=== PATIENT | female | born 1965 | race Caucasian/White ===

== ENCOUNTER → 2018-10-11 | Outpatient (CLI) | payer BC ==
[2018-10-11 15:03] VITALS: BP 159/99; PULSE 53; RESP 16; TEMP 97.9; BMI 30.8
--- NOTE | 2018-10-11 16:43 | P.HPBAR ---
Bariatric H&P - History & Physicial H&P Date: 10/11/18 History & Physicial: Visit/CC: band again or revision Patient initial contact: Initial weight: 97.522 kg Initial weight in pounds: 215.00 Height: 5 ft 10 in Initial BMI: 30.8 Last weight: Current weight: 97.522 kg Current weight in pounds: 215.00 Current BMI: 30.8 [place] body weight (based on NIH guidelines): 68.039 kg Excess body weight loss: 0.0% The patient is a 53 year-old F who presents for Bariatric Assessment. Patient presents today for LAP-BAND consultation. She had her LAP-BAND removed approximately 5 years ago. She had a gastric polyps at that time. For unclear reasons patient not did not have her band replaced at the time of her LAP-BAND removal surgery. The patient states that she has had weight gain. Past Medical History Additional Past Medical History / Comment(s): migraines History of Any Multi-Drug Resistant Organisms: None Reported Past Surgical History: Bariatric Surgery, Cholecystectomy, Hysterectomy, Tonsillectomy Additional Past Surgical History / Comment(s): lap band surgery 2007 lap band removal 2008 due to prolapse Past Anesthesia/Blood Transfusion Reactions: Postoperative Nausea & Vomiting ( PONV) Smoking Status: Never smoker Surgical - Exam Vital Signs Temp Pulse Resp BP 97.9 F 53 L 16 159/99 10/11/18 14:51 10/11/18 14:51 10/11/18 14:51 10/11/18 14:51 - General well developed, no distress - Eyes PERRL - ENT normal pinna - Neck no masses - Respiratory normal expansion - Cardiovascular Rhythm: regular - Abdomen Abdomen: soft, non tender Bariatric Assessment & Plan Plan: Obesity with BMI 31. Patient will attempt to obtain insurance authorization for LAP-BAND surgery. Bariatric Checklist Checklist: Plan: Checklist: EGD: 1. Hiatal hernia: 2. H. Pylori: HgbA1c: Vitamin D: Smoking: Never smoker Primary care physician referral: Psychiatry clearance: Cardiology clearance: Sleep study: Diet journal: VTE risk score: VTE risk level: Rehab needs at discharge:
== END | disposition home or self-care (01) ==
LOC: BARWHC3 13:17
PROVIDERS: ATTEND Surgery
DX: E66.9 Obesity, unspecified (principal); Z98.84 Bariatric surgery status; Z90.49 Acquired absence of other specified parts of digestive tract; Z90.710 Acquired absence of both cervix and uterus; Z90.89 Acquired absence of other organs; Z68.31 Body mass index [BMI] 31.0-31.9, adult
CPT/HCPCS: 99211

== ENCOUNTER → 2018-12-06 | Outpatient (CLI) | payer BC ==
[2018-12-06 12:41] LABS: Basophils % (A) 1 %; Eosinophils # (A) 0.1 k/uL (0-0.7); Eosinophils % (A) 2 %; HCT 43.1 % (34.0-46.0); HGB 14.4 gm/dL (11.4-16.0); Lymphocytes # (A) 1.9 k/uL (1.0-4.8); Lymphocytes % (A) 31 %; MCH 31.4 pg (25.0-35.0); MCHC 33.5 g/dL (31.0-37.0); MCV 93.9 fL (80.0-100.0); Mean Platelet Volume 7.8; Monocytes # (A) 0.3 k/uL (0-1.0); Monocytes % (A) 4 %; Neutrophils # (A) 3.7 k/uL (1.3-7.7); Neutrophils % (A) 60 %; Platelet Count 222 k/uL (150-450); RBC 4.59 m/uL (3.80-5.40); RDW 11.9 % (11.5-15.5); WBC 6.1 k/uL (3.8-10.6)
[2018-12-06 13:05] LABS: ALT 27 U/L (9-52); AST 21 U/L (14-36); Albumin 4.7 g/dL (3.5-5.0); Alkaline Phosphatase 63 U/L (38-126); Anion Gap 7 mmol/L; Blood Urea Nitrogen 20 mg/dL (7-17); Calcium 9.6 mg/dL (8.4-10.2); Carbon Dioxide 28 mmol/L (22-30); Chloride 105 mmol/L (98-107); Glucose 91 mg/dL (74-99); Potassium 4.6 mmol/L (3.5-5.1); Sodium 140 mmol/L (137-145); Total Bilirubin 0.5 mg/dL (0.2-1.3); Total Protein 7.9 g/dL (6.3-8.2)
== END | disposition home or self-care (01) ==
LOC: LABPAT 11:38
PROVIDERS: ATTEND Surgery
DX: Z01.812 Encounter for preprocedural laboratory examination (principal)
CPT/HCPCS: 36415; 80053; 85025

== ENCOUNTER → 2018-12-06 | Outpatient (CLI) | payer BC ==
[2018-12-06 09:47] VITALS: BMI 31.4
[2018-12-06 13:58] VITALS: BP 136/74; PULSE 75; TEMP 98.3
--- NOTE | 2018-12-06 16:07 | P.HPBAR ---
Bariatric H&P - History & Physicial H&P Date: 12/06/18 History & Physicial: Visit/CC: review/sign consent (sleeve) scheduled for 12/24/18, obtain PAT lab order Patient initial contact: Initial weight: 97.522 kg Initial weight in pounds: 215.00 Height: 5 ft 10 in Initial BMI: 30.8 Last weight: Current weight: 99.337 kg Current weight in pounds: 219.00 Current BMI: 31.4 [place] body weight (based on NIH guidelines): 68.039 kg Excess body weight loss: The patient is a 53 year-old F who presents for Bariatric Assessment. The patient presents today for presurgical gastric sleeve consultation. She is currently scheduled for sleeve gastrectomy at the end of the month. Patient a previous history of LAP-BAND surgery. Her band was removed due to reflux and dysphagia. Patient has extremely good understanding of the sleeve gastrectomy. Went over the risks and benefits of procedure again. I discussed the possibility of conversion to open procedure and injury to the stomach liver spleen. I discussed with possibility of gastric staple line disruption. Patient's had some mild GERD. Past Medical History Additional Past Medical History / Comment(s): migraines History of Any Multi-Drug Resistant Organisms: None Reported Past Surgical History: Bariatric Surgery, Cholecystectomy, Hysterectomy, Tonsillectomy Additional Past Surgical History / Comment(s): lap band surgery 2007 lap band removal 2008 due to prolapse Past Anesthesia/Blood Transfusion Reactions: Postoperative Nausea & Vomiting ( PONV) Past Psychological History: No Psychological Hx Reported Smoking Status: Never smoker Past Alcohol Use History: Occasional Past Drug Use History: None Reported Surgical - Exam Vital Signs Temp Pulse BP 98.3 F 75 136/74 12/06/18 09:23 12/06/18 09:23 12/06/18 09:23 - General well developed, no distress - Eyes PERRL - ENT normal pinna - Neck no masses - Respiratory normal expansion - Cardiovascular Rhythm: regular - Abdomen Abdomen: soft, non tender Bariatric Assessment & Plan Plan: Patient will be scheduled for sleeve gastrectomy in several weeks. Her GERD is minimal be observed. Bariatric Checklist Checklist: Plan: Checklist: EGD: 1. Hiatal hernia: 2. H. Pylori: HgbA1c: Vitamin D: Smoking: Never smoker Primary care physician referral: Tim Lernero) Psychiatry clearance: Cardiology clearance: Sleep study: Diet journal: VTE risk score: VTE risk level: Rehab needs at discharge:
== END | disposition home or self-care (01) ==
LOC: BARWHC3 08:25
PROVIDERS: ATTEND Surgery
DX: E66.01 Morbid (severe) obesity due to excess calories (principal); Z68.31 Body mass index [BMI] 31.0-31.9, adult
CPT/HCPCS: 97804; 99211

== ENCOUNTER 2018-12-24 07:39 | Inpatient (IN) | payer BC ==
[~2018-12-24 07:39] MED LIST: DEXAMETHASONE SOD PHOSPHATE 10 MG/ML 1 ML VIAL IV ONE; HYDROmorphone 0.5 MG/0.5 ML SYRINGE IVP PRN; MIDAZOLAM 2 MG/2 ML VIAL IV PRN; ONDANSETRON 4 MG/2 ML VIAL IVP ONE; SCOPOLAMINE 1.5MG/72HR PATCH TRANSDERM ONE; ceFAZolin IN SWFI 2 GM/20 ML SYRINGE IVP ONE
[2018-12-24] MEDS: LACTATED RINGERS 1,000 ML IV SCH (08:48)
[2018-12-24] MEDS ORDERED: LIDOCAINE 1% 20 ML VIAL (10MG/ML) FOR IV START SQ ONE (08:48)
--- NOTE | 2018-12-24 10:36 | P.GSHP ---
History of Present Illness H&P Date: 12/24/18 Chief Complaint: Morbid obesity, history of dysphagia and GERD This is a 53-year-old female with previous history of LAP-BAND surgery. The patient had her LAP-BAND removed secondary to GERD and dysphagia. Patient presents today for conversion to sleeve gastrectomy. Past Medical History Additional Past Medical History / Comment(s): migraines, varicose veins, hx kidney stones History of Any Multi-Drug Resistant Organisms: None Reported Past Surgical History: Bariatric Surgery, Cholecystectomy, Hysterectomy, Tonsillectomy Additional Past Surgical History / Comment(s): lap band surgery 2007 lap band removal 2008 due to prolapse, I&D of cyst on genital area(not sure what type of infection), picc line/later removed Past Anesthesia/Blood Transfusion Reactions: Family History of Problems w/ Anesthesia, Motion Sickness, Postoperative Nausea & Vomiting (PONV) Additional Past Anesthesia/Blood Transfusion Reaction / Comment(s): mother-" hard time waking up" Smoking Status: Never smoker - Past Family History Mother Family Medical History: Cancer, Deep Vein Thrombosis (DVT) Medications and Allergies Home Medications Medication Instructions Recorded Confirmed Type Butalb/Asprin/Caff 50-325-40Mg 1 cap PO DIRECTED PRN 10/11/18 12/24/18 History [Fiorinal 50-325-40 MG] Estrogens, Conjugated [Premarin] 0.625 mg PO DAILY 12/21/18 12/24/18 History Allergies Allergy/AdvReac Type Severity Reaction Status Date / Time ciprofloxacin [From Cipro] Allergy Rash/Hives Verified 12/21/18 10:39 Penicillins Allergy Unknown Verified 12/21/18 10:39 Childhood Sulfa (Sulfonamide Allergy Rash/Hives Verified 12/21/18 10:39 Antibiotics) Surgical - Exam Vital Signs Temp Pulse Resp BP Pulse Ox 98.3 F 89 16 133/76 98 12/24/18 08:32 12/24/18 08:32 12/24/18 08:32 12/24/18 08:32 12/24/18 08:32 - General well developed, no distress - Eyes PERRL - ENT normal pinna - Neck no masses - Respiratory normal expansion - Cardiovascular Rhythm: regular - Abdomen Abdomen: soft, non tender Assessment and Plan Assessment: History of morbid obesity, GERD and,. Dysphagia. We'll perform a sleeve gastrectomy. Patient aware the risks are including gastric staple line disruption, bleeding and scarring.
[2018-12-24] MEDS ORDERED: HYDROmorphone (PF) 1 MG/ML ONE (11:05)
[2018-12-24] MEDS ORDERED: PROPOFOL 10 MG/ML 20 ML VIAL IV ONE (11:05)
[2018-12-24] MEDS ORDERED: KETAMINE 10 MG/ML 20 ML VIAL ONE (11:05)
[2018-12-24] MEDS ORDERED: LIDOCAINE 1% INJ 10MG/ML (20 ML MDV) ONE (11:05)
[2018-12-24] MEDS ORDERED: fentaNYL (PF) 50 MCG/ML 2 ML AMP ONE (11:05)
[2018-12-24] MEDS ORDERED: NEOSTIGMINE 1 MG/ML 10 ML VIAL ONE (11:05)
[2018-12-24] MEDS ORDERED: MIDAZOLAM 2 MG/2 ML VIAL ONE (11:05)
[2018-12-24] MEDS ORDERED: KETOROLAC 30 MG/ML 1 ML VIAL ONE (11:05)
[2018-12-24] MEDS ORDERED: GLYCOPYRROLATE 0.2 MG/ML 2 ML VIAL ONE (11:05)
[2018-12-24] MEDS ORDERED: ROCURONIUM BROMIDE 10 MG/ML 10 ML VIAL IV ONE (11:05)
[2018-12-24] MEDS ORDERED: SUCCINYLCHOLINE CHLORIDE 100 MG/5 ML SYR IV ONE (11:05)
[2018-12-24] MEDS ORDERED: BUPIVACAIN-EPI 0.25%-1:200,000 30 ML VIAL SQ ONE (11:29)
[2018-12-24] MEDS ORDERED: ONDANSETRON 4 MG/2 ML VIAL IVP PRN (12:34)
[2018-12-24] MEDS ORDERED: NALOXONE 0.4 MG/ML 1 ML VIAL IV PRN (12:34)
--- NOTE | 2018-12-24 12:34 | P.OP ---
Date of Procedure: 12/24/18 Preoperative Diagnosis: History of morbid obesity GERD Dysphagia Postoperative Diagnosis: Morbid obesity GERD dysphagia Procedure(s) Performed: Laparoscopic sleeve gastrectomy Anesthesia: MARIA T Surgeon: Colby Moore Estimated Blood Loss (ml): 10 Pathology: other (Stomach) Condition: stable Disposition: PACU Description of Procedure: The patient was placed on the operating room table in the supine position. She received general anesthesia and then was placed in dorsal lithotomy position. Her abdomen was prepped and draped in sterile fashion. The skin incision sites were anesthetized 1% local Xylocaine. And then the skin was incised with an 11 blade in the left lateral position. Using a blade less trocar under direct visualization the peritoneal cavity was entered. The abdomen was insufflated and then a 5 mm laparoscope was placed into the peritoneal cavity. A 5 mm trocar was placed in the right epigastric, and right lateral position. A 15 mm trocar was placed in the supra-umbilical position and another 5 mm trocar was placed in the left lateral position. The left lateral lobe of the liver was retracted. The stomach was visualized. The patient a previous LAP-BAND. This had been previously removed. The anterior gastric wall plication was taken down with sharp dissection. The adhesions to the stomach and liver were taken and sharp dissection. The graft The greater curvature of the stomach was then dissected using the Harmonic scissors. The dissection occurred approximately 5 cm from the pylorus to the level of the left kaylene. There was no hiatal hernia seen. At this point a 40-Japanese bougie dilator was placed the oropharynx and passed into the esophagus and into the stomach by the DATA ENTRY ASSISTANT. The sleeve gastrectomy was performed by using the powered echelon stapler with a seam guard buttress material. Sequential firings of the stapler were performed. The gastric remnant was then brought out through the 15 mm trocar site. The dilator was withdrawn. And a orogastric tube was replaced into the stomach. The stomach was insufflated with 200 mL of methylene blue normal saline. There was no evidence of extravasation. The abdomen was irrigated there is no bleeding seen. The Usman-Elfego device was used to close the 15 mm trocar with 0 Vicryl. Skin was closed with interrupted 3-0 Monocryl sutures once the trochars withdrawn. Dermabond dressing was applied. Patient was sent to recovery in stable condition.
[2018-12-24] MEDS ORDERED: ONDANSETRON 4 MG/2 ML VIAL IVP ONE (13:04)
[2018-12-24] MEDS ORDERED: diphenhydrAMINE 50 MG/ML 1 ML VIAL IVP ONE (13:30)
[2018-12-24] MEDS ORDERED: LACTATED RINGERS 1,000 ML IV ONE ×2 (13:35)
[2018-12-24] MEDS ORDERED: PROMETHAZINE INJ 25 MG/ML 1 ML VIAL IVPB ONE (13:44)
[2018-12-24] MEDS ORDERED: TRIMETHOBENZAMIDE 100 MG/ML 2 ML VIAL IM STA (14:50)
--- NOTE | 2018-12-24 15:03 | P.CONS ---
History of Present Illness - Reason for Consult Consult date: 12/24/18 arthritis Requesting physician: Colby Moore - Chief Complaint weight gain - History of Present Illness Patient is a 53yo CF with a hx of arthritis, severe GERD, migraine KELLEY, and obesity here for elective sleeve gastrectomy. She tolerated the procedure well but has been having significant post-op nausea and vomiting. Patient seen and examined at bedside. She was just admitted to her room after sleep gastrectomy. She complains of persistent nausea and vomiting despite administration of Zofran, Benadryl, and scopolamine. She also complains of 10 out of 10 esophageal pain and states it feels like it is twisting. She denies any abdominal pain, cramping, or bloating. She denies any chest pain or shortness of breath. Prior to surgery she was in her normal state of health. She has not had any recent cough, cold, fever, flu, nausea, vomiting, diarrhea, or dysuria. She follows with Dr. Hardwick out of [facility]. She denies any recent changes in medications. She had a lap band procedure approximately 10 years ago and had to have reversal secondary to severe GERD and difficulty swallowing. She works for [employer]. Review of Systems Pertinent positives and negatives as discussed in HPI, a complete review of systems was performed and all other systems are negative. Past Medical History Additional Past Medical History / Comment(s): migraines, varicose veins, hx kidney stones, history of difficulty with postoperative nausea and vomiting History of Any Multi-Drug Resistant Organisms: None Reported Past Surgical History: Bariatric Surgery, Cholecystectomy, Hysterectomy, Tonsillectomy Additional Past Surgical History / Comment(s): lap band surgery 2007 lap band removal 2008 due to prolapse, I&D of cyst on genital area(not sure what type of infection), picc line/later removed Past Anesthesia/Blood Transfusion Reactions: Family History of Problems w/ Anesthesia, Motion Sickness, Postoperative Nausea & Vomiting (PONV) Additional Past Anesthesia/Blood Transfusion Reaction / Comm: mother-"hard time waking up" Smoking Status: Never smoker Past Alcohol Use History: Occasional Past Drug Use History: None Reported Additional History: Works for [employer]. Lives with her spouse. No assistive devices. - Past Family History Mother Family Medical History: Cancer, Deep Vein Thrombosis (DVT) Medications and Allergies Home Medications Medication Instructions Recorded Confirmed Type Butalb/Asprin/Caff 50-325-40Mg 1 cap PO DIRECTED PRN 10/11/18 12/24/18 History [Fiorinal 50-325-40 MG] Estrogens, Conjugated [Premarin] 0.625 mg PO DAILY 12/21/18 12/24/18 History Allergies Allergy/AdvReac Type Severity Reaction Status Date / Time ciprofloxacin [From Cipro] Allergy Rash/Hives Verified 12/24/18 13:34 Penicillins Allergy Unknown Verified 12/24/18 13:34 Childhood Sulfa (Sulfonamide Allergy Rash/Hives Verified 12/24/18 13:34 Antibiotics) Physical Exam Osteopathic Statement: *. No significant issues noted on an osteopathic structural exam other than those noted in the History and Physical/Consult. Vitals: Vital Signs Temp Pulse Resp BP Pulse Ox 12/24/18 13:54 88 16 151/76 95 12/24/18 13:39 86 16 155/63 95 12/24/18 13:24 89 16 150/89 96 12/24/18 13:09 90 16 152/86 96 12/24/18 12:54 95 16 164/89 96 12/24/18 12:39 97.1 F L 109 H 16 178/92 99 12/24/18 08:32 98.3 F 89 16 133/76 98 Intake and Output 12/23/18 12/24/18 12/24/18 22:59 06:59 14:59 Intake Total 1300 Output Total 5 Balance 1295 Intake: IV 1300 Output: Estimated Blood Loss 5 Other: Weight 96.162 kg General: Ill appearing, mild distress secondary to pain and nausea, appears at stated age, obese Derm: no unusual rashes/lesions no unusual ecchymoses, warm, dry Head: atraumatic, normocephalic, symmetric Eyes: EOMI, no lid lag, anicteric sclera, pupils equal round reactive to light ENT: Nose and ears atraumatic, no thrush, no pharyngeal erythema Neck: No thyromegaly, no cervical lymphadenopathy, trachea midline, supple Mouth: no lip lesion, mucus membranes dry Cardiovascular: S1-S2 tachy, no murmur, positive posterior tibial pulse bilateral, no edema, capillary refill less than 2 seconds Lungs: Decreased breath sounds bilateral, no rhonchi, no rales , no accessory muscle use Abdominal: soft, tender to palpation diffusely, no guarding, no appreciable organomegaly, normal bowel sounds Ext: no gross muscle atrophy, muscle strength 5 out of 5 in all 4 extremities grossly, no contractures, Neuro: CN II-XI grossly intact, light touch intact all 4 extremities, finger to nose within normal limits, Psych: Lethargic, oriented, appropriate affect Results Comments: Preoperative lab work reviewed. White blood cell count 6.1, hemoglobin 14.4, hematocrit 43.1, platelets 222, sodium 140, potassium 4.6, chloride 105, CO2 28 , anion gap 7, BUN 20, creatinine 0.7, glucose 91 Assessment and Plan Assessment: Postoperative nausea and vomiting -Tigan 1 -If does not help contact surgeon for further orders, could consider ativan trial if patient is not to sleepy -Has tried 8 mg of Zofran, Benadryl, Decadron, and scopolamine patch Hx of migraine headaches - hold fioricet due to need of pain medication Arthritis - frequent ambulation Status post sleeve gastrectomy secondary to obesity -At this point in time patient will be hypercoagulable secondary to surgery was hold Premarin tablets -Management per primary team Thank you for allowing us to participate in the care of this patient. We will follow daily. Do not hesitate to contact us with questions. Someone can be reached from the [facility] hospitalist group at all hours of the day at [phone]. Patient is on the red team [phone]. DVT: lovenox
[2018-12-24] MEDS: SIMETHICONE 40 MG/0.6 ML DROPS 2,000 MG/30 ML BOTTLE PO PRN (15:50)
[2018-12-24] MEDS: HYOSCYAMINE ORAL DROPS 1.875 MG/15 ML BOTTLE PO PRN (15:52)
[2018-12-24] MEDS: ALBUTEROL NEBULIZED 2.5 MG/3 ML INHALATION SCH ×2 (16:51→19:56)
[2018-12-24] MEDS: KETOROLAC 30 MG/ML 1 ML VIAL IVP SCH ×2 (17:43→23:21)
[2018-12-24] MEDS: METOCLOPRAMIDE 5 MG/ML 2 ML VIAL IVP PRN (18:28)
[2018-12-24] MEDS: 0.9% NACL WITH KCL 20 MEQ/L 1,000 ML IV SCH ×2 (20:00→20:15)
[2018-12-24] MEDS: HYDROmorphone 1 MG/ML 1 ML SYRINGE IVP PRN (20:08)
[2018-12-24] MEDS: ENOXAPARIN 40 MG/0.4 ML SYRINGE SQ SCH (20:08)
[2018-12-24] MEDS: ONDANSETRON 4 MG/2 ML VIAL IVP PRN (21:50)
[2018-12-25] MEDS: ONDANSETRON 4 MG/2 ML VIAL IVP PRN ×3 (00:51→21:43)
[2018-12-25] MEDS: HYOSCYAMINE ORAL DROPS 1.875 MG/15 ML BOTTLE PO PRN ×2 (00:51→10:00)
[2018-12-25] MEDS: SIMETHICONE 40 MG/0.6 ML DROPS 2,000 MG/30 ML BOTTLE PO PRN (00:52)
[2018-12-25] MEDS: 0.9% NACL WITH KCL 20 MEQ/L 1,000 ML IV SCH (03:56)
[2018-12-25] MEDS: KETOROLAC 30 MG/ML 1 ML VIAL IVP SCH ×3 (05:00→21:43)
[2018-12-25] MEDS: LACTATED RINGERS 1,000 ML IV SCH (07:08)
[2018-12-25] MEDS: ALBUTEROL NEBULIZED 2.5 MG/3 ML INHALATION SCH ×3 (08:14→21:31)
[2018-12-25 09:00] LABS: Basophils % (A) 0 %; Eosinophils # (A) 0.1 k/uL (0-0.7); Eosinophils % (A) 1 %; HCT 38.4 % (34.0-46.0); HGB 12.8 gm/dL (11.4-16.0); Lymphocytes # (A) 0.8 k/uL (1.0-4.8); Lymphocytes % (A) 8 %; MCH 31.5 pg (25.0-35.0); MCHC 33.2 g/dL (31.0-37.0); MCV 94.9 fL (80.0-100.0); Mean Platelet Volume 7.6; Monocytes # (A) 0.4 k/uL (0-1.0); Monocytes % (A) 4 %; Neutrophils # (A) 8.6 k/uL (1.3-7.7); Neutrophils % (A) 86 %; Platelet Count 242 k/uL (150-450); RBC 4.05 m/uL (3.80-5.40)
--- NOTE | 2018-12-25 09:00 | FL ---
EXAMINATION TYPE: FL UGI DATE OF EXAM ORDERED: 12/25/2018 8:32 AM HISTORY: Post op bariatric surgery. COMPARISON: None. FINDINGS: The patient drank contrast with ease. There was a high-grade obstruction at the level of t he GE junction. No contrast seen distal to this. No significant free air was seen. No extravasation w as identified. IMPRESSION: HIGH-GRADE GE JUNCTION OBSTRUCTION.
[2018-12-25 09:15] LABS: Anion Gap 8 mmol/L; Blood Urea Nitrogen 13 mg/dL (7-17); Calcium 9.1 mg/dL (8.4-10.2); Carbon Dioxide 20 mmol/L (22-30); Chloride 113 mmol/L (98-107); Magnesium 1.9 mg/dL (1.6-2.3); Phosphorus 2.7 mg/dL (2.5-4.5); Potassium 4.7 mmol/L (3.5-5.1); Sodium 141 mmol/L (137-145)
[2018-12-25] MEDS ORDERED: TRIMETHOBENZAMIDE 100 MG/ML 2 ML VIAL IM STA (09:41)
[2018-12-25] MEDS ORDERED: LACTATED RINGERS 1,000 ML IV ONE (10:00)
[2018-12-25] MEDS: ENOXAPARIN 40 MG/0.4 ML SYRINGE SQ SCH ×2 (10:00→21:43)
--- NOTE | 2018-12-25 11:53 | P.PN ---
Subjective Progress Note Date: 12/25/18 Principal diagnosis: Morbid obesity, sleeve gastrectomy The patient underwent sleeve gastrectomy yesterday. She had significant postoperative nausea. She had some emesis. She still has continued complaints of nausea. Patient had her esophagram performed today which shows evidence of high-grade obstruction near the GE junction. This is most likely due to postoperative edema. She states her pain is a 4 out of 10. Objective - Vital Signs Vital signs: Vital Signs Temp 98.4 F 12/24/18 23:00 Pulse 97 12/25/18 02:56 Resp 16 12/24/18 23:00 BP 150/77 12/25/18 02:56 Pulse Ox 100 12/25/18 03:21 Intake & Output 12/24/18 12/25/18 12/25/18 18:59 06:59 18:59 Intake Total 1300 1500 Output Total 5 2400 Balance 1295 -900 Weight 96.162 kg Intake: IV 1300 Intake, IV Titration 1500 Amount 0.9% NaCl with KCl 20 Meq 1500 /l 1,000 ml @ 150 mls/hr IV .Q6H40M [facility] Rx#: [id number] Output: Urine 1800 Uretheral (Nagy) 1200 Post Void Residual 600 Estimated Blood Loss 5 - Constitutional General appearance: Present: no acute distress - Gastrointestinal Gastrointestinal Comment(s): Abdomen soft. Incision sites are clean dry tach. - Labs CBC & Chem 7: 12/25/18 08:41 12/25/18 08:41 Labs: Abnormal Lab Results - Last 24 Hours (Table) 12/25/18 12/25/18 Range/Units 08:41 08:41 Neutrophils # 8.6 H (1.3-7.7) k/uL Lymphocytes # 0.8 L (1.0-4.8) k/uL Chloride 113 H (98-107) mmol/L Carbon Dioxide 20 L (22-30) mmol/L Assessment and Plan Assessment: Status post sleeve stricture. Patient's esophagram today shows evidence of a fairly high-grade obstruction near the GE junction this is thought to be due to mainly postoperative edema. Her sleeve gastrectomy was performed over a 40- Italian bougie dilator. The patient will remain nothing by mouth today. She'll undergo repeat esophagram tomorrow.
--- NOTE | 2018-12-25 11:53 | P.PN ---
Subjective Progress Note Date: 12/25/18 Principal diagnosis: nausea Patient is a 53yo CF with a hx of arthritis, severe GERD, migraine KELLEY, and obesity here for elective sleeve gastrectomy. She tolerated the procedure well but has been having significant post-op nausea and vomiting. On 12/25 Upper GI shows high grade obstruction near GE junction likely due to edema per surgery. Patient seen and examined at bedside. Still with nausea and vomiting. Tigan seemed to help the most yesterday and we will try another dose today. C/O retrosternal pain that feels like a tightness and squeezing. No shortness of breath or chest pain. Has not passed any gas. Objective - Vital Signs Vital signs: Vital Signs Temp 98.4 F 12/24/18 23:00 Pulse 97 12/25/18 02:56 Resp 16 12/24/18 23:00 BP 150/77 12/25/18 02:56 Pulse Ox 100 12/25/18 03:21 Intake & Output 12/24/18 12/25/18 12/25/18 18:59 06:59 18:59 Intake Total 1300 1500 Output Total 5 2400 Balance 1295 -900 Weight 96.162 kg Intake: IV 1300 Intake, IV Titration 1500 Amount 0.9% NaCl with KCl 20 Meq 1500 /l 1,000 ml @ 150 mls/hr IV .Q6H40M [facility] Rx#: [id number] Output: Urine 1800 Uretheral (Nagy) 1200 Post Void Residual 600 Estimated Blood Loss 5 - Exam General: ill appearing, mild distress, diaphoretic appears at stated age Derm: warm, dry Head: atraumatic, normocephalic, symmetric Eyes: EOMI, no lid lag, anicteric sclera Mouth: no lip lesion, mucus membranes moist Cardiovascular: S1S2 reg, no murmur, positive posterior tibial pulse bilateral, Lungs: decreased bs bilateral, no rhonchi, no rales , no accessory muscle use Abdominal: soft, nontender to palpation, no guarding, no appreciable organomegaly Ext: no gross muscle atrophy, no edema, no contractures Neuro: CN II-XI grossly intact, no focal neuro deficits Psych: Alert, oriented, appropriate affect - Labs CBC & Chem 7: 12/25/18 08:41 12/25/18 08:41 Labs: Abnormal Lab Results - Last 24 Hours (Table) 12/25/18 12/25/18 Range/Units 08:41 08:41 Neutrophils # 8.6 H (1.3-7.7) k/uL Lymphocytes # 0.8 L (1.0-4.8) k/uL Chloride 113 H (98-107) mmol/L Carbon Dioxide 20 L (22-30) mmol/L Assessment and Plan Assessment: Postoperative nausea and vomiting -Tigan 1 again today -Zofran doesn't seem to be helping per patient, could also try ativan - IVF 1L bolus ordered per surgery Elevated BP without diagnosis of HTN - follow BP - likely related to post op pain/discomfort. If remains elevates once pain and nausea improved then could consider treatment with medication - will need to follow with PCP post discharge for further recs. Hx of migraine headaches - hold fioricet due to need of pain medication Arthritis - frequent ambulation Status post sleeve gastrectomy secondary to obesity -At this point in time patient will be hypercoagulable secondary to surgery was hold Premarin tablets -Management per primary team DVT: lovenox
[2018-12-26] MEDS: KETOROLAC 30 MG/ML 1 ML VIAL IVP SCH ×3 (00:41→13:27)
[2018-12-26] MEDS: METOCLOPRAMIDE 5 MG/ML 2 ML VIAL IVP PRN ×3 (00:42→19:03)
[2018-12-26] MEDS: ONDANSETRON 4 MG/2 ML VIAL IVP PRN ×3 (03:37→15:01)
[2018-12-26] MEDS: HYDROmorphone 1 MG/ML 1 ML SYRINGE IVP PRN ×3 (03:37→20:32)
[2018-12-26] MEDS: LACTATED RINGERS 1,000 ML IV SCH (06:16)
[2018-12-26 08:30] LABS: Anion Gap 6 mmol/L; Blood Urea Nitrogen 15 mg/dL (7-17); Calcium 8.8 mg/dL (8.4-10.2); Carbon Dioxide 22 mmol/L (22-30); Chloride 115 mmol/L (98-107); Glucose 113 mg/dL (74-99); Magnesium 2.2 mg/dL (1.6-2.3); Potassium 4.6 mmol/L (3.5-5.1); Sodium 143 mmol/L (137-145)
[2018-12-26] MEDS: ALBUTEROL NEBULIZED 2.5 MG/3 ML INHALATION SCH ×4 (08:50→20:11)
[2018-12-26] MEDS: ENOXAPARIN 40 MG/0.4 ML SYRINGE SQ SCH ×2 (09:38→20:32)
--- NOTE | 2018-12-26 12:42 | P.PN ---
Subjective Progress Note Date: 12/26/18 Principal diagnosis: nausea Patient is a 53yo CF with a hx of arthritis, severe GERD, migraine KELLEY, and obesity here for elective sleeve gastrectomy. She tolerated the procedure well but has been having significant post-op nausea and vomiting. On 12/25 Upper GI shows high grade obstruction near GE junction likely due to edema per surgery. Patient seen and examined at bedside. Nausea and vomiting are getting better. Still spitting up every time she has ice chips. No real abdominal pain but still feeling fullness in the retrosternal area. Still no flatus or BM since surgery Objective - Vital Signs Vital signs: Vital Signs Temp 98.8 F 12/26/18 09:49 Pulse 69 12/26/18 09:49 Resp 16 12/26/18 09:51 BP 165/84 12/26/18 09:49 Pulse Ox 96 12/26/18 09:49 Intake & Output 12/25/18 12/26/18 12/26/18 18:59 06:59 18:59 Intake Total 1931.2 Balance 1931.2 Intake: Intake, IV Titration 1811.2 Amount 0.9% NaCl with KCl 20 Meq 800 /l 1,000 ml @ 100 mls/hr IV .BY DURATION [facility] Rx#: [id number] Mvi, Adult No.4 with Vit 1011.2 K 10 ml Thiamine 100 mg Folic Acid 1 mg In 0.9% NaCl with KCl 20 Meq/l 1, 000 ml @ 100 mls/hr IV . BY DURATION [facility] Rx#: [id number] Oral 120 Other: Voiding Method Toilet Toilet # Voids 2 - Exam General: non toxic, no distress, appears at stated age Derm: warm, dry Head: atraumatic, normocephalic, symmetric Eyes: EOMI, no lid lag, anicteric sclera Mouth: no lip lesion, mucus membranes moist Cardiovascular: S1S2 reg, no murmur, positive posterior tibial pulse bilateral, Lungs: CTA bilateral, no rhonchi, no rales , no accessory muscle use Abdominal: soft, nontender to palpation, no guarding, no appreciable organomegaly Ext: no gross muscle atrophy, no edema, no contractures Neuro: CN II-XI grossly intact, no focal neuro deficits Psych: Alert, oriented, appropriate affect - Labs CBC & Chem 7: 12/25/18 08:41 12/26/18 06:41 Labs: Abnormal Lab Results - Last 24 Hours (Table) 12/26/18 Range/Units 06:41 Chloride 115 H (98-107) mmol/L Glucose 113 H (74-99) mg/dL Assessment and Plan Assessment: Postoperative nausea and vomiting, improving -zofran as needed Elevated BP without diagnosis of HTN - follow BP - likely related to post op pain/discomfort. - will need to follow with PCP post discharge for further recs. Hx of migraine headaches - hold fioricet due to need of pain medication Arthritis - frequent ambulation Status post sleeve gastrectomy secondary to obesity -At this point in time patient will be hypercoagulable secondary to surgery was hold Premarin tablets -Management per primary team DVT: lovenox
[2018-12-26] MEDS: DEXAMETHASONE SOD PHOSPHATE 4 MG/ML 1 ML VIAL IV SCH ×3 (13:34→20:32)
--- NOTE | 2018-12-26 14:54 | P.PN ---
Progress Note - Text Progress Note Date: 12/26/18 The patient states she feels better today. Her nausea is improved. She has had some ice chips. On exam her vital signs are stable. Her abdomen soft. The patient was scheduled for an esophagram this morning. However the radiologist was ill and was unable to come in and perform the esophagram. I performed a limited esophagram this afternoon. The patient still has significant obstruction just below the GE junction. There was a small wisp of contrast seen entering the sleeve. However this was quite delayed. The patient has postoperative edema of her gastric sleeve. She'll be placed on Decadron 4 mg IV every 4 hours around the clock. We will repeat her esophagram in the a.m.
--- NOTE | 2018-12-26 15:28 | FL ---
SINGLE CONTRAST ESOPHAGRAM AND UPPER GI EXAMINATION: CLINICAL HISTORY: 53-year-old female status post sleeve gastrectomy, follow-up exam. TECHNIQUE: Single contrast exam performed with 1 ounce Isovue-370 contrast. Total images: 3 Total fluoroscopy time: 1 minute 17 seconds. FINDINGS: The patient swallowed Gastrografin without difficulty or delay. Only a total of 1 ounce was ingested and was seen to prominently pulled in the lower esophagus. Only trickle flow is seen traversing the G E junction into the stomach. The trickle flow is minimally improved from 12/25/2018. No overall limite d progress of contrast limits assessment for leak. IMPRESSION: Persistent severe obstruction at the GE junction. Only 1 ounce of contrast was ingested and remained above the GE junction. Only trace trickle flow is noted into the stomach which translates as some min imal improvement from the exam performed yesterday. Note that the 3 provided images are interpreted. Real-time fluoroscopy was performed by the surgeon.
[2018-12-27] MEDS: METOCLOPRAMIDE 5 MG/ML 2 ML VIAL IVP PRN (00:26)
[2018-12-27] MEDS: DEXAMETHASONE SOD PHOSPHATE 4 MG/ML 1 ML VIAL IV SCH ×6 (00:27→20:41)
[2018-12-27] MEDS: HYDROmorphone 1 MG/ML 1 ML SYRINGE IVP PRN ×3 (00:27→16:24)
[2018-12-27] MEDS: LACTATED RINGERS 1,000 ML IV SCH (05:33)
[2018-12-27] MEDS: ONDANSETRON 4 MG/2 ML VIAL IVP PRN (05:53)
[2018-12-27] MEDS: ALBUTEROL NEBULIZED 2.5 MG/3 ML INHALATION SCH ×4 (07:39→19:57)
[2018-12-27 08:57] VITALS: BMI 30.4
--- NOTE | 2018-12-27 10:58 | P.PN ---
Subjective Progress Note Date: 12/27/18 HISTORY OF PRESENT ILLNESS: 53-year-old female who underwent laparoscopic sleeve gastrectomy. The patient states her pain is tolerable at this time. She does complain of some nausea this morning. She is on IV Decadron for edema of her sleeve. She is scheduled for repeat esophagram this morning. PHYSICAL EXAM: VITAL SIGNS: Currently stable. GENERAL: Well-developed in no acute distress. HEENT: No sclera icterus. Extraocular movements grossly intact. Moist buccal mucosa. Head is atraumatic, normocephalic. Hears conversational speech. No nasal drainage. NECK: Supple without lymphadenopathy. CHEST: Non-labored respirations and equal bilateral excursions. CARDIOVASCULAR: Regular rate with regular rhythm. Palpable 2+ radial pulses. ABDOMEN: Soft. Nondistended. Incisions clean and dry without drainage. MUSCULOSKELETAL: No clubbing, cyanosis or edema. NEUROLOGIC: No focal or lateralizing signs. Cranial nerves II through XII grossly intact. PSYCH: Appropriate affect. Alert and oriented to person, place and time. SKIN: Well perfused. Good skin turgor. ASSESSMENT: 1. Status post laparoscopic sleeve gastrectomy PLAN: 1. Continue ice chips at this time 2. Continue IV Decadron 3. Patient scheduled for repeat esophagram this morning. Await results Nurse practitioner note has been reviewed by physician. Signing provider agrees with the documented findings, assessment, and plan of care. Objective - Vital Signs Vital signs: Vital Signs Temp 99.0 F 12/27/18 10:54 Pulse 58 L 12/27/18 10:54 Resp 16 12/27/18 10:54 BP 147/81 12/27/18 10:54 Pulse Ox 92 L 12/27/18 10:54 Intake & Output 12/26/18 12/27/18 12/27/18 18:59 06:59 18:59 Intake Total 2010. 800 Balance 800 Weight 96.162 kg Intake: Intake, IV Titration 800 Amount 0.9% NaCl with KCl 20 Meq 1000 /l 1,000 ml @ 100 mls/hr IV .BY DURATION [facility] Rx#: [id number] 0.9% NaCl with KCl 20 Meq 800 /l 1,000 ml @ 150 mls/hr IV .Q6H40M [facility] Rx#: [id number] Mvi, Adult No.4 with Vit 1011.2 K 10 ml Thiamine 100 mg Folic Acid 1 mg In 0.9% NaCl with KCl 20 Meq/l 1, 000 ml @ 100 mls/hr IV . BY DURATION [facility] Rx#: [id number] Other: Voiding Method Toilet # Voids 2 2 - Labs CBC & Chem 7: 12/25/18 08:41 12/26/18 06:41
[2018-12-27] MEDS: ENOXAPARIN 40 MG/0.4 ML SYRINGE SQ SCH ×2 (11:01→20:41)
--- NOTE | 2018-12-27 12:19 | P.PN ---
Subjective Progress Note Date: 12/27/18 Principal diagnosis: Nausea and vomiting. Patient was seen and examined. No acute events overnight. Not passing gas and no bowel movement since surgery. Improved nausea and no vomiting. Taking sips from a Popsicle this morning. Recently underwent upper GI series. Objective - Vital Signs Vital signs: Vital Signs Temp 99.0 F 12/27/18 10:54 Pulse 58 L 12/27/18 10:54 Resp 16 12/27/18 10:54 BP 147/81 12/27/18 10:54 Pulse Ox 92 L 12/27/18 10:54 Intake & Output 12/26/18 12/27/18 12/27/18 18:59 06:59 18:59 Intake Total 2010.2 800 Balance 800 Weight 96.162 kg Intake: Intake, IV Titration 800 Amount 0.9% NaCl with KCl 20 Meq 1000 /l 1,000 ml @ 100 mls/hr IV .BY DURATION [facility] Rx#: [id number] 0.9% NaCl with KCl 20 Meq 800 /l 1,000 ml @ 150 mls/hr IV .Q6H40M [facility] Rx#: [id number] Mvi, Adult No.4 with Vit 1011.2 K 10 ml Thiamine 100 mg Folic Acid 1 mg In 0.9% NaCl with KCl 20 Meq/l 1, 000 ml @ 100 mls/hr IV . BY DURATION [facility] Rx#: [id number] Other: Voiding Method Toilet # Voids 2 2 - Exam General: [non toxic], [no distress], [appears at stated age] Derm: [warm], [dry] Head: [atraumatic], [normocephalic], [symmetric] Eyes: [EOMI], [no lid lag], [anicteric sclera] Mouth: [no lip lesion], [mucus membranes moist] Cardiovascular: [S1S2 reg], [no murmur] Lungs: [CTA bilateral], [no rhonchi, no rales] , [no accessory muscle use] Abdominal: [soft], [ nontender to palpation], [no guarding], [no appreciable organomegaly] Ext: [no gross muscle atrophy], [no edema], [no contractures] Neuro: [no focal neuro deficits] Psych: [Alert], [oriented], [appropriate affect] - Labs CBC & Chem 7: 12/25/18 08:41 12/26/18 06:41 Assessment and Plan Assessment: Assessment and Plan 1. Post operative nausea and vomiting 2. Elevated BP 3. Migraines 4. Arthritis 5. s/p gastric sleeve 1. Likely due to high-grade obstruction near the GE junction, likely due to postoperative edema. Started on Decadron formoterol grams IV every 4 hours. Continue Reglan IV as needed, Zofran IV as needed for nausea or vomiting. Simethicone for bloating. Clear liquid diet and advance as tolerated. Will follow-up per GI barium swallow this morning. Follow surgical recommendations. 2. BP 147/81. Monitor vitals, adjust medications as necessary. 3. Stable. Pain management with [place], Dilantin IV as needed. 4. Stable. Pain management as above. 5. Management as per primary team. Patient shows slight improvement today, continues to be nauseous. Upper GI series performed. Will follow general surgery recommendations. Thank you for this consult, please call with additional questions.
--- NOTE | 2018-12-27 12:27 | FL ---
Sleeve gastrectomy esophogram. EXAMINATION TYPE: FL UGI w esophagus DATE OF EXAM: 12/27/2018 11:56 AM CLINICAL HISTORY: 3 days post op gastric sleeve, 25ml isovue 370 used, 1min 10sec fl time COMPARISON: 12/26/2018 Sleeve gastrectomy esophagram and upper GI was performed following the ingestion of Isovue. Esophagea l peristalsis and motility are within normal limits. Noted are changes of sleeve gastrectomy. There is edema along the proximal component of the gastric sleeve however contrast is now identified within the distal stomach and duodenum. No evidence for leak. IMPRESSION: Mild delay in transit through the gastric sleeve with persistent edema about the proximal component. Contrast is now identified within the distal stomach and duodenum.
[2018-12-27] MEDS: HYDROcodone/APAP 15 ML SOLUTION PO PRN (20:42)
[2018-12-28] MEDS: HYDROmorphone 1 MG/ML 1 ML SYRINGE IVP PRN ×4 (01:08→20:29)
[2018-12-28] MEDS: DEXAMETHASONE SOD PHOSPHATE 4 MG/ML 1 ML VIAL IV SCH ×6 (01:09→20:34)
[2018-12-28] MEDS: LACTATED RINGERS 1,000 ML IV SCH (04:57)
[2018-12-28] MEDS: ALBUTEROL NEBULIZED 2.5 MG/3 ML INHALATION SCH ×4 (07:09→19:16)
[2018-12-28] MEDS: ENOXAPARIN 40 MG/0.4 ML SYRINGE SQ SCH ×2 (08:22→20:28)
--- NOTE | 2018-12-28 12:41 | P.PN ---
Subjective Progress Note Date: 12/28/18 HISTORY OF PRESENT ILLNESS: 53-year-old female who underwent laparoscopic sleeve gastrectomy. Patient is able to tolerate clear liquids but decreased amounts. Unable to drink 8oz in an hour. PHYSICAL EXAM: VITAL SIGNS: Currently stable. GENERAL: Well-developed in no acute distress. HEENT: No sclera icterus. Extraocular movements grossly intact. Moist buccal mucosa. Head is atraumatic, normocephalic. Hears conversational speech. No nasal drainage. NECK: Supple without lymphadenopathy. CHEST: Non-labored respirations and equal bilateral excursions. CARDIOVASCULAR: Regular rate with regular rhythm. Palpable 2+ radial pulses. ABDOMEN: Soft. Nondistended. Incisions clean and dry without drainage. MUSCULOSKELETAL: No clubbing, cyanosis or edema. NEUROLOGIC: No focal or lateralizing signs. Cranial nerves II through XII grossly intact. PSYCH: Appropriate affect. Alert and oriented to person, place and time. SKIN: Well perfused. Good skin turgor. ASSESSMENT: 1. Status post laparoscopic sleeve gastrectomy PLAN: 1. Continue clear liquid diet 2. Continue IV Decadron 3. Hold discharge today. Will re-evaluate patient tomorrow. Nurse practitioner note has been reviewed by physician. Signing provider agrees with the documented findings, assessment, and plan of care. Objective - Vital Signs Vital signs: Vital Signs Temp 99.4 F 12/28/18 08:22 Pulse 64 12/28/18 11:06 Resp 16 12/28/18 08:22 BP 178/80 12/28/18 08:22 Pulse Ox 94 L 12/28/18 08:22 Intake & Output 12/27/18 12/28/18 12/28/18 18:59 06:59 18:59 Intake Total 1251.2 1000 Balance 1251.2 1000 Weight 96.162 kg Intake: Intake, IV Titration 1011.2 1000 Amount 0.9% NaCl with KCl 20 Meq 1000 /l 1,000 ml @ 100 mls/hr IV .BY DURATION [facility] Rx#: [id number] Mvi, Adult No.4 with Vit 1011.2 K 10 ml Thiamine 100 mg Folic Acid 1 mg In 0.9% NaCl with KCl 20 Meq/l 1, 000 ml @ 100 mls/hr IV . BY DURATION [facility] Rx#: [id number] Oral 240 Other: # Voids 2 - Labs CBC & Chem 7: 12/25/18 08:41 12/26/18 06:41
--- NOTE | 2018-12-28 14:11 | P.PN ---
Subjective Progress Note Date: 12/28/18 Principal diagnosis: Medical management Patient seen and examined. No acute events overnight. Patient reports being able to hold down some clear liquids. She does complain of foaming at the mouth at times. She denies any nausea or any episodes of vomiting. Esophagram done yesterday shows residual mild delay in transit through the gastric sleeve with persistent edema. She has no other complaints today. Objective - Vital Signs Vital signs: Vital Signs Temp 99.4 F 12/28/18 08:22 Pulse 64 12/28/18 11:06 Resp 16 12/28/18 08:22 BP 178/80 12/28/18 08:22 Pulse Ox 94 L 12/28/18 08:22 Intake & Output 12/27/18 12/28/18 12/28/18 18:59 06:59 18:59 Intake Total 1251.2 1000 Balance 1251.2 1000 Weight 96.162 kg Intake: Intake, IV Titration 1011.2 1000 Amount 0.9% NaCl with KCl 20 Meq 1000 /l 1,000 ml @ 100 mls/hr IV .BY DURATION [facility] Rx#: [id number] Mvi, Adult No.4 with Vit 1011.2 K 10 ml Thiamine 100 mg Folic Acid 1 mg In 0.9% NaCl with KCl 20 Meq/l 1, 000 ml @ 100 mls/hr IV . BY DURATION [facility] Rx#: [id number] Oral 240 Other: # Voids 2 - Exam General: [non toxic], [no distress], [appears at stated age] Derm: [warm], [dry] Head: [atraumatic], [normocephalic], [symmetric] Eyes: [EOMI], [no lid lag], [anicteric sclera] Mouth: [no lip lesion], [mucus membranes moist] Cardiovascular: [S1S2 reg], [no murmur] Lungs: [CTA bilateral], [no rhonchi, no rales] , [no accessory muscle use] Abdominal: [soft], [ nontender to palpation], [no guarding], [no appreciable organomegaly] Ext: [no gross muscle atrophy], [no edema], [no contractures] Neuro: [no focal neuro deficits] Psych: [Alert], [oriented], [appropriate affect] - Labs CBC & Chem 7: 12/25/18 08:41 12/26/18 06:41 Assessment and Plan Assessment: Assessment and Plan 1. Post operative nausea and vomiting 2. Elevated BP 3. Migraines 4. Arthritis 5. s/p gastric sleeve 1. Likely due to high-grade obstruction near the GE junction, likely due to postoperative edema. Continue Decadron formoterol grams IV every 4 hours. Continue Reglan IV as needed, Zofran IV as needed for nausea or vomiting. Simethicone for bloating. Clear liquid diet and advance as tolerated. Follow surgical recommendations. 2. BP 178/80. Monitor vitals, adjust medications as necessary. 3. Stable. Pain management with [place], Dilantin IV as needed. 4. Stable. Pain management as above. 5. Management as per primary team. Slight improvement. Will follow general surgery recommendations. Thank you for this consult, please call with additional questions.
[2018-12-28] MEDS: SODIUM CHLORIDE 0.9% 1,000 ML IV SCH (20:28)
[2018-12-29] MEDS: DEXAMETHASONE SOD PHOSPHATE 4 MG/ML 1 ML VIAL IV SCH ×7 (00:38→23:20)
[2018-12-29] MEDS: SIMETHICONE 40 MG/0.6 ML DROPS 2,000 MG/30 ML BOTTLE PO PRN (05:10)
[2018-12-29] MEDS: HYOSCYAMINE ORAL DROPS 1.875 MG/15 ML BOTTLE PO PRN (05:10)
[2018-12-29] MEDS: SODIUM CHLORIDE 0.9% 1,000 ML IV SCH ×2 (05:43→14:39)
[2018-12-29] MEDS: ALBUTEROL NEBULIZED 2.5 MG/3 ML INHALATION SCH ×4 (08:30→19:13)
[2018-12-29] MEDS: LACTATED RINGERS 1,000 ML IV SCH (08:55)
[2018-12-29] MEDS: METOCLOPRAMIDE 5 MG/ML 2 ML VIAL IVP PRN ×2 (08:57→18:45)
[2018-12-29] MEDS: ENOXAPARIN 40 MG/0.4 ML SYRINGE SQ SCH ×2 (08:57→20:13)
--- NOTE | 2018-12-29 10:45 | P.PN ---
Subjective Progress Note Date: 12/29/18 Principal diagnosis: Nausea or vomiting, postoperative management Patient was seen and examined. No acute events overnight. Patient states that her condition has been unchanged. Continues to spit up, experienced nausea. No clear episode of emesis. She denies any shortness of breath, chest pain or palpitations. Blood pressure elevated with SBP in the 180s this morning. Patient reports esophageal pain, 5 out of 10 in severity. Patient reports never being diagnosed with high blood pressure. Objective - Vital Signs Vital signs: Vital Signs Temp 98.9 F 12/29/18 07:00 Pulse 72 12/29/18 08:40 Resp 18 12/29/18 07:00 BP 187/91 12/29/18 07:00 Pulse Ox 92 L 12/29/18 07:00 Intake & Output 12/28/18 12/29/18 12/29/18 18:59 06:59 18:59 Intake Total 457 Balance 457 Intake: Oral 457 Other: # Voids 2 - Exam General: [non toxic], [no distress], [appears at stated age] Derm: [warm], [dry] Head: [atraumatic], [normocephalic], [symmetric] Eyes: [EOMI], [no lid lag], [anicteric sclera] Mouth: [no lip lesion], [mucus membranes moist] Cardiovascular: [S1S2 reg], [no murmur] Lungs: [CTA bilateral], [no rhonchi, no rales] , [no accessory muscle use] Abdominal: [soft], [ nontender to palpation], [no guarding], [no appreciable organomegaly] Ext: [no gross muscle atrophy], [no edema], [no contractures] Neuro: [no focal neuro deficits] Psych: [Alert], [oriented], [appropriate affect] - Labs CBC & Chem 7: 12/25/18 08:41 12/26/18 06:41 Assessment and Plan Assessment: Assessment and Plan 1. Post operative nausea and vomiting 2. Elevated BP 3. Migraines 4. Arthritis 5. s/p gastric sleeve 1. Likely due to high-grade obstruction near the GE junction, likely due to postoperative edema. Continue Decadron 4 grams IV every 4 hours. Continue Reglan IV as needed, Zofran IV as needed for nausea or vomiting. Simethicone for bloating. Clear liquid diet and advance as tolerated. Follow surgical recommendations. 2. BP 187/91. Possibly related to pain, never officially diagnosed. Start HCTZ 12.5 mg PO daily. Ensure adequate pain management. Monitor vitals, adjust medications as necessary. 3. Stable. Pain management with [place], Dilaudid IV as needed. 4. Stable. Pain management as above. 5. Management as per primary team. Minimal improvement. Will follow general surgery recommendations. Start HCTZ for elevated BP and titrate. Thank you for this consult, please call with additional questions.
--- NOTE | 2018-12-29 11:04 | P.PN ---
Subjective Progress Note Date: 12/29/18 HISTORY OF PRESENT ILLNESS: 53-year-old female who underwent laparoscopic sleeve gastrectomy. Patient states she is having more difficulty this morning with liquids. Patient states she only had a couple of sips from her breakfast tray. She describes a feeling of tightness. She remains on IV Decadron and Reglan. PHYSICAL EXAM: VITAL SIGNS: Currently stable. GENERAL: Well-developed in no acute distress. HEENT: No sclera icterus. Extraocular movements grossly intact. Moist buccal mucosa. Head is atraumatic, normocephalic. Hears conversational speech. No nasal drainage. NECK: Supple without lymphadenopathy. CHEST: Non-labored respirations and equal bilateral excursions. CARDIOVASCULAR: Regular rate with regular rhythm. Palpable 2+ radial pulses. ABDOMEN: Soft. Nondistended. Incisions clean and dry without drainage. MUSCULOSKELETAL: No clubbing, cyanosis or edema. NEUROLOGIC: No focal or lateralizing signs. Cranial nerves II through XII grossly intact. PSYCH: Appropriate affect. Alert and oriented to person, place and time. SKIN: Well perfused. Good skin turgor. ASSESSMENT: 1. Status post laparoscopic sleeve gastrectomy 2. Postoperative edema with obstruction at GE junction PLAN: 1. Continue clear liquid diet 2. Continue IV Decadron and Reglan 3. Repeat esophagram Nurse practitioner note has been reviewed by physician. Signing provider agrees with the documented findings, assessment, and plan of care. Objective - Vital Signs Vital signs: Vital Signs Temp 98.9 F 12/29/18 07:00 Pulse 72 12/29/18 08:40 Resp 18 12/29/18 07:00 BP 187/91 12/29/18 07:00 Pulse Ox 92 L 12/29/18 07:00 Intake & Output 12/28/18 12/29/18 12/29/18 18:59 06:59 18:59 Intake Total 457 Balance 457 Intake: Oral 457 Other: # Voids 2 - Labs CBC & Chem 7: 12/25/18 08:41 12/26/18 06:41
--- NOTE | 2018-12-29 11:47 | FL ---
EXAMINATION TYPE: FL UGI w esophagus DATE OF EXAM: 12/29/2018 COMPARISON: NONE HISTORY: 53-year-old female with difficulty swallowing, status post gastrectomy 5 days ago with persi stent vomiting. Total fluoroscopy time: 2 minutes 10 seconds. Total images: 30. TECHNIQUE: A single contrast esophagram and contrast UGI study is performed with 50 mL Isovue-370. FINDINGS: The patient ingested a total of 1.0-1.5 ounces of oral contrast with hesitation. There is prominent p ooling of contrast in the lower esophagus and eventual intermittent passage across the GE junction. T here is no abnormal twisting of the gastric sleeve and once contrast has traversed the GE junction, t here is no evidence for obstruction along the sleeve. No evidence for leak. At 10 minutes, approximat rolanda half of the contrast has passed and half remains in the distal esophagus. We note small bilateral pleural effusions with bibasilar opacities. IMPRESSION: 1. New small bilateral pleural effusions with adjacent atelectasis and/or consolidation. 2. Persistent delay in passage of contrast across the level of the GE junction. The patient ingested a total of 1.0-1.5 ounces, and 10 minutes after the exam, radiograph shows half of the contrast remai marisa in the distal esophagus and half progressed to the jejunum. 3. No abnormal twisting of the gastric sleeve. No evidence for obstruction at the level of the sleeve . No evidence for leak.
[2018-12-29] MEDS: HYDROCHLOROTHIAZIDE 12.5 MG CAP PO SCH (12:05)
[2018-12-29] MEDS: HYDROmorphone 1 MG/ML 1 ML SYRINGE IVP PRN (12:13)
[2018-12-29 15:20] LABS: INR 1.1 (<1.2); Prothrombin Time 11.2 sec (9.0-12.0)
[2018-12-29 15:21] LABS: Ionized Calcium 4.8 mg/dL (4.5-5.3)
[2018-12-29 15:27] LABS: ALT 43 U/L (9-52); AST 22 U/L (14-36); Albumin 3.9 g/dL (3.5-5.0); Alkaline Phosphatase 45 U/L (38-126); Anion Gap 9 mmol/L; Blood Urea Nitrogen 16 mg/dL (7-17); Carbon Dioxide 24 mmol/L (22-30); Chloride 104 mmol/L (98-107); Glucose 134 mg/dL (74-99); Magnesium 1.9 mg/dL (1.6-2.3); Phosphorus 2.9 mg/dL (2.5-4.5); Sodium 137 mmol/L (137-145); Total Bilirubin 0.6 mg/dL (0.2-1.3); Total Protein 6.4 g/dL (6.3-8.2); Triglycerides 117 mg/dL (<150)
[2018-12-29] MEDS ORDERED: MVI, ADULT NO.4 WITH VIT K 10 ML, TRACE (CONC-1ML/DOSE) 1 ML in AMINO ACID 4.25%-D10W+L... IV SCH ×3 (16:00)
[2018-12-29] MEDS ORDERED: FAT EMULSION 20% 250 ML IV SCH (16:00)
[2018-12-29] MEDS ORDERED: INSULIN ASPART 100 UNIT/ML 1 ML 10 ML VIAL SQ SCH (16:00)
[2018-12-29] MEDS: HYDROcodone/APAP 15 ML SOLUTION PO PRN (21:01)
[2018-12-30 00:29] LABS: Glucose,Whole Blood 147 mg/dL (75-99)
[2018-12-30] MEDS: INSULIN ASPART 100 UNIT/ML 1 ML 10 ML VIAL SQ SCH ×2 (00:56→06:07)
[2018-12-30] MEDS: HYDROcodone/APAP 15 ML SOLUTION PO PRN (04:25)
[2018-12-30 05:59] LABS: Glucose,Whole Blood 133 mg/dL (75-99)
[2018-12-30] MEDS: DEXAMETHASONE SOD PHOSPHATE 4 MG/ML 1 ML VIAL IV SCH ×2 (06:07→10:53)
[2018-12-30] MEDS: LACTATED RINGERS 1,000 ML IV SCH (06:09)
[2018-12-30] MEDS: SODIUM CHLORIDE 0.9% 1,000 ML IV SCH (06:09)
[2018-12-30 07:54] VITALS: BP 164/87; TEMP 98.1
[2018-12-30] MEDS: HYDROCHLOROTHIAZIDE 12.5 MG CAP PO SCH (07:54)
[2018-12-30 08:10] LABS: Anion Gap 9 mmol/L; Blood Urea Nitrogen 15 mg/dL (7-17); Calcium 9.6 mg/dL (8.4-10.2); Carbon Dioxide 26 mmol/L (22-30); Chloride 102 mmol/L (98-107); Glucose 125 mg/dL (74-99); Magnesium 1.9 mg/dL (1.6-2.3); Phosphorus 3.2 mg/dL (2.5-4.5); Potassium 3.8 mmol/L (3.5-5.1); Sodium 137 mmol/L (137-145)
[2018-12-30] MEDS: ALBUTEROL NEBULIZED 2.5 MG/3 ML INHALATION SCH ×3 (08:35→16:08)
[2018-12-30] MEDS ORDERED: 1: MVI, ADULT NO.4 WITH VIT K 10 ML, TRACE (CONC-1ML/DOSE) 1 ML in AMINO ACID 4.25%-D10W IV SCH ×3 (09:00)
[2018-12-30] MEDS ORDERED: LIDOCAINE 1% INJ 10MG/ML (20 ML MDV) ONE (09:18)
[2018-12-30] MEDS ORDERED: LIDOCAINE 1% INJ 10MG/ML (20 ML MDV) SQ ONE (09:19)
--- NOTE | 2018-12-30 10:06 | IR ---
PICC LINE PLACEMENT: HISTORY: Infection requiring long-term antibiotic therapy PROCEDURE: Ultrasound and fluoroscopic guidance of PICC line placement. COMPLICATIONS: None ANESTHESIA: 1. 1% Lidocaine locally. FINDINGS/TECHNIQUE: The procedure was explained to the patient. The risks, complications, benefits and alternatives were discussed and any questions were answered. Informed consent was obtained. The patient was placed supine on the fluoroscopic table and prepped and draped in the usual sterile fash ion. Utilizing a 21 gauge needle and sonographic and fluoroscopic guidance, access in the left basi lic vein was achieved and there is placement of a 0.018 guidewire. The vein is patent. A 4-F sheath was placed over the guidewire. The guidewire and dilator were removed and a 4-F. PICC line was plac ed through the sheath with the tip at the level of the SVC. The sheath was removed, the catheter was flushed and sutured into position. The patient was stable throughout the procedure and remained sta ble upon discharge from the Department of Radiology. The vein puncture was patent under ultrasound. A villarreal scale image was obtained to document patency of the vein punctured. All elements of the maximal barrier technique were utilized. FLUOROSCOPY TIME: 0.2 minutes of fluoroscopy and one image submitted IMPRESSION: Successful PICC line placement under ultrasound and fluoroscopic guidance.
[2018-12-30] MEDS: HYDROmorphone 1 MG/ML 1 ML SYRINGE IVP PRN (10:53)
[2018-12-30] MEDS: ENOXAPARIN 40 MG/0.4 ML SYRINGE SQ SCH (10:54)
[2018-12-30 11:31] LABS: Glucose,Whole Blood 130 mg/dL (75-99)
[2018-12-30 12:10] VITALS: RESP 10
[2018-12-30 12:21] VITALS: PULSE 64
--- NOTE | 2018-12-30 14:28 | P.DS ---
Providers Date of admission: 12/24/18 07:39 Expected date of discharge: 12/30/18 Attending physician: Colby Moore Consults: 12/24/18 12:34 Consult Physician Routine Consulting Provider: Antionette Nolan Consult Reason/Comments: Medical management Do you want consulting provider notified?: Yes Primary care physician: Tim [facility] [place] Hospital Course: 53-year-old female who underwent laparoscopic sleeve gastrectomy. Patient developed obstruction at the GE junction postoperatively secondary to postoperative edema. She was placed on IV Decadron. She underwent a repeat esophagram which showed persistently and passage of contrast across level of the GE junction. The patient has been tolerating very small amount of liquids. Dr. Moore recommended PICC line and TPN. Patient agreeable. She is stable for discharge home today with PICC line. Home care arranged per case management for delivery of TPN. See EMR for further hospital details. Discharge Diagnosis: 1. Status post laparoscopic sleeve gastrectomy 2. Postoperative edema with obstruction at GE junction Nurse practitioner note has been reviewed by physician. Signing provider agrees with the documented findings, assessment, and plan of care. Plan - Discharge Summary Discharge Rx Participant: Yes New Discharge Prescriptions: New HYDROcodone/APAP [Carson Elixir 7.5-325Mg/15Ml] 30 ml PO Q6HR PRN #360 ml PRN Reason: Severe Pain Simethicone 40 mg/0.6 ml Drops [Mylicon Drops] 40 mg PO Q6HR PRN #30 ml PRN Reason: Bloating No Action Butalb/Asprin/Caff 50-325-40Mg [Fiorinal 50-325-40 MG] 1 cap PO DIRECTED PRN PRN Reason: migraines Estrogens, Conjugated [Premarin] 0.625 mg PO DAILY Discharge Medication List Butalb/Asprin/Caff 50-325-40Mg [Fiorinal 50-325-40 MG] 1 cap PO DIRECTED PRN 10/11/18 [History] Estrogens, Conjugated [Premarin] 0.625 mg PO DAILY 12/21/18 [History] HYDROcodone/APAP [[place] Elixir 7.5-325Mg/15Ml] 30 ml PO Q6HR PRN #360 ml [Rx] Simethicone 40 mg/0.6 ml Drops [Mylicon Drops] 40 mg PO Q6HR PRN #30 ml [Rx] Follow up Appointment(s)/Referral(s): [facility], [NON-STAFF] - [facility], [REFERRING] - Tim Aragon DO [Primary Care Provider] - 1 Week Colby Moore MD [STAFF PHYSICIAN] - 01/10/19 (please schedule appt for patient) Activity/Diet/Wound Care/Special Instructions: TPN will be delivered by [facility] at 6:00p.m. Patient is covered at 90% after her deductible is met ($214 left as of 12/29/18). No driving while taking [place] No lifting over 10 pounds You may shower. No soaking or tub baths Very light activity until you are reevaluated at your follow up appointment with your surgeon
--- NOTE | 2018-12-30 14:38 | P.PN ---
Subjective Progress Note Date: 12/30/18 Principal diagnosis: Nausea vomiting Patient was seen and examined. No acute events overnight. Patient reports improvement in her nausea and vomiting. She is being able to tolerate by mouth since yesterday. She denies any chest pain, shortness of breath or palpitations. She is looking for to going home. Objective - Vital Signs Vital signs: Vital Signs Temp 98.1 F 12/30/18 07:52 Pulse 64 12/30/18 12:21 Resp 10 L 12/30/18 12:07 BP 164/87 12/30/18 07:52 Pulse Ox 97 12/30/18 08:36 Intake & Output 12/29/18 12/30/18 12/30/18 18:59 06:59 18:59 Intake Total 600 790 120 Balance 600 790 120 Weight 96.162 kg 98.5 kg Intake: Intake, IV Titration 600 Amount Sodium Chloride 0.9% 1, 600 000 ml @ 75 mls/hr IV . [id number] [facility] Rx#:[id number] Oral 790 120 Other: Voiding Method Toilet # Voids 2 1 - Exam General: [non toxic], [no distress], [appears at stated age] Derm: [warm], [dry] Head: [atraumatic], [normocephalic], [symmetric] Eyes: [EOMI], [no lid lag], [anicteric sclera] Mouth: [no lip lesion], [mucus membranes moist] Cardiovascular: [S1S2 reg], [no murmur] Lungs: [CTA bilateral], [no rhonchi, no rales] , [no accessory muscle use] Abdominal: [soft], [ nontender to palpation], [no guarding], [no appreciable organomegaly] Ext: [no gross muscle atrophy], [no edema], [no contractures] Neuro: [no focal neuro deficits] Psych: [Alert], [oriented], [appropriate affect] - Labs CBC & Chem 7: 12/25/18 08:41 12/30/18 07:24 Labs: Abnormal Lab Results - Last 24 Hours (Table) 12/29/18 12/30/18 12/30/18 Range/Units 14:52 00:28 05:56 Glucose 134 H (74-99) mg/dL POC Glucose (mg/dL) 147 H 133 H (75-99) mg/dL 12/30/18 12/30/18 Range/Units 07:24 11:30 Glucose 125 H (74-99) mg/dL POC Glucose (mg/dL) 130 H (75-99) mg/dL Assessment and Plan Assessment: Assessment and Plan 1. Post operative nausea and vomiting 2. Elevated BP 3. Migraines 4. Arthritis 5. s/p gastric sleeve 1. Likely due to high-grade obstruction near the GE junction, likely due to postoperative edema. Barium swallow yesterday shows bilateral small pleural effusions with persistent delay in passage of contrast. Continue Decadron 4 grams IV every 4 hours. Continue Reglan IV as needed, Zofran IV as needed for nausea or vomiting. Simethicone for bloating. Clear liquid diet and advance as tolerated. Follow surgical recommendations. 2. BP 164/87. Possibly related to pain, never officially diagnosed. Continue HCTZ 12.5 mg PO daily. Ensure adequate pain management. Monitor vitals, adjust medications as necessary. 3. Stable. Pain management with [place], Dilaudid IV as needed. 4. Stable. Pain management as above. 5. Management as per primary team. Great improvement not tolerating by mouth, likely discharge today. Start HCTZ for elevated BP and titrate. We will discontinue fluids as this is probably the cause of her bilateral pleural effusions. Thank you for this consult, please call with additional questions.
== END 2018-12-30 15:50 | disposition home health service (06) | DRG 620 ==
LOC: 2ORMAIN 07:39 → 4SSUR 13:29
PROVIDERS: ADMIT Surgery; ATTEND Surgery
PROC: 0DB64Z3 Excision of Stomach, Percutaneous Endoscopic Approach, Vertical (ICD-10-PCS; principal; 2018-12-24 09:40)
PROC: 3E0336Z Introduction of Nutritional Substance into Peripheral Vein, Percutaneous Approach (ICD-10-PCS; 2018-12-25)
PROC: 02HV33Z Insertion of Infusion Device into Superior Vena Cava, Percutaneous Approach (ICD-10-PCS; 2018-12-30)
DX: E66.01 Morbid (severe) obesity due to excess calories (principal); J90 Pleural effusion, not elsewhere classified; K22.2 Esophageal obstruction; R60.9 Edema, unspecified; G43.909 Migraine, unspecified, not intractable, without status migrainosus; K21.9 Gastro-esophageal reflux disease without esophagitis; M19.90 Unspecified osteoarthritis, unspecified site; I83.90 Asymptomatic varicose veins of unspecified lower extremity; R03.0 Elevated blood-pressure reading, without diagnosis of hypertension; R11.2 Nausea with vomiting, unspecified; Z87.442 Personal history of urinary calculi; Z90.710 Acquired absence of both cervix and uterus; Z90.49 Acquired absence of other specified parts of digestive tract; Z98.84 Bariatric surgery status; Z79.899 Other long term (current) drug therapy; Z88.0 Allergy status to penicillin; Z88.2 Allergy status to sulfonamides; Z80.9 Family history of malignant neoplasm, unspecified; Z82.49 Family history of ischemic heart disease and other diseases of the circulatory system
CPT/HCPCS: 36573; 74240; 80048; 80051; 80053; 82040; 82310; 82330; 82565; 83735; 84100; 84478; 84520; 85025; 85610; 88307; 94640; 94760

== ENCOUNTER 2018-12-31 08:55 | Inpatient (IN) | payer BC ==
[2018-12-31] MEDS ORDERED: FAMOTIDINE 20 MG/2 ML VIAL IV STA (09:11)
[2018-12-31] MEDS ORDERED: SODIUM CHLORIDE 0.9% 1,000 ML IV STA (09:11)
[2018-12-31] MEDS ORDERED: ONDANSETRON 4 MG/2 ML VIAL IVP STA ×2 (09:11→10:53)
[2018-12-31] MEDS ORDERED: SODIUM CHLORIDE 0.9% 500 ML 500 ML IV STA (09:11)
--- NOTE | 2018-12-31 09:17 | ED ---
General Adult HPI - General Chief complaint: Shortness of Breath Stated complaint: Dyspnea Time Seen by Provider: 12/31/18 09:02 Source: patient, family, RN notes reviewed Mode of arrival: wheelchair Limitations: no limitations - History of Present Illness Initial comments: Patient is a pleasant 53-year-old female presenting to the emergency Department with complaints of shortness of breath. Onset was mild over the last couple of days, more so today. did speak with Dr. Jason who recommended the patient come to the emergency department. Patient was just discharged from the hospital yesterday following gastric stapling. Patient has not been eating or drinking well. Patient does admit to feeling nauseated. No leg pain or leg swelling. Patient does have some discomfort in the lower sternal region. - Related Data Home Medications Medication Instructions Recorded Confirmed Butalb/Asprin/Caff 50-325-40Mg 1 cap PO DIRECTED PRN 10/11/18 12/31/18 [Fiorinal 50-325-40 MG] Estrogens, Conjugated [Premarin] 0.625 mg PO DAILY 12/21/18 12/31/18 Previous Rx's Medication Instructions Recorded HYDROcodone/APAP [[place] Elixir 30 ml PO Q6HR PRN #360 ml 12/30/18 7.5-325Mg/15Ml] Simethicone 40 mg/0.6 ml Drops 40 mg PO Q6HR PRN #30 ml 12/30/18 [Mylicon Drops] Allergies Allergy/AdvReac Type Severity Reaction Status Date / Time ciprofloxacin [From Cipro] Allergy Rash/Hives Verified 12/24/18 13:34 Penicillins Allergy Unknown Verified 12/24/18 13:34 Childhood Sulfa (Sulfonamide Allergy Rash/Hives Verified 12/24/18 13:34 Antibiotics) Review of Systems ROS Statement: Those systems with pertinent positive or pertinent negative responses have been documented in the HPI. ROS Other: All systems not noted in ROS Statement are negative. Constitutional: Denies: fever Eyes: Denies: eye pain ENT: Denies: ear pain Respiratory: Reports: cough (Clear sputum), dyspnea Cardiovascular: Reports: as per HPI Endocrine: Denies: fatigue Gastrointestinal: Reports: nausea Genitourinary: Denies: dysuria Musculoskeletal: Denies: back pain Skin: Denies: rash Neurological: Denies: headache Past Medical History Additional Past Medical History / Comment(s): migraines, varicose veins, hx kidney stones, history of difficulty with postoperative nausea and vomiting History of Any Multi-Drug Resistant Organisms: None Reported Past Surgical History: Bariatric Surgery, Cholecystectomy, Hysterectomy, Tonsillectomy Additional Past Surgical History / Comment(s): lap band surgery 2008 lap band removal 2009 due to prolapse, I&D of cyst on genital area(not sure what type of infection), picc line/later removed Past Anesthesia/Blood Transfusion Reactions: Family History of Problems w/ Anesthesia, Motion Sickness, Postoperative Nausea & Vomiting (PONV) Additional Past Anesthesia/Blood Transfusion Reaction / Comment(s): mother-" hard time waking up" Past Psychological History: No Psychological Hx Reported Smoking Status: Never smoker Past Alcohol Use History: Occasional Past Drug Use History: None Reported - Past Family History Mother Family Medical History: Cancer, Deep Vein Thrombosis (DVT) Father Family Medical History: Unable to Obtain General Exam Limitations: no limitations General appearance: alert Head exam: Present: atraumatic Eye exam: Present: normal appearance, PERRL ENT exam: Present: normal oropharynx Neck exam: Present: normal inspection Respiratory exam: Present: normal lung sounds bilaterally Cardiovascular Exam: Present: regular rate, normal rhythm Expanded Peripheral pulses: 2+: Posterior Tibialis (R), Posterior Tibialis (L), Dorsalis Pedis (R), Dorsalis Pedis (L) GI/Abdominal exam: Present: soft. Absent: distended, tenderness (Mild diffuse tenderness) Extremities exam: Present: normal inspection. Absent: pedal edema, calf tenderness Back exam: Present: normal inspection Neurological exam: Present: alert Psychiatric exam: Present: normal affect, normal mood Skin exam: Present: normal color Course Vital Signs 12/31/18 08:57 Temperature 98.3 F Pulse Rate 73 Respiratory 20 Rate Blood Pressure 134/85 O2 Sat by Pulse 96 Oximetry - Reevaluation(s) Reevaluation #1: 12/31/18 09:16 Case was discussed with Dr. Moore who does agree with computed tomography scan of the chest however would also like computed tomography scan of the abdomen. EKG Findings - EKG Comments: EKG Findings:: Normal sinus rhythm 67. TN 164. QRS 94. QT 406. QTc 429. Normal axis. Normal QRS. No acute ST change. Medical Decision Making - Medical Decision Making Patient reevaluated and still states she does not feel well and feels nauseated. Case was again discussed with Dr. Jason, who will admit his patient. - Lab Data Result diagrams: 12/31/18 09:16 12/31/18 09:16 Lab Results 12/31/18 12/31/18 12/31/18 Range/Units 09:16 09:16 09:16 WBC 11.8 H (3.8-10.6) k/uL RBC 4.66 (3.80-5.40) m/uL Hgb 14.4 (11.4-16.0) gm/dL Hct 42.6 (34.0-46.0) % MCV 91.3 (80.0-100.0) fL MCH 31.0 (25.0-35.0) pg MCHC 33.9 (31.0-37.0) g/dL RDW 12.6 (11.5-15.5) % Plt Count 198 (150-450) k/uL Neutrophils % 84 % Lymphocytes % 11 % Monocytes % 4 % Eosinophils % 1 % Basophils % 0 % Neutrophils # 9.9 H (1.3-7.7) k/uL Lymphocytes # 1.3 (1.0-4.8) k/uL Monocytes # 0.4 (0-1.0) k/uL Eosinophils # 0.1 (0-0.7) k/uL Basophils # 0.0 (0-0.2) k/uL PT (9.0-12.0) sec INR (<1.2) APTT (22.0-30.0) sec Sodium 135 L (137-145) mmol/L Potassium 3.3 L (3.5-5.1) mmol/L Chloride 102 (98-107) mmol/L Carbon Dioxide 24 (22-30) mmol/L Anion Gap 9 mmol/L BUN 15 (7-17) mg/dL Creatinine 0.57 (0.52-1.04) mg/dL Est GFR (CKD-EPI)AfAm >90 (>60 ml/min/1.73 sqM) Est GFR (CKD-EPI)NonAf >90 (>60 ml/min/1.73 sqM) Glucose 103 H (74-99) mg/dL Calcium 9.1 (8.4-10.2) mg/dL Total Bilirubin 0.9 (0.2-1.3) mg/dL AST 25 (14-36) U/L ALT 43 (9-52) U/L Alkaline Phosphatase 48 (38-126) U/L Total Creatine Kinase 74 (30-135) U/L CK-MB (CK-2) 0.6 (0.0-2.4) ng/mL CK-MB (CK-2) Rel Index 0.8 Troponin I 0.014 (0.000-0.034) ng/mL Total Protein 6.9 (6.3-8.2) g/dL Albumin 4.0 (3.5-5.0) g/dL 12/31/18 Range/Units 09:16 WBC (3.8-10.6) k/uL RBC (3.80-5.40) m/uL Hgb (11.4-16.0) gm/dL Hct (34.0-46.0) % MCV (80.0-100.0) fL MCH (25.0-35.0) pg MCHC (31.0-37.0) g/dL RDW (11.5-15.5) % Plt Count (150-450) k/uL Neutrophils % % Lymphocytes % % Monocytes % % Eosinophils % % Basophils % % Neutrophils # (1.3-7.7) k/uL Lymphocytes # (1.0-4.8) k/uL Monocytes # (0-1.0) k/uL Eosinophils # (0-0.7) k/uL Basophils # (0-0.2) k/uL PT 10.7 (9.0-12.0) sec INR 1.0 (<1.2) APTT 22.0 (22.0-30.0) sec Sodium (137-145) mmol/L Potassium (3.5-5.1) mmol/L Chloride (98-107) mmol/L Carbon Dioxide (22-30) mmol/L Anion Gap mmol/L BUN (7-17) mg/dL Creatinine (0.52-1.04) mg/dL Est GFR (CKD-EPI)AfAm (>60 ml/min/1.73 sqM) Est GFR (CKD-EPI)NonAf (>60 ml/min/1.73 sqM) Glucose (74-99) mg/dL Calcium (8.4-10.2) mg/dL Total Bilirubin (0.2-1.3) mg/dL AST (14-36) U/L ALT (9-52) U/L Alkaline Phosphatase (38-126) U/L Total Creatine Kinase (30-135) U/L CK-MB (CK-2) (0.0-2.4) ng/mL CK-MB (CK-2) Rel Index Troponin I (0.000-0.034) ng/mL Total Protein (6.3-8.2) g/dL Albumin (3.5-5.0) g/dL - Radiology Data Radiology results: report reviewed (CT angios chest negative for pulmonary embolism. Left greater than right pleural effusion up to 3 cm. Computed tomography scan of the abdomen and pelvis shows suspected blighted passage at gastroesophageal junction. Nonspecific 4 x 4 centimeter fluid collection epigastric region nonspecific pneumoperitoneum presumed related to recent surgery. Mild mesenteric edema anterior mid abdomen is noted. Moderate amount of fluid in the pelvis suspicious for blood. Suspected mild colitis or hepatic flexure.) Disposition Clinical Impression: Nausea, Abdominal pain Disposition: ADMITTED IP TO THIS HOSP Is patient prescribed a controlled substance at d/c from ED?: No Referrals: Tim Aragon DO [Primary Care Provider] - 1-2 days Decision Time: 10:55
[2018-12-31] MEDS ORDERED: IOPAMIDOL-300 CONTRAST 30 ML VIAL (ORAL USE) PO PRN (09:18)
[2018-12-31 10:19] LABS: Basophils % (A) 0 %; Eosinophils # (A) 0.1 k/uL (0-0.7); Eosinophils % (A) 1 %; HCT 42.6 % (34.0-46.0); HGB 14.4 gm/dL (11.4-16.0); Lymphocytes # (A) 1.3 k/uL (1.0-4.8); Lymphocytes % (A) 11 %; MCHC 33.9 g/dL (31.0-37.0); MCV 91.3 fL (80.0-100.0); Mean Platelet Volume 8.5; Monocytes # (A) 0.4 k/uL (0-1.0); Monocytes % (A) 4 %; Neutrophils # (A) 9.9 k/uL (1.3-7.7); Neutrophils % (A) 84 %; Platelet Count 198 k/uL (150-450); RBC 4.66 m/uL (3.80-5.40); RDW 12.6 % (11.5-15.5); WBC 11.8 k/uL (3.8-10.6)
--- NOTE | 2018-12-31 10:19 | CT ---
EXAMINATION TYPE: CT angio chest DATE OF EXAM: 12/31/2018 COMPARISON: None HISTORY: post op gastric sleeve 1 wk ago/sob/nausea CT DLP: 1464.2 mGycm CONTRAST: CT chest with contrast and 3D reconstruction with MIP imaging is performed with IV Contrast, patient injected with 100 mL of Isovue 370. Contrast-enhanced CT of the chest was performed through the course of the pulmonary arteries with alden g and mediastinal window settings submitted. 3D reconstruction with MIP imaging was also performed. PULMONARY ARTERIES: The pulmonary arteries and their major tributaries are patent. I do not see seema dence for sizable filling defect to suggest pulmonary embolic process. LUNGS: Bibasilar compressive atelectasis left greater than right. Bilateral pleural effusions left gr eater than right. Maximal AP dimension pleural effusion is 3 cm. MEDIASTINUM: Thoracic aorta is of n ormal caliber,however, evaluation is limited given timing of the contrast bolus. If there is concern for thoracic aortic pathology consider BRIAN. Correlate clinically . The heart is not enlarged. No e vidence for mediastinal mass. No mediastinal lymph nodes greater than 1cm. HILAR STRUCTURES: No evidence for mass. No hilar lymph nodes greater than 1 cm. UPPER ABDOMEN: Postoperative changes of recent sleeve gastrectomy. Tiny amount of residual free air. Perigastric strandy attenuation. IMPRESSION: 1. No evidence for Pulmonary embolism at this time. 2. Basilar atelectasis and pleural effusions.
[2018-12-31] MEDS ORDERED: LORazepam 2 MG/ML INJ IV STA (10:27)
[2018-12-31 10:30] LABS: ALT 43 U/L (9-52); AST 25 U/L (14-36); Alkaline Phosphatase 48 U/L (38-126); Anion Gap 9 mmol/L; Blood Urea Nitrogen 15 mg/dL (7-17); Calcium 9.1 mg/dL (8.4-10.2); Carbon Dioxide 24 mmol/L (22-30); Chloride 102 mmol/L (98-107); Glucose 103 mg/dL (74-99); Potassium 3.3 mmol/L (3.5-5.1); Sodium 135 mmol/L (137-145); Total Bilirubin 0.9 mg/dL (0.2-1.3); Total Protein 6.9 g/dL (6.3-8.2)
--- NOTE | 2018-12-31 10:30 | CT ---
EXAMINATION TYPE: CT abdomen pelvis w con DATE OF EXAM: 12/31/2018 HISTORY: post op gastric sleeve 1 wk ago/sob/nausea CT DLP: 1464.2mGycm Automated Exposure Control for Dose Reduction was Utilized. CONTRAST: CT scan of the abdomen and pelvis is performed with IV Contrast, patient injected with 100 mL of Isov ue 370. COMPARISON: Upper GI study December 29, 2018 FINDINGS: LUNG BASES: Please see same-day CTA chest report for complete details on lung bases. LIVER/GB: Cholecystectomy clips are noted. PANCREAS: No significant abnormality is seen. SPLEEN: Trace perisplenic ascites along the periphery is seen. ADRENALS: No significant abnormality is seen. KIDNEYS: No significant abnormality is seen. BOWEL: The oral contrast reaches level of rectum. Correlating with recent Limited upper GI/esophagram exams there is hiatal hernia with dilated contrast filled distal esophagus. Surgical sutures shaped and changes from gastric sleeve procedure extend above diaphragm. There is some nonspecific heterogen eous focal fluid just below diaphragm and epigastric region with suggestion of thin wall measuring ap proximately 4 x 4 centimeters axial image 14. There is no suspicious small or large bowel dilatation. There is mild wall thickening near the hepatic flexure involving distal right colon and proximal tra nsverse colon. There is mild mesenteric edema anteriorly in the mid abdomen there axial image 42 for reference UTERUS/ADNEXA: Uterus is not well seen and suspected surgically absent. There is moderate amount of h yperdense fluid in the pelvis axial image 78 for reference. LYMPH NODES: No greater than 1cm abdominal or pelvic lymph nodes are appreciated. OSSEOUS STRUCTURES: No significant abnormality is seen. OTHER: Some ill-defined multifocal areas of fat stranding in the anterior abdominal wall likely refle ct areas of access from recent laparoscopic surgery there is persistent pneumoperitoneum anterior to the liver and additional air trapped in left anterior abdominal muscular bundles and sheaths near axi al image 38. IMPRESSION: 1. Suspected persistent delay of passage of contrast at the gastroesophageal junction above diaphragm near level of proximal anastomosis where hiatal hernia remains present. 2. Nonspecific 4 x 4 centimeter thin-walled fluid collection epigastric region just below diaphragm, cannot exclude developing abscess. Nonspecific pneumoperitoneum presumed related to recent surgery no freda. Mild mesenteric edema anterior midabdomen is noted. 3. Moderate amount of hyperdense fluid in the pelvis is suspicious for blood product, correlate with hemoglobin advised. Consider hemoglobin monitoring based on clinical correlation. 4. Suspect mild colitis centered near hepatic flexure, correlate clinically.
[2018-12-31 10:36] LABS: Prothrombin Time 10.7 sec (9.0-12.0)
[2018-12-31 10:50] LABS: Creatine Kinase MB 0.6 ng/mL (0.0-2.4); Troponin I 0.014 ng/mL (0.000-0.034)
[2018-12-31] MEDS ORDERED: MORPHINE SULFATE 4 MG/ML SYRINGE IV PRN (10:55)
[2018-12-31] MEDS ORDERED: NALOXONE 0.4 MG/ML 1 ML VIAL IV PRN (10:55)
[2018-12-31] MEDS ORDERED: ONDANSETRON 4 MG/2 ML VIAL IVP PRN ×2 (10:55→14:26)
[2018-12-31] MEDS ORDERED: SODIUM CHLORIDE 0.9% 1,000 ML IV SCH ×2 (11:00→14:30)
--- NOTE | 2018-12-31 14:25 | P.GSHP ---
History of Present Illness H&P Date: 12/31/18 Chief Complaint: Nausea, fatigue, shortness of breath This a 53-year-old female who underwent laparoscopic sleeve gastrectomy 7 days ago. Patient was just recently discharged from the hospital yesterday. She had issues with delayed esophageal emptying secondary to postoperative edema of her sleeve. The patient was doing well at the time of discharge. The patient states that she got home yesterday. After she started home TPN started had complaints of nausea and shortness of breath. The patient contacted me this morning. I recommended returning to the emergency room. Patient underwent computed tomography scan of the chest abdomen and pelvis. The patient does not have any evidence of pulmonary and was. There is known to any free air or gastric sleeve perforation. Past Medical History Additional Past Medical History / Comment(s): Pt recently admitted to [facility] on for lap sleeve gastrectomy with edema GE junction. Other hx: migraines, varicose veins, hx kidney stones, history of difficulty with postoperative nausea and vomiting History of Any Multi-Drug Resistant Organisms: None Reported Past Surgical History: Bariatric Surgery, Cholecystectomy, Hysterectomy, Tonsillectomy Additional Past Surgical History / Comment(s): 12/24/18 Lap sleeve gastrectomy, lap band surgery 2007 lap band removal 2008 due to prolapse, I&D of cyst on genital area(not sure what type of infection), picc line/later removed and recently had another picc line inserted for home TPN Past Anesthesia/Blood Transfusion Reactions: Family History of Problems w/ Anesthesia, Motion Sickness, Postoperative Nausea & Vomiting (PONV) Additional Past Anesthesia/Blood Transfusion Reaction / Comment(s): Pt has had severe PONV, mother-"hard time waking up" Smoking Status: Never smoker - Past Family History Mother Family Medical History: Cancer, Deep Vein Thrombosis (DVT) Additional Family Medical History / Comment(s): Mother had breast cancer. Father Family Medical History: Unable to Obtain Medications and Allergies Home Medications Medication Instructions Recorded Confirmed Type Butalb/Asprin/Caff 50-325-40Mg 1 cap PO DIRECTED PRN 10/11/18 12/31/18 History [Fiorinal 50-325-40 MG] Estrogens, Conjugated [Premarin] 0.625 mg PO DAILY 12/21/18 12/31/18 History HYDROcodone/APAP [[place] Elixir 30 ml PO Q6HR PRN #360 ml 12/30/18 12/31/18 Rx 7.5-325Mg/15Ml] Simethicone 40 mg/0.6 ml Drops 40 mg PO Q6HR PRN #30 ml 12/30/18 12/31/18 Rx [Mylicon Drops] Allergies Allergy/AdvReac Type Severity Reaction Status Date / Time ciprofloxacin [From Cipro] Allergy Rash/Hives Verified 12/24/18 13:34 Penicillins Allergy Unknown Verified 12/24/18 13:34 Childhood Sulfa (Sulfonamide Allergy Rash/Hives Verified 12/24/18 13:34 Antibiotics) Surgical - Exam Vital Signs Temp Pulse Resp BP Pulse Ox 98.3 F 73 20 134/85 96 12/31/18 08:57 12/31/18 08:57 12/31/18 08:57 12/31/18 08:57 12/31/18 08:57 - General well developed, moderate distress - Eyes PERRL - ENT normal pinna - Neck no masses - Respiratory normal expansion - Cardiovascular Rhythm: regular - Abdomen Abdomen: soft, non tender Results Patient's CAT scan shows persistent delayed setting of the esophagus. There is a small hiatal hernia. There is no evidence of sleeve perforation. - Labs 12/31/18 09:16 12/31/18 09:16 Abnormal Lab Results - Last 24 Hours (Table) 12/31/18 12/31/18 Range/Units 09:16 09:16 WBC 11.8 H (3.8-10.6) k/uL Neutrophils # 9.9 H (1.3-7.7) k/uL Sodium 135 L (137-145) mmol/L Potassium 3.3 L (3.5-5.1) mmol/L Glucose 103 H (74-99) mg/dL Diabetes panel 12/31/18 Range/Units 09:16 Sodium 135 L (137-145) mmol/L Potassium 3.3 L (3.5-5.1) mmol/L Chloride 102 (98-107) mmol/L Carbon Dioxide 24 (22-30) mmol/L BUN 15 (7-17) mg/dL Creatinine 0.57 (0.52-1.04) mg/dL Glucose 103 H (74-99) mg/dL Calcium 9.1 (8.4-10.2) mg/dL AST 25 (14-36) U/L ALT 43 (9-52) U/L Alkaline Phosphatase 48 (38-126) U/L Total Protein 6.9 (6.3-8.2) g/dL Albumin 4.0 (3.5-5.0) g/dL Calcium panel 12/31/18 Range/Units 09:16 Calcium 9.1 (8.4-10.2) mg/dL Albumin 4.0 (3.5-5.0) g/dL Pituitary panel 12/31/18 Range/Units 09:16 Sodium 135 L (137-145) mmol/L Potassium 3.3 L (3.5-5.1) mmol/L Chloride 102 (98-107) mmol/L Carbon Dioxide 24 (22-30) mmol/L BUN 15 (7-17) mg/dL Creatinine 0.57 (0.52-1.04) mg/dL Glucose 103 H (74-99) mg/dL Calcium 9.1 (8.4-10.2) mg/dL Adrenal panel 12/31/18 Range/Units 09:16 Sodium 135 L (137-145) mmol/L Potassium 3.3 L (3.5-5.1) mmol/L Chloride 102 (98-107) mmol/L Carbon Dioxide 24 (22-30) mmol/L BUN 15 (7-17) mg/dL Creatinine 0.57 (0.52-1.04) mg/dL Glucose 103 H (74-99) mg/dL Calcium 9.1 (8.4-10.2) mg/dL Total Bilirubin 0.9 (0.2-1.3) mg/dL AST 25 (14-36) U/L ALT 43 (9-52) U/L Alkaline Phosphatase 48 (38-126) U/L Total Protein 6.9 (6.3-8.2) g/dL Albumin 4.0 (3.5-5.0) g/dL Assessment and Plan Plan: Dysphagia. No evidence of pulmonary mass. Patient received fluid hydration. We'll continue Decadron. We will repeat her esophagram on Thursday. If she has persistent dysphagia we will perform an EGD. Is unclear if the hiatal hernia is contributing to her dysphagia.
[2018-12-31] MEDS ORDERED: DEXAMETHASONE SOD PHOSPHATE 4 MG/ML 1 ML VIAL IV SCH (14:30)
[2018-12-31] MEDS: DEXAMETHASONE SOD PHOSPHATE 4 MG/ML 1 ML VIAL IV SCH ×2 (15:50→20:17)
[2018-12-31] MEDS: SODIUM CHLORIDE 0.9% 1,000 ML IV SCH (15:56)
[2018-12-31] MEDS: LEVOFLOXACIN 500MG-D5W PMX 500 MG in DEXTROSE/WATER 1 100ML.BAG IVPB SCH (15:57)
[2018-12-31] MEDS: HEPARIN SODIUM,PORCINE 5,000 UNIT/ML 1 ML VIAL SQ SCH (15:59)
[2018-12-31] MEDS ORDERED: MVI, ADULT NO.4 WITH VIT K 10 ML, TRACE (CONC-1ML/DOSE) 1 ML in AMINO ACID 5%-D15W+LYTE... IV ONE ×3 (16:00)
[2018-12-31] MEDS: KETOROLAC 30 MG/ML 1 ML VIAL IVP PRN ×2 (16:05→22:37)
[2018-12-31] MEDS: ONDANSETRON 4 MG/2 ML VIAL IVP PRN ×2 (16:05→22:38)
[2018-12-31 16:43] LABS: Albumin 3.4 g/dL (3.5-5.0); Ionized Calcium 4.7 mg/dL (4.5-5.3)
[2018-12-31 16:44] LABS: ALT 46 U/L (9-52); AST 20 U/L (14-36); Albumin 3.4 g/dL (3.5-5.0); Alkaline Phosphatase 43 U/L (38-126); Anion Gap 8 mmol/L; Blood Urea Nitrogen 16 mg/dL (7-17); Calcium 8.6 mg/dL (8.4-10.2); Carbon Dioxide 24 mmol/L (22-30); Chloride 103 mmol/L (98-107); Glucose 118 mg/dL (74-99); Magnesium 1.7 mg/dL (1.6-2.3); Phosphorus 3.6 mg/dL (2.5-4.5); Potassium 3.3 mmol/L (3.5-5.1); Sodium 135 mmol/L (137-145); Total Bilirubin 1.1 mg/dL (0.2-1.3)
[2018-12-31] MEDS: MORPHINE SULFATE 2 MG/ML SYRINGE IV PRN (17:31)
[2018-12-31] MEDS: diphenhydrAMINE 50 MG/ML 1 ML VIAL IVP SCH (17:33)
[2018-12-31] MEDS: INSULIN ASPART (NovoLOG) 100 UNIT/ML VIAL SQ SCH (17:35)
[2018-12-31] MEDS: FAT EMULSION 20% 250 ML IV SCH (17:52)
[2018-12-31] MEDS: POTASSIUM CHLORIDE 20 MEQ in WATER FOR INJECTION 1 100ML.BAG IVPB SCH ×2 (17:57→20:18)
--- NOTE | 2018-12-31 19:15 | P.CONS ---
History of Present Illness - Reason for Consult Consult date: 12/31/18 - History of Present Illness Patient is a 53-year-old female with a PMH of obesity status post laparoscopic sleeve gastrectomy on 12/24/2018, complicated with postoperative edema of the sleeve and delayed esophageal emptying, was discharged from the hospital yesterday. The patient notes that she had gone home and was to be started on TPN when she developed worsening shortness of breath with anxiety and chest discomfort. She notes that the chest discomfort had been ongoing since the surgery, but the shortness of breath was what alarmed her and prompted her to contact Dr. Moore who advised her to come back into the emergency room. She notes that deep breathing worsens her chest discomfort. The patient notes that her shortness of breath has improved significantly since coming into the hospital she continues to have the chest discomfort with some nausea with 2 episodes of vomiting at home, nonbloody nonbilious. Patient otherwise denied fever, chills, diarrhea, palpitations, dizziness, or headaches. In the ED, the patient underwent a chest CTA which was negative for PE. The patient also underwent an abdominal/pelvis computed tomography scan which showed delay of contrast at the GE junction, above the diaphragm with a hiatal hernia. The patient had a WBC count of 11.8, potassium 3.3, and troponin of 0.014. Review of Systems Pertinent positives and negatives as discussed in HPI, a complete review of systems was performed and all other systems are negative. Past Medical History Additional Past Medical History / Comment(s): Pt recently admitted to [facility] on for lap sleeve gastrectomy with edema GE junction. Other hx: migraines, varicose veins, hx kidney stones, history of difficulty with postoperative nausea and vomiting History of Any Multi-Drug Resistant Organisms: None Reported Past Surgical History: Bariatric Surgery, Cholecystectomy, Hysterectomy, Tonsillectomy Additional Past Surgical History / Comment(s): 12/24/18 Lap sleeve gastrectomy, lap band surgery 2007 lap band removal 2008 due to prolapse, I&D of cyst on genital area(not sure what type of infection), picc line/later removed and recently had another picc line inserted for home TPN Past Anesthesia/Blood Transfusion Reactions: Family History of Problems w/ Anesthesia, Motion Sickness, Postoperative Nausea & Vomiting (PONV) Additional Past Anesthesia/Blood Transfusion Reaction / Comm: Pt has had severe PONV, mother-"hard time waking up" Smoking Status: Never smoker - Past Family History Mother Family Medical History: Cancer, Deep Vein Thrombosis (DVT) Additional Family Medical History / Comment(s): Mother had breast cancer. Father Family Medical History: Unable to Obtain Medications and Allergies Home Medications Medication Instructions Recorded Confirmed Type Butalb/Asprin/Caff 50-325-40Mg 1 cap PO DIRECTED PRN 10/11/18 12/31/18 History [Fiorinal 50-325-40 MG] Estrogens, Conjugated [Premarin] 0.625 mg PO DAILY 12/21/18 12/31/18 History HYDROcodone/APAP [[place] Elixir 30 ml PO Q6HR PRN #360 ml 12/30/18 12/31/18 Rx 7.5-325Mg/15Ml] Simethicone 40 mg/0.6 ml Drops 40 mg PO Q6HR PRN #30 ml 12/30/18 12/31/18 Rx [Mylicon Drops] Allergies Allergy/AdvReac Type Severity Reaction Status Date / Time ciprofloxacin [From Cipro] Allergy Rash/Hives Verified 12/24/18 13:34 Penicillins Allergy Unknown Verified 12/24/18 13:34 Childhood Sulfa (Sulfonamide Allergy Rash/Hives Verified 12/24/18 13:34 Antibiotics) Physical Exam Vitals: Vital Signs Temp Pulse Pulse Resp BP BP Pulse Ox 12/31/18 16:00 16 12/31/18 15:00 98.4 F 66 16 114/75 94 L 12/31/18 13:07 70 18 117/64 95 12/31/18 08:57 98.3 F 73 20 134/85 96 Intake and Output 12/31/18 12/31/18 12/31/18 06:59 14:59 22:59 Other: Weight 96.162 kg 96.162 kg General: [non toxic], [in mild distress from pain], [appears at stated age], [ obese] Derm: [no unusual rashes/lesions] [no unusual ecchymoses], [warm], [dry] Head: [atraumatic], [normocephalic], [symmetric] Eyes: [EOMI], [no lid lag], [anicteric sclera], [pupils equal round reactive to light] ENT: [Nose and ears atraumatic], [no thrush], [no pharyngeal erythema] Neck: [No thyromegaly], [no cervical lymphadenopathy], [trachea midline], [ supple] Mouth: [no lip lesion], [mucus membranes moist] Cardiovascular: [S1S2 reg], [no murmur], [positive posterior tibial pulse bilateral], [no edema], [capillary refill less than 2 seconds] Lungs: [CTA bilateral], [no rhonchi, no rales] , [no accessory muscle use] Abdominal: [soft], [epigastric tenderness to palpation], [no guarding], [no appreciable organomegaly], hypoactive bowel sounds Ext: [no gross muscle atrophy], [muscle strength 5 out of 5 in all 4 extremities grossly], [no contractures], Neuro: [ CN II-XI grossly intact], [light touch intact all 4 extremities], [ finger to nose within normal limits], Psych: [Alert], [oriented], [appropriate affect] Results CBC & Chem 7: 12/31/18 09:16 12/31/18 16:10 Labs: Abnormal Lab Results - Last 24 Hours (Table) 12/31/18 12/31/18 12/31/18 Range/Units 09:16 09:16 16:10 WBC 11.8 H (3.8-10.6) k/uL Neutrophils # 9.9 H (1.3-7.7) k/uL Sodium 135 L 135 L (137-145) mmol/L Potassium 3.3 L 3.3 L (3.5-5.1) mmol/L Glucose 103 H 118 H (74-99) mg/dL Total Protein 6.0 L (6.3-8.2) g/dL Albumin 3.4 L (3.5-5.0) g/dL 12/31/18 Range/Units 16:10 WBC (3.8-10.6) k/uL Neutrophils # (1.3-7.7) k/uL Sodium (137-145) mmol/L Potassium (3.5-5.1) mmol/L Glucose (74-99) mg/dL Total Protein (6.3-8.2) g/dL Albumin 3.4 L (3.5-5.0) g/dL Assessment and Plan Plan: Chest discomfort, shortness of breath, nausea likely secondary to edema at the gastrectomy site -CT angiogram negative for PE -Will trend troponin -Cardiac monitoring -Continue with Levaquin for now -Will defer to the surgery service -Continue with IV fluids -Continue with Zofran when necessary for nausea Hypokalemia -Replace and monitor DVT/GI prophylaxis -Heparin -Protonix
[2018-12-31 19:58] LABS: Glucose,Whole Blood 115 mg/dL (75-99)
[2018-12-31 23:20] LABS: Hemoglobin A1C 5.4 % (4.0-6.0)
[2018-12-31 23:44] LABS: Glucose,Whole Blood 147 mg/dL (75-99)
[2019-01-01] MEDS: INSULIN ASPART (NovoLOG) 100 UNIT/ML VIAL SQ SCH ×4 (00:13→18:03)
[2019-01-01] MEDS: diphenhydrAMINE 50 MG/ML 1 ML VIAL IVP SCH ×4 (00:14→18:02)
[2019-01-01] MEDS: DEXAMETHASONE SOD PHOSPHATE 4 MG/ML 1 ML VIAL IV SCH ×6 (00:14→20:39)
[2019-01-01] MEDS: HEPARIN SODIUM,PORCINE 5,000 UNIT/ML 1 ML VIAL SQ SCH ×3 (00:15→16:07)
[2019-01-01] MEDS: SODIUM CHLORIDE 0.9% 1,000 ML IV SCH ×3 (02:49→19:34)
[2019-01-01] MEDS: MORPHINE SULFATE 2 MG/ML SYRINGE IV PRN (04:06)
[2019-01-01] MEDS: ONDANSETRON 4 MG/2 ML VIAL IVP PRN ×2 (04:06→23:22)
[2019-01-01 05:11] LABS: Glucose,Whole Blood 153 mg/dL (75-99)
[2019-01-01 07:03] LABS: Glucose,Whole Blood 150 mg/dL (75-99)
[2019-01-01] MEDS: PANTOPRAZOLE 40 MG/10 ML VIAL IV SCH (09:16)
[2019-01-01 09:33] LABS: Basophils % (A) 0 %; Eosinophils # (A) 0.1 k/uL (0-0.7); Eosinophils % (A) 1 %; HCT 39.7 % (34.0-46.0); HGB 12.5 gm/dL (11.4-16.0); Lymphocytes # (A) 0.3 k/uL (1.0-4.8); Lymphocytes % (A) 3 %; MCH 30.2 pg (25.0-35.0); MCHC 31.5 g/dL (31.0-37.0); MCV 95.9 fL (80.0-100.0); Mean Platelet Volume 9.1; Monocytes # (A) 0.4 k/uL (0-1.0); Monocytes % (A) 4 %; Neutrophils # (A) 10.4 k/uL (1.3-7.7); Neutrophils % (A) 92 %; Platelet Count 150 k/uL (150-450); RBC 4.14 m/uL (3.80-5.40); RDW 12.5 % (11.5-15.5); WBC 11.3 k/uL (3.8-10.6)
[2019-01-01 09:42] LABS: Anion Gap 8 mmol/L; Blood Urea Nitrogen 18 mg/dL (7-17); Calcium 8.5 mg/dL (8.4-10.2); Carbon Dioxide 19 mmol/L (22-30); Chloride 107 mmol/L (98-107); Glucose 135 mg/dL (74-99); Magnesium 1.9 mg/dL (1.6-2.3); Phosphorus 4.2 mg/dL (2.5-4.5); Potassium 4.2 mmol/L (3.5-5.1); Sodium 134 mmol/L (137-145)
[2019-01-01 11:49] LABS: Glucose,Whole Blood 144 mg/dL (75-99)
--- NOTE | 2019-01-01 12:24 | P.PN ---
Subjective Progress Note Date: 01/01/19 CHIEF COMPLAINT: S/p Sleeve gastrectomy HISTORY OF PRESENT ILLNESS: The patient is a 53-year-old female status post sleeve gastrectomy, 12/24/18, POD 8. She was re-admitted for chest and abdominal pains. She is feeling better today. She reports dark urine consistent with dehydration. She reports breathing better. No complaints of moderate abdominal pain today. PHYSICAL EXAM: VITAL SIGNS: Reviewed GENERAL: Well-developed in no acute distress. HEENT: No sclera icterus. Extraocular movements grossly intact. Dry buccal mucosa. Head is atraumatic, normocephalic. Hears conversational speech. NECK: Supple without lymphadenopathy. CHEST: Non-labored respirations and equal bilateral excursions. CARDIOVASCULAR: Palpable 2+ radial pulses. Regular rate and regular rhythm ABDOMEN: Soft. Non-distended. Incisions are clean dry and intact. MUSCULOSKELETAL: No clubbing, cyanosis. No edema. NEUROLOGIC: No focal or lateralizing signs. Cranial nerves II through XII grossly intact. PSYCH: Appropriate affect. Alert and oriented to person, place and time. SKIN: Well perfused. Good skin turgor. LABS: Reviewed STUDIES: Reviewed ASSESSMENT: 1. Status post sleeve gastrectomy 2. Morbid obesity due to excess calories 3. Dehydration 4. Left pleural effusion PLAN: 1. Recommend IV fluid bolus to correct dehydration 2. Hospitalization anticipated through out the weekend. 3. Goal TPN and total fluids of 100 mL/hr 4. May benefit from pulmonary consultation pending clinical course of left pleural effusion and symptoms Objective - Vital Signs Vital signs: Vital Signs Temp 98.7 F 01/01/19 06:54 Pulse 57 L 01/01/19 06:54 Resp 17 01/01/19 06:54 BP 105/68 01/01/19 06:54 Pulse Ox 94 L 01/01/19 06:54 Intake & Output 12/31/18 01/01/19 01/01/19 18:59 06:59 18:59 Weight 96.162 kg 96.1 kg Other: Voiding Method Toilet Toilet - Labs CBC & Chem 7: 01/01/19 08:49 01/01/19 08:49 Labs: Abnormal Lab Results - Last 24 Hours (Table) 12/31/18 12/31/18 12/31/18 Range/Units 16:10 16:10 19:56 WBC (3.8-10.6) k/uL Neutrophils # (1.3-7.7) k/uL Lymphocytes # (1.0-4.8) k/uL Sodium 135 L (137-145) mmol/L Potassium 3.3 L (3.5-5.1) mmol/L Carbon Dioxide (22-30) mmol/L BUN (7-17) mg/dL Glucose 118 H (74-99) mg/dL POC Glucose (mg/dL) 115 H (75-99) mg/dL Total Protein 6.0 L (6.3-8.2) g/dL Albumin 3.4 L 3.4 L (3.5-5.0) g/dL 12/31/18 01/01/19 01/01/19 Range/Units 23:42 05:09 07:02 WBC (3.8-10.6) k/uL Neutrophils # (1.3-7.7) k/uL Lymphocytes # (1.0-4.8) k/uL Sodium (137-145) mmol/L Potassium (3.5-5.1) mmol/L Carbon Dioxide (22-30) mmol/L BUN (7-17) mg/dL Glucose (74-99) mg/dL POC Glucose (mg/dL) 147 H 153 H 150 H (75-99) mg/dL Total Protein (6.3-8.2) g/dL Albumin (3.5-5.0) g/dL 01/01/19 01/01/19 01/01/19 Range/Units 08:49 08:49 11:48 WBC 11.3 H (3.8-10.6) k/uL Neutrophils # 10.4 H (1.3-7.7) k/uL Lymphocytes # 0.3 L (1.0-4.8) k/uL Sodium 134 L (137-145) mmol/L Potassium (3.5-5.1) mmol/L Carbon Dioxide 19 L (22-30) mmol/L BUN 18 H (7-17) mg/dL Glucose 135 H (74-99) mg/dL POC Glucose (mg/dL) 144 H (75-99) mg/dL Total Protein (6.3-8.2) g/dL Albumin (3.5-5.0) g/dL - Imaging and Cardiology CT scan - abdomen: report reviewed, image reviewed CT scan - pelvis: report reviewed, image reviewed (CT scan personally reviewed with hiatal hernia and post-surgical changes about her sleeve gastrectomy. Left pleural effusion noted.) Assessment and Plan (1) S/P laparoscopic sleeve gastrectomy Current Visit: Yes Status: Acute Code(s): Z98.84 - BARIATRIC SURGERY STATUS SNOMED Code(s): 066044479 (2) Inadequate dietary intake of protein Current Visit: Yes Status: Acute Code(s): R63.8 - OTHER SYMPTOMS AND SIGNS CONCERNING FOOD AND FLUID INTAKE SNOMED Code(s): 131153512 (3) On total parenteral nutrition (TPN) Current Visit: Yes Status: Acute Code(s): Z78.9 - OTHER SPECIFIED HEALTH STATUS SNOMED Code(s): 73062101 (4) Pleural effusion, left Current Visit: Yes Status: Acute Code(s): J90 - PLEURAL EFFUSION, NOT ELSEWHERE CLASSIFIED SNOMED Code(s): 67908977 (5) Dyspnea Current Visit: Yes Status: Acute Code(s): R06.00 - DYSPNEA, UNSPECIFIED SNOMED Code(s): 865973027 (6) Dehydration Current Visit: Yes Status: Acute Code(s): E86.0 - DEHYDRATION SNOMED Code( s): 22724583 (7) Morbid obesity due to excess calories Current Visit: No Status: Acute Code(s): E66.01 - MORBID (SEVERE) OBESITY DUE TO EXCESS CALORIES SNOMED Code(s): 256676953
[2019-01-01] MEDS ORDERED: SODIUM CHLORIDE 0.9% 2,000 ML IV ONE (12:25)
--- NOTE | 2019-01-01 15:40 | P.PN ---
Subjective Progress Note Date: 01/01/19 Patient was seen and examined at bedside. She notes that her chest discomfort and nausea has improved and she no longer has shortness of breath. She denied fever, chills, dizziness, or palpitations. Objective - Vital Signs Vital signs: Vital Signs Temp 98.6 F 01/01/19 15:00 Pulse 60 01/01/19 15:00 Resp 16 01/01/19 15:00 BP 143/78 01/01/19 15:00 Pulse Ox 96 01/01/19 15:00 Intake & Output 12/31/18 01/01/19 01/01/19 18:59 06:59 18:59 Weight 96.162 kg 96.1 kg Other: Voiding Method Toilet Toilet - Exam General: Non-toxic, in no acute distress, appears stated age, obese HEENT: NC/AT, anicteric sclerae, moist conjunctiva, no lid-lag, PERRLA Cardiovascular: S1/S2 wnl, no murmurs, rubs, or gallops Lungs: Clear to auscultation, normal respiratory effort, no accessory muscle use Abdominal: Soft, mild epigastric tenderness to palpation, postsurgical Skin: Warm, dry Extremities: No edema or contractures Psychiatric: Alert and oriented to person, place and time, appropriate affect Neuro: CN II-XII grossly intact, Strength 5/5 in all 4 extremities, Speech intact, Sensation to light touch grossly intact throughout - Labs CBC & Chem 7: 01/01/19 08:49 01/01/19 08:49 Labs: Abnormal Lab Results - Last 24 Hours (Table) 12/31/18 12/31/18 12/31/18 Range/Units 16:10 16:10 19:56 WBC (3.8-10.6) k/uL Neutrophils # (1.3-7.7) k/uL Lymphocytes # (1.0-4.8) k/uL Sodium 135 L (137-145) mmol/L Potassium 3.3 L (3.5-5.1) mmol/L Carbon Dioxide (22-30) mmol/L BUN (7-17) mg/dL Glucose 118 H (74-99) mg/dL POC Glucose (mg/dL) 115 H (75-99) mg/dL Total Protein 6.0 L (6.3-8.2) g/dL Albumin 3.4 L 3.4 L (3.5-5.0) g/dL 12/31/18 01/01/19 01/01/19 Range/Units 23:42 05:09 07:02 WBC (3.8-10.6) k/uL Neutrophils # (1.3-7.7) k/uL Lymphocytes # (1.0-4.8) k/uL Sodium (137-145) mmol/L Potassium (3.5-5.1) mmol/L Carbon Dioxide (22-30) mmol/L BUN (7-17) mg/dL Glucose (74-99) mg/dL POC Glucose (mg/dL) 147 H 153 H 150 H (75-99) mg/dL Total Protein (6.3-8.2) g/dL Albumin (3.5-5.0) g/dL 01/01/19 01/01/19 01/01/19 Range/Units 08:49 08:49 11:48 WBC 11.3 H (3.8-10.6) k/uL Neutrophils # 10.4 H (1.3-7.7) k/uL Lymphocytes # 0.3 L (1.0-4.8) k/uL Sodium 134 L (137-145) mmol/L Potassium (3.5-5.1) mmol/L Carbon Dioxide 19 L (22-30) mmol/L BUN 18 H (7-17) mg/dL Glucose 135 H (74-99) mg/dL POC Glucose (mg/dL) 144 H (75-99) mg/dL Total Protein (6.3-8.2) g/dL Albumin (3.5-5.0) g/dL Assessment and Plan Plan: Chest discomfort, shortness of breath, nausea likely secondary to edema at the gastrectomy site -CT angiogram negative for PE -Troponin negative -Will defer to the surgery service -Continue with IV fluids -Continue with Zofran when necessary for nausea Leukocytosis -Likely reactive Hypokalemia, resolved DVT/GI prophylaxis -Heparin -Protonix
[2019-01-01] MEDS: LEVOFLOXACIN 500MG-D5W PMX 500 MG in DEXTROSE/WATER 1 100ML.BAG IVPB SCH (16:07)
[2019-01-01 16:53] LABS: Glucose,Whole Blood 144 mg/dL (75-99)
[2019-01-01] MEDS: 1: MVI, ADULT NO.4 WITH VIT K 10 ML, TRACE (CONC-1ML/DOSE) 1 ML in AMINO ACID 5%-D15W+LY IV SCH ×3 (18:02)
[2019-01-01] MEDS: KETOROLAC 30 MG/ML 1 ML VIAL IVP PRN (20:39)
[2019-01-02 00:28] LABS: Glucose,Whole Blood 187 mg/dL (75-99)
[2019-01-02] MEDS: DEXAMETHASONE SOD PHOSPHATE 4 MG/ML 1 ML VIAL IV SCH ×6 (00:36→20:46)
[2019-01-02] MEDS: HEPARIN SODIUM,PORCINE 5,000 UNIT/ML 1 ML VIAL SQ SCH ×3 (00:36→17:04)
[2019-01-02] MEDS: INSULIN ASPART (NovoLOG) 100 UNIT/ML VIAL SQ SCH ×4 (00:37→18:07)
[2019-01-02] MEDS: diphenhydrAMINE 50 MG/ML 1 ML VIAL IVP SCH ×4 (00:37→17:21)
[2019-01-02] MEDS: MORPHINE SULFATE 2 MG/ML SYRINGE IV PRN (00:39)
[2019-01-02] MEDS: 1: MVI, ADULT NO.4 WITH VIT K 10 ML, TRACE (CONC-1ML/DOSE) 1 ML in AMINO ACID 5%-D15W+LY IV SCH ×6 (03:56→18:06)
[2019-01-02] MEDS: SODIUM CHLORIDE 0.9% 1,000 ML IV SCH ×2 (05:57→17:17)
[2019-01-02 06:04] LABS: Glucose,Whole Blood 183 mg/dL (75-99)
[2019-01-02 09:16] LABS: Anion Gap 10 mmol/L; Blood Urea Nitrogen 22 mg/dL (7-17); Calcium 8.8 mg/dL (8.4-10.2); Carbon Dioxide 18 mmol/L (22-30); Chloride 109 mmol/L (98-107); Glucose 151 mg/dL (74-99); Magnesium 1.9 mg/dL (1.6-2.3); Phosphorus 3.1 mg/dL (2.5-4.5); Potassium 4.1 mmol/L (3.5-5.1); Sodium 137 mmol/L (137-145)
[2019-01-02] MEDS: PANTOPRAZOLE 40 MG/10 ML VIAL IV SCH (09:18)
[2019-01-02] MEDS: KETOROLAC 30 MG/ML 1 ML VIAL IVP PRN ×2 (09:26→23:19)
[2019-01-02] MEDS: SIMETHICONE 40 MG/0.6 ML DROPS 2,000 MG/30 ML BOTTLE PO SCH ×4 (10:44→20:47)
[2019-01-02] MEDS: HYDROmorphone 1 MG/ML 1 ML SYRINGE IVP PRN ×3 (10:44→21:46)
--- NOTE | 2019-01-02 10:48 | XR ---
EXAMINATION TYPE: XR abdomen acute w cxr DATE OF EXAM: 01/02/2019 COMPARISON: NONE HISTORY: Pain TECHNIQUE: Single view of the chest and 2 views of the abdomen are submitted. FINDINGS: Single view of the chest fails demonstrate left basilar atelectasis and/or infiltrate with small effu javier. There is no evidence for pneumoperitoneum. There is retained contrast throughout the colon. Cholecys tectomy clips are in place. Right paraspinal clips also noted. The bowel gas pattern is unremarkable as there is air throughout nondilated small and large bowel. No sizeable air fluid levels.No mass effects are seen. No unusual calcifications. IMPRESSION: 1. left basilar atelectasis and/or infiltrate with small effusion. 2. Retained contrast throughout the colon.
--- NOTE | 2019-01-02 11:52 | P.PN ---
Subjective Progress Note Date: 01/02/19 CHIEF COMPLAINT: S/p Sleeve gastrectomy HISTORY OF PRESENT ILLNESS: The patient is a 53-year-old female status post sleeve gastrectomy, 12/24/18, POD 9. She was re-admitted for chest and abdominal pains. This morning, she reported acute left chest pain including epigastric abdominal pain. Abdominal x-rays were obtained. Separately she reports constipation. Her last bowel movement was yesterday. She reports only tolerating for popsicles. PHYSICAL EXAM: VITAL SIGNS: Reviewed GENERAL: Well-developed in no acute distress. HEENT: No sclera icterus. Extraocular movements grossly intact. Head is atraumatic, normocephalic. Hears conversational speech. NECK: Supple without lymphadenopathy. CHEST: Non-labored respirations. CARDIOVASCULAR: Palpable 2+ radial pulses. Regular rate and regular rhythm ABDOMEN: Soft. Non-distended. Incisions are clean dry and intact. Mild tenderness epigastrium. MUSCULOSKELETAL: No clubbing, cyanosis. No edema. NEUROLOGIC: No focal or lateralizing signs. Cranial nerves II through XII grossly intact. PSYCH: Appropriate affect. Alert and oriented to person, place and time. SKIN: Well perfused. Good skin turgor. LABS: Reviewed STUDIES: Reviewed ASSESSMENT: 1. Status post sleeve gastrectomy 2. Morbid obesity due to excess calories 3. Dehydration 4. Left pleural effusion PLAN: 1. She has a hiatal hernia that may propagate gastro-esophageal reflux disease and may also cause similar discomfort. We'll start Protonix. 2. Also recommend consultation to pulmonary for left pleural effusion 3. She is having bowel movements. Liquid laxative feasible. 4. Probably repeat CBC Objective - Vital Signs Vital signs: Vital Signs Temp 98.7 F 01/02/19 07:45 Pulse 84 01/02/19 07:45 Resp 16 01/02/19 07:45 BP 138/86 01/02/19 07:45 Pulse Ox 96 01/02/19 07:45 Intake & Output 01/01/19 01/02/19 01/02/19 18:59 06:59 18:59 Intake Total 2110 Balance 2110 Weight 98.1 kg Intake: Intake, IV Titration 2110 Amount Amino Acid 5%-D15w+Lytes* 1100 E* 1,000 ml @ 100 mls/hr IV .BY DURATION [facility] Rx#: [id number] Mvi, Adult No.4 with Vit 1011 K 10 ml Trace (Conc-1Ml/ Dose) 1 ml In Amino Acid 5%-D15w+Lytes*E* 1,000 ml @ 100 mls/hr IV .BY DURATION [facility] Rx#: [id number] Other: Voiding Method Toilet Toilet Toilet # Voids 3 - Labs CBC & Chem 7: 01/01/19 08:49 01/02/19 08:11 Labs: Abnormal Lab Results - Last 24 Hours (Table) 01/01/19 01/01/19 01/02/19 Range/Units 11:48 16:50 00:27 Chloride (98-107) mmol/L Carbon Dioxide (22-30) mmol/L BUN (7-17) mg/dL Glucose (74-99) mg/dL POC Glucose (mg/dL) 144 H 144 H 187 H (75-99) mg/dL 01/02/19 01/02/19 Range/Units 06:02 08:11 Chloride 109 H (98-107) mmol/L Carbon Dioxide 18 L (22-30) mmol/L BUN 22 H (7-17) mg/dL Glucose 151 H (74-99) mg/dL POC Glucose (mg/dL) 183 H (75-99) mg/dL - Imaging and Cardiology Abdominal x-ray: report reviewed, image reviewed (Imaging consistent with no free air.) Assessment and Plan (1) S/P laparoscopic sleeve gastrectomy Current Visit: Yes Status: Acute Code(s): Z98.84 - BARIATRIC SURGERY STATUS SNOMED Code(s): 161310728 (2) Inadequate dietary intake of protein Current Visit: Yes Status: Acute Code(s): R63.8 - OTHER SYMPTOMS AND SIGNS CONCERNING FOOD AND FLUID INTAKE SNOMED Code(s): 068738108 (3) On total parenteral nutrition (TPN) Current Visit: Yes Status: Acute Code(s): Z78.9 - OTHER SPECIFIED HEALTH STATUS SNOMED Code(s): 31004060 (4) Pleural effusion, left Current Visit: Yes Status: Acute Code(s): J90 - PLEURAL EFFUSION, NOT ELSEWHERE CLASSIFIED SNOMED Code(s): 55746945 (5) Dyspnea Current Visit: Yes Status: Acute Code(s): R06.00 - DYSPNEA, UNSPECIFIED SNOMED Code(s): 901464647 (6) Dehydration Current Visit: Yes Status: Acute Code(s): E86.0 - DEHYDRATION SNOMED Code( s): 27428165 (7) Morbid obesity due to excess calories Current Visit: No Status: Acute Code(s): E66.01 - MORBID (SEVERE) OBESITY DUE TO EXCESS CALORIES SNOMED Code(s): 879977790
[2019-01-02 12:03] LABS: Glucose,Whole Blood 145 mg/dL (75-99)
[2019-01-02] MEDS: MAGNESIUM HYDROXIDE 2,400 MG/10 ML CUP PO SCH (13:01)
[2019-01-02] MEDS: LEVOFLOXACIN 500MG-D5W PMX 500 MG in DEXTROSE/WATER 1 100ML.BAG IVPB SCH (17:04)
[2019-01-02 17:25] LABS: Glucose,Whole Blood 157 mg/dL (75-99)
--- NOTE | 2019-01-02 18:24 | P.PN ---
Subjective Progress Note Date: 01/02/19 The patient was seen and examined at the bedside. She continues to have epigastric discomfort and shortness of breath. She is however denying fever, chills, nausea, or vomiting. Objective - Vital Signs Vital signs: Vital Signs Temp 98.4 F 01/02/19 14:30 Pulse 73 01/02/19 14:30 Resp 16 01/02/19 14:30 BP 132/81 01/02/19 14:30 Pulse Ox 96 01/02/19 14:30 Intake & Output 01/01/19 01/02/19 01/02/19 18:59 06:59 18:59 Intake Total 1 Balance 2110 Weight 98.1 kg Intake: Intake, IV Titration 2110 Amount Amino Acid 5%-D15w+Lytes* 1100 E* 1,000 ml @ 100 mls/hr IV .BY DURATION [facility] Rx#: [id number] Mvi, Adult No.4 with Vit 1011 K 10 ml Trace (Conc-1Ml/ Dose) 1 ml In Amino Acid 5%-D15w+Lytes*E* 1,000 ml @ 100 mls/hr IV .BY DURATION [facility] Rx#: [id number] Other: Voiding Method Toilet Toilet Toilet # Voids 3 - Exam General: Non-toxic, in no acute distress, appears stated age, obese HEENT: NC/AT, anicteric sclerae, moist conjunctiva, no lid-lag, PERRLA Cardiovascular: S1/S2 wnl, no murmurs, rubs, or gallops Lungs: Mild bibasilar ronchi, normal respiratory effort, no accessory muscle use Abdominal: Soft, mild epigastric tenderness to palpation, postsurgical Skin: Warm, dry Extremities: No edema or contractures Psychiatric: Alert and oriented to person, place and time, appropriate affect Neuro: CN II-XII grossly intact, Strength 5/5 in all 4 extremities, Speech intact, Sensation to light touch grossly intact throughout - Labs CBC & Chem 7: 01/01/19 08:49 01/02/19 08:11 Labs: Abnormal Lab Results - Last 24 Hours (Table) 01/02/19 01/02/19 01/02/19 Range/Units 00:27 06:02 08:11 Chloride 109 H (98-107) mmol/L Carbon Dioxide 18 L (22-30) mmol/L BUN 22 H (7-17) mg/dL Glucose 151 H (74-99) mg/dL POC Glucose (mg/dL) 187 H 183 H (75-99) mg/dL 01/02/19 01/02/19 Range/Units 12:01 17:24 Chloride (98-107) mmol/L Carbon Dioxide (22-30) mmol/L BUN (7-17) mg/dL Glucose (74-99) mg/dL POC Glucose (mg/dL) 145 H 157 H (75-99) mg/dL Assessment and Plan Plan: Chest discomfort, shortness of breath, nausea likely secondary to edema at the gastrectomy site -CT angiogram negative for PE -Troponin negative -Will defer to the surgery service -Continue with IV fluids -Continue with Zofran when necessary for nausea -Agree with Protonix for GERD Leukocytosis -Likely reactive Hypokalemia, resolved DVT/GI prophylaxis -Heparin -Protonix
[2019-01-03 00:22] LABS: Glucose,Whole Blood 213 mg/dL (75-99)
[2019-01-03] MEDS: HEPARIN SODIUM,PORCINE 5,000 UNIT/ML 1 ML VIAL SQ SCH ×3 (00:34→20:51)
[2019-01-03] MEDS: DEXAMETHASONE SOD PHOSPHATE 4 MG/ML 1 ML VIAL IV SCH ×4 (00:34→13:56)
[2019-01-03] MEDS: diphenhydrAMINE 50 MG/ML 1 ML VIAL IVP SCH ×4 (00:34→20:52)
[2019-01-03] MEDS: INSULIN ASPART (NovoLOG) 100 UNIT/ML VIAL SQ SCH ×4 (00:35→21:18)
[2019-01-03] MEDS: SODIUM CHLORIDE 0.9% 1,000 ML IV SCH ×2 (03:08→22:44)
[2019-01-03] MEDS: HYDROmorphone 1 MG/ML 1 ML SYRINGE IVP PRN ×3 (04:02→20:57)
[2019-01-03] MEDS: 1: MVI, ADULT NO.4 WITH VIT K 10 ML, TRACE (CONC-1ML/DOSE) 1 ML in AMINO ACID 5%-D15W+LY IV SCH ×6 (04:03→23:59)
[2019-01-03 05:36] LABS: Glucose,Whole Blood 244 mg/dL (75-99)
[2019-01-03 06:56] LABS: Basophils % (A) 0 %; Eosinophils % (A) 1 %; HCT 38.6 % (34.0-46.0); HGB 12.5 gm/dL (11.4-16.0); Lymphocytes # (A) 0.2 k/uL (1.0-4.8); Lymphocytes % (A) 3 %; MCH 30.6 pg (25.0-35.0); MCHC 32.3 g/dL (31.0-37.0); MCV 94.7 fL (80.0-100.0); Mean Platelet Volume 8.9; Monocytes # (A) 0.3 k/uL (0-1.0); Monocytes % (A) 3 %; Neutrophils # (A) 7.6 k/uL (1.3-7.7); Neutrophils % (A) 93 %; Platelet Count 174 k/uL (150-450); RBC 4.08 m/uL (3.80-5.40); RDW 12.7 % (11.5-15.5); WBC 8.2 k/uL (3.8-10.6)
[2019-01-03 07:09] LABS: Anion Gap 7 mmol/L; Blood Urea Nitrogen 26 mg/dL (7-17); Calcium 8.4 mg/dL (8.4-10.2); Carbon Dioxide 21 mmol/L (22-30); Chloride 106 mmol/L (98-107); Glucose 241 mg/dL (74-99); Magnesium 2.5 mg/dL (1.6-2.3); Phosphorus 3.9 mg/dL (2.5-4.5); Potassium 4.3 mmol/L (3.5-5.1); Sodium 134 mmol/L (137-145)
[2019-01-03] MEDS: PANTOPRAZOLE 40 MG/10 ML VIAL IV SCH (08:29)
[2019-01-03] MEDS: MAGNESIUM HYDROXIDE 2,400 MG/10 ML CUP PO SCH (08:29)
[2019-01-03] MEDS: SIMETHICONE 40 MG/0.6 ML DROPS 2,000 MG/30 ML BOTTLE PO SCH ×3 (08:29→21:59)
--- NOTE | 2019-01-03 09:37 | P.PN ---
Progress Note - Text Progress Note Date: 01/03/19 The patient's states she still has dysphagia. She has been tolerating some popsicles over the weekend. She still has some epigastric fullness and pressure. Dr. Slater had rounded yesterday in order abdominal x-rays. There is no evidence of any free air. There is a suggestion of a left small pleural effusion. On exam her vital signs appear stable. Her white count was normal. Her abdomen is soft. The patient will undergo EGD today. To help define the source of her dysphagia. I did discuss patient the risk of gastric staple line perforation and the possible risk for recurrent surgery.
[2019-01-03] MEDS ORDERED: HYDROmorphone (PF) 1 MG/ML ONE ×2 (10:24→11:49)
[2019-01-03] MEDS ORDERED: PROPOFOL 10 MG/ML 20 ML VIAL IV ONE ×2 (10:24→11:49)
[2019-01-03] MEDS ORDERED: LIDOCAINE 1% INJ 10MG/ML (20 ML MDV) ONE ×2 (10:24→11:49)
[2019-01-03] MEDS ORDERED: SODIUM CHLORIDE 0.9% 500 ML 500 ML IV ONE (10:29)
[2019-01-03] MEDS ORDERED: SODIUM CHLORIDE 0.9% 500 ML 400 ML IV ONE ×2 (10:54)
[2019-01-03] MEDS: SODIUM CHLORIDE 0.9% 500 ML 400 ML IV ONE ×2 (10:54→22:44)
--- NOTE | 2019-01-03 10:54 | P.PN ---
Progress Note - Text Progress Note Date: 01/03/19 The patient had an esophagram performed this morning. It was reviewed with Dr. Walters. Patient has a leak near the proximal sleeve. Patient also had an EGD performed today the leak could not be visualized. The patient will be scheduled for diagnostic laparoscopy possible exploratory laparotomy today.
--- NOTE | 2019-01-03 10:57 | FL ---
"EXAMINATION TYPE: FL UGI w esophagus DATE OF EXAM: 01/03/2019 COMPARISON: CT abdomen pelvis 3 days ago. Upper GI exams performed last week. HISTORY: History of lap band surgery years ago converted to gastric sleeve surgery December 25 TECHNIQUE: Limited upper GI esophagram is performed utilizing 10 oz of EZ-paque. FINDINGS: Incidental left-sided PICC line identified. The patient swallowed contrast without difficu lty . Esophageal peristalsis and motility are satisfactory. There remains prominence stomach or fixe d hiatal hernia above the diaphragm. There is small caliber channel or flow at level of diaphragmatic hiatus identified into gastric remnant below the diaphragm. Contrast from studies performed last wee k remains in visualized portion of colon near the splenic flexure. Incidental cholecystectomy clips. On current study there is no flow of contrast into gastric sleeve that is identified on prior upper G I exams. There is flow left lateral aspect which extends inferiorly and poles in the left midabdomen lateral portion suspected inferior perisplenic space consistent with interval development of a leak l ikely at proximal anastomosis. On current study no contrast enters gastric sleeve. Reflux of contrast into mid to distal esophagus incidentally noted. IMPRESSION: There is new leak visualized with spillage of contrast into the lateral left upper to mid abdomen inferior perisplenic space likely at level of the proximal anastomosis of gastric sleeve. Critical results communicated to ordering surgeon via phone call at time of dictation. A Yellow level critical message alert has been initiated for Colby Moore MD via the [employer] | Critical Results System on 01/03/2019 10:54 AM. This message alert has been sent to Colby flores MD via the preferences provided by the clinician for the receipt of Radiology Critical Findings. Valerie essage ID [id number]."
--- NOTE | 2019-01-03 11:00 | P.OP ---
Date of Procedure: 01/03/19 Preoperative Diagnosis: Dysphagia Postoperative Diagnosis: Dysphagia Procedure(s) Performed: EGD Anesthesia: MAC Surgeon: Colby Moore Pathology: none sent Condition: stable Disposition: PACU Description of Procedure: The patient's placed on the endoscopy table in the lateral position. She received IV sedation. The gastroscope placed oropharynx and passed in the esophagus and then into the GE junction. The proximal stomach was visualized. The scope was then placed into the gastric sleeve. Scope was placed through the pylorus and into the first second portion of the duodenum. The scope was then withdrawn. No obvious leak was seen. At this point the scope was withdrawn. The patient was sent to preop in stable condition. The patient's esophagram was reviewed with Dr. muro. There is evidence of a gastric sleeve leak. Patient will be taken to the operating room today for diagnostic laparoscopy possible laparotomy.
[2019-01-03] MEDS ORDERED: LEVOFLOXACIN 500MG-D5W PMX 500 MG in DEXTROSE/WATER 1 100ML.BAG IVPB ONE (11:15)
[2019-01-03 11:16] LABS: Glucose,Whole Blood 172 mg/dL (75-99)
[2019-01-03] MEDS ORDERED: LACTATED RINGERS 1,000 ML IV ONE ×16 (11:27→18:13)
[2019-01-03] MEDS ORDERED: LIDOCAINE 1% 20 ML VIAL (10MG/ML) FOR IV START INTRADERMA ONE (11:28)
[2019-01-03] MEDS ORDERED: METHYLENE BLUE 10 MG/ML (10 ML VIAL) ONE (11:49)
[2019-01-03] MEDS ORDERED: ROCURONIUM BROMIDE 10 MG/ML 10 ML VIAL IV ONE (11:49)
[2019-01-03] MEDS ORDERED: GLYCOPYRROLATE 0.2 MG/ML 2 ML VIAL ONE (11:49)
[2019-01-03] MEDS ORDERED: MIDAZOLAM 2 MG/2 ML VIAL ONE (11:49)
[2019-01-03] MEDS ORDERED: ONDANSETRON 4 MG/2 ML VIAL ONE (11:49)
[2019-01-03] MEDS ORDERED: NEOSTIGMINE 1 MG/ML 10 ML VIAL ONE (11:49)
[2019-01-03] MEDS ORDERED: fentaNYL (PF) 50 MCG/ML 2 ML AMP ONE (11:49)
[2019-01-03] MEDS ORDERED: SUCCINYLCHOLINE CHLORIDE 100 MG/5 ML SYR IV ONE (11:49)
--- NOTE | 2019-01-03 12:19 | P.PN ---
Subjective Progress Note Date: 01/03/19 CHIEF COMPLAINT: Dysphasia HISTORY OF PRESENT ILLNESS: 53-year-old female who originally underwent laparoscopic sleeve gastrectomy on 12/24/2018. Patient was readmitted to the hospital secondary to dysphagia. Patient underwent EGD today which did not reveal evidence of a leak. However the patient had an esophagram this morning which reveals a leak near the proximal sleeve. The patient is scheduled for diagnostic laparoscopy possible exploratory laparotomy today. PHYSICAL EXAM: VITAL SIGNS: Currently stable. GENERAL: Well-developed in no acute distress. HEENT: No sclera icterus. Extraocular movements grossly intact. Moist buccal mucosa. Head is atraumatic, normocephalic. Hears conversational speech. No nasal drainage. NECK: Supple without lymphadenopathy. CHEST: Non-labored respirations and equal bilateral excursions. CARDIOVASCULAR: Regular rate with regular rhythm. Palpable 2+ radial pulses. ABDOMEN: Soft. Nondistended. MUSCULOSKELETAL: No clubbing, cyanosis or edema. NEUROLOGIC: No focal or lateralizing signs. Cranial nerves II through XII grossly intact. PSYCH: Appropriate affect. Alert and oriented to person, place and time. SKIN: Well perfused. Good skin turgor. ASSESSMENT: 1. Dysphagia 2. 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 Status post esophagram revealing leak near proximal sleeve PLAN: 1. Patient is scheduled for diagnostic laparoscopy possible exploratory laparotomy today2 2. NPO 3. Continue TPN Nurse practitioner note has been reviewed by physician. Signing provider agrees with the documented findings, assessment, and plan of care. Objective - Vital Signs Vital signs: Vital Signs Temp 99.4 F 01/03/19 11:03 Pulse 100 01/03/19 11:30 Resp 18 01/03/19 11:30 BP 156/94 01/03/19 11:30 Pulse Ox 92 L 01/03/19 11:30 Intake & Output 01/02/19 01/03/19 01/03/19 18:59 06:59 18:59 Intake Total 1000 1011 200 Balance 1000 1011 200 Weight 98 kg 98 kg Intake: IV 200 Intake, IV Titration 1000 1011 Amount Amino Acid 5%-D15w+Lytes* 1000 E* 1,000 ml @ 100 mls/hr IV .BY DURATION [facility] Rx#: [id number] Mvi, Adult No.4 with Vit 1011 K 10 ml Trace (Conc-1Ml/ Dose) 1 ml In Amino Acid 5%-D15w+Lytes*E* 1,000 ml @ 100 mls/hr IV .BY DURATION [facility] Rx#: [id number] Other: Voiding Method Toilet Toilet Toilet # Voids 2 - Labs CBC & Chem 7: 01/03/19 06:34 01/03/19 06:34 Labs: Abnormal Lab Results - Last 24 Hours (Table) 01/02/19 01/03/19 01/03/19 Range/Units 17:24 00:20 05:34 Lymphocytes # (1.0-4.8) k/uL Sodium (137-145) mmol/L Carbon Dioxide (22-30) mmol/L BUN (7-17) mg/dL Creatinine (0.52-1.04) mg/dL Glucose (74-99) mg/dL POC Glucose (mg/dL) 157 H 213 H 244 H (75-99) mg/dL Magnesium (1.6-2.3) mg/dL 01/03/19 01/03/19 01/03/19 Range/Units 06:34 06:34 11:15 Lymphocytes # 0.2 L (1.0-4.8) k/uL Sodium 134 L (137-145) mmol/L Carbon Dioxide 21 L (22-30) mmol/L BUN 26 H (7-17) mg/dL Creatinine 0.51 L (0.52-1.04) mg/dL Glucose 241 H (74-99) mg/dL POC Glucose (mg/dL) 172 H (75-99) mg/dL Magnesium 2.5 H (1.6-2.3) mg/dL
[2019-01-03] MEDS ORDERED: METHYLENE BLUE 10 MG/ML (10 ML VIAL) IRRIGATION ONE (12:51)
[2019-01-03] MEDS ORDERED: LACTATED RINGERS 1,000 ML IV SCH (14:30)
[2019-01-03] MEDS ORDERED: ONDANSETRON 4 MG/2 ML VIAL IVP PRN (14:38)
[2019-01-03] MEDS ORDERED: NALOXONE 0.4 MG/ML 1 ML VIAL IV PRN (14:38)
[2019-01-03] MEDS: HYDROmorphone 0.5 MG/0.5 ML SYRINGE IVP PRN ×4 (14:59→19:01)
[2019-01-03 16:52] LABS: Glucose,Whole Blood 129 mg/dL (75-99)
--- NOTE | 2019-01-03 17:05 | P.OP ---
Date of Procedure: 01/03/19 Preoperative Diagnosis: Gastric sleeve staple line perforation Postoperative Diagnosis: Gastric sleeve staple line perforation Procedure(s) Performed: Exploratory laparotomy Gastrorrhaphy Splenectomy Anesthesia: MARIA T Surgeon: Colby Moore Estimated Blood Loss (ml): 400 Pathology: other (Spleen) Condition: stable Disposition: PACU Description of Procedure: The patient's placed on the operative table in the supine position. She received general anesthesia. She was then placed in dorsal lithotomy position. She was placed in the reverse Trendelenburg position. Her abdomen was prepped and draped in usual sterile fashion. The skin incision sites were anesthetized 1% local Xylocaine. Using an 11 blade the skin was incised in the left periumbilical area. And then using a 5 mm optical trocar under direct visualization the peritoneal cavity is entered. The abdomen was insufflated. Next a 10 mm trocar was placed in the left epigastric position a 5 mm trochars placed in the right epigastric position and then 5 mm trochars were placed in the right and left lateral positions. There was some ascites seen in the abdomen that was bilious in color. The left lateral lobe of the liver was retracted. The gastric sleeve was visualized. Starting towards the antrum the staple line was examined. The staple line on stomach was examined. And in the very superior part of the staple line there was evidence of a perforation. The perforation was visualized by gently sucking next to the staple line. At this point a orogastric tube was placed into the patient's esophagus and methylene blue was placed into the stomach. The methylene blue could be seen extravasating from the gastric staple line perforation. The perforation appeared to be 3 or 4 mm in length. This point using the Seldinger device the gastric perforation was closed. Using a 2-0 Ethibond the stomach repair was oversewn. At this point the stomach was insufflated with methylene blue normal saline. There is no evidence of any further extravasation. The patient's hiatus was examined. The kaylene was dissected using the Harmonic scissors. There was some scar tissue in this area due to the previous LAP-BAND the patient had previously. The Xander was dissected. There was a small hiatal hernia. The Xander underwent a 360 dissection. In the Xander was reapproximated using 2-0 Ethibond suture. At this point the the peritoneal cavity was irrigated. The omentum was lifted off the spleen. And there was evidence of bilious fluid behind the spleen. During the irrigation near the spleen. A splenic capsule tear was visualized. Several attempts were made to control bleeding however the bleeding was worsened with attempting to apply pressure to the spleen. At this point decided for splenectomy for control bleeding. The trochars withdrawn. An upper midline skin incision was made. The spleen was mobilized and brought into the midline. The splenic hilum was crossclamped with Sara clamps. And then divided. The splenic vessels were ligated using 0 silk ties. At this point the abdomen was irrigated. There were several collections of bilious fluid in interloop small bowel. There was also bilious fluid in the pelvis. Approximately 4 L of irrigation were used to irrigate the abdomen. A CODY drain was placed through a left upper quadrant stab site and placed up against the area of the splenic bed and gastric sleeve repair. Methylene blue was inserted once again into the stomach. There is no evidence of any leak of methylene blue. At this point the fascia was closed with looped #1 PDS suture. The skin was closed agatha. Patient was sent to recovery room in stable condition.
--- NOTE | 2019-01-03 17:20 | P.PN ---
Subjective Progress Note Date: 01/03/19 Principal diagnosis: nausea and vomiting Patient seen and examined after her surgery. She is currently in the PACU and unable to communicate meaningfully. Underwent esophagram this morning, leak near the proximal sleeve. Objective - Vital Signs Vital signs: Vital Signs Temp 99.4 F 01/03/19 11:03 Pulse 100 01/03/19 11:30 Resp 18 01/03/19 11:30 BP 156/94 01/03/19 11:30 Pulse Ox 92 L 01/03/19 11:30 Intake & Output 01/02/19 01/03/19 01/03/19 18:59 06:59 18:59 Intake Total 1000 1011 200 Balance 1000 1011 200 Weight 98 kg Intake: IV 200 Intake, IV Titration 1000 1011 Amount Amino Acid 5%-D15w+Lytes* 1000 E* 1,000 ml @ 100 mls/hr IV .BY DURATION [facility] Rx#: [id number] Mvi, Adult No.4 with Vit 1011 K 10 ml Trace (Conc-1Ml/ Dose) 1 ml In Amino Acid 5%-D15w+Lytes*E* 1,000 ml @ 100 mls/hr IV .BY DURATION [facility] Rx#: [id number] Other: Voiding Method Toilet Toilet Toilet # Voids 2 - Exam General: [non toxic], [no distress], [appears at stated age] Derm: [warm], [dry] Head: [atraumatic], [normocephalic], [symmetric] Eyes: [EOMI], [no lid lag], [anicteric sclera] Mouth: [no lip lesion], [mucus membranes moist] Cardiovascular: [S1S2 reg], [no murmur] Lungs: [CTA bilateral], [no rhonchi, no rales] , [no accessory muscle use] Abdominal: [soft], [ nontender to palpation], [no guarding], [no appreciable organomegaly] Ext: [no gross muscle atrophy], [no edema], [no contractures] Neuro: [no focal neuro deficits] Psych: [Alert], [oriented], [appropriate affect] - Labs CBC & Chem 7: 01/03/19 06:34 01/03/19 06:34 Labs: Abnormal Lab Results - Last 24 Hours (Table) 01/02/19 01/02/19 01/03/19 Range/Units 12:01 17:24 00:20 Lymphocytes # (1.0-4.8) k/uL Sodium (137-145) mmol/L Carbon Dioxide (22-30) mmol/L BUN (7-17) mg/dL Creatinine (0.52-1.04) mg/dL Glucose (74-99) mg/dL POC Glucose (mg/dL) 145 H 157 H 213 H (75-99) mg/dL Magnesium (1.6-2.3) mg/dL 01/03/19 01/03/19 01/03/19 Range/Units 05:34 06:34 06:34 Lymphocytes # 0.2 L (1.0-4.8) k/uL Sodium 134 L (137-145) mmol/L Carbon Dioxide 21 L (22-30) mmol/L BUN 26 H (7-17) mg/dL Creatinine 0.51 L (0.52-1.04) mg/dL Glucose 241 H (74-99) mg/dL POC Glucose (mg/dL) 244 H (75-99) mg/dL Magnesium 2.5 H (1.6-2.3) mg/dL 01/03/19 Range/Units 11:15 Lymphocytes # (1.0-4.8) k/uL Sodium (137-145) mmol/L Carbon Dioxide (22-30) mmol/L BUN (7-17) mg/dL Creatinine (0.52-1.04) mg/dL Glucose (74-99) mg/dL POC Glucose (mg/dL) 172 H (75-99) mg/dL Magnesium (1.6-2.3) mg/dL Assessment and Plan Assessment: Assessment and Plan 1. Chest pain, nausea and vomiting 2. Metabolic acidosis 3. Prerenal azotemia 1. Initial concerns for PE and acute coronary syndrome in the ED. Troponin 0.014, less than 0.0122 with EKG showing normal sinus rhythm, ACS ruled out. CTA of the chest rules out PE. Her pain is likely caused secondary to edema at the gastrectomy site. Leak visualized on today's esophagram. EGD is unrevealing of leak. Plans laparoscopy, possible laparotomy as per general surgery. Continue Decadron 4 mg IV every 4 hours, Benadryl 25 mg IV every 6 hours. Dilaudid and morphine for pain management as needed. Zofran IV for nausea and vomiting as needed. Continue Protonix 40 mg IV daily. 2. Likely secondary to infused IVF. Daily BMP. 3. BUN continues to rise from 16-26 today. Likely secondary to dehydration, vomiting. Continue normal saline at 100 mL/h. Daily BMP. Will follow surgery recommendations. Thank you for the consult. Please call with any additional questions.
--- NOTE | 2019-01-03 18:19 | P.CNPUL ---
History of Present Illness Consult date: 01/03/19 Chief complaint: Abdominal pain, post expiratory laparotomy, splenectomy History of present illness: This is a 53-year-old female patient who underwent a laparoscopic sleeve gastrectomy on 12/24/2018. Following her surgery, the patient continued having difficulties with epigastric discomfort and some shortness of breath and there was a concern that the patient was having some leak near the proximal sleeve based on the esophagram. At that point the patient had an EGD and the leak was not visualized. Subsequently, the patient was taken to the operating room and the patient was found to have a staple line Perforation. The patient underwent extensive laparotomy, gastrorrhaphy and splenectomy. Note that the splenectomy was done as the patient developed a splenic Tear While Undergoing Abdominal and Peritoneal Cavity Irrigation. Note That the Omentum Was Lifted off the Spleen. There Was Evidence of bilious drainage behind the spleen. During the irrigation, a splenic tear was established and the patient underwent a complete splenectomy. Currently the patient in the recovery room. The patient is doing well. The patient is extubated. The patient is on 2 L of oxygen nasal cannula. She has a wound VAC over the anterior abdominal wall. She has a CODY drain in the left upper quadrant. Output is minimal and serosanguineous. She is having sinus tachycardia. Intraoperatively she received total of 3 L and there patient received an additional 2 L and the recovery in the form of lactated Ringer. Urine output is minimal and the patient has produced 35 mL total since arrival from the operating room. The preop creatinine was within normal limits. She is normotensive with a blood pressure 143/97. Pain is under good control. The patient has received a dose of Diflucan and Levaquin. White cell count from earlier this morning was at 8.2. Review of Systems A 12 point review of systems cannot be obtained as the patient is currently postop and she still sleepy under the effect of anesthetics. Most of the positive findings were mentioned above in history of present illness. She is arousable. She is moving all 4 extremities without any limitation. Denies having any chest pain. Urine output is low. She is normotensive. No angina. No shortness of breath. Past Medical History Additional Past Medical History / Comment(s): Pt recently admitted to [facility] on for lap sleeve gastrectomy with edema GE junction. Other hx: migraines, varicose veins, hx kidney stones, history of difficulty with postoperative nausea and vomiting History of Any Multi-Drug Resistant Organisms: None Reported Past Surgical History: Bariatric Surgery, Cholecystectomy, Hysterectomy, Tonsillectomy Additional Past Surgical History / Comment(s): 12/24/18 Lap sleeve gastrectomy, lap band surgery 2007 lap band removal 2008 due to prolapse, I&D of cyst on genital area(not sure what type of infection), picc line/later removed and recently had another picc line inserted for home TPN Past Anesthesia/Blood Transfusion Reactions: Family History of Problems w/ Anesthesia, Motion Sickness, Postoperative Nausea & Vomiting (PONV) Additional Past Anesthesia/Blood Transfusion Reaction / Comment(s): Pt has had severe PONV, mother-"hard time waking up" Smoking Status: Never smoker - Past Family History Mother Family Medical History: Cancer, Deep Vein Thrombosis (DVT) Additional Family Medical History / Comment(s): Mother had breast cancer. Father Family Medical History: Unable to Obtain Medications and Allergies Home Medications Medication Instructions Recorded Confirmed Type Butalb/Asprin/Caff 50-325-40Mg 1 cap PO DIRECTED PRN 10/11/18 12/31/18 History [Fiorinal 50-325-40 MG] Estrogens, Conjugated [Premarin] 0.625 mg PO DAILY 12/21/18 12/31/18 History HYDROcodone/APAP [[place] Elixir 30 ml PO Q6HR PRN #360 ml 12/30/18 12/31/18 Rx 7.5-325Mg/15Ml] Simethicone 40 mg/0.6 ml Drops 40 mg PO Q6HR PRN #30 ml 12/30/18 12/31/18 Rx [Mylicon Drops] Allergies Allergy/AdvReac Type Severity Reaction Status Date / Time ciprofloxacin [From Cipro] Allergy Rash/Hives Verified 01/03/19 11:00 Penicillins Allergy Unknown Verified 01/03/19 11:00 Childhood Sulfa (Sulfonamide Allergy Rash/Hives Verified 01/03/19 11:00 Antibiotics) Physical Exam Vitals: Vital Signs Temp Pulse Pulse Resp BP BP Pulse Ox 01/03/19 17:50 118 H 16 152/90 100 01/03/19 17:20 109 H 16 143/97 96 01/03/19 17:05 111 H 16 154/107 99 01/03/19 16:50 116 H 16 153/103 95 01/03/19 16:35 120 H 16 129/94 96 01/03/19 16:20 116 H 14 122/89 99 01/03/19 16:05 97.3 F L 123 H 15 126/92 99 01/03/19 15:50 122 H 16 139/96 95 01/03/19 15:35 123 H 16 143/97 95 01/03/19 15:20 122 H 16 173/95 99 01/03/19 15:05 118 H 18 183/94 97 01/03/19 14:50 96.8 F L 125 H 16 140/102 96 01/03/19 11:30 100 18 156/94 92 L 01/03/19 11:16 102 H 18 163/90 96 01/03/19 11:03 99.4 F 101 H 16 175/98 99 01/03/19 08:26 98.0 F 102 H 16 121/82 91 L 01/02/19 23:00 98.0 F 74 16 113/74 94 L 01/02/19 19:46 98.2 F 66 16 121/83 93 L Intake and Output 01/03/19 01/03/19 01/03/19 06:59 14:59 22:59 Intake Total 1011 3700 1950 Output Total 540 105 Balance 1011 3160 1845 Intake: IV 3700 1950 Intake, IV Titration 1011 Amount Mvi, Adult No.4 with Vit 1011 K 10 ml Trace (Conc-1Ml/ Dose) 1 ml In Amino Acid 5%-D15w+Lytes*E* 1,000 ml @ 100 mls/hr IV .BY DURATION [facility] Rx#: [id number] Output: Urine 140 35 Estimated Blood Loss 400 70 Other: Voiding Method Toilet # Voids 2 Weight 98 kg 98 kg Gen. appearance, comfortable no acute distress Head exam was generally normal. There was no scleral icterus or corneal arcus. Mucous membranes were moist. Neck was supple and without jugular venous distension, thyromegaly, or carotid bruits. Carotids were easily palpable bilaterally. There was no adenopathy. Lungs were clear to auscultation and percussion, and with normal diaphragmatic excursion. No wheezes or rales were noted. Heart sounds are tachycardic, normal S1-S2 and the rhythm is sinus. No significant murmurs appreciated. Abdomen is soft. There is a incision in the mid abdomen and the dressing is dry and there is a wound VAC applied today 1 surface. There is also CODY drains left upper quadrant. Bowel sounds are hypoactive. There is no direct tenderness rebound tensile guarding. No organomegaly. Examination of the extremities revealed easily palpable radial, femoral and pedal pulses. There was no cyanosis, clubbing or edema. Examination of the skin revealed no evidence of significant rashes, suspicious appearing nevi or other concerning lesions. Neurologically awake and alert and there is no focal neurological deficits. Results - Laboratory Findings CBC and BMP: 01/03/19 06:34 01/03/19 06:34 PT/INR, D-dimer PT 10.7 sec (9.0-12.0) 12/31/18 09:16 INR 1.0 (<1.2) 12/31/18 09:16 Abnormal lab findings: Abnormal Labs 12/31/18 12/31/18 12/31/18 09:16 09:16 16:10 WBC 11.8 H Neutrophils # 9.9 H Lymphocytes # Sodium 135 L 135 L Potassium 3.3 L 3.3 L Chloride Carbon Dioxide BUN Creatinine Glucose 103 H 118 H POC Glucose (mg/dL) Magnesium Total Protein 6.0 L Albumin 3.4 L 12/31/18 12/31/18 12/31/18 16:10 19:56 23:42 WBC Neutrophils # Lymphocytes # Sodium Potassium Chloride Carbon Dioxide BUN Creatinine Glucose POC Glucose (mg/dL) 115 H 147 H Magnesium Total Protein Albumin 3.4 L 01/01/19 01/01/19 01/01/19 05:09 07:02 08:49 WBC 11.3 H Neutrophils # 10.4 H Lymphocytes # 0.3 L Sodium Potassium Chloride Carbon Dioxide BUN Creatinine Glucose POC Glucose (mg/dL) 153 H 150 H Magnesium Total Protein Albumin 01/01/19 01/01/19 01/01/19 08:49 11:48 16:50 WBC Neutrophils # Lymphocytes # Sodium 134 L Potassium Chloride Carbon Dioxide 19 L BUN 18 H Creatinine Glucose 135 H POC Glucose (mg/dL) 144 H 144 H Magnesium Total Protein Albumin 01/02/19 01/02/19 01/02/19 00:27 06:02 08:11 WBC Neutrophils # Lymphocytes # Sodium Potassium Chloride 109 H Carbon Dioxide 18 L BUN 22 H Creatinine Glucose 151 H POC Glucose (mg/dL) 187 H 183 H Magnesium Total Protein Albumin 01/02/19 01/02/19 01/03/19 12:01 17:24 00:20 WBC Neutrophils # Lymphocytes # Sodium Potassium Chloride Carbon Dioxide BUN Creatinine Glucose POC Glucose (mg/dL) 145 H 157 H 213 H Magnesium Total Protein Albumin 01/03/19 01/03/19 01/03/19 05:34 06:34 06:34 WBC Neutrophils # Lymphocytes # 0.2 L Sodium 134 L Potassium Chloride Carbon Dioxide 21 L BUN 26 H Creatinine 0.51 L Glucose 241 H POC Glucose (mg/dL) 244 H Magnesium 2.5 H Total Protein Albumin 01/03/19 01/03/19 11:15 16:49 WBC Neutrophils # Lymphocytes # Sodium Potassium Chloride Carbon Dioxide BUN Creatinine Glucose POC Glucose (mg/dL) 172 H 129 H Magnesium Total Protein Albumin Assessment and Plan Plan: Assessment 1 status post expiratory laparotomy, gastrorrhaphy and splenectomy. Surgery was done for gastric sleeve staple line perforation. Patient is postop day #0 2 sinus tachycardia, could be hypovolemic in nature. The patient is normotensive for now. Early sepsis cannot be completely excluded. The patient is afebrile. White cell count preoperatively was within normal limits 3 previous history of a sleeve gastrectomy that was done on 12/24/2018 4 migraine 5 varicose veins 6 nephrolithiasis Plan We'll take the patient to the intensive care unit. We'll cover this patient with IV Merrem 1 g every 12 hours. We'll continue the Diflucan 200 mg daily 24 hours. Send blood cultures. Given additional 2 L of lactated Ringer for now. Monitor urine output. Repeat a labs including CBC and electrolytes and renal function. Proceed with Dilaudid for pain control. Patient has a PICC line in left upper extremity and will continue TPN for now. Heparin for DVT prophylaxis subcu. IV Protonix. We'll continue to follow. She will to the intensive care unit for now.
[2019-01-03 20:28] LABS: HCT 34.8 % (34.0-46.0); HGB 11.2 gm/dL (11.4-16.0); MCH 30.4 pg (25.0-35.0); MCHC 32.2 g/dL (31.0-37.0); MCV 94.4 fL (80.0-100.0); Mean Platelet Volume 10.7; Platelet Count 157 k/uL (150-450); RBC 3.69 m/uL (3.80-5.40); RDW 12.6 % (11.5-15.5); WBC 12.8 k/uL (3.8-10.6)
[2019-01-03 20:36] LABS: ALT 172 U/L (9-52); AST 136 U/L (14-36); Alkaline Phosphatase 39 U/L (38-126); Anion Gap 7 mmol/L; Blood Urea Nitrogen 27 mg/dL (7-17); Carbon Dioxide 20 mmol/L (22-30); Chloride 105 mmol/L (98-107); Glucose 122 mg/dL (74-99); Potassium 4.8 mmol/L (3.5-5.1); Sodium 132 mmol/L (137-145); Total Bilirubin 1.1 mg/dL (0.2-1.3); Total Protein 3.9 g/dL (6.3-8.2)
[2019-01-03 20:54] LABS: Band Neutrophils % 32 %; Lymphocytes # (M) 0.64 k/uL (1.0-4.8); Monocytes # (M) 0.13 k/uL (0-1.0); Neutrophils % (M) 62 %; Nucleated Red Blood Cells 0 /100 WBC (0-0); Total Cells Counted 100
[2019-01-03 20:55] LABS: Crenated RBC Present; Hypochromasia (M) Present; Poikilocytosis (M) Present
[2019-01-03] MEDS ORDERED: FUROSEMIDE 10 MG/ML 4 ML VIAL IV STA (21:34)
[2019-01-03] MEDS: FLUCONAZOLE IN NACL,ISO-OSM 200 MG in SALINE 1 100ML.BAG IVPB SCH (22:03)
[2019-01-03] MEDS: MEROPENEM 1 GM in SODIUM CHLORIDE 0.9% 100 ML IVPB SCH (22:05)
[2019-01-03] MEDS: LACTATED RINGERS 2,000 ML IV SCH (22:45)
[2019-01-03] MEDS: KETOROLAC 30 MG/ML 1 ML VIAL IVP PRN (23:26)
[2019-01-04] MEDS: 1: MVI, ADULT NO.4 WITH VIT K 10 ML, TRACE (CONC-1ML/DOSE) 1 ML in AMINO ACID 5%-D15W+LY IV SCH ×6 (00:27→06:46)
[2019-01-04] MEDS: HEPARIN SODIUM,PORCINE 5,000 UNIT/ML 1 ML VIAL SQ SCH (00:28)
[2019-01-04] MEDS: MEROPENEM 1 GM in SODIUM CHLORIDE 0.9% 100 ML IVPB SCH ×3 (00:28→16:06)
[2019-01-04] MEDS: SODIUM CHLORIDE 0.9% 1,000 ML IV SCH ×3 (00:29→23:15)
[2019-01-04] MEDS: diphenhydrAMINE 50 MG/ML 1 ML VIAL IVP SCH ×4 (00:29→17:51)
[2019-01-04] MEDS: INSULIN ASPART (NovoLOG) 100 UNIT/ML VIAL SQ SCH ×4 (00:41→17:52)
[2019-01-04 00:44] LABS: Glucose,Whole Blood 143 mg/dL (75-99)
[2019-01-04] MEDS: FAT EMULSION 20% 250 ML IV SCH (02:10)
[2019-01-04] MEDS: HYDROmorphone 1 MG/ML 1 ML SYRINGE IVP PRN ×3 (04:08→21:48)
[2019-01-04] MEDS: LACTATED RINGERS 2,000 ML IV SCH (04:23)
[2019-01-04 05:40] LABS: Basophils # (A) 0.1 k/uL (0-0.2); Basophils % (A) 0 %; Eosinophils # (A) 0.1 k/uL (0-0.7); Eosinophils % (A) 1 %; HCT 32.5 % (34.0-46.0); HGB 10.2 gm/dL (11.4-16.0); Hypochromasia Moderate; Lymphocytes # (A) 1.3 k/uL (1.0-4.8); Lymphocytes % (A) 8 %; MCHC 31.5 g/dL (31.0-37.0); Mean Platelet Volume 9.4; Monocytes # (A) 0.4 k/uL (0-1.0); Monocytes % (A) 3 %; Neutrophils # (A) 13.5 k/uL (1.3-7.7); Neutrophils % (A) 87 %; Platelet Count 147 k/uL (150-450); RDW 12.4 % (11.5-15.5); WBC 15.5 k/uL (3.8-10.6)
[2019-01-04 05:47] LABS: Albumin 1.9 g/dL (3.5-5.0); Calcium 7.9 mg/dL (8.4-10.2); Phosphorus 4.8 mg/dL (2.5-4.5); Potassium 4.8 mmol/L (3.5-5.1); Total Bilirubin 0.6 mg/dL (0.2-1.3); Total Protein 3.8 g/dL (6.3-8.2)
[2019-01-04 05:48] LABS: MCV 101.5 fL (80.0-100.0)
[2019-01-04 06:30] LABS: Glucose,Whole Blood 203 mg/dL (75-99)
--- NOTE | 2019-01-04 08:12 | XR ---
EXAMINATION TYPE: XR chest 1V DATE OF EXAM: 01/04/2019 HISTORY: Shortness of breath. COMPARISON: None. TECHNIQUE: Single view of the chest is submitted. FINDINGS: Demonstrated are scattered senescent parenchymal change. Patchy perihilar and left basilar opacity may reflect infiltrate and/or atelectasis. There appears to be layering pleural effusion. PICC line is appropriately placed. The heart is stable. Hilar and mediastinal structures are within normal limits. Degenerative changes are seen of the dorsal spine. IMPRESSION: 1. Patchy perihilar and left basilar opacity may reflect infiltrate and/or atelectasis. There appear s to be layering pleural effusion.
[2019-01-04] MEDS: PANTOPRAZOLE 40 MG/10 ML VIAL IV SCH (08:42)
[2019-01-04] MEDS: SIMETHICONE 40 MG/0.6 ML DROPS 2,000 MG/30 ML BOTTLE PO SCH ×4 (08:42→23:20)
[2019-01-04] MEDS: ENOXAPARIN 40 MG/0.4 ML SYRINGE SQ SCH (08:43)
[2019-01-04] MEDS: FLUCONAZOLE IN NACL,ISO-OSM 200 MG in SALINE 1 100ML.BAG IVPB SCH (09:01)
[2019-01-04] MEDS: MORPHINE SULFATE 2 MG/ML SYRINGE IV PRN ×2 (09:01→17:53)
--- NOTE | 2019-01-04 10:37 | P.PN ---
Subjective Progress Note Date: 01/04/19 This is a 53-year-old female patient who underwent a laparoscopic sleeve gastrectomy on 12/24/2018. Following her surgery, the patient continued having difficulties with epigastric discomfort and some shortness of breath and there was a concern that the patient was having some leak near the proximal sleeve based on the esophagram. At that point the patient had an EGD and the leak was not visualized. Subsequently, the patient was taken to the operating room and the patient was found to have a staple line Perforation. The patient underwent extensive laparotomy, gastrorrhaphy and splenectomy. Note that the splenectomy was done as the patient developed a splenic Tear While Undergoing Abdominal and Peritoneal Cavity Irrigation. Note That the Omentum Was Lifted off the Spleen. There Was Evidence of bilious drainage behind the spleen. During the irrigation, a splenic tear was established and the patient underwent a complete splenectomy. Currently the patient in the recovery room. The patient is doing well. The patient is extubated. The patient is on 2 L of oxygen nasal cannula. She has a wound VAC over the anterior abdominal wall. She has a CODY drain in the left upper quadrant. Output is minimal and serosanguineous. She is having sinus tachycardia. Intraoperatively she received total of 3 L and there patient received an additional 2 L and the recovery in the form of lactated Ringer. Urine output is minimal and the patient has produced 35 mL total since arrival from the operating room. The preop creatinine was within normal limits. She is normotensive with a blood pressure 143/97. Pain is under good control. The patient has received a dose of Diflucan and Levaquin. White cell count from earlier this morning was at 8.2. On today's evaluation of 01/04/2019, the patient is postop day #1. She is in intensive care unit. Overnight the patient was given aggressive fluid resuscitation. She was also covered with broad-spectrum antibiotics. This morning she is awake and alert. Her sinus tachycardia is improved. I was having difficulties with urine output. After being given a total of 3 L in the ICU, the patient received a dose of Lasix and subsequently urine output improved. Creatinine is stable. Afebrile. The patient has a superficial wound VAC over the anterior abdominal wall which is draining minimal amount of serous drainage. CODY is also in place. Bowel sounds are hypoactive. No flatus yet. No nausea. No vomiting. No abdominal pain and her pain is under good control. She is a bit anxious. When the length discussion with her explaining to her the details of the surgical procedure that she underwent yesterday. On the chest x-ray, the patient is developing and reactive bedside pleural effusion that needs to be monitored very closely. Her white cell count today is at 15.5. As of the blood work and electrodes are all within normal limits. Objective - Vital Signs Vital signs: Vital Signs Temp 98.3 F 01/04/19 08:00 Pulse 94 01/04/19 10:00 Resp 20 01/04/19 10:00 BP 116/77 01/04/19 10:00 Pulse Ox 92 L 01/04/19 09:00 Intake & Output 01/03/19 01/04/19 01/04/19 18:59 06:59 18:59 Intake Total 7200 2200 1062.499 Output Total 645 555 170 Balance 6555 1645 892.499 Weight 98 kg 109.3 kg Intake: IV 7200 1600 1062.499 Fat Emulsion 20% 250 ml @ 62.499 20.833 mls/hr IV MoWeFr@ 1600 [facility] Rx#:[id number] Fluconazole in NaCl,Iso- 100 100 Osm 200 mg In Saline 1 100ml.bag @ 100 mls/hr IVPB DAILY [facility] Rx#: [id number] Meropenem 1 gm In Sodium 100 100 Chloride 0.9% 100 ml @ 200 mls/hr IVPB Q8HR [facility] Rx#:[id number] Mvi, Adult No.4 with Vit 700 400 K 10 ml Trace (Conc-1Ml/ Dose) 1 ml In Amino Acid 5%-D15w+Lytes*E* 1,000 ml @ 100 mls/hr IV .BY DURATION [facility] Rx#: [id number] Sodium Chloride 0.9% 1, 700 400 000 ml @ 100 mls/hr IV . Q10H [facility] Rx#:[id number] Intake, IV Titration 600 Amount Lactated Ringers 2,000 ml 600 @ 999 mls/hr IV .Q2H1M [facility] Rx#:[id number] Output: Drainage 90 10 Left Abdomen 90 10 Urine 175 465 160 Estimated Blood Loss 470 Other: Voiding Method Toilet Indwelling Catheter Indwelling Catheter - Exam Gen. appearance, comfortable no acute distress Head exam was generally normal. There was no scleral icterus or corneal arcus. Mucous membranes were moist. Neck was supple and without jugular venous distension, thyromegaly, or carotid bruits. Carotids were easily palpable bilaterally. There was no adenopathy. Lungs were clear to auscultation and percussion, and with normal diaphragmatic excursion. No wheezes or rales were noted. Heart sounds are tachycardic, normal S1-S2 and the rhythm is sinus. No significant murmurs appreciated. Abdomen is soft. There is a incision in the mid abdomen and the dressing is dry and there is a wound VAC applied today 1 surface. There is also CODY drains left upper quadrant. Bowel sounds are hypoactive. There is no direct tenderness rebound tenderness or guarding. No organomegaly. Examination of the extremities revealed easily palpable radial, femoral and pedal pulses. There was no cyanosis, clubbing or edema. Examination of the skin revealed no evidence of significant rashes, suspicious appearing nevi or other concerning lesions. Neurologically awake and alert and there is no focal neurological deficits. - Labs CBC & Chem 7: 01/04/19 05:13 01/04/19 05:13 Labs: Abnormal Lab Results - Last 24 Hours (Table) 01/03/19 01/03/19 01/03/19 Range/Units 11:15 16:49 19:46 WBC 12.8 H (3.8-10.6) k/uL RBC 3.69 L (3.80-5.40) m/uL Hgb 11.2 L (11.4-16.0) gm/dL Hct (34.0-46.0) % MCV (80.0-100.0) fL Plt Count (150-450) k/uL Neutrophils # (1.3-7.7) k/uL Neutrophils # (Manual) 12.00 H (1.3-7.7) k/uL Lymphocytes # (Manual) 0.64 L (1.0-4.8) k/uL Sodium (137-145) mmol/L Carbon Dioxide (22-30) mmol/L BUN (7-17) mg/dL Glucose (74-99) mg/dL POC Glucose (mg/dL) 172 H 129 H (75-99) mg/dL Calcium (8.4-10.2) mg/dL Phosphorus (2.5-4.5) mg/dL AST (14-36) U/L ALT (9-52) U/L Total Protein (6.3-8.2) g/dL Albumin (3.5-5.0) g/dL 01/03/19 01/04/19 01/04/19 Range/Units 19:46 00:40 05:13 WBC (3.8-10.6) k/uL RBC (3.80-5.40) m/uL Hgb (11.4-16.0) gm/dL Hct (34.0-46.0) % MCV (80.0-100.0) fL Plt Count (150-450) k/uL Neutrophils # (1.3-7.7) k/uL Neutrophils # (Manual) (1.3-7.7) k/uL Lymphocytes # (Manual) (1.0-4.8) k/uL Sodium 132 L 134 L (137-145) mmol/L Carbon Dioxide 20 L 20 L (22-30) mmol/L BUN 27 H 32 H (7-17) mg/dL Glucose 122 H 194 H (74-99) mg/dL POC Glucose (mg/dL) 143 H (75-99) mg/dL Calcium 8.0 L 7.9 L (8.4-10.2) mg/dL Phosphorus 4.8 H (2.5-4.5) mg/dL AST 136 H 71 H (14-36) U/L ALT 172 H 139 H (9-52) U/L Total Protein 3.9 L 3.8 L (6.3-8.2) g/dL Albumin 2.0 L 1.9 L (3.5-5.0) g/dL 01/04/19 01/04/19 Range/Units 05:13 06:28 WBC 15.5 H (3.8-10.6) k/uL RBC 3.20 L (3.80-5.40) m/uL Hgb 10.2 L (11.4-16.0) gm/dL Hct 32.5 L (34.0-46.0) % MCV 101.5 H D (80.0-100.0) fL Plt Count 147 L (150-450) k/uL Neutrophils # 13.5 H (1.3-7.7) k/uL Neutrophils # (Manual) (1.3-7.7) k/uL Lymphocytes # (Manual) (1.0-4.8) k/uL Sodium (137-145) mmol/L Carbon Dioxide (22-30) mmol/L BUN (7-17) mg/dL Glucose (74-99) mg/dL POC Glucose (mg/dL) 203 H (75-99) mg/dL Calcium (8.4-10.2) mg/dL Phosphorus (2.5-4.5) mg/dL AST (14-36) U/L ALT (9-52) U/L Total Protein (6.3-8.2) g/dL Albumin (3.5-5.0) g/dL Assessment and Plan Plan: Assessment 1 status post expiratory laparotomy, gastrorrhaphy and splenectomy. Surgery was done for gastric sleeve staple line perforation. Patient is postop day #1. The patient is hemodynamically stable. She developed some low urine output postop and she was aggressively resuscitated IV fluids. She is improved and today she is sitting up on a chair and she is calm and comfortable alert and oriented. 2 sinus tachycardia, could be hypovolemic in nature. The patient is normotensive for now. The patient's urine output is improved. The patient sinus tachycardia is also improved. 3 previous history of a sleeve gastrectomy that was done on 12/24/2018 4 migraine 5 varicose veins 6 nephrolithiasis 7 left-sided pleural effusion 8 TPN for nutritional support. Plan Keep the patient intensive care unit. Continue the current antibiotic coverage which includes IV Merrem and IV Diflucan. Continue IV fluid in the 100 mL an hour rate. Continue TPN for nutritional support. Monitor electrolytes. Monitor left-sided pleural effusion. Provide the patient incentive spirometer. Monitor the output from the wound VAC and the CODY drain. Keep the patient nothing by mouth for today. There may be a component of ileus following her extensive bowel surgery and gastric surgery. We'll continue to follow. Case was discussed with a general surgeon. Time with Patient: Greater than 30
[2019-01-04] MEDS: KETOROLAC 30 MG/ML 1 ML VIAL IVP PRN (11:04)
[2019-01-04] MEDS: 1: MVI, ADULT NO.4 WITH VIT K 10 ML, TRACE (CONC-1ML/DOSE) 1 ML, PARENTERAL ELECTROLYTES IV SCH ×12 (11:40→23:15)
[2019-01-04 11:57] LABS: Glucose,Whole Blood 177 mg/dL (75-99)
--- NOTE | 2019-01-04 14:42 | P.PN ---
Subjective Progress Note Date: 01/04/19 CHIEF COMPLAINT: Dysphasia HISTORY OF PRESENT ILLNESS: 53-year-old female who originally underwent laparoscopic sleeve gastrectomy on 12/24/2018. Patient was readmitted to the hospital secondary to dysphagia. 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 Patient is seen postoperatively in the intensive care unit. Patient states her pain is tolerable. She is NPO. CODY drain and PREVENA intact. WBC 15.5. PHYSICAL EXAM: VITAL SIGNS: Currently stable. GENERAL: Well-developed in no acute distress. HEENT: No sclera icterus. Extraocular movements grossly intact. Moist buccal mucosa. Head is atraumatic, normocephalic. Hears conversational speech. No nasal drainage. NECK: Supple without lymphadenopathy. CHEST: Non-labored respirations and equal bilateral excursions. CARDIOVASCULAR: Regular rate with regular rhythm. Palpable 2+ radial pulses. ABDOMEN: Soft. Nondistended. PREVENA wound vac intact. CODY drain with serosanguineous drainage MUSCULOSKELETAL: No clubbing, cyanosis or edema. NEUROLOGIC: No focal or lateralizing signs. Cranial nerves II through XII grossly intact. PSYCH: Appropriate affect. Alert and oriented to person, place and time. SKIN: Well perfused. Good skin turgor. ASSESSMENT: 1. Dysphagia 2. 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 Status post esophagram revealing leak near proximal sleeve 4. 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 NPO. swabs only. No ice chips or popsicles. 2. Continue TPN 3. Activity as tolerated Nurse practitioner note has been reviewed by physician. Signing provider agrees with the documented findings, assessment, and plan of care. Objective - Vital Signs Vital signs: Vital Signs Temp 98.8 F 01/04/19 12:00 Pulse 88 01/04/19 12:00 Resp 25 H 01/04/19 12:00 BP 106/73 01/04/19 12:00 Pulse Ox 94 L 01/04/19 12:00 Intake & Output 01/03/19 01/04/19 01/04/19 18:59 06:59 18:59 Intake Total 7200 2200 1262.499 Output Total 645 555 300 Balance 6555 1645 962.499 Weight 98 kg 109.3 kg Intake: IV 7200 1600 1262.499 Fat Emulsion 20% 250 ml @ 62.499 20.833 mls/hr IV MoWeFr@ 1600 [facility] Rx#:[id number] Fluconazole in NaCl,Iso- 100 100 Osm 200 mg In Saline 1 100ml.bag @ 100 mls/hr IVPB DAILY [facility] Rx#: [id number] Meropenem 1 gm In Sodium 100 100 Chloride 0.9% 100 ml @ 200 mls/hr IVPB Q8HR [facility] Rx#:[id number] Mvi, Adult No.4 with Vit 700 400 K 10 ml Trace (Conc-1Ml/ Dose) 1 ml In Amino Acid 5%-D15w+Lytes*E* 1,000 ml @ 100 mls/hr IV .BY DURATION [facility] Rx#: [id number] Sodium Chloride 0.9% 1, 700 600 000 ml @ 100 mls/hr IV . Q10H [facility] Rx#:[id number] Intake, IV Titration 600 Amount Lactated Ringers 2,000 ml 600 @ 999 mls/hr IV .Q2H1M [facility] Rx#:[id number] Output: Drainage 90 25 Left Abdomen 90 25 Urine 175 465 275 Estimated Blood Loss 470 Other: Voiding Method Toilet Indwelling Catheter Indwelling Catheter - Labs CBC & Chem 7: 01/04/19 05:13 01/04/19 05:13 Labs: Abnormal Lab Results - Last 24 Hours (Table) 01/03/19 01/03/19 01/03/19 Range/Units 16:49 19:46 19:46 WBC 12.8 H (3.8-10.6) k/uL RBC 3.69 L (3.80-5.40) m/uL Hgb 11.2 L (11.4-16.0) gm/dL Hct (34.0-46.0) % MCV (80.0-100.0) fL Plt Count (150-450) k/uL Neutrophils # (1.3-7.7) k/uL Neutrophils # (Manual) 12.00 H (1.3-7.7) k/uL Lymphocytes # (Manual) 0.64 L (1.0-4.8) k/uL Sodium 132 L (137-145) mmol/L Carbon Dioxide 20 L (22-30) mmol/L BUN 27 H (7-17) mg/dL Glucose 122 H (74-99) mg/dL POC Glucose (mg/dL) 129 H (75-99) mg/dL Calcium 8.0 L (8.4-10.2) mg/dL Phosphorus (2.5-4.5) mg/dL AST 136 H (14-36) U/L ALT 172 H (9-52) U/L Total Protein 3.9 L (6.3-8.2) g/dL Albumin 2.0 L (3.5-5.0) g/dL 01/04/19 01/04/19 01/04/19 Range/Units 00:40 05:13 05:13 WBC 15.5 H (3.8-10.6) k/uL RBC 3.20 L (3.80-5.40) m/uL Hgb 10.2 L (11.4-16.0) gm/dL Hct 32.5 L (34.0-46.0) % MCV 101.5 H D (80.0-100.0) fL Plt Count 147 L (150-450) k/uL Neutrophils # 13.5 H (1.3-7.7) k/uL Neutrophils # (Manual) (1.3-7.7) k/uL Lymphocytes # (Manual) (1.0-4.8) k/uL Sodium 134 L (137-145) mmol/L Carbon Dioxide 20 L (22-30) mmol/L BUN 32 H (7-17) mg/dL Glucose 194 H (74-99) mg/dL POC Glucose (mg/dL) 143 H (75-99) mg/dL Calcium 7.9 L (8.4-10.2) mg/dL Phosphorus 4.8 H (2.5-4.5) mg/dL AST 71 H (14-36) U/L ALT 139 H (9-52) U/L Total Protein 3.8 L (6.3-8.2) g/dL Albumin 1.9 L (3.5-5.0) g/dL 01/04/19 01/04/19 Range/Units 06:28 11:52 WBC (3.8-10.6) k/uL RBC (3.80-5.40) m/uL Hgb (11.4-16.0) gm/dL Hct (34.0-46.0) % MCV (80.0-100.0) fL Plt Count (150-450) k/uL Neutrophils # (1.3-7.7) k/uL Neutrophils # (Manual) (1.3-7.7) k/uL Lymphocytes # (Manual) (1.0-4.8) k/uL Sodium (137-145) mmol/L Carbon Dioxide (22-30) mmol/L BUN (7-17) mg/dL Glucose (74-99) mg/dL POC Glucose (mg/dL) 203 H 177 H (75-99) mg/dL Calcium (8.4-10.2) mg/dL Phosphorus (2.5-4.5) mg/dL AST (14-36) U/L ALT (9-52) U/L Total Protein (6.3-8.2) g/dL Albumin (3.5-5.0) g/dL
[2019-01-04 17:50] LABS: Glucose,Whole Blood 158 mg/dL (75-99)
--- NOTE | 2019-01-04 18:36 | P.PN ---
Subjective Progress Note Date: 01/04/19 (delayed charting patient seen at 0930) Principal diagnosis: intractable nausea and vomiting Patient is a 53-year-old female past medical history of migraine headaches, nephrolithiasis, and postoperative nausea and vomiting who had a gastric sleeve on 12/24/18 complicated with postop edema for sleep and delayed gastric emptying. She was discharged from the hospital on TPN. She worsened at home and 3 presented on 12/31/18. She was found to have possible gastric leak. She returned to the OR on 01/03 for repair of the gastric leak, she was noted to have a splenic capsule Laceration and Ultimately Underwent Splenectomy at the Same Time. Patient seen and examined at bedside. Her pain is much improved and she is feeling much less nauseous. No chest pain, mild shortness of breath, feeling overall fatigued. She was in [place] and would want a follow-up with infectious disease near that area for post splenectomy vaccinations. She has had a pneumonia shot but she is unsure when her last one was. She has received a meningitis vaccine in the past as well. Objective - Vital Signs Vital signs: Vital Signs Temp 98.6 F 01/04/19 16:00 Pulse 106 H 01/04/19 18:00 Resp 20 01/04/19 18:00 BP 108/64 01/04/19 18:00 Pulse Ox 91 L 01/04/19 18:00 Intake & Output 01/03/19 01/04/19 01/04/19 18:59 06:59 18:59 Intake Total 7200 2200 1962.499 Output Total 645 555 625 Balance 6555 1645 1337.499 Weight 98 kg 109.3 kg Intake: IV 7200 1600 1962.499 Fat Emulsion 20% 250 ml @ 62.499 20.833 mls/hr IV MoWeFr@ 1600 [facility] Rx#:[id number] Fluconazole in NaCl,Iso- 100 100 Osm 200 mg In Saline 1 100ml.bag @ 100 mls/hr IVPB DAILY [facility] Rx#: [id number] Meropenem 1 gm In Sodium 100 200 Chloride 0.9% 100 ml @ 200 mls/hr IVPB Q8HR [facility] Rx#:[id number] Mvi, Adult No.4 with Vit 700 400 K 10 ml Trace (Conc-1Ml/ Dose) 1 ml In Amino Acid 5%-D15w+Lytes*E* 1,000 ml @ 100 mls/hr IV .BY DURATION [facility] Rx#: [id number] Sodium Chloride 0.9% 1, 700 1200 000 ml @ 100 mls/hr IV . Q10H [facility] Rx#:[id number] Intake, IV Titration 600 Amount Lactated Ringers 2,000 ml 600 @ 999 mls/hr IV .Q2H1M [facility] Rx#:[id number] Output: Drainage 90 25 Left Abdomen 90 25 Urine 175 465 600 Estimated Blood Loss 470 Other: Voiding Method Toilet Indwelling Catheter Indwelling Catheter - Exam General: Ill appearing, mild distress, appears at stated age Derm: warm, dry Head: atraumatic, normocephalic, symmetric Eyes: EOMI, no lid lag, anicteric sclera Mouth: no lip lesion, mucus membranes moist Cardiovascular: S1S2 reg, no murmur, positive posterior tibial pulse bilateral, Lungs: Decreased breath sounds left base, no rhonchi, no rales , no accessory muscle use Abdominal: soft, tender to palpation diffusely, no guarding, no appreciable organomegaly, Prevena in place Ext: no gross muscle atrophy, no edema, no contractures Neuro: CN II-XI grossly intact, no focal neuro deficits Psych: Alert, oriented, appropriate affect - Labs CBC & Chem 7: 01/04/19 05:13 01/04/19 05:13 Labs: Abnormal Lab Results - Last 24 Hours (Table) 01/03/19 01/03/19 01/04/19 Range/Units 19:46 19:46 00:40 WBC 12.8 H (3.8-10.6) k/uL RBC 3.69 L (3.80-5.40) m/uL Hgb 11.2 L (11.4-16.0) gm/dL Hct (34.0-46.0) % MCV (80.0-100.0) fL Plt Count (150-450) k/uL Neutrophils # (1.3-7.7) k/uL Neutrophils # (Manual) 12.00 H (1.3-7.7) k/uL Lymphocytes # (Manual) 0.64 L (1.0-4.8) k/uL Sodium 132 L (137-145) mmol/L Carbon Dioxide 20 L (22-30) mmol/L BUN 27 H (7-17) mg/dL Glucose 122 H (74-99) mg/dL POC Glucose (mg/dL) 143 H (75-99) mg/dL Calcium 8.0 L (8.4-10.2) mg/dL Phosphorus (2.5-4.5) mg/dL AST 136 H (14-36) U/L ALT 172 H (9-52) U/L Total Protein 3.9 L (6.3-8.2) g/dL Albumin 2.0 L (3.5-5.0) g/dL 01/04/19 01/04/19 01/04/19 Range/Units 05:13 05:13 06:28 WBC 15.5 H (3.8-10.6) k/uL RBC 3.20 L (3.80-5.40) m/uL Hgb 10.2 L (11.4-16.0) gm/dL Hct 32.5 L (34.0-46.0) % MCV 101.5 H D (80.0-100.0) fL Plt Count 147 L (150-450) k/uL Neutrophils # 13.5 H (1.3-7.7) k/uL Neutrophils # (Manual) (1.3-7.7) k/uL Lymphocytes # (Manual) (1.0-4.8) k/uL Sodium 134 L (137-145) mmol/L Carbon Dioxide 20 L (22-30) mmol/L BUN 32 H (7-17) mg/dL Glucose 194 H (74-99) mg/dL POC Glucose (mg/dL) 203 H (75-99) mg/dL Calcium 7.9 L (8.4-10.2) mg/dL Phosphorus 4.8 H (2.5-4.5) mg/dL AST 71 H (14-36) U/L ALT 139 H (9-52) U/L Total Protein 3.8 L (6.3-8.2) g/dL Albumin 1.9 L (3.5-5.0) g/dL 01/04/19 01/04/19 Range/Units 11:52 17:47 WBC (3.8-10.6) k/uL RBC (3.80-5.40) m/uL Hgb (11.4-16.0) gm/dL Hct (34.0-46.0) % MCV (80.0-100.0) fL Plt Count (150-450) k/uL Neutrophils # (1.3-7.7) k/uL Neutrophils # (Manual) (1.3-7.7) k/uL Lymphocytes # (Manual) (1.0-4.8) k/uL Sodium (137-145) mmol/L Carbon Dioxide (22-30) mmol/L BUN (7-17) mg/dL Glucose (74-99) mg/dL POC Glucose (mg/dL) 177 H 158 H (75-99) mg/dL Calcium (8.4-10.2) mg/dL Phosphorus (2.5-4.5) mg/dL AST (14-36) U/L ALT (9-52) U/L Total Protein (6.3-8.2) g/dL Albumin (3.5-5.0) g/dL Assessment and Plan Assessment: Gastric sleeve with anastomotic leak status post gastrorraphy - on TPN, check lipase in AM, CMP, MG, Phos, continue with ISS - management per primary team currently NPO, on diflucan Transaminitis - follow -likley due to TPM - check lipase in AM Thrombocytopenia - likely reactive - follow CBC in AM S/P Spleenectomy - out patient follow up for appropiate vaccines DVT prophylaxis:Lovenox Discussed with: Patient, spouse, Dr. Moore Anticipated discharge: per surgery Anticipated discharge place: home A total of 25 minutes was spent on the care of this complex patient more than 50 % of the time was spent in counseling and care coordination.
[2019-01-05] MEDS: MEROPENEM 1 GM in SODIUM CHLORIDE 0.9% 100 ML IVPB SCH ×4 (01:02→23:37)
[2019-01-05 02:34] LABS: Glucose,Whole Blood 173 mg/dL (75-99)
[2019-01-05] MEDS: INSULIN ASPART (NovoLOG) 100 UNIT/ML VIAL SQ SCH ×5 (02:35→23:38)
[2019-01-05] MEDS: diphenhydrAMINE 50 MG/ML 1 ML VIAL IVP SCH ×5 (02:39→23:38)
[2019-01-05 05:05] LABS: ALT 127 U/L (9-52); AST 68 U/L (14-36); Albumin 1.7 g/dL (3.5-5.0); Alkaline Phosphatase 54 U/L (38-126); Anion Gap 3 mmol/L; Blood Urea Nitrogen 28 mg/dL (7-17); Calcium 7.7 mg/dL (8.4-10.2); Carbon Dioxide 23 mmol/L (22-30); Chloride 109 mmol/L (98-107); Glucose 131 mg/dL (74-99); Lipase 337 U/L (23-300); Magnesium 1.9 mg/dL (1.6-2.3); Phosphorus 2.2 mg/dL (2.5-4.5); Potassium 3.8 mmol/L (3.5-5.1); Sodium 135 mmol/L (137-145); Total Bilirubin 0.5 mg/dL (0.2-1.3); Total Protein 3.6 g/dL (6.3-8.2)
[2019-01-05] MEDS ORDERED: Potassium Replacement Protocol 1 EACH MISC MISCELLANE PRN (05:19)
[2019-01-05] MEDS ORDERED: Magnesium Replacement Protocol 1 EACH MISC MISCELLANE PRN (05:20)
[2019-01-05 05:39] LABS: Basophils # (A) 0.1 k/uL (0-0.2); Basophils % (A) 0 %; Eosinophils # (A) 0.4 k/uL (0-0.7); Eosinophils % (A) 2 %; HCT 25.4 % (34.0-46.0); HGB 8.1 gm/dL (11.4-16.0); Lymphocytes % (A) 10 %; MCH 30.6 pg (25.0-35.0); MCHC 31.9 g/dL (31.0-37.0); Mean Platelet Volume 10.8; Monocytes # (A) 0.7 k/uL (0-1.0); Monocytes % (A) 4 %; Neutrophils # (A) 17.1 k/uL (1.3-7.7); Neutrophils % (A) 84 %; Platelet Count 163 k/uL (150-450); RBC 2.66 m/uL (3.80-5.40); RDW 12.8 % (11.5-15.5); WBC 20.5 k/uL (3.8-10.6)
[2019-01-05 05:40] LABS: Glucose,Whole Blood 133 mg/dL (75-99)
[2019-01-05 05:40] LABS: MCV 95.8 fL (80.0-100.0)
[2019-01-05] MEDS: POTASSIUM CHLORIDE 10 MEQ in WATER FOR INJECTION 1 100ML.BAG IVPB SCH ×2 (05:59→08:34)
[2019-01-05] MEDS: MAGNESIUM SULFATE-D5W PMX 1 GM in DEXTROSE/WATER 1 100ML.BAG IVPB SCH ×2 (05:59→10:02)
[2019-01-05] MEDS: SODIUM CHLORIDE 0.9% 1,000 ML IV SCH (06:00)
[2019-01-05] MEDS: HYDROmorphone 1 MG/ML 1 ML SYRINGE IVP PRN ×4 (06:01→21:35)
[2019-01-05] MEDS: SIMETHICONE 40 MG/0.6 ML DROPS 2,000 MG/30 ML BOTTLE PO SCH ×4 (08:35→21:32)
[2019-01-05] MEDS: MORPHINE SULFATE 2 MG/ML SYRINGE IV PRN (08:36)
[2019-01-05] MEDS: ENOXAPARIN 40 MG/0.4 ML SYRINGE SQ SCH (08:36)
[2019-01-05] MEDS: PANTOPRAZOLE 40 MG/10 ML VIAL IV SCH (08:36)
[2019-01-05] MEDS: 1: MVI, ADULT NO.4 WITH VIT K 10 ML, TRACE (CONC-1ML/DOSE) 1 ML, PARENTERAL ELECTROLYTES IV SCH ×8 (08:52→19:27)
[2019-01-05] MEDS: FLUCONAZOLE IN NACL,ISO-OSM 200 MG in SALINE 1 100ML.BAG IVPB SCH (09:07)
--- NOTE | 2019-01-05 09:51 | CDI ---
Documentation Clarification Form Date: 01/05/2019 8:52:14 AM From: Zina Muhammad RN, CCDS Admit Date: 01/03/2019 2:59:00 PM Patient Name: Charly Kimbrough Visit Number: [id number] Discharge Date: ATTENTION: The Clinical Documentation Specialists (CDI) and [facility] Coding Staff appreciate your assistance in clarifying documentation. Please respond to the clarification below the line at the bottom and electronically sign. The CDI & [facility] Coding staff will review the response and follow-up if needed. Please note: Queries are made part of the Legal Health Record. If you have any questions, please contact the author of this message via ITS. Dr. Colby Moore A splenic capsule tear is documented in the operative report and clarification is needed . Patients Admitting Diagnosis: Gastric sleeve staple line perforation Post-Operative Diagnosis: Gastric sleeve staple line perforation Procedure performed: Splenectomy History/Risk Factors: 2007 Lap band, 12/24/18 Gastric Sleeve, Clinical Indicators: 53-year-old female who present with dyspnea following gastric stapling. Patient has not been eating or drinking well. She complains of nausea. 01/03/19 Esophagram shows evidence of a gastric sleeve leak near the proximal sleeve In your operative report it was noted the omentum was lifted off the spleen, and there was evidence of bilious fluid behind the spleen. During the irrigation near the spleen a splenic capsule tear was visualized. There were several attempts to control bleeding and a decision for splenectomy to control of bleeding. Treatment: ICU monitoring Splenectomy Monitor Labs IV Fluids/Electrolytes NPO TPN In order to accurately reflect this patients severity of illness, please clarify if the post-operative diagnosis of splenic capsule tear is: An expected post-procedural or post-surgical condition Integral to the procedure Inherent to the procedure An unexpected post-procedural or post-surgical condition related to surgical care or medical conditions Other, please specify Unable to determine (Last Revision: February 2018) In the setting of significant inflammation of the splenic capsule tear is an expected postsurgical condition inherent to the procedure. MOLINA
--- NOTE | 2019-01-05 10:06 | XR ---
EXAMINATION TYPE: XR chest 1V portable DATE OF EXAM: 01/05/2019 COMPARISON: 01/04/2019 INDICATION: Status post abdominal surgery TECHNIQUE: Single frontal view of the chest is obtained. FINDINGS: The heart size is normal. The pulmonary vasculature is normal. There is an infiltrate through the left mid and lower lung field. This is worsening from comparison. Correlate for atelectasis and pneumonia. No free air is identified within the abdomen. IMPRESSION: 1. Developing left mid and lower lung field infiltrate. Correlate for atelectasis or pneumonia. Small effusion is not entirely excluded. Follow-up is recommended.
[2019-01-05] MEDS ORDERED: SODIUM GLYCEROPHOSPHATE 10 MMOL in SODIUM CHLORIDE 0.9% 250 ML IV ONE (10:30)
[2019-01-05] MEDS: SODIUM PHOSPHATE 10 MMOL in SODIUM CHLORIDE 0.9% 250 ML IV SCH ×2 (10:33→13:05)
[2019-01-05 11:29] LABS: HCT 28.6 % (34.0-46.0); HGB 9.3 gm/dL (11.4-16.0); MCH 31.7 pg (25.0-35.0); MCHC 32.6 g/dL (31.0-37.0); MCV 97.2 fL (80.0-100.0); Mean Platelet Volume 8.9; Platelet Count 210 k/uL (150-450); RBC 2.94 m/uL (3.80-5.40); RDW 12.8 % (11.5-15.5); WBC 23.9 k/uL (3.8-10.6)
[2019-01-05 12:24] LABS: Glucose,Whole Blood 124 mg/dL (75-99)
--- NOTE | 2019-01-05 14:23 | P.PN ---
Subjective Progress Note Date: 01/05/19 Principal diagnosis: intractable nausea and vomiting Patient is a 53-year-old female past medical history of migraine headaches, nephrolithiasis, and postoperative nausea and vomiting who had a gastric sleeve on 12/24/18 complicated with postop edema for sleep and delayed gastric emptying. She was discharged from the hospital on TPN. She worsened at home and 3 presented on 12/31/18. She was found to have possible gastric leak. She returned to the OR on 01/03 for repair of the gastric leak, she was noted to have a splenic capsule Laceration and Ultimately Underwent Splenectomy at the Same Time. She was started on diflucan and meropenem. Patient seen and examined at bedside. Feeling slightly better. mild nausea, pain is getting better, passing minimal flatus no bowel movement, no shortness of breath, no chest pain. Objective - Vital Signs Vital signs: Vital Signs Temp 98.9 F 01/05/19 04:00 Pulse 90 01/05/19 07:00 Resp 14 01/05/19 07:00 BP 112/68 01/05/19 07:00 Pulse Ox 92 L 01/05/19 07:00 Intake & Output 01/04/19 01/05/19 01/05/19 18:59 06:59 18:59 Intake Total 7722.364 5765 1165 Output Total 625 810 75 Balance 3596.181 0468 1090 Weight 109.1 kg Intake: IV 5519.299 6469 Fat Emulsion 20% 250 ml @ 62.499 20.833 mls/hr IV MoWeFr@ 1600 [facility] Rx#:[id number] Fluconazole in NaCl,Iso- 100 Osm 200 mg In Saline 1 100ml.bag @ 100 mls/hr IVPB DAILY [facility] Rx#: [id number] Meropenem 1 gm In Sodium 200 Chloride 0.9% 100 ml @ 200 mls/hr IVPB Q8HR [facility] Rx#:[id number] Mvi, Adult No.4 with Vit 400 K 10 ml Trace (Conc-1Ml/ Dose) 1 ml In Amino Acid 5%-D15w+Lytes*E* 1,000 ml @ 100 mls/hr IV .BY DURATION [facility] Rx#: [id number] Sodium Chloride 0.9% 1, 1200 1200 000 ml @ 100 mls/hr IV . Q10H [facility] Rx#:[id number] Intake, IV Titration 0 1165 Amount Magnesium Sulfate-D5w Pmx 100 1 gm In Dextrose/Water 1 100ml.bag @ 100 mls/hr IVPB Q1H [facility] Rx#: [id number] Mvi, Adult No.4 with Vit 800 K 10 ml Trace (Conc-1Ml/ Dose) 1 ml Parenteral Electrolytes 20 ml In Amino Acid 5%-D15w 1,000 ml @ 100 mls/hr IV .BY DURATION [facility] Rx#: [id number] Parenteral Electrolytes 1320 965 20 ml In Amino Acid 5%- D15w 1,000 ml @ 100 mls/ hr IV .BY DURATION [facility] Rx #:[id number] Potassium Chloride 10 meq 100 In Water For Injection 1 100ml.bag @ 100 mls/hr IVPB Q1H [facility] Rx#: [id number] Output: Drainage 25 20 Left Abdomen 25 20 Urine 600 790 75 Other: Voiding Method Indwelling Catheter Indwelling Catheter - Exam General: Ill appearing, no distress, appears at stated age Derm: warm, dry Head: atraumatic, normocephalic, symmetric Eyes: EOMI, no lid lag, anicteric sclera Mouth: no lip lesion, mucus membranes moist Cardiovascular: S1S2 reg, no murmur, positive posterior tibial pulse bilateral, Lungs: rhonchi left base, no rhonchi, no rales , no accessory muscle use Abdominal: soft, tender to palpation diffusely, no guarding, no appreciable organomegaly, Prevena in place Ext: no gross muscle atrophy, no edema, no contractures Neuro: CN II-XI grossly intact, no focal neuro deficits Psych: Alert, oriented, appropriate affect - Labs CBC & Chem 7: 01/05/19 11:03 01/05/19 04:28 Labs: Abnormal Lab Results - Last 24 Hours (Table) 01/04/19 01/04/19 01/05/19 Range/Units 11:52 17:47 02:31 WBC (3.8-10.6) k/uL RBC (3.80-5.40) m/uL Hgb (11.4-16.0) gm/dL Hct (34.0-46.0) % Neutrophils # (1.3-7.7) k/uL Sodium (137-145) mmol/L Chloride (98-107) mmol/L BUN (7-17) mg/dL Glucose (74-99) mg/dL POC Glucose (mg/dL) 177 H 158 H 173 H (75-99) mg/dL Calcium (8.4-10.2) mg/dL Phosphorus (2.5-4.5) mg/dL AST (14-36) U/L ALT (9-52) U/L Total Protein (6.3-8.2) g/dL Albumin (3.5-5.0) g/dL Lipase (23-300) U/L 01/05/19 01/05/19 01/05/19 Range/Units 04:28 04:28 05:38 WBC 20.5 H (3.8-10.6) k/uL RBC 2.66 L (3.80-5.40) m/uL Hgb 8.1 L D (11.4-16.0) gm/dL Hct 25.4 L (34.0-46.0) % Neutrophils # 17.1 H (1.3-7.7) k/uL Sodium 135 L (137-145) mmol/L Chloride 109 H (98-107) mmol/L BUN 28 H (7-17) mg/dL Glucose 131 H (74-99) mg/dL POC Glucose (mg/dL) 133 H (75-99) mg/dL Calcium 7.7 L (8.4-10.2) mg/dL Phosphorus 2.2 L (2.5-4.5) mg/dL AST 68 H (14-36) U/L ALT 127 H (9-52) U/L Total Protein 3.6 L (6.3-8.2) g/dL Albumin 1.7 L (3.5-5.0) g/dL Lipase 337 H (23-300) U/L Assessment and Plan Assessment: Gastric sleeve with anastomotic leak status post gastrorraphy - on TPN, check lipase in AM, CMP, MG, Phos, continue with ISS - management per primary team currently NPO, on diflucan Leukocytosis - likely reactive - continue with merrem and diflucan - follow CXR, d/w artinian - if spikes fevers prakash-culture Transaminitis and elevated lipase -likley due to TPN - repeat levels in AM if continue to raise may need to limit TPN Acute blood loss anemia, post op and anticipated - no indication for transfusion at this time - follow CBC Thrombocytopenia - likely reactive - follow CBC in AM S/P Spleenectomy - out patient follow up for appropriate vaccines, Dr. Prince added to D/C instructions DVT prophylaxis:Lovenox Discussed with: Patient, nursing Anticipated discharge: per surgery Anticipated discharge place: home A total of 25 minutes was spent on the care of this complex patient more than 50 % of the time was spent in counseling and care coordination.
[2019-01-05] MEDS: FAT EMULSION 20% 250 ML IV SCH (16:01)
[2019-01-05] MEDS ORDERED: VANCOMYCIN IV PER PHARMACY 1 EACH MISC MISCELLANE PRN (17:07)
[2019-01-05] MEDS ORDERED: VANCOMYCIN 1,000 MG in SODIUM CHLORIDE 0.9% 250 ML IVPB STA (17:07)
[2019-01-05] MEDS ORDERED: VANCOMYCIN 2,000 MG in SODIUM CHLORIDE 0.9% 500 ML 500 ML IVPB STA (17:13)
[2019-01-05] MEDS: ACETAMINOPHEN IV (For NPO) 1,000 MG in EMPTY BAG 1 BAG IVPB PRN (17:42)
[2019-01-05 17:52] LABS: Appearance,Urine Clear (Clear); Bacteria,Urine Rare /hpf; Bilirubin,Urine Negative (Negative); Blood,Urine Small (Negative); Color,Urine Yellow; Glucose,Urine (UA) Negative (Negative); Hyaline Casts,Urine 3 /lpf (0-2); Ketones,Urine Negative (Negative); Leukocyte Esterase,Urine Negative (Negative); Mucus,Urine Rare /hpf; Nitrite,Urine Negative (Negative); PH, Urine 6.5 (5.0-8.0); Protein,Urine 1+ (Negative); RBC,Urine 13 /hpf (0-5); Specific Gravity,Urine 1.016 (1.001-1.035); Squamous Epithelial Cell,Urine <1 /hpf (0-4)
--- NOTE | 2019-01-05 18:11 | P.PN ---
Subjective Progress Note Date: 01/05/19 This is a 53-year-old female patient who underwent a laparoscopic sleeve gastrectomy on 12/24/2018. Following her surgery, the patient continued having difficulties with epigastric discomfort and some shortness of breath and there was a concern that the patient was having some leak near the proximal sleeve based on the esophagram. At that point the patient had an EGD and the leak was not visualized. Subsequently, the patient was taken to the operating room and the patient was found to have a staple line Perforation. The patient underwent extensive laparotomy, gastrorrhaphy and splenectomy. Note that the splenectomy was done as the patient developed a splenic Tear While Undergoing Abdominal and Peritoneal Cavity Irrigation. Note That the Omentum Was Lifted off the Spleen. There Was Evidence of bilious drainage behind the spleen. During the irrigation, a splenic tear was established and the patient underwent a complete splenectomy. Currently the patient in the recovery room. The patient is doing well. The patient is extubated. The patient is on 2 L of oxygen nasal cannula. She has a wound VAC over the anterior abdominal wall. She has a CODY drain in the left upper quadrant. Output is minimal and serosanguineous. She is having sinus tachycardia. Intraoperatively she received total of 3 L and there patient received an additional 2 L and the recovery in the form of lactated Ringer. Urine output is minimal and the patient has produced 35 mL total since arrival from the operating room. The preop creatinine was within normal limits. She is normotensive with a blood pressure 143/97. Pain is under good control. The patient has received a dose of Diflucan and Levaquin. White cell count from earlier this morning was at 8.2. On today's evaluation of 01/04/2019, the patient is postop day #1. She is in intensive care unit. Overnight the patient was given aggressive fluid resuscitation. She was also covered with broad-spectrum antibiotics. This morning she is awake and alert. Her sinus tachycardia is improved. I was having difficulties with urine output. After being given a total of 3 L in the ICU, the patient received a dose of Lasix and subsequently urine output improved. Creatinine is stable. Afebrile. The patient has a superficial wound VAC over the anterior abdominal wall which is draining minimal amount of serous drainage. CODY is also in place. Bowel sounds are hypoactive. No flatus yet. No nausea. No vomiting. No abdominal pain and her pain is under good control. She is a bit anxious. When the length discussion with her explaining to her the details of the surgical procedure that she underwent yesterday. On the chest x-ray, the patient is developing and reactive bedside pleural effusion that needs to be monitored very closely. Her white cell count today is at 15.5. As of the blood work and electrodes are all within normal limits. On 01/05/2019 the patient's postoperative October 01. The patient is still nothing by mouth pain and the patient is receiving TPN for nutritional support which is being provided through a PICC line in the left upper extremity. The patient is able to ambulate. She did ambulate yesterday and would like to do the same today. Her abdominal wound is dry clean and intact. The patient has a wound VAC output of which is minimal. The patient also has a CODY drain in the left upper quadrant and output of which is serosanguineous and the amount is in order of 10 mL over the past 12 hours. Meanwhile, the patient is being resuscitated IV fluids at the rate of 100 mL an hour of normal saline which got cut down to KVO today. The patient is producing adequate amount of urine output. Renal function is stable. There is some degree of leukocytosis and white count is at 20. The patient is afebrile until this afternoon when she spiked a temperature of 101.6. Based on that blood cultures were sent and urine cultures were sent and infectious disease consultation was requested. Note that I have covered this patient with a combination of Diflucan, Merrem and Vanco was also added based on his new onset fever. The plan is to proceed with an upper GI series tomorrow to assess the adequacy of the gastric staple/ suture line. No significant abdominal distention. No abdominal tenderness. Abdominal pain is under good control for now. No flatus. No bowel movements yet. Objective - Vital Signs Vital signs: Vital Signs Temp 101.6 F H 01/05/19 17:00 Pulse 98 01/05/19 17:00 Resp 18 01/05/19 17:00 BP 106/62 01/05/19 17:00 Pulse Ox 95 01/05/19 17:00 Intake & Output 01/04/19 01/05/19 01/05/19 18:59 06:59 18:59 Intake Total 3321.122 0522 2165 Output Total 437 660 1130 Balance 0846.888 0974 1095 Weight 109.1 kg 109.1 kg Intake: IV 5953.596 9771 1000 Fat Emulsion 20% 250 ml @ 62.499 20.833 mls/hr IV MoWeFr@ 1600 [facility] Rx#:[id number] Fluconazole in NaCl,Iso- 100 100 Osm 200 mg In Saline 1 100ml.bag @ 100 mls/hr IVPB DAILY [facility] Rx#: [id number] Magnesium Sulfate-D5w Pmx 100 1 gm In Dextrose/Water 1 100ml.bag @ 100 mls/hr IVPB Q1H [facility] Rx#: [id number] Meropenem 1 gm In Sodium 200 100 Chloride 0.9% 100 ml @ 200 mls/hr IVPB Q8HR [facility] Rx#:[id number] Mvi, Adult No.4 with Vit 400 K 10 ml Trace (Conc-1Ml/ Dose) 1 ml In Amino Acid 5%-D15w+Lytes*E* 1,000 ml @ 100 mls/hr IV .BY DURATION [facility] Rx#: [id number] Potassium Chloride 10 meq 100 In Water For Injection 1 100ml.bag @ 100 mls/hr IVPB Q1H [facility] Rx#: [id number] Sodium Chloride 0.9% 1, 1200 1200 100 000 ml @ 100 mls/hr IV . Q10H [facility] Rx#:[id number] Sodium Phosphate 10 mmol 500 In Sodium Chloride 0.9% 250 ml @ 63 mls/hr IV Q4H [facility] Rx#:[id number] Intake, IV Titration 2120 1165 Amount Magnesium Sulfate-D5w Pmx 100 1 gm In Dextrose/Water 1 100ml.bag @ 100 mls/hr IVPB Q1H [facility] Rx#: [id number] Mvi, Adult No.4 with Vit 800 K 10 ml Trace (Conc-1Ml/ Dose) 1 ml Parenteral Electrolytes 20 ml In Amino Acid 5%-D15w 1,000 ml @ 100 mls/hr IV .BY DURATION [facility] Rx#: [id number] Parenteral Electrolytes 1320 965 20 ml In Amino Acid 5%- D15w 1,000 ml @ 100 mls/ hr IV .BY DURATION [facility] Rx #:[id number] Potassium Chloride 10 meq 100 In Water For Injection 1 100ml.bag @ 100 mls/hr IVPB Q1H [facility] Rx#: [id number] Output: Drainage 25 20 Left Abdomen 25 20 Urine 239 282 1081 Other: Voiding Method Indwelling Catheter Indwelling Catheter Indwelling Catheter - Exam Gen. appearance, comfortable no acute distress Head exam was generally normal. There was no scleral icterus or corneal arcus. Mucous membranes were moist. Neck was supple and without jugular venous distension, thyromegaly, or carotid bruits. Carotids were easily palpable bilaterally. There was no adenopathy. Lungs were clear to auscultation and percussion, and with normal diaphragmatic excursion. No wheezes or rales were noted. Heart sounds are tachycardic, normal S1-S2 and the rhythm is sinus. No significant murmurs appreciated. Abdomen is soft. There is a incision in the mid abdomen and the dressing is dry and there is a wound VAC applied today 1 surface. There is also CODY drains left upper quadrant. Bowel sounds are hypoactive. There is no direct tenderness rebound tenderness or guarding. No organomegaly. Examination of the extremities revealed easily palpable radial, femoral and pedal pulses. There was no cyanosis, clubbing or edema. Examination of the skin revealed no evidence of significant rashes, suspicious appearing nevi or other concerning lesions. Neurologically awake and alert and there is no focal neurological deficits. - Labs CBC & Chem 7: 01/05/19 11:03 01/05/19 04:28 Labs: Abnormal Lab Results - Last 24 Hours (Table) 01/05/19 01/05/19 01/05/19 Range/Units 02:31 04:28 04:28 WBC 20.5 H (3.8-10.6) k/uL RBC 2.66 L (3.80-5.40) m/uL Hgb 8.1 L D (11.4-16.0) gm/dL Hct 25.4 L (34.0-46.0) % Neutrophils # 17.1 H (1.3-7.7) k/uL Sodium 135 L (137-145) mmol/L Chloride 109 H (98-107) mmol/L BUN 28 H (7-17) mg/dL Glucose 131 H (74-99) mg/dL POC Glucose (mg/dL) 173 H (75-99) mg/dL Calcium 7.7 L (8.4-10.2) mg/dL Phosphorus 2.2 L (2.5-4.5) mg/dL AST 68 H (14-36) U/L ALT 127 H (9-52) U/L Total Protein 3.6 L (6.3-8.2) g/dL Albumin 1.7 L (3.5-5.0) g/dL Lipase 337 H (23-300) U/L Urine Protein (Negative) Urine Blood (Negative) Urine RBC (0-5) /hpf Urine Bacteria (None) /hpf Hyaline Casts (0-2) /lpf Urine Mucus (None) /hpf 01/05/19 01/05/19 01/05/19 Range/Units 05:38 11:03 12:05 WBC 23.9 H (3.8-10.6) k/uL RBC 2.94 L (3.80-5.40) m/uL Hgb 9.3 L (11.4-16.0) gm/dL Hct 28.6 L (34.0-46.0) % Neutrophils # (1.3-7.7) k/uL Sodium (137-145) mmol/L Chloride (98-107) mmol/L BUN (7-17) mg/dL Glucose (74-99) mg/dL POC Glucose (mg/dL) 133 H 124 H (75-99) mg/dL Calcium (8.4-10.2) mg/dL Phosphorus (2.5-4.5) mg/dL AST (14-36) U/L ALT (9-52) U/L Total Protein (6.3-8.2) g/dL Albumin (3.5-5.0) g/dL Lipase (23-300) U/L Urine Protein (Negative) Urine Blood (Negative) Urine RBC (0-5) /hpf Urine Bacteria (None) /hpf Hyaline Casts (0-2) /lpf Urine Mucus (None) /hpf 01/05/19 Range/Units 17:25 WBC (3.8-10.6) k/uL RBC (3.80-5.40) m/uL Hgb (11.4-16.0) gm/dL Hct (34.0-46.0) % Neutrophils # (1.3-7.7) k/uL Sodium (137-145) mmol/L Chloride (98-107) mmol/L BUN (7-17) mg/dL Glucose (74-99) mg/dL POC Glucose (mg/dL) (75-99) mg/dL Calcium (8.4-10.2) mg/dL Phosphorus (2.5-4.5) mg/dL AST (14-36) U/L ALT (9-52) U/L Total Protein (6.3-8.2) g/dL Albumin (3.5-5.0) g/dL Lipase (23-300) U/L Urine Protein 1+ H (Negative) Urine Blood Small H (Negative) Urine RBC 13 H (0-5) /hpf Urine Bacteria Rare H (None) /hpf Hyaline Casts 3 H (0-2) /lpf Urine Mucus Rare H (None) /hpf Assessment and Plan Plan: Assessment 1 status post expiratory laparotomy, gastrorrhaphy and splenectomy. Surgery was done for gastric sleeve staple line perforation. Patient is postop day #2. 2 new onset fever, postop fever that needs to be further worked up. Blood pressure been sent. Urine culture has been sent. Vancomycin was added. Meanwhile the patient on a combination of Merrem and Diflucan also. White cell count is slightly elevated at 20. Noted the patient is undergone splenectomy, as part of her surgical complication for gastric surgery. 3 previous history of a sleeve gastrectomy that was done on 12/24/2018 4 migraine 5 varicose veins 6 nephrolithiasis 7 left-sided pleural effusion most likely worse on today's evaluation. 8 TPN for nutritional support. 9 leukocytosis, multifactorial, rule out post splenectomy versus infectious. Plan Keep the patient intensive care unit. Continue the current antibiotic coverage which includes IV Merrem and IV Diflucan. Agree on admission of vancomycin. Infectious disease evaluation. Blood cultures. Urine cultures. Monitor left pleural effusion. Upper GI series tomorrow/esophagram. This will be needed to make sure there is no ongoing bleeding post-gastric surgery. Continue TPN for now. Monitor bowel activity. Continues incentive spirometer. The fundi fluids to KVO. Dilaudid for pain control. Ambulate in the hallway. Lovenox for DVT prophylaxis. We'll continue to follow.
[2019-01-05 18:27] LABS: Glucose,Whole Blood 138 mg/dL (75-99)
[2019-01-05 23:38] LABS: Glucose,Whole Blood 154 mg/dL (75-99)
[2019-01-06] MEDS: ACETAMINOPHEN IV (For NPO) 1,000 MG in EMPTY BAG 1 BAG IVPB PRN ×2 (03:32→11:27)
[2019-01-06] MEDS: diphenhydrAMINE 50 MG/ML 1 ML VIAL IVP SCH ×4 (06:14→23:29)
[2019-01-06] MEDS: VANCOMYCIN 2,000 MG in SODIUM CHLORIDE 0.9% 500 ML 500 ML IVPB SCH ×2 (06:15→18:20)
[2019-01-06 06:32] LABS: Basophils # (A) 0.1 k/uL (0-0.2); Basophils % (A) 1 %; Eosinophils # (A) 0.4 k/uL (0-0.7); Eosinophils % (A) 2 %; HCT 27.4 % (34.0-46.0); HGB 8.3 gm/dL (11.4-16.0); Hypochromasia Slight; Lymphocytes # (A) 1.3 k/uL (1.0-4.8); Lymphocytes % (A) 6 %; MCHC 30.2 g/dL (31.0-37.0); MCV 99.5 fL (80.0-100.0); Mean Platelet Volume 8.6; Monocytes # (A) 0.8 k/uL (0-1.0); Monocytes % (A) 4 %; Neutrophils # (A) 18.7 k/uL (1.3-7.7); Neutrophils % (A) 87 %; Platelet Count 224 k/uL (150-450); RBC 2.75 m/uL (3.80-5.40); RDW 12.8 % (11.5-15.5); WBC 21.4 k/uL (3.8-10.6)
[2019-01-06 06:41] LABS: Glucose,Whole Blood 146 mg/dL (75-99)
[2019-01-06 06:42] LABS: ALT 174 U/L (9-52); AST 77 U/L (14-36); Albumin 1.8 g/dL (3.5-5.0); Alkaline Phosphatase 86 U/L (38-126); Anion Gap 8 mmol/L; Blood Urea Nitrogen 17 mg/dL (7-17); Calcium 7.7 mg/dL (8.4-10.2); Carbon Dioxide 22 mmol/L (22-30); Chloride 104 mmol/L (98-107); Glucose 123 mg/dL (74-99); Lipase 534 U/L (23-300); Magnesium 1.9 mg/dL (1.6-2.3); Phosphorus 3.1 mg/dL (2.5-4.5); Potassium 3.6 mmol/L (3.5-5.1); Sodium 134 mmol/L (137-145); Total Bilirubin 0.3 mg/dL (0.2-1.3); Total Protein 3.8 g/dL (6.3-8.2)
[2019-01-06] MEDS: INSULIN ASPART (NovoLOG) 100 UNIT/ML VIAL SQ SCH ×4 (06:44→23:34)
--- NOTE | 2019-01-06 06:46 | P.PN ---
Progress Note - Text Progress Note Date: 01/05/19 The patient is resting comfortably in her chair. She states her pain is a 6 out of 10. She states that she feels better than yesterday. She has ambulated slightly in the room. Patient states her pain is mainly incisional. She denies any chest pain. On exam her vital signs appear stable. She did spike a temperature of 101 around 5 PM. Blood cultures were performed. Her abdomen has some mild incisional pain. CODY drain has a small amount of serosanguineous drainage. There is no evidence of any bilious drainage. The patient is progressing. We will perform a upper GI/esophagram in the next 24-48 hours depending on her medical condition. She is receiving TPN. And broad coverage IV antibiotic therapy. I discussed her care with the patient's .
[2019-01-06] MEDS ORDERED: Potassium Replacement Protocol 1 EACH MISC MISCELLANE PRN (07:06)
--- NOTE | 2019-01-06 07:06 | CONS ---
CONSULTATION DATE OF SERVICE: 01/05/2019 REASON FOR CONSULTATION: Fever. HISTORY OF PRESENT ILLNESS: The patient is a 53-year-old female who is status post laparoscopic sleeve gastrectomy done on 12/24/2018. Following the surgery, the patient seemed to have a problem with abdominal pain mostly in the epigastric area and some shortness of breath for which the patient subsequently did have a workup done with concern for possible leak. The patient was taken back to the OR staple line perforation. The patient underwent extensive laparotomy with gastrorrhaphy and splenectomy. The patient subsequently has been admitted to the ICU and this patient who was afebrile noted to spike a fever of 101.6 degrees Fahrenheit this evening that prompted this infectious disease consultation. Patient has been complaining of pain mostly in the epigastric area. The pain is burning to sharp in nature 5 to 6 out of 10. The patient felt nauseated but no vomiting. Denies having any diarrhea. Denies having any chest pain, shortness of breath or any cough and no urinary symptoms. REVIEW OF SYSTEMS: CONSTITUTIONAL: Positive for weakness along with the fever. EYES: No complaint. ENT: No complaint. RESPIRATORY: As per HPI. CARDIOVASCULAR: No complaint. GENITOURINARY: No complaint. GASTROINTESTINAL : As per HPI. MUSCULOSKELETAL: No complaint. INTEGUMENTARY: No complaint. PSYCHOLOGICAL: No complaint. ENDOCRINE: No complaint. NEUROLOGIC: No complaint. PAST MEDICAL HISTORY: Morbid obesity, history of kidney stones, migraine headache, varicose veins. PAST SURGICAL HISTORY: Gastric sleeve surgery, cholecystectomy, hysterectomy, tonsillectomy. SOCIAL HISTORY: No history of smoking, drinking or drug use. FAMILY HISTORY: Mother with history DVT and breast cancer. ALLERGIES: Allergies to CIPROFLOXACIN, PENICILLIN, SULFA. MEDICATIONS: Medications include the patient is currently on Benadryl, Lovenox, fluconazole 200 daily, meropenem 1 gram q.8, NovoLog, Narcan, Zofran, Protonix, vancomycin pharmacy to dose. PHYSICAL EXAMINATION: On examination, blood pressure is 108/69, pulse 83 temperature 99.2. She has T-max of 101.6. She is 92% on 3 L nasal cannula. General description is a middle aged female lying in bed in no distress. No tachypnea or accessory muscle of respiration use. HEENT examination shows pallor no scleral icterus. Oral mucous membrane is dry. No pharyngeal erythema or thrush. NECK: Trachea central. No thyromegaly. LUNGS: Unlabored breathing, decreased breath sounds at the bases. No wheeze. HEART: S1, S2. Regular rate and rhythm. ABDOMEN: Soft, mildly distended. No guarding, no rigidity. EXTREMITIES: No edema of feet. SKIN EXAMINATION: No rash or mass palpable. NEUROLOGICALLY: The patient is awake, alert, oriented x3. Mood and affect normal. LABS: Hemoglobin 9.3, white count 23.9, BUN of 28, creatinine 0.68. Electrolytes has been normal. Liver enzymes are mildly elevated. Urine no significant pyuria. The patient did have a chest x-ray completed this morning which showed developing left mid and lower lung infiltrate. DIAGNOSTIC IMPRESSION AND PLAN: 1. Patient admitted with sepsis in this patient who did have fever of 101 degrees Fahrenheit and the patient did have elevated white count in this patient who is status post extensive laparotomy for a gastric sleeve leakage status post repair of the same and splenectomy. With the source of infection with lower lobe pneumonia, possible nosocomial pathogen, underlying abdominal source, not entirely excluded. However, the patient's UA was negative and evidence of any cellulitis. 2. The patient does have multiple antibiotic allergies that limit the number of antibiotics that could be safely used. PLAN: 1. Blood cultures has been obtained, those will be followed. 2. We will try to obtain sputum for Gram stain culture and sensitivity. 3. Vancomycin pharmacy to dose while watching her kidney function closely, continue meropenem and Diflucan. 4. We will follow up on the clinical condition and culture to further adjust medication if needed. Thank you for this consultation. Will follow this patient along with you. MMODL / IJN: [id number] /
[2019-01-06] MEDS ORDERED: Magnesium Replacement Protocol 1 EACH MISC MISCELLANE PRN (07:07)
[2019-01-06] MEDS: ENOXAPARIN 40 MG/0.4 ML SYRINGE SQ SCH (07:54)
[2019-01-06] MEDS: PANTOPRAZOLE 40 MG/10 ML VIAL IV SCH (08:00)
[2019-01-06] MEDS: MEROPENEM 1 GM in SODIUM CHLORIDE 0.9% 100 ML IVPB SCH ×3 (08:09→23:32)
[2019-01-06] MEDS: FLUCONAZOLE IN NACL,ISO-OSM 200 MG in SALINE 1 100ML.BAG IVPB SCH (08:48)
[2019-01-06] MEDS: POTASSIUM CHLORIDE 10 MEQ in WATER FOR INJECTION 1 100ML.BAG IVPB SCH ×2 (10:00→11:37)
[2019-01-06] MEDS: HYDROmorphone 1 MG/ML 1 ML SYRINGE IVP PRN ×3 (10:03→23:09)
[2019-01-06] MEDS: SIMETHICONE 40 MG/0.6 ML DROPS 2,000 MG/30 ML BOTTLE PO SCH ×4 (10:04→23:12)
[2019-01-06] MEDS: MAGNESIUM SULFATE-D5W PMX 1 GM in DEXTROSE/WATER 1 100ML.BAG IVPB SCH ×2 (10:30→11:56)
--- NOTE | 2019-01-06 11:23 | P.PN ---
Subjective Progress Note Date: 01/06/19 Principal diagnosis: Status post laparoscopic sleeve gastrectomy This is a 53-year-old female patient who underwent a laparoscopic sleeve gastrectomy on 12/24/2018. Following her surgery, the patient continued having difficulties with epigastric discomfort and some shortness of breath and there was a concern that the patient was having some leak near the proximal sleeve based on the esophagram. At that point the patient had an EGD and the leak was not visualized. Subsequently, the patient was taken to the operating room and the patient was found to have a staple line Perforation. The patient underwent extensive laparotomy, gastrorrhaphy and splenectomy. Note that the splenectomy was done as the patient developed a splenic Tear While Undergoing Abdominal and Peritoneal Cavity Irrigation. Note That the Omentum Was Lifted off the Spleen. There Was Evidence of bilious drainage behind the spleen. During the irrigation, a splenic tear was established and the patient underwent a complete splenectomy. Currently the patient in the recovery room. The patient is doing well. The patient is extubated. The patient is on 2 L of oxygen nasal cannula. She has a wound VAC over the anterior abdominal wall. She has a CODY drain in the left upper quadrant. Output is minimal and serosanguineous. She is having sinus tachycardia. Intraoperatively she received total of 3 L and there patient received an additional 2 L and the recovery in the form of lactated Ringer. Urine output is minimal and the patient has produced 35 mL total since arrival from the operating room. The preop creatinine was within normal limits. She is normotensive with a blood pressure 143/97. Pain is under good control. The patient has received a dose of Diflucan and Levaquin. White cell count from earlier this morning was at 8.2. On today's evaluation of 01/04/2019, the patient is postop day #1. She is in intensive care unit. Overnight the patient was given aggressive fluid resuscitation. She was also covered with broad-spectrum antibiotics. This morning she is awake and alert. Her sinus tachycardia is improved. I was having difficulties with urine output. After being given a total of 3 L in the ICU, the patient received a dose of Lasix and subsequently urine output improved. Creatinine is stable. Afebrile. The patient has a superficial wound VAC over the anterior abdominal wall which is draining minimal amount of serous drainage. CODY is also in place. Bowel sounds are hypoactive. No flatus yet. No nausea. No vomiting. No abdominal pain and her pain is under good control. She is a bit anxious. When the length discussion with her explaining to her the details of the surgical procedure that she underwent yesterday. On the chest x-ray, the patient is developing and reactive bedside pleural effusion that needs to be monitored very closely. Her white cell count today is at 15.5. As of the blood work and electrodes are all within normal limits. On 01/05/2019 the patient's postoperative September 2. The patient is still nothing by mouth pain and the patient is receiving TPN for nutritional support which is being provided through a PICC line in the left upper extremity. The patient is able to ambulate. She did ambulate yesterday and would like to do the same today. Her abdominal wound is dry clean and intact. The patient has a wound VAC output of which is minimal. The patient also has a CODY drain in the left upper quadrant and output of which is serosanguineous and the amount is in order of 10 mL over the past 12 hours. Meanwhile, the patient is being resuscitated IV fluids at the rate of 100 mL an hour of normal saline which got cut down to KVO today. The patient is producing adequate amount of urine output. Renal function is stable. There is some degree of leukocytosis and white count is at 20. The patient is afebrile until this afternoon when she spiked a temperature of 101.6. Based on that blood cultures were sent and urine cultures were sent and infectious disease consultation was requested. Note that I have covered this patient with a combination of Diflucan, Merrem and Vanco was also added based on his new onset fever. The plan is to proceed with an upper GI series tomorrow to assess the adequacy of the gastric staple/ suture line. No significant abdominal distention. No abdominal tenderness. Abdominal pain is under good control for now. No flatus. No bowel movements yet. The patient is seen today 01/06/2019 in follow-up in the intensive care unit. This is postoperative day #3. She is currently awake and alert in no acute distress. Resting fairly comfortably in bed. She is currently maintaining O2 saturations in the 90s on 3 L/m per nasal cannula. She is working well with the incentive spirometer. Currently pulling 750 ML's. She's been hemodynamically stable. Not on any pressors. She has been having issues with fevers. Currently 100.4. White count 21.4. Hemoglobin 8.3. Creatinine 0.51. AST 77, ALT 174. Lipase 534. She is still not passing any flatus. She is belching at times. Abdomen is soft. Provena dressing in place over the stapled mid line incision. CODY drain remains in place. She is receiving IV acetaminophen. Continued on vancomycin, meropenem and fluconazole she is being nourished with TPN and lipids. Lovenox for DVT prophylaxis. Objective - Vital Signs Vital signs: Vital Signs Temp 100.4 F H 01/06/19 10:00 Pulse 90 01/06/19 10:00 Resp 26 H 01/06/19 10:00 BP 128/78 01/06/19 10:00 Pulse Ox 92 L 01/06/19 10:00 Intake & Output 01/05/19 01/06/19 01/06/19 18:59 06:59 18:59 Intake Total 3296 2099 630 Output Total 1160 1435 725 Balance 2136 664 -95 Weight 109.1 kg 111.2 kg Intake: IV 1100 2099 630 0.9 Normal saline carrier 110 30 ACETAMINOPHEN IV (For NPO 100 100 ) 1,000 mg In Empty Bag 1 bag @ 400 mls/hr IVPB Q6HR PRN Rx#:[id number] Fat Emulsion 20% 250 ml @ 189 20.833 mls/hr IV MoWeFr@ 1600 [facility] Rx#:[id number] Fluconazole in NaCl,Iso- 100 100 Osm 200 mg In Saline 1 100ml.bag @ 100 mls/hr IVPB DAILY [facility] Rx#: [id number] Magnesium Sulfate-D5w Pmx 100 1 gm In Dextrose/Water 1 100ml.bag @ 100 mls/hr IVPB Q1H [facility] Rx#: [id number] Meropenem 1 gm In Sodium 100 100 100 Chloride 0.9% 100 ml @ 200 mls/hr IVPB Q8HR [facility] Rx#:[id number] Mvi, Adult No.4 with Vit 1100 300 K 10 ml Trace (Conc-1Ml/ Dose) 1 ml Parenteral Electrolytes 20 ml In Amino Acid 5%-D15w 1,000 ml @ 100 mls/hr IV .BY DURATION [facility] Rx#: [id number] Potassium Chloride 10 meq 100 In Water For Injection 1 100ml.bag @ 100 mls/hr IVPB Q1H [facility] Rx#: [id number] Potassium Chloride 10 meq 100 In Water For Injection 1 100ml.bag @ 100 mls/hr IVPB Q1H [facility] Rx#: [id number] Sodium Chloride 0.9% 1, 100 000 ml @ 100 mls/hr IV . Q10H [facility] Rx#:[id number] Sodium Phosphate 10 mmol 500 In Sodium Chloride 0.9% 250 ml @ 63 mls/hr IV Q4H [facility] Rx#:[id number] Vancomycin 2,000 mg In 500 Sodium Chloride 0.9% 500 ml 500 ml @ 167 mls/hr IVPB ONCE [facility] Rx#: [id number] Intake, IV Titration 2196 Amount Magnesium Sulfate-D5w Pmx 100 1 gm In Dextrose/Water 1 100ml.bag @ 100 mls/hr IVPB Q1H [facility] Rx#: [id number] Mvi, Adult No.4 with Vit 1031 K 10 ml Trace (Conc-1Ml/ Dose) 1 ml Parenteral Electrolytes 20 ml In Amino Acid 5%-D15w 1,000 ml @ 100 mls/hr IV .BY DURATION [facility] Rx#: [id number] Parenteral Electrolytes 965 20 ml In Amino Acid 5%- D15w 1,000 ml @ 100 mls/ hr IV .BY DURATION [facility] Rx #:[id number] Potassium Chloride 10 meq 100 In Water For Injection 1 100ml.bag @ 100 mls/hr IVPB Q1H [facility] Rx#: [id number] Output: Drainage 10 Left Abdomen 10 Urine 1150 1435 725 Other: Voiding Method Indwelling Catheter Indwelling Catheter - Exam Gen. appearance, comfortable no acute distress on 3 L nasal cannula Head exam was generally normal. There was no scleral icterus or corneal arcus. Mucous membranes were moist. Neck was supple and without jugular venous distension, thyromegaly, or carotid bruits. Carotids were easily palpable bilaterally. There was no adenopathy. Lungs were clear to auscultation and percussion, and with normal diaphragmatic excursion. No wheezes or rales were noted. Heart sounds are tachycardic, normal S1-S2 and the rhythm is sinus. No significant murmurs appreciated. Abdomen is soft. There is a Provena device over the mid line incision. There is also CODY drains left upper quadrant. Bowel sounds are hypoactive. There is no direct tenderness rebound tenderness or guarding. No organomegaly. Examination of the extremities revealed easily palpable radial, femoral and pedal pulses. There was no cyanosis, clubbing or edema. Examination of the skin revealed no evidence of significant rashes, suspicious appearing nevi or other concerning lesions. Neurologically awake and alert and there is no focal neurological deficits. - Labs CBC & Chem 7: 01/06/19 05:52 01/06/19 05:52 Labs: Abnormal Lab Results - Last 24 Hours (Table) 01/05/19 01/05/19 01/05/19 Range/Units 11:03 12:05 17:25 WBC 23.9 H (3.8-10.6) k/uL RBC 2.94 L (3.80-5.40) m/uL Hgb 9.3 L (11.4-16.0) gm/dL Hct 28.6 L (34.0-46.0) % MCHC (31.0-37.0) g/dL Neutrophils # (1.3-7.7) k/uL Sodium (137-145) mmol/L Creatinine (0.52-1.04) mg/dL Glucose (74-99) mg/dL POC Glucose (mg/dL) 124 H (75-99) mg/dL Calcium (8.4-10.2) mg/dL AST (14-36) U/L ALT (9-52) U/L Total Protein (6.3-8.2) g/dL Albumin (3.5-5.0) g/dL Lipase (23-300) U/L Urine Protein 1+ H (Negative) Urine Blood Small H (Negative) Urine RBC 13 H (0-5) /hpf Urine Bacteria Rare H (None) /hpf Hyaline Casts 3 H (0-2) /lpf Urine Mucus Rare H (None) /hpf 01/05/19 01/05/19 01/06/19 Range/Units 18:22 23:35 05:52 WBC (3.8-10.6) k/uL RBC (3.80-5.40) m/uL Hgb (11.4-16.0) gm/dL Hct (34.0-46.0) % MCHC (31.0-37.0) g/dL Neutrophils # (1.3-7.7) k/uL Sodium 134 L (137-145) mmol/L Creatinine 0.51 L (0.52-1.04) mg/dL Glucose 123 H (74-99) mg/dL POC Glucose (mg/dL) 138 H 154 H (75-99) mg/dL Calcium 7.7 L (8.4-10.2) mg/dL AST 77 H (14-36) U/L ALT 174 H (9-52) U/L Total Protein 3.8 L (6.3-8.2) g/dL Albumin 1.8 L (3.5-5.0) g/dL Lipase 534 H (23-300) U/L Urine Protein (Negative) Urine Blood (Negative) Urine RBC (0-5) /hpf Urine Bacteria (None) /hpf Hyaline Casts (0-2) /lpf Urine Mucus (None) /hpf 01/06/19 01/06/19 Range/Units 05:52 06:38 WBC 21.4 H (3.8-10.6) k/uL RBC 2.75 L (3.80-5.40) m/uL Hgb 8.3 L (11.4-16.0) gm/dL Hct 27.4 L (34.0-46.0) % MCHC 30.2 L (31.0-37.0) g/dL Neutrophils # 18.7 H (1.3-7.7) k/uL Sodium (137-145) mmol/L Creatinine (0.52-1.04) mg/dL Glucose (74-99) mg/dL POC Glucose (mg/dL) 146 H (75-99) mg/dL Calcium (8.4-10.2) mg/dL AST (14-36) U/L ALT (9-52) U/L Total Protein (6.3-8.2) g/dL Albumin (3.5-5.0) g/dL Lipase (23-300) U/L Urine Protein (Negative) Urine Blood (Negative) Urine RBC (0-5) /hpf Urine Bacteria (None) /hpf Hyaline Casts (0-2) /lpf Urine Mucus (None) /hpf Assessment and Plan Assessment: Assessment 1 status post exploratory laparotomy, gastrorrhaphy and splenectomy. Surgery was done for gastric sleeve staple line perforation. Patient is postop day #3. 2 new onset fever, postop fever that needs to be further worked up. Blood cultures have been sent. Urine culture has been sent. Vancomycin was added. Meanwhile the patient on a combination of Merrem and Diflucan also. White cell count is slightly elevated at 21.4. Noted the patient is undergone splenectomy , as part of her surgical complication for gastric surgery. Infectious disease has been consulted. 3 previous history of a sleeve gastrectomy that was done on 12/24/2018 4 migraine 5 varicose veins 6 nephrolithiasis 7 left-sided pleural effusion most likely worse on today's evaluation. 8 TPN for nutritional support. 9 leukocytosis, multifactorial, rule out post splenectomy versus infectious. Plan The patient was seen and evaluated by Dr. [place]. Cultures are still pending. Still having fever. Infectious disease is on the case as well. Continues on vancomycin, meropenem, Diflucan. She is doing well from the pulmonary standpoint. Working well with the incentive spirometer. Pulling 750 ML's. Most recent chest x-ray revealed left mid and lower lobe infiltrate with small effusion. She will be up in the chair this morning. Continue to increase her activity as tolerated. We'll continue to monitor her here in the intensive care unit. We'll continue to follow and make further recommendations based on her clinical status. I, the cosigning physician, performed a history & physical examination of the patient. Lungs sounds with crackles in the left posterior base. Few scattered rhonchi.. Maintaining good O2 saturations in the 90s on 3 L/m per nasal cannula. I discussed the assessment and plan of care with my nurse practitioner , July Harrell. I attest to the above note as dictated by her.
--- NOTE | 2019-01-06 11:57 | P.PN ---
Subjective Progress Note Date: 01/06/19 Principal diagnosis: Gastric sleeve staple line perforation The patient states she feels better today. She states her pain is a 4-5 out of 10. She denies any nausea. She's had no significant flatus. Patient spiked a temperature last night. She was pancultured. There is no growth yet. Objective - Vital Signs Vital signs: Vital Signs Temp 100.4 F H 01/06/19 10:00 Pulse 97 01/06/19 11:00 Resp 25 H 01/06/19 11:00 BP 133/74 01/06/19 11:00 Pulse Ox 92 L 01/06/19 11:00 Intake & Output 01/05/19 01/06/19 01/06/19 18:59 06:59 18:59 Intake Total 3296 2099 840 Output Total 1160 1435 1075 Balance 2136 664 -235 Weight 109.1 kg 111.2 kg Intake: IV 1100 2099 840 0.9 Normal saline carrier 110 40 ACETAMINOPHEN IV (For NPO 100 100 ) 1,000 mg In Empty Bag 1 bag @ 400 mls/hr IVPB Q6HR PRN Rx#:[id number] Fat Emulsion 20% 250 ml @ 189 20.833 mls/hr IV MoWeFr@ 1600 [facility] Rx#:[id number] Fluconazole in NaCl,Iso- 100 100 Osm 200 mg In Saline 1 100ml.bag @ 100 mls/hr IVPB DAILY [facility] Rx#: [id number] Magnesium Sulfate-D5w Pmx 100 1 gm In Dextrose/Water 1 100ml.bag @ 100 mls/hr IVPB Q1H [facility] Rx#: [id number] Meropenem 1 gm In Sodium 100 100 100 Chloride 0.9% 100 ml @ 200 mls/hr IVPB Q8HR [facility] Rx#:[id number] Mvi, Adult No.4 with Vit 1100 400 K 10 ml Trace (Conc-1Ml/ Dose) 1 ml Parenteral Electrolytes 20 ml In Amino Acid 5%-D15w 1,000 ml @ 100 mls/hr IV .BY DURATION [facility] Rx#: [id number] Potassium Chloride 10 meq 100 In Water For Injection 1 100ml.bag @ 100 mls/hr IVPB Q1H [facility] Rx#: [id number] Potassium Chloride 10 meq 200 In Water For Injection 1 100ml.bag @ 100 mls/hr IVPB Q1H [facility] Rx#: [id number] Sodium Chloride 0.9% 1, 100 000 ml @ 100 mls/hr IV . Q10H [facility] Rx#:[id number] Sodium Phosphate 10 mmol 500 In Sodium Chloride 0.9% 250 ml @ 63 mls/hr IV Q4H [facility] Rx#:[id number] Vancomycin 2,000 mg In 500 Sodium Chloride 0.9% 500 ml 500 ml @ 167 mls/hr IVPB ONCE [facility] Rx#: [id number] Intake, IV Titration 2196 Amount Magnesium Sulfate-D5w Pmx 100 1 gm In Dextrose/Water 1 100ml.bag @ 100 mls/hr IVPB Q1H [facility] Rx#: [id number] Mvi, Adult No.4 with Vit 1031 K 10 ml Trace (Conc-1Ml/ Dose) 1 ml Parenteral Electrolytes 20 ml In Amino Acid 5%-D15w 1,000 ml @ 100 mls/hr IV .BY DURATION [facility] Rx#: [id number] Parenteral Electrolytes 965 20 ml In Amino Acid 5%- D15w 1,000 ml @ 100 mls/ hr IV .BY DURATION [facility] Rx #:[id number] Potassium Chloride 10 meq 100 In Water For Injection 1 100ml.bag @ 100 mls/hr IVPB Q1H [facility] Rx#: [id number] Output: Drainage 10 Left Abdomen 10 Urine 1150 1435 1075 Other: Voiding Method Indwelling Catheter Indwelling Catheter - Constitutional General appearance: Present: no acute distress - Gastrointestinal Gastrointestinal Comment(s): Abdomen is soft. There is some serosanguineous fluid in the CODY drain. There is no evidence of bile in the CODY drain. The CODY drain only put out 10 mL last night. - Labs CBC & Chem 7: 01/06/19 05:52 01/06/19 05:52 Labs: Abnormal Lab Results - Last 24 Hours (Table) 01/05/19 01/05/19 01/05/19 Range/Units 12:05 17:25 18:22 WBC (3.8-10.6) k/uL RBC (3.80-5.40) m/uL Hgb (11.4-16.0) gm/dL Hct (34.0-46.0) % MCHC (31.0-37.0) g/dL Neutrophils # (1.3-7.7) k/uL Sodium (137-145) mmol/L Creatinine (0.52-1.04) mg/dL Glucose (74-99) mg/dL POC Glucose (mg/dL) 124 H 138 H (75-99) mg/dL Calcium (8.4-10.2) mg/dL AST (14-36) U/L ALT (9-52) U/L Total Protein (6.3-8.2) g/dL Albumin (3.5-5.0) g/dL Lipase (23-300) U/L Urine Protein 1+ H (Negative) Urine Blood Small H (Negative) Urine RBC 13 H (0-5) /hpf Urine Bacteria Rare H (None) /hpf Hyaline Casts 3 H (0-2) /lpf Urine Mucus Rare H (None) /hpf 01/05/19 01/06/19 01/06/19 Range/Units 23:35 05:52 05:52 WBC 21.4 H (3.8-10.6) k/uL RBC 2.75 L (3.80-5.40) m/uL Hgb 8.3 L (11.4-16.0) gm/dL Hct 27.4 L (34.0-46.0) % MCHC 30.2 L (31.0-37.0) g/dL Neutrophils # 18.7 H (1.3-7.7) k/uL Sodium 134 L (137-145) mmol/L Creatinine 0.51 L (0.52-1.04) mg/dL Glucose 123 H (74-99) mg/dL POC Glucose (mg/dL) 154 H (75-99) mg/dL Calcium 7.7 L (8.4-10.2) mg/dL AST 77 H (14-36) U/L ALT 174 H (9-52) U/L Total Protein 3.8 L (6.3-8.2) g/dL Albumin 1.8 L (3.5-5.0) g/dL Lipase 534 H (23-300) U/L Urine Protein (Negative) Urine Blood (Negative) Urine RBC (0-5) /hpf Urine Bacteria (None) /hpf Hyaline Casts (0-2) /lpf Urine Mucus (None) /hpf 01/06/19 Range/Units 06:38 WBC (3.8-10.6) k/uL RBC (3.80-5.40) m/uL Hgb (11.4-16.0) gm/dL Hct (34.0-46.0) % MCHC (31.0-37.0) g/dL Neutrophils # (1.3-7.7) k/uL Sodium (137-145) mmol/L Creatinine (0.52-1.04) mg/dL Glucose (74-99) mg/dL POC Glucose (mg/dL) 146 H (75-99) mg/dL Calcium (8.4-10.2) mg/dL AST (14-36) U/L ALT (9-52) U/L Total Protein (6.3-8.2) g/dL Albumin (3.5-5.0) g/dL Lipase (23-300) U/L Urine Protein (Negative) Urine Blood (Negative) Urine RBC (0-5) /hpf Urine Bacteria (None) /hpf Hyaline Casts (0-2) /lpf Urine Mucus (None) /hpf Assessment and Plan Assessment: Status post open repair of gastric staple line perforation and splenectomy. Patient has had some elevated temperatures. She is encouraging increase her spirometer. Patient is being currently covered by broad-spectrum antibiotics and antifungals. The patient's white count has remained roughly stable. His 21 ,000 today. Part of this may be due to post splenectomy. The patient will undergo esophagram tomorrow.
[2019-01-06 12:30] LABS: Glucose,Whole Blood 160 mg/dL (75-99)
--- NOTE | 2019-01-06 14:41 | P.PN ---
Subjective Progress Note Date: 01/06/19 Principal diagnosis: Patient is a 53-year-old female past medical history of migraine headaches, nephrolithiasis, and postoperative nausea and vomiting who had a gastric sleeve on 12/24/18 complicated with postop edema for sleep and delayed gastric emptying. She was discharged from the hospital on TPN. She worsened at home and 3 presented on 12/31/18. She was found to have possible gastric leak. She returned to the OR on 01/03 for repair of the gastric leak, she was noted to have a splenic capsule Laceration and Ultimately Underwent Splenectomy at that time. She was started on diflucan and meropenem. The patient is postop day #3 resting comfortably in bed maintaining decent saturations on 3 L nasal cannula, clinically had a temperature of 100.4 yesterday. Currently not passing any gas. Objective - Vital Signs Vital signs: Vital Signs Temp 98.9 F 01/06/19 05:00 Pulse 90 01/06/19 07:00 Resp 16 01/06/19 07:00 BP 115/68 01/06/19 07:00 Pulse Ox 92 L 01/06/19 07:00 Intake & Output 01/05/19 01/06/19 01/06/19 18:59 06:59 18:59 Intake Total 3296 2099 Output Total 1160 1435 Balance 2136 664 Weight 109.1 kg 111.2 kg Intake: IV 1100 2099 0.9 Normal saline carrier 110 ACETAMINOPHEN IV (For NPO 100 100 ) 1,000 mg In Empty Bag 1 bag @ 400 mls/hr IVPB Q6HR PRN Rx#:[id number] Fat Emulsion 20% 250 ml @ 189 20.833 mls/hr IV MoWeFr@ 1600 [facility] Rx#:[id number] Fluconazole in NaCl,Iso- 100 Osm 200 mg In Saline 1 100ml.bag @ 100 mls/hr IVPB DAILY [facility] Rx#: [id number] Magnesium Sulfate-D5w Pmx 100 1 gm In Dextrose/Water 1 100ml.bag @ 100 mls/hr IVPB Q1H [facility] Rx#: [id number] Meropenem 1 gm In Sodium 100 100 Chloride 0.9% 100 ml @ 200 mls/hr IVPB Q8HR [facility] Rx#:[id number] Mvi, Adult No.4 with Vit 1100 K 10 ml Trace (Conc-1Ml/ Dose) 1 ml Parenteral Electrolytes 20 ml In Amino Acid 5%-D15w 1,000 ml @ 100 mls/hr IV .BY DURATION [facility] Rx#: [id number] Potassium Chloride 10 meq 100 In Water For Injection 1 100ml.bag @ 100 mls/hr IVPB Q1H [facility] Rx#: [id number] Sodium Chloride 0.9% 1, 100 000 ml @ 100 mls/hr IV . Q10H [facility] Rx#:[id number] Sodium Phosphate 10 mmol 500 In Sodium Chloride 0.9% 250 ml @ 63 mls/hr IV Q4H [facility] Rx#:[id number] Vancomycin 2,000 mg In 500 Sodium Chloride 0.9% 500 ml 500 ml @ 167 mls/hr IVPB ONCE [facility] Rx#: [id number] Intake, IV Titration 2196 Amount Magnesium Sulfate-D5w Pmx 100 1 gm In Dextrose/Water 1 100ml.bag @ 100 mls/hr IVPB Q1H [facility] Rx#: [id number] Mvi, Adult No.4 with Vit 1031 K 10 ml Trace (Conc-1Ml/ Dose) 1 ml Parenteral Electrolytes 20 ml In Amino Acid 5%-D15w 1,000 ml @ 100 mls/hr IV .BY DURATION [facility] Rx#: [id number] Parenteral Electrolytes 965 20 ml In Amino Acid 5%- D15w 1,000 ml @ 100 mls/ hr IV .BY DURATION [facility] Rx #:[id number] Potassium Chloride 10 meq 100 In Water For Injection 1 100ml.bag @ 100 mls/hr IVPB Q1H [facility] Rx#: [id number] Output: Drainage 10 Left Abdomen 10 Urine 1150 1435 Other: Voiding Method Indwelling Catheter Indwelling Catheter - Exam General: No acute distress, no distress, appears at stated age Derm: warm, dry Head: atraumatic, normocephalic, symmetric Eyes: EOMI, no lid lag, anicteric sclera Mouth: no lip lesion, mucus membranes moist Cardiovascular: S1S2 reg, no murmur, positive posterior tibial pulse bilateral, Lungs: rhonchi left base, no rhonchi, no rales , no accessory muscle use Abdominal: soft, tender to palpation diffusely, no guarding, no appreciable organomegaly, Prevena in place over midline incisions, hypoactive bowel sounds Ext: no gross muscle atrophy, no edema, no contractures Neuro: CN II-XI grossly intact, no focal neuro deficits Psych: Alert, oriented, appropriate affect - Labs CBC & Chem 7: 01/06/19 05:52 01/06/19 05:52 Labs: Abnormal Lab Results - Last 24 Hours (Table) 01/05/19 01/05/19 01/05/19 Range/Units 11:03 12:05 17:25 WBC 23.9 H (3.8-10.6) k/uL RBC 2.94 L (3.80-5.40) m/uL Hgb 9.3 L (11.4-16.0) gm/dL Hct 28.6 L (34.0-46.0) % MCHC (31.0-37.0) g/dL Neutrophils # (1.3-7.7) k/uL Sodium (137-145) mmol/L Creatinine (0.52-1.04) mg/dL Glucose (74-99) mg/dL POC Glucose (mg/dL) 124 H (75-99) mg/dL Calcium (8.4-10.2) mg/dL AST (14-36) U/L ALT (9-52) U/L Total Protein (6.3-8.2) g/dL Albumin (3.5-5.0) g/dL Lipase (23-300) U/L Urine Protein 1+ H (Negative) Urine Blood Small H (Negative) Urine RBC 13 H (0-5) /hpf Urine Bacteria Rare H (None) /hpf Hyaline Casts 3 H (0-2) /lpf Urine Mucus Rare H (None) /hpf 01/05/19 01/05/19 01/06/19 Range/Units 18:22 23:35 05:52 WBC (3.8-10.6) k/uL RBC (3.80-5.40) m/uL Hgb (11.4-16.0) gm/dL Hct (34.0-46.0) % MCHC (31.0-37.0) g/dL Neutrophils # (1.3-7.7) k/uL Sodium 134 L (137-145) mmol/L Creatinine 0.51 L (0.52-1.04) mg/dL Glucose 123 H (74-99) mg/dL POC Glucose (mg/dL) 138 H 154 H (75-99) mg/dL Calcium 7.7 L (8.4-10.2) mg/dL AST 77 H (14-36) U/L ALT 174 H (9-52) U/L Total Protein 3.8 L (6.3-8.2) g/dL Albumin 1.8 L (3.5-5.0) g/dL Lipase 534 H (23-300) U/L Urine Protein (Negative) Urine Blood (Negative) Urine RBC (0-5) /hpf Urine Bacteria (None) /hpf Hyaline Casts (0-2) /lpf Urine Mucus (None) /hpf 01/06/19 01/06/19 Range/Units 05:52 06:38 WBC 21.4 H (3.8-10.6) k/uL RBC 2.75 L (3.80-5.40) m/uL Hgb 8.3 L (11.4-16.0) gm/dL Hct 27.4 L (34.0-46.0) % MCHC 30.2 L (31.0-37.0) g/dL Neutrophils # 18.7 H (1.3-7.7) k/uL Sodium (137-145) mmol/L Creatinine (0.52-1.04) mg/dL Glucose (74-99) mg/dL POC Glucose (mg/dL) 146 H (75-99) mg/dL Calcium (8.4-10.2) mg/dL AST (14-36) U/L ALT (9-52) U/L Total Protein (6.3-8.2) g/dL Albumin (3.5-5.0) g/dL Lipase (23-300) U/L Urine Protein (Negative) Urine Blood (Negative) Urine RBC (0-5) /hpf Urine Bacteria (None) /hpf Hyaline Casts (0-2) /lpf Urine Mucus (None) /hpf Assessment and Plan Assessment: Gastric sleeve with anastomotic leak status post gastrorraphy - on TPN, check lipase in AM, CMP, MG, Phos, continue with ISS - management per primary team currently NPO, on diflucan Leukocytosis -Possibly infectious patient febrile overnight wbcs decresing to 21.4 - continue with vancomycin merrem and diflucan - follow CXR, d/w artinian - if spikes fevers prakash-culture Transaminitis and elevated lipase -likley due to TPN - repeat levels in AM if continue to raise may need to limit TPN Acute blood loss anemia, post op and anticipated - no indication for transfusion at this time - follow CBC Thrombocytopenia -Resolved S/P Spleenectomy - out patient follow up for appropriate vaccines, Dr. Prince added to D/C instructions
[2019-01-06] MEDS: 1: MVI, ADULT NO.4 WITH VIT K 10 ML, TRACE (CONC-1ML/DOSE) 1 ML, PARENTERAL ELECTROLYTES IV SCH ×8 (15:56→23:23)
[2019-01-06 18:32] LABS: Glucose,Whole Blood 120 mg/dL (75-99)
[2019-01-06 23:26] LABS: Glucose,Whole Blood 157 mg/dL (75-99)
[2019-01-07] MEDS: 1: MVI, ADULT NO.4 WITH VIT K 10 ML, TRACE (CONC-1ML/DOSE) 1 ML, PARENTERAL ELECTROLYTES IV SCH ×14 (02:00→15:46)
[2019-01-07] MEDS: HYDROmorphone 1 MG/ML 1 ML SYRINGE IVP PRN ×4 (03:33→22:26)
[2019-01-07] MEDS: VANCOMYCIN 2,000 MG in SODIUM CHLORIDE 0.9% 500 ML 500 ML IVPB SCH ×2 (06:01→17:31)
[2019-01-07] MEDS: diphenhydrAMINE 50 MG/ML 1 ML VIAL IVP SCH ×3 (06:01→17:31)
[2019-01-07 06:03] LABS: HCT 28.2 % (34.0-46.0); HGB 8.8 gm/dL (11.4-16.0); MCH 30.4 pg (25.0-35.0); MCHC 31.2 g/dL (31.0-37.0); MCV 97.3 fL (80.0-100.0); Mean Platelet Volume 8.6; Platelet Count 325 k/uL (150-450); RDW 12.7 % (11.5-15.5); WBC 24.2 k/uL (3.8-10.6)
[2019-01-07 06:20] LABS: Magnesium 1.8 mg/dL (1.6-2.3); Phosphorus 3.6 mg/dL (2.5-4.5)
[2019-01-07 06:30] LABS: Glucose,Whole Blood 116 mg/dL (75-99)
[2019-01-07 06:30] LABS: Glucose,Whole Blood 130 mg/dL (75-99)
--- NOTE | 2019-01-07 07:13 | PN ---
PROGRESS NOTE DATE OF SERVICE: 01/06/2019 REASON FOR FOLLOWUP: Fever, possible pneumonia. INTERVAL HISTORY: The patient has been running low-grade fever this morning though overall fever pattern has improved. The patient is hemodynamically stable, not on any pressor support. The patient is breathing comfortably. She did have some cough, but unable to bring any sputum up. Mild epigastric discomfort. No vomiting and no diarrhea. PHYSICAL EXAMINATION: On examination, blood pressure 130/81 with a pulse of 94, temperature 99.4. She is 93% on 3 L nasal cannula. General description is a middle aged female lying in bed in no distress. HEENT examination pallor, no scleral icterus. LUNGS: Unlabored breathing. Decreased breath sounds at the bases. No wheeze. HEART: S1, S2. Regular rate and rhythm. ABDOMEN: Soft, no tenderness. LABS: Hemoglobin 8.3, white count 21.4 with a BUN of 17, creatinine 0.51. Liver enzymes mildly elevated. Blood cultures so far negative. Sputum not collected. DIAGNOSTIC IMPRESSION AND PLAN: Patient with fever in this patient who did have laparotomy after a gastric sleeve leak. This patient who is status post splenectomy, some of the elevated white count could be related to the post splenectomy state. The patient feels better and seems to be improving with the addition of vancomycin that will be continued for now in addition to meropenem and Diflucan. The patient is broadly covered with antibiotic . RN has been advised to obtain a sputum. The patient has been instructed to use incentive spirometry. Continue supportive care. MMODL / IJN: [id number] /
[2019-01-07] MEDS ORDERED: Magnesium Replacement Protocol 1 EACH MISC MISCELLANE PRN (07:28)
[2019-01-07 07:43] LABS: Anion Gap 5 mmol/L; Blood Urea Nitrogen 15 mg/dL (7-17); Calcium 7.6 mg/dL (8.4-10.2); Carbon Dioxide 26 mmol/L (22-30); Chloride 103 mmol/L (98-107); Glucose 120 mg/dL (74-99); Potassium 3.9 mmol/L (3.5-5.1); Sodium 134 mmol/L (137-145)
[2019-01-07] MEDS: ENOXAPARIN 40 MG/0.4 ML SYRINGE SQ SCH (07:50)
[2019-01-07] MEDS: PANTOPRAZOLE 40 MG/10 ML VIAL IV SCH (07:50)
[2019-01-07] MEDS ORDERED: Potassium Replacement Protocol 1 EACH MISC MISCELLANE PRN (07:53)
[2019-01-07] MEDS: INSULIN ASPART (NovoLOG) 100 UNIT/ML VIAL SQ SCH ×3 (07:53→19:10)
[2019-01-07] MEDS: FLUCONAZOLE IN NACL,ISO-OSM 200 MG in SALINE 1 100ML.BAG IVPB SCH (08:16)
[2019-01-07 08:18] LABS: Band Neutrophils % 5 %; Eosinophils # (M) 0.48 k/uL (0-0.7); Lymphocytes # (M) 2.42 k/uL (1.0-4.8); Metamyelocytes # (M) 0.97 k/uL (0); Metamyelocytes % 4 %; Monocytes # (M) 1.21 k/uL (0-1.0); Myelocytes # (M) 0.24 k/uL (0); Myelocytes % 1 %; Neutrophils % (M) 74 %; Nucleated Red Blood Cells 0 /100 WBC (0-0); Total Cells Counted 200
[2019-01-07 08:21] LABS: Toxic Granulation Present
--- NOTE | 2019-01-07 08:31 | P.PN ---
Subjective Progress Note Date: 01/07/19 Principal diagnosis: Patient is a 53-year-old female past medical history of migraine headaches, nephrolithiasis, and postoperative nausea and vomiting who had a gastric sleeve on 12/24/18 complicated with postop edema for sleep and delayed gastric emptying. She was discharged from the hospital on TPN. She worsened at home and 3 presented on 12/31/18. She was found to have possible gastric leak. She returned to the OR on 01/03 for repair of the gastric leak, she was noted to have a splenic capsule Laceration and Ultimately Underwent Splenectomy at that time. She was started on diflucan and meropenem. The patient is postop day #4 resting comfortably in bed maintaining decent saturations on 3 L nasal cannula, clinically had a temperature of 101.3 yesterday. Currently not passing any gas. Objective - Vital Signs Vital signs: Vital Signs Temp 102 F H 01/07/19 08:00 Pulse 105 H 01/07/19 08:00 Resp 23 01/07/19 08:00 BP 118/80 01/07/19 08:00 Pulse Ox 93 L 01/07/19 08:00 Intake & Output 01/06/19 01/07/19 01/07/19 18:59 06:59 18:59 Intake Total 2400 2551 320 Output Total 2060 1700 420 Balance 340 851 -100 Weight 114 kg Intake: IV 2400 1520 320 0.9 Normal saline carrier 100 120 20 ACETAMINOPHEN IV (For NPO 100 100 ) 1,000 mg In Empty Bag 1 bag @ 400 mls/hr IVPB Q6HR PRN Rx#:[id number] Fluconazole in NaCl,Iso- 100 100 Osm 200 mg In Saline 1 100ml.bag @ 100 mls/hr IVPB DAILY [facility] Rx#: [id number] Magnesium Sulfate-D5w Pmx 200 1 gm In Dextrose/Water 1 100ml.bag @ 100 mls/hr IVPB Q1H [facility] Rx#: [id number] Meropenem 1 gm In Sodium 100 100 Chloride 0.9% 100 ml @ 200 mls/hr IVPB Q8HR [facility] Rx#:[id number] Mvi, Adult No.4 with Vit 1100 1200 200 K 10 ml Trace (Conc-1Ml/ Dose) 1 ml Parenteral Electrolytes 20 ml In Amino Acid 5%-D15w 1,000 ml @ 100 mls/hr IV .BY DURATION [facility] Rx#: [id number] Potassium Chloride 10 meq 200 In Water For Injection 1 100ml.bag @ 100 mls/hr IVPB Q1H [facility] Rx#: [id number] Vancomycin 2,000 mg In 500 Sodium Chloride 0.9% 500 ml 500 ml @ 167 mls/hr IVPB ONCE [facility] Rx#: [id number] Intake, IV Titration 1031 Amount Mvi, Adult No.4 with Vit 1031 K 10 ml Trace (Conc-1Ml/ Dose) 1 ml Parenteral Electrolytes 20 ml In Amino Acid 5%-D15w 1,000 ml @ 100 mls/hr IV .BY DURATION [facility] Rx#: [id number] Output: Urine 2060 1700 420 Other: Voiding Method Indwelling Catheter Indwelling Catheter - Exam General: No acute distress, no distress, appears at stated age Derm: warm, dry Head: atraumatic, normocephalic, symmetric Eyes: EOMI, no lid lag, anicteric sclera Mouth: no lip lesion, mucus membranes moist Cardiovascular: S1S2 reg, no murmur, positive posterior tibial pulse bilateral, Lungs: rhonchi left base, no rhonchi, no rales , no accessory muscle use Abdominal: soft, tender to palpation diffusely, no guarding, no appreciable organomegaly, Prevena in place over midline incisions, hypoactive bowel sounds Ext: no gross muscle atrophy, no edema, no contractures Neuro: CN II-XI grossly intact, no focal neuro deficits Psych: Alert, oriented, appropriate affect - Labs CBC & Chem 7: 01/07/19 04:55 01/07/19 04:55 Labs: Abnormal Lab Results - Last 24 Hours (Table) 01/06/19 01/06/19 01/06/19 Range/Units 12:26 18:29 23:22 WBC (3.8-10.6) k/uL RBC (3.80-5.40) m/uL Hgb (11.4-16.0) gm/dL Hct (34.0-46.0) % Neutrophils # (Manual) (1.3-7.7) k/uL Monocytes # (Manual) (0-1.0) k/uL Metamyelocytes # (Man) (0) k/uL Myelocytes # (Manual) (0) k/uL Sodium (137-145) mmol/L Creatinine (0.52-1.04) mg/dL Glucose (74-99) mg/dL POC Glucose (mg/dL) 160 H 120 H 157 H (75-99) mg/dL Calcium (8.4-10.2) mg/dL 01/07/19 01/07/19 01/07/19 Range/Units 04:55 04:55 05:53 WBC 24.2 H (3.8-10.6) k/uL RBC 2.90 L (3.80-5.40) m/uL Hgb 8.8 L (11.4-16.0) gm/dL Hct 28.2 L (34.0-46.0) % Neutrophils # (Manual) 19.10 H (1.3-7.7) k/uL Monocytes # (Manual) 1.21 H (0-1.0) k/uL Metamyelocytes # (Man) 0.97 H (0) k/uL Myelocytes # (Manual) 0.24 H (0) k/uL Sodium 134 L (137-145) mmol/L Creatinine 0.49 L (0.52-1.04) mg/dL Glucose 120 H (74-99) mg/dL POC Glucose (mg/dL) 130 H (75-99) mg/dL Calcium 7.6 L (8.4-10.2) mg/dL 01/07/19 Range/Units 06:27 WBC (3.8-10.6) k/uL RBC (3.80-5.40) m/uL Hgb (11.4-16.0) gm/dL Hct (34.0-46.0) % Neutrophils # (Manual) (1.3-7.7) k/uL Monocytes # (Manual) (0-1.0) k/uL Metamyelocytes # (Man) (0) k/uL Myelocytes # (Manual) (0) k/uL Sodium (137-145) mmol/L Creatinine (0.52-1.04) mg/dL Glucose (74-99) mg/dL POC Glucose (mg/dL) 116 H (75-99) mg/dL Calcium (8.4-10.2) mg/dL Microbiology - Last 24 Hours (Table) 01/05/19 18:32 Blood Culture - Preliminary Blood No Growth after 24 hours 01/05/19 17:00 Blood Culture - Preliminary Blood No Growth after 24 hours Assessment and Plan Assessment: Gastric sleeve with anastomotic leak status post gastrorraphy - on TPN, check lipase in AM, CMP, MG, Phos, continue with ISS - management per primary team currently NPO, on diflucan Sepsis -Possibly infectious patient febrile overnight wbcs increasing to 24 - continue with vancomycin merrem and diflucan - follow CXR, d/w artinian - if spikes fevers prakash-culture * ID following continue with Merrem and vancomycin Transaminitis and elevated lipase -likley due to TPN - repeat levels in AM if continue to raise may need to limit TPN Acute blood loss anemia, post op and anticipated - no indication for transfusion at this time - follow CBC Thrombocytopenia -Resolved S/P Spleenectomy - out patient follow up for appropriate vaccines, Dr. Prince added to D/C instructions
--- NOTE | 2019-01-07 08:45 | PN ---
PROGRESS NOTE DATE OF SERVICE: 01/06/2019 REASON FOR FOLLOWUP: Fever, possible pneumonia. INTERVAL HISTORY: The patient has been running a low-grade fever this morning and overall fever pattern has improved. The patient is hemodynamically stable. Not on any pressor support. The patient is breathing comfortably. She did have some cough but unable to bring any sputum up, mild epigastric discomfort. No vomiting and no diarrhea. PHYSICAL EXAMINATION: Blood pressure 130/81 with a pulse of 94, temperature 98.4, she is 93% on 3 L nasal cannula. General description is a middle aged female, lying in bed in no distress. HEENT EXAMINATION: Pallor, no scleral icterus. LUNGS: Unlabored breathing. Decreased breath sounds at the bases, no wheeze. HEART: S1, S2. Regular rate and rhythm. ABDOMEN: Soft, no tenderness. LABS: Hemoglobin 8.3, white count of 21.4 with a BUN of 17, creatinine 0.51. Liver enzymes mildly elevated, blood cultures so far negative. Sputum not collected. DIAGNOSTIC IMPRESSION AND PLAN: Patient with fever in this patient who did have nephrotomy after a gastric sleeve leak in this patient who is status post splenectomy. Some of the elevated white count could be related to the post state. The patient's fever pattern seems to be improving with the addition of vancomycin that will be continued for now in addition to meropenem and Diflucan. The patient is broadly covered with antibiotic as well and RN has been advised to obtain a sputum. The patient has been instructed to use incentive spirometry. Continue supportive care. MMODL / CITLALIN: [id number] /
[2019-01-07] MEDS: ACETAMINOPHEN IV (For NPO) 1,000 MG in EMPTY BAG 1 BAG IVPB PRN (09:10)
[2019-01-07] MEDS: MEROPENEM 1 GM in SODIUM CHLORIDE 0.9% 100 ML IVPB SCH ×2 (09:28→15:24)
[2019-01-07] MEDS ORDERED: IOPAMIDOL-300 CONTRAST 30 ML VIAL (ORAL USE) PO PRN (09:29)
[2019-01-07] MEDS ORDERED: RX INFO: IV CONTRAST WAS GIVEN 1 EACH MISC MISCELLANE PRN (09:43)
[2019-01-07] MEDS: SIMETHICONE 40 MG/0.6 ML DROPS 2,000 MG/30 ML BOTTLE PO SCH ×4 (10:10→22:31)
[2019-01-07] MEDS: MAGNESIUM SULFATE-D5W PMX 1 GM in DEXTROSE/WATER 1 100ML.BAG IVPB SCH ×2 (10:11→10:55)
--- NOTE | 2019-01-07 11:05 | P.PN ---
Subjective Progress Note Date: 01/07/19 Principal diagnosis: Status post laparoscopic sleeve gastrectomy This is a 53-year-old female patient who underwent a laparoscopic sleeve gastrectomy on 12/24/2018. Following her surgery, the patient continued having difficulties with epigastric discomfort and some shortness of breath and there was a concern that the patient was having some leak near the proximal sleeve based on the esophagram. At that point the patient had an EGD and the leak was not visualized. Subsequently, the patient was taken to the operating room and the patient was found to have a staple line Perforation. The patient underwent extensive laparotomy, gastrorrhaphy and splenectomy. Note that the splenectomy was done as the patient developed a splenic Tear While Undergoing Abdominal and Peritoneal Cavity Irrigation. Note That the Omentum Was Lifted off the Spleen. There Was Evidence of bilious drainage behind the spleen. During the irrigation, a splenic tear was established and the patient underwent a complete splenectomy. Currently the patient in the recovery room. The patient is doing well. The patient is extubated. The patient is on 2 L of oxygen nasal cannula. She has a wound VAC over the anterior abdominal wall. She has a OCDY drain in the left upper quadrant. Output is minimal and serosanguineous. She is having sinus tachycardia. Intraoperatively she received total of 3 L and there patient received an additional 2 L and the recovery in the form of lactated Ringer. Urine output is minimal and the patient has produced 35 mL total since arrival from the operating room. The preop creatinine was within normal limits. She is normotensive with a blood pressure 143/97. Pain is under good control. The patient has received a dose of Diflucan and Levaquin. White cell count from earlier this morning was at 8.2. On today's evaluation of 01/04/2019, the patient is postop day #1. She is in intensive care unit. Overnight the patient was given aggressive fluid resuscitation. She was also covered with broad-spectrum antibiotics. This morning she is awake and alert. Her sinus tachycardia is improved. I was having difficulties with urine output. After being given a total of 3 L in the ICU, the patient received a dose of Lasix and subsequently urine output improved. Creatinine is stable. Afebrile. The patient has a superficial wound VAC over the anterior abdominal wall which is draining minimal amount of serous drainage. CODY is also in place. Bowel sounds are hypoactive. No flatus yet. No nausea. No vomiting. No abdominal pain and her pain is under good control. She is a bit anxious. When the length discussion with her explaining to her the details of the surgical procedure that she underwent yesterday. On the chest x-ray, the patient is developing and reactive bedside pleural effusion that needs to be monitored very closely. Her white cell count today is at 15.5. As of the blood work and electrodes are all within normal limits. On 01/05/2019 the patient's postoperative September 2. The patient is still nothing by mouth pain and the patient is receiving TPN for nutritional support which is being provided through a PICC line in the left upper extremity. The patient is able to ambulate. She did ambulate yesterday and would like to do the same today. Her abdominal wound is dry clean and intact. The patient has a wound VAC output of which is minimal. The patient also has a CODY drain in the left upper quadrant and output of which is serosanguineous and the amount is in order of 10 mL over the past 12 hours. Meanwhile, the patient is being resuscitated IV fluids at the rate of 100 mL an hour of normal saline which got cut down to KVO today. The patient is producing adequate amount of urine output. Renal function is stable. There is some degree of leukocytosis and white count is at 20. The patient is afebrile until this afternoon when she spiked a temperature of 101.6. Based on that blood cultures were sent and urine cultures were sent and infectious disease consultation was requested. Note that I have covered this patient with a combination of Diflucan, Merrem and Vanco was also added based on his new onset fever. The plan is to proceed with an upper GI series tomorrow to assess the adequacy of the gastric staple/ suture line. No significant abdominal distention. No abdominal tenderness. Abdominal pain is under good control for now. No flatus. No bowel movements yet. The patient is seen today 01/06/2019 in follow-up in the intensive care unit. This is postoperative day #3. She is currently awake and alert in no acute distress. Resting fairly comfortably in bed. She is currently maintaining O2 saturations in the 90s on 3 L/m per nasal cannula. She is working well with the incentive spirometer. Currently pulling 750 ML's. She's been hemodynamically stable. Not on any pressors. She has been having issues with fevers. Currently 100.4. White count 21.4. Hemoglobin 8.3. Creatinine 0.51. AST 77, ALT 174. Lipase 534. She is still not passing any flatus. She is belching at times. Abdomen is soft. Provena dressing in place over the stapled mid line incision. CODY drain remains in place. She is receiving IV acetaminophen. Continued on vancomycin, meropenem and fluconazole she is being nourished with TPN and lipids. Lovenox for DVT prophylaxis. She is seen today 01/07/2018 in follow-up in the intensive care unit. This is postoperative day #4. She is currently awake and alert in no acute distress. She denies any worsening shortness of breath, cough or congestion. She is maintaining O2 saturations in the 90s on 2 L. She has had ongoing issues with fever and leukocytosis. She is having a bit more abdominal discomfort today as compared to yesterday. Abdomen is slightly more distended and tender. He is temperature 102 this morning. Tachycardic. Blood pressure stable. Blood cultures from 01/05/2019 reveal no growth. White count 24.2. Hemoglobin 8.8. Neutrophils 19. Creatinine 0.49. She remains on fluconazole, meropenem and vancomycin. He is being nourished with TPN and lipids. Urine output adequate. Computed tomography scan of the chest and abdomen are pending. Objective - Vital Signs Vital signs: Vital Signs Temp 100.1 F H 01/07/19 10:00 Pulse 108 H 01/07/19 10:00 Resp 19 01/07/19 10:00 BP 129/76 01/07/19 10:00 Pulse Ox 92 L 01/07/19 10:00 Intake & Output 01/06/19 01/07/19 01/07/19 18:59 06:59 18:59 Intake Total 2400 2551 570 Output Total 2060 1700 540 Balance 340 851 30 Weight 114 kg 114 kg Intake: IV 2400 1520 570 0.9 Normal saline carrier 100 120 40 ACETAMINOPHEN IV (For NPO 100 100 ) 1,000 mg In Empty Bag 1 bag @ 400 mls/hr IVPB Q6HR PRN Rx#:[id number] Fluconazole in NaCl,Iso- 100 130 Osm 200 mg In Saline 1 100ml.bag @ 100 mls/hr IVPB DAILY [facility] Rx#: [id number] Magnesium Sulfate-D5w Pmx 200 1 gm In Dextrose/Water 1 100ml.bag @ 100 mls/hr IVPB Q1H [facility] Rx#: [id number] Meropenem 1 gm In Sodium 100 100 100 Chloride 0.9% 100 ml @ 200 mls/hr IVPB Q8HR [facility] Rx#:[id number] Mvi, Adult No.4 with Vit 1100 1200 300 K 10 ml Trace (Conc-1Ml/ Dose) 1 ml Parenteral Electrolytes 20 ml In Amino Acid 5%-D15w 1,000 ml @ 100 mls/hr IV .BY DURATION [facility] Rx#: [id number] Potassium Chloride 10 meq 200 In Water For Injection 1 100ml.bag @ 100 mls/hr IVPB Q1H [facility] Rx#: [id number] Vancomycin 2,000 mg In 500 Sodium Chloride 0.9% 500 ml 500 ml @ 167 mls/hr IVPB ONCE [facility] Rx#: [id number] Intake, IV Titration 1031 Amount Mvi, Adult No.4 with Vit 1031 K 10 ml Trace (Conc-1Ml/ Dose) 1 ml Parenteral Electrolytes 20 ml In Amino Acid 5%-D15w 1,000 ml @ 100 mls/hr IV .BY DURATION [facility] Rx#: [id number] Output: Urine 2060 1700 540 Other: Voiding Method Indwelling Catheter Indwelling Catheter - Exam Gen. appearance, comfortable no acute distress on 2 L nasal cannula Head exam was generally normal. There was no scleral icterus or corneal arcus. Mucous membranes were moist. Neck was supple and without jugular venous distension, thyromegaly, or carotid bruits. Carotids were easily palpable bilaterally. There was no adenopathy. Lungs were clear to auscultation and percussion, and with normal diaphragmatic excursion. No wheezes or rales were noted. Heart sounds are tachycardic, normal S1-S2 and the rhythm is sinus. No significant murmurs appreciated. Abdomen is soft. There is a Provena device over the mid line incision. There is also CODY drains left upper quadrant. Bowel sounds are hypoactive. There is slight tenderness and guarding. No organomegaly. Examination of the extremities revealed easily palpable radial, femoral and pedal pulses. There was no cyanosis, clubbing or edema. Examination of the skin revealed no evidence of significant rashes, suspicious appearing nevi or other concerning lesions. Neurologically awake and alert and there is no focal neurological deficits. - Labs CBC & Chem 7: 01/07/19 04:55 01/07/19 04:55 Labs: Abnormal Lab Results - Last 24 Hours (Table) 01/06/19 01/06/19 01/06/19 Range/Units 12:26 18:29 23:22 WBC (3.8-10.6) k/uL RBC (3.80-5.40) m/uL Hgb (11.4-16.0) gm/dL Hct (34.0-46.0) % Neutrophils # (Manual) (1.3-7.7) k/uL Monocytes # (Manual) (0-1.0) k/uL Metamyelocytes # (Man) (0) k/uL Myelocytes # (Manual) (0) k/uL Sodium (137-145) mmol/L Creatinine (0.52-1.04) mg/dL Glucose (74-99) mg/dL POC Glucose (mg/dL) 160 H 120 H 157 H (75-99) mg/dL Calcium (8.4-10.2) mg/dL 01/07/19 01/07/19 01/07/19 Range/Units 04:55 04:55 05:53 WBC 24.2 H (3.8-10.6) k/uL RBC 2.90 L (3.80-5.40) m/uL Hgb 8.8 L (11.4-16.0) gm/dL Hct 28.2 L (34.0-46.0) % Neutrophils # (Manual) 19.10 H (1.3-7.7) k/uL Monocytes # (Manual) 1.21 H (0-1.0) k/uL Metamyelocytes # (Man) 0.97 H (0) k/uL Myelocytes # (Manual) 0.24 H (0) k/uL Sodium 134 L (137-145) mmol/L Creatinine 0.49 L (0.52-1.04) mg/dL Glucose 120 H (74-99) mg/dL POC Glucose (mg/dL) 130 H (75-99) mg/dL Calcium 7.6 L (8.4-10.2) mg/dL 02/08/19 Range/Units 06:27 WBC (3.8-10.6) k/uL RBC (3.80-5.40) m/uL Hgb (11.4-16.0) gm/dL Hct (34.0-46.0) % Neutrophils # (Manual) (1.3-7.7) k/uL Monocytes # (Manual) (0-1.0) k/uL Metamyelocytes # (Man) (0) k/uL Myelocytes # (Manual) (0) k/uL Sodium (137-145) mmol/L Creatinine (0.52-1.04) mg/dL Glucose (74-99) mg/dL POC Glucose (mg/dL) 116 H (75-99) mg/dL Calcium (8.4-10.2) mg/dL Microbiology - Last 24 Hours (Table) 01/05/19 18:32 Blood Culture - Preliminary Blood No Growth after 24 hours 01/05/19 17:00 Blood Culture - Preliminary Blood No Growth after 24 hours Assessment and Plan Assessment: Assessment 1 status post exploratory laparotomy, gastrorrhaphy and splenectomy. Surgery was done for gastric sleeve staple line perforation. Patient is postop day #4. Abdomen slightly more tender. Continues to spike fever. Continues leukocytosis. Computed tomography scan of the chest and abdomen are pending. 2 new onset fever, postop fever that needs to be further worked up. Blood cultures have been sent. Urine culture has been sent. Vancomycin was added. Meanwhile the patient on a combination of vancomycin, Merrem and Diflucan also. White cell count is slightly elevated at 24.2. Noted the patient is undergone splenectomy, as part of her surgical complication for gastric surgery. Infectious disease has been consulted. 3 previous history of a sleeve gastrectomy that was done on 12/24/2018 4 migraine 5 varicose veins 6 nephrolithiasis 7 left-sided pleural effusion most likely worse on today's evaluation. 8 TPN for nutritional support. Plan The patient was seen and evaluated by Dr. Fracne. Still having fever. Continues on vancomycin, meropenem, Diflucan. We'll culture shows no growth to date. Computed tomography scan of the chest and abdomen is pending. We'll continue to monitor her here in the intensive care unit. She is encouraged to continue the increased use the incentive spirometer and cough and deep breathing exercises. We'll continue to follow and make further recommendations based on her clinical status. I, the cosigning physician, performed a history & physical examination of the patient. Lungs sounds with crackles in the left posterior base. Few scattered rhonchi.. Maintaining good O2 saturations in the 90s on 2 L/m per nasal cannula. I discussed the assessment and plan of care with my nurse practitioner , July Harrell. I attest to the above note as dictated by her.
[2019-01-07] MEDS: POTASSIUM CHLORIDE 10 MEQ in WATER FOR INJECTION 1 100ML.BAG IVPB SCH ×2 (12:15→14:18)
--- NOTE | 2019-01-07 12:29 | CT ---
EXAMINATION TYPE: CT chest abdomen w con DATE OF EXAM: 01/07/2019 COMPARISON: CT chest 12/31/2018, CT abdomen pelvis 12/31/2017 and upper GI dated 01/03/2019 HISTORY: Pleural effusion, Leukocytosis CT DLP: 1480.6 mGycm. Automated Exposure Control for Dose Reduction was Utilized. CONTRAST: CT scan of the thorax, abdomen and pelvis is performed with IV Contrast, patient injected with 100 mL of Isovue 300. FINDINGS: LUNGS: There are bilateral pleural effusions left greater than right, there is associated compressive atelectasis, the right effusion has grown somewhat in the interval as has the left. There are air br onchograms present in the posterior lower lobes bilaterally. Airspace disease present in the right up per lobe was not seen on prior. MEDIASTINUM: Heart size is stable. No evident mediastinal, axillary, or hilar adenopathy. PICC line s hows the distal tip overlying superior vena cava. No pericardial effusion. Bilateral breast prosthese s are present. OTHER: The gastroesophageal junction shows postoperative change, by history there has been conversion of patient's lap band to gastric sleeve. There has been interval resolution of the pneumoperitoneum. LIVER/GB: No significant abnormality is appreciated. PANCREAS: No significant abnormality is seen. SPLEEN: Interval splenectomy. There is a drain present in the splenic fossa. Dependent high attenuati on present in the splenic bed is likely due to residual oral contrast material from prior exam. ADRENALS: No significant abnormality is seen. KIDNEYS: No significant abnormality is seen. BOWEL: Contrast is present within the colon and distal small bowel loops predominantly, fluid-filled loops of small bowel are noted. There is abnormal thickening along the colon especially the descendin g colon and region of the colon in the splenic flexure, the wall shows low attenuation. LYMPH NODES: No greater than 1cm abdominal or pelvic lymph nodes are appreciated. Retroperitoneal dickson gical clips again noted just lateral to the inferior vena cava OSSEOUS STRUCTURES: No significant interval change is seen. OTHER: There is some free fluid present about various bowel loops which may represent seroma, no defi nite wall formation to suggest abscess, fluid shows low attenuation. IMPRESSION: Postop changes, correlate for possible infection colitis, ischemic colitis not excluded. Progression, interval increase in pleural effusions left greater than right. Correlate for possible p neumonia. There is some ascites present. Evidence of previous postoperative leak in the operative bed described.
[2019-01-07 12:37] LABS: Glucose,Whole Blood 132 mg/dL (75-99)
[2019-01-07] MEDS: FAT EMULSION 20% 250 ML IV SCH (15:46)
--- NOTE | 2019-01-07 16:26 | P.PN ---
Subjective Progress Note Date: 01/07/19 Principal diagnosis: Gastric sleeve leak The patient states she feels better today. She states her pain is a 4 out of 10. The patient did develop a fever around 9:00 this morning. The patient had a CAT scan performed of the chest and abdomen. With oral and IV contrast. She was able to drink 200 mL of of contrast. The CAT scan was personally reviewed with Dr. Kavin Hidalgo the radiologist. The CAT scan shows no evidence of gastric sleeve leak. There is no evidence of free air. There was some thickening noted of the descending colon. The CODY drain is in the splenic fossa along the sleeve. And there was no evidence of any extravasation of contrast. There are significant left pleural effusions and question of a right lower lobe pneumonia. The patient has an elevated white count of 24,000. Part of this may be due to her splenectomy. Objective - Vital Signs Vital signs: Vital Signs Temp 99.2 F 01/07/19 16:00 Pulse 93 01/07/19 16:00 Resp 22 01/07/19 16:00 BP 124/80 01/07/19 16:00 Pulse Ox 95 01/07/19 16:00 Intake & Output 01/06/19 01/07/19 01/07/19 18:59 06:59 18:59 Intake Total 2400 2551 1520 Output Total 2060 1700 1650 Balance 340 851 -130 Weight 114 kg 114 kg Intake: IV 2400 1520 1520 0.9 Normal saline carrier 100 120 90 ACETAMINOPHEN IV (For NPO 100 100 ) 1,000 mg In Empty Bag 1 bag @ 400 mls/hr IVPB Q6HR PRN Rx#:[id number] Fluconazole in NaCl,Iso- 100 130 Osm 200 mg In Saline 1 100ml.bag @ 100 mls/hr IVPB DAILY [facility] Rx#: [id number] Magnesium Sulfate-D5w Pmx 200 1 gm In Dextrose/Water 1 100ml.bag @ 100 mls/hr IVPB Q1H [facility] Rx#: [id number] Magnesium Sulfate-D5w Pmx 200 1 gm In Dextrose/Water 1 100ml.bag @ 100 mls/hr IVPB Q1H [facility] Rx#: [id number] Meropenem 1 gm In Sodium 100 100 100 Chloride 0.9% 100 ml @ 200 mls/hr IVPB Q8HR [facility] Rx#:[id number] Mvi, Adult No.4 with Vit 1100 1200 800 K 10 ml Trace (Conc-1Ml/ Dose) 1 ml Parenteral Electrolytes 20 ml In Amino Acid 5%-D15w 1,000 ml @ 100 mls/hr IV .BY DURATION [facility] Rx#: [id number] Potassium Chloride 10 meq 200 200 In Water For Injection 1 100ml.bag @ 100 mls/hr IVPB Q1H [facility] Rx#: [id number] Vancomycin 2,000 mg In 500 Sodium Chloride 0.9% 500 ml 500 ml @ 167 mls/hr IVPB ONCE [facility] Rx#: [id number] Intake, IV Titration 1031 Amount Mvi, Adult No.4 with Vit 1031 K 10 ml Trace (Conc-1Ml/ Dose) 1 ml Parenteral Electrolytes 20 ml In Amino Acid 5%-D15w 1,000 ml @ 100 mls/hr IV .BY DURATION [facility] Rx#: [id number] Output: Urine 2060 1700 1650 Other: Voiding Method Indwelling Catheter Indwelling Catheter Indwelling Catheter - Constitutional General appearance: Present: average body habitus - Gastrointestinal Gastrointestinal Comment(s): Abdomen is soft. The incision site is clean dry and intact. The CODY drain has some serosanguineous fluid within it. Apparently it only put out 10 mL last shift. There is no evidence of bile in the CODY drain. - Labs CBC & Chem 7: 01/07/19 04:55 01/07/19 04:55 Labs: Abnormal Lab Results - Last 24 Hours (Table) 01/06/19 01/06/19 01/07/19 Range/Units 18:29 23:22 04:55 WBC 24.2 H (3.8-10.6) k/uL RBC 2.90 L (3.80-5.40) m/uL Hgb 8.8 L (11.4-16.0) gm/dL Hct 28.2 L (34.0-46.0) % Neutrophils # (Manual) 19.10 H (1.3-7.7) k/uL Monocytes # (Manual) 1.21 H (0-1.0) k/uL Metamyelocytes # (Man) 0.97 H (0) k/uL Myelocytes # (Manual) 0.24 H (0) k/uL Sodium (137-145) mmol/L Creatinine (0.52-1.04) mg/dL Glucose (74-99) mg/dL POC Glucose (mg/dL) 120 H 157 H (75-99) mg/dL Calcium (8.4-10.2) mg/dL 01/07/19 01/07/19 01/07/19 Range/Units 04:55 05:53 06:27 WBC (3.8-10.6) k/uL RBC (3.80-5.40) m/uL Hgb (11.4-16.0) gm/dL Hct (34.0-46.0) % Neutrophils # (Manual) (1.3-7.7) k/uL Monocytes # (Manual) (0-1.0) k/uL Metamyelocytes # (Man) (0) k/uL Myelocytes # (Manual) (0) k/uL Sodium 134 L (137-145) mmol/L Creatinine 0.49 L (0.52-1.04) mg/dL Glucose 120 H (74-99) mg/dL POC Glucose (mg/dL) 130 H 116 H (75-99) mg/dL Calcium 7.6 L (8.4-10.2) mg/dL 01/07/19 Range/Units 12:10 WBC (3.8-10.6) k/uL RBC (3.80-5.40) m/uL Hgb (11.4-16.0) gm/dL Hct (34.0-46.0) % Neutrophils # (Manual) (1.3-7.7) k/uL Monocytes # (Manual) (0-1.0) k/uL Metamyelocytes # (Man) (0) k/uL Myelocytes # (Manual) (0) k/uL Sodium (137-145) mmol/L Creatinine (0.52-1.04) mg/dL Glucose (74-99) mg/dL POC Glucose (mg/dL) 132 H (75-99) mg/dL Calcium (8.4-10.2) mg/dL Microbiology - Last 24 Hours (Table) 01/05/19 18:32 Blood Culture - Preliminary Blood No Growth after 24 hours 01/05/19 17:00 Blood Culture - Preliminary Blood No Growth after 24 hours Assessment and Plan Assessment: Status post sleeve gastrectomy with sleeve staple line leak. The patient's CAT scan today shows no evidence of extravasation of contrast from the gastric sleeve. The patient will remain on IV antibiotic and antifungal coverage. She will start on clear liquids. She will be observed closely. I discussed the findings with the and patient.
[2019-01-07 18:26] LABS: Glucose,Whole Blood 127 mg/dL (75-99)
--- NOTE | 2019-01-07 23:31 | PN ---
PROGRESS NOTE DATE OF SERVICE: 01/07/2019. REASON FOR FOLLOWUP: Postop fevers, concern for possible pneumonia. INTERVAL HISTORY: The patient did spike another fever of 102 degrees Fahrenheit this morning. The patient subsequently did have a CT of the chest with oral contrast. The patient did have a evidence of a bilateral effusion, possible pneumonia, but no evidence of any leak from the gastric sleeve area with some abnormal thickening of the . Patient subsequently fever has resolved. She has been breathing comfortably. She does have some cough and did obtain a sputum. No chest pain. abdominal pain. PHYSICAL EXAMINATION: Blood pressure 130/73 with a pulse of 111, temperature 99.8. She is 93% on 2 L nasal cannula. General description is a middle-aged female lying in bed in no distress. HEENT: Shows pallor. No scleral icterus. Oral mucosal membranes are dry. LUNGS: Unlabored breathing, clear to auscultation anteriorly. HEART S1, S2. Regular rate and rhythm. abdomen soft, no tenderness. LABS: Hemoglobin 8.1, white count 24.2 with a BUN of 15, creatinine 0.49. Blood cultures have been negative. Sputum not collected. DIAGNOSTIC IMPRESSION AND PLAN: Patient with postop fevers in this patient who did have a gastric sleeve leak status post surgery. The patient did have a repeat CT did not show any evidence of leak though there was not evidence of a bilateral consolidation. With concern for possible pneumonia. We will try to obtain a sputum to narrow down the antibiotics. The patient does have that is limiting the number of antibiotic choices. She is currently continue at this point. Continue supportive care. MMODL / IJN: [id number] /
[2019-01-08] MEDS: MEROPENEM 1 GM in SODIUM CHLORIDE 0.9% 100 ML IVPB SCH ×4 (00:05→23:40)
[2019-01-08] MEDS: diphenhydrAMINE 50 MG/ML 1 ML VIAL IVP SCH ×2 (00:34→06:41)
[2019-01-08] MEDS: INSULIN ASPART (NovoLOG) 100 UNIT/ML VIAL SQ SCH ×5 (00:34→20:49)
[2019-01-08 00:35] LABS: Glucose,Whole Blood 176 mg/dL (75-99)
[2019-01-08] MEDS: 1: MVI, ADULT NO.4 WITH VIT K 10 ML, TRACE (CONC-1ML/DOSE) 1 ML, PARENTERAL ELECTROLYTES IV SCH ×12 (04:15→16:59)
[2019-01-08] MEDS ORDERED: VANCOMYCIN TROUGH DUE 1 EACH MISC MISCELLANE ONE (05:00)
[2019-01-08] MEDS: VANCOMYCIN 2,000 MG in SODIUM CHLORIDE 0.9% 500 ML 500 ML IVPB SCH (06:41)
[2019-01-08 06:45] LABS: Glucose,Whole Blood 135 mg/dL (75-99)
[2019-01-08 06:49] LABS: Ionized Calcium 4.6 mg/dL (4.5-5.3)
[2019-01-08 07:05] LABS: Anion Gap 7 mmol/L; Blood Urea Nitrogen 15 mg/dL (7-17); Calcium 7.4 mg/dL (8.4-10.2); Carbon Dioxide 25 mmol/L (22-30); Chloride 101 mmol/L (98-107); Glucose 119 mg/dL (74-99); Magnesium 2.1 mg/dL (1.6-2.3); Phosphorus 3.8 mg/dL (2.5-4.5); Potassium 4.1 mmol/L (3.5-5.1); Sodium 133 mmol/L (137-145); Triglycerides 109 mg/dL (<150)
--- NOTE | 2019-01-08 07:15 | XR ---
EXAMINATION TYPE: XR chest 1V portable DATE OF EXAM: 01/08/2019 CLINICAL HISTORY: Difficulty breathing progress study. TECHNIQUE: Single AP portable upright view of the chest is obtained. COMPARISON: Chest CT from one day earlier. FINDINGS: The cardiac silhouette is unchanged in the interval. Bilateral pleural effusions with atel ectasis persists. No pneumothorax. Osseous structures remain unchanged. Contrast opacifies portions o f the bowel in the partially visualized upper abdomen. IMPRESSION: 1. Stable bilateral pleural effusions with atelectasis. Overall no significant interval change.
[2019-01-08 08:25] LABS: HCT 26.6 % (34.0-46.0); HGB 8.3 gm/dL (11.4-16.0); MCH 30.3 pg (25.0-35.0); MCHC 31.1 g/dL (31.0-37.0); MCV 97.4 fL (80.0-100.0); Mean Platelet Volume 9.4; Platelet Count 337 k/uL (150-450); RBC 2.73 m/uL (3.80-5.40); RDW 12.7 % (11.5-15.5)
[2019-01-08] MEDS: ENOXAPARIN 40 MG/0.4 ML SYRINGE SQ SCH (08:33)
[2019-01-08] MEDS: PANTOPRAZOLE 40 MG/10 ML VIAL IV SCH (08:34)
[2019-01-08] MEDS: FLUCONAZOLE IN NACL,ISO-OSM 200 MG in SALINE 1 100ML.BAG IVPB SCH (09:09)
[2019-01-08] MEDS: SIMETHICONE 40 MG/0.6 ML DROPS 2,000 MG/30 ML BOTTLE PO SCH ×4 (09:10→22:15)
[2019-01-08 09:22] LABS: Lymphocytes # (M) 1.96 k/uL (1.0-4.8); WBC 24.5 k/uL (3.8-10.6)
[2019-01-08 09:27] LABS: Large Platelets Present; Polychromasia Present
[2019-01-08 09:32] LABS: Eosinophils # (M) 0.25 k/uL (0-0.7); Monocytes # (M) 1.23 k/uL (0-1.0); Myelocytes # (M) 0.25 k/uL (0); Myelocytes % 1 %; Neutrophils # (M) 21.07 k/uL (1.3-7.7); Neutrophils % (M) 86 %; Nucleated Red Blood Cells 0 /100 WBC (0-0); Total Cells Counted 300
--- NOTE | 2019-01-08 10:09 | P.PN ---
Progress Note - Text Progress Note Date: 01/08/19 The patient feels better today. She states her pain is a 4 out of 10. She has been tolerating clear liquids. She denies any nausea. She's had some flatus. On exam her vital signs appear stable. She is currently afebrile. Her CODY drain has had 15 mL of serous fluid the last shift. There is no evidence of bile the CODY drain. On exam her abdomen is soft. Incision site is clean dry and intact.prevena wound is intact and clean. Status post exposure laparotomy for gastric sleeve perforation and splenic and. Patient's white count remained stable at 24,000. I discussed the case with Dr. [place]. The elevated white count may be due to a pulmonary process. Her pleural effusion is stable. Patient will continue to see the IV antibiotics and antifungal therapy. She'll remain on clear liquid diet.
--- NOTE | 2019-01-08 11:43 | P.PN ---
Subjective Progress Note Date: 01/08/19 Principal diagnosis: Patient is a 53-year-old female past medical history of migraine headaches, nephrolithiasis, and postoperative nausea and vomiting who had a gastric sleeve on 12/24/18 complicated with postop edema for sleep and delayed gastric emptying. She was discharged from the hospital on TPN. She worsened at home and 3 presented on 12/31/18. She was found to have possible gastric leak. She returned to the OR on 01/03 for repair of the gastric leak, she was noted to have a splenic capsule Laceration and Ultimately Underwent Splenectomy at that time. She was started on diflucan and meropenem. The patient is postop day #5 resting comfortably in bedside chair maintaining decent saturations on 3 L nasal cannula, clinically had a temperature of 102 this morning. Currently passing gas, advanced to clear liquids yesterday also receiving TPN. Proventil wound dressing 7 days, CODY drain with serous drainage. Leukocytosis persisting, complain of abdominal discomfort moderate. Objective - Vital Signs Vital signs: Vital Signs Temp 99.4 F 01/08/19 08:00 Pulse 93 01/08/19 11:00 Resp 20 01/08/19 11:00 BP 124/73 01/08/19 11:00 Pulse Ox 94 L 01/08/19 11:00 Intake & Output 01/07/19 01/08/19 01/08/19 18:59 06:59 18:59 Intake Total 2410 500 1170 Output Total 2150 1350 875 Balance 260 -850 295 Weight 114 kg 116.5 kg Intake: IV 2410 400 1170 0.9 Normal saline carrier 120 120 70 Fat Emulsion 20% 250 ml @ 60 180 20.833 mls/hr IV MoWeFr@ 1600 [facility] Rx#:[id number] Fluconazole in NaCl,Iso- 130 100 Osm 200 mg In Saline 1 100ml.bag @ 100 mls/hr IVPB DAILY [facility] Rx#: [id number] Magnesium Sulfate-D5w Pmx 200 1 gm In Dextrose/Water 1 100ml.bag @ 100 mls/hr IVPB Q1H [facility] Rx#: [id number] Meropenem 1 gm In Sodium 100 100 Chloride 0.9% 100 ml @ 200 mls/hr IVPB Q8HR [facility] Rx#:[id number] Mvi, Adult No.4 with Vit 300 100 K 10 ml Trace (Conc-1Ml/ Dose) 1 ml In Amino Acid 5%-D15w+Lytes*E* 1,000 ml @ 100 mls/hr IV .BY DURATION [facility] Rx#: [id number] Mvi, Adult No.4 with Vit 800 400 K 10 ml Trace (Conc-1Ml/ Dose) 1 ml Parenteral Electrolytes 20 ml In Amino Acid 5%-D15w 1,000 ml @ 100 mls/hr IV .BY DURATION [facility] Rx#: [id number] Potassium Chloride 10 meq 200 In Water For Injection 1 100ml.bag @ 100 mls/hr IVPB Q1H [facility] Rx#: [id number] Vancomycin 2,000 mg In 500 500 Sodium Chloride 0.9% 500 ml 500 ml @ 167 mls/hr IVPB Q12H [facility] Rx#: [id number] Intake, IV Titration 100 Amount Fat Emulsion 20% 250 ml @ 100 20.833 mls/hr IV MoWeFr@ 1600 [facility] Rx#:[id number] Output: Drainage 15 Left Abdomen 15 Urine 2150 1335 875 Other: Voiding Method Indwelling Catheter Indwelling Catheter Indwelling Catheter - Exam General: No acute distress, no distress, appears at stated age Derm: warm, dry Head: atraumatic, normocephalic, symmetric Eyes: EOMI, no lid lag, anicteric sclera Mouth: no lip lesion, mucus membranes moist Cardiovascular: Tachycardic, no murmur, positive posterior tibial pulse bilateral, Lungs: rhonchi left base, no rhonchi, no rales , no accessory muscle use Abdominal: soft, tender to palpation diffusely, no guarding, no appreciable organomegaly, Prevena in place over midline incisions, hypoactive bowel sounds Ext: no gross muscle atrophy, no edema, no contractures Neuro: CN II-XI grossly intact, no focal neuro deficits Psych: Alert, oriented, appropriate affect - Labs CBC & Chem 7: 01/08/19 05:22 01/08/19 05:22 Labs: Abnormal Lab Results - Last 24 Hours (Table) 01/07/19 01/07/19 01/08/19 Range/Units 12:10 18:12 00:32 WBC (3.8-10.6) k/uL RBC (3.80-5.40) m/uL Hgb (11.4-16.0) gm/dL Hct (34.0-46.0) % Neutrophils # (Manual) (1.3-7.7) k/uL Monocytes # (Manual) (0-1.0) k/uL Myelocytes # (Manual) (0) k/uL Sodium (137-145) mmol/L Creatinine (0.52-1.04) mg/dL Glucose (74-99) mg/dL POC Glucose (mg/dL) 132 H 127 H 176 H (75-99) mg/dL Calcium (8.4-10.2) mg/dL 01/08/19 01/08/19 01/08/19 Range/Units 05:22 05:22 06:30 WBC 24.5 H (3.8-10.6) k/uL RBC 2.73 L (3.80-5.40) m/uL Hgb 8.3 L (11.4-16.0) gm/dL Hct 26.6 L (34.0-46.0) % Neutrophils # (Manual) 21.07 H (1.3-7.7) k/uL Monocytes # (Manual) 1.23 H (0-1.0) k/uL Myelocytes # (Manual) 0.25 H (0) k/uL Sodium 133 L (137-145) mmol/L Creatinine 0.50 L (0.52-1.04) mg/dL Glucose 119 H (74-99) mg/dL POC Glucose (mg/dL) 135 H (75-99) mg/dL Calcium 7.4 L (8.4-10.2) mg/dL Microbiology - Last 24 Hours (Table) 01/07/19 17:00 Gram Stain - Preliminary Sputum 01/05/19 18:32 Blood Culture - Preliminary Blood No Growth after 48 hours 01/05/19 17:00 Blood Culture - Preliminary Blood No Growth after 48 hours Assessment and Plan Assessment: Gastric sleeve with anastomotic leak status post gastrorraphy - on TPN, check lipase in AM, CMP, MG, Phos, continue with ISS - management per primary team currently NPO, on diflucan Sepsis * pancultures pending -Possibly infectious patient febrile overnight wbcs increasing to 24 - continue with vancomycin merrem and diflucan - follow CXR indicating bilateral stable pleural effusions with atelectasis -Repeat CT chest and abdomen suggesting possible colitis, possible pneumonia, bilateral pleural effusions left greater than right Transaminitis and elevated lipase -likley due to TPN - repeat levels in AM if continue to raise may need to limit TPN Acute blood loss anemia, post op and anticipated * Hemoglobin at 8.3 today - no indication for transfusion at this time - follow CBC Thrombocytopenia -Resolved S/P Spleenectomy - out patient follow up for appropriate vaccines, Dr. Prince added to D/C instructions
[2019-01-08 13:15] LABS: Glucose,Whole Blood 174 mg/dL (75-99)
--- NOTE | 2019-01-08 14:34 | P.PN ---
Subjective Progress Note Date: 01/08/19 This is a 53-year-old female patient who underwent a laparoscopic sleeve gastrectomy on 12/24/2018. Following her surgery, the patient continued having difficulties with epigastric discomfort and some shortness of breath and there was a concern that the patient was having some leak near the proximal sleeve based on the esophagram. At that point the patient had an EGD and the leak was not visualized. Subsequently, the patient was taken to the operating room and the patient was found to have a staple line Perforation. The patient underwent extensive laparotomy, gastrorrhaphy and splenectomy. Note that the splenectomy was done as the patient developed a splenic Tear While Undergoing Abdominal and Peritoneal Cavity Irrigation. Note That the Omentum Was Lifted off the Spleen. There Was Evidence of bilious drainage behind the spleen. During the irrigation, a splenic tear was established and the patient underwent a complete splenectomy. Currently the patient in the recovery room. The patient is doing well. The patient is extubated. The patient is on 2 L of oxygen nasal cannula. She has a wound VAC over the anterior abdominal wall. She has a CODY drain in the left upper quadrant. Output is minimal and serosanguineous. She is having sinus tachycardia. Intraoperatively she received total of 3 L and there patient received an additional 2 L and the recovery in the form of lactated Ringer. Urine output is minimal and the patient has produced 35 mL total since arrival from the operating room. The preop creatinine was within normal limits. She is normotensive with a blood pressure 143/97. Pain is under good control. The patient has received a dose of Diflucan and Levaquin. White cell count from earlier this morning was at 8.2. On today's evaluation of 01/04/2019, the patient is postop day #1. She is in intensive care unit. Overnight the patient was given aggressive fluid resuscitation. She was also covered with broad-spectrum antibiotics. This morning she is awake and alert. Her sinus tachycardia is improved. I was having difficulties with urine output. After being given a total of 3 L in the ICU, the patient received a dose of Lasix and subsequently urine output improved. Creatinine is stable. Afebrile. The patient has a superficial wound VAC over the anterior abdominal wall which is draining minimal amount of serous drainage. CODY is also in place. Bowel sounds are hypoactive. No flatus yet. No nausea. No vomiting. No abdominal pain and her pain is under good control. She is a bit anxious. When the length discussion with her explaining to her the details of the surgical procedure that she underwent yesterday. On the chest x-ray, the patient is developing and reactive bedside pleural effusion that needs to be monitored very closely. Her white cell count today is at 15.5. As of the blood work and electrodes are all within normal limits. On 01/05/2019 the patient's postoperative September 2. The patient is still nothing by mouth pain and the patient is receiving TPN for nutritional support which is being provided through a PICC line in the left upper extremity. The patient is able to ambulate. She did ambulate yesterday and would like to do the same today. Her abdominal wound is dry clean and intact. The patient has a wound VAC output of which is minimal. The patient also has a CODY drain in the left upper quadrant and output of which is serosanguineous and the amount is in order of 10 mL over the past 12 hours. Meanwhile, the patient is being resuscitated IV fluids at the rate of 100 mL an hour of normal saline which got cut down to KVO today. The patient is producing adequate amount of urine output. Renal function is stable. There is some degree of leukocytosis and white count is at 20. The patient is afebrile until this afternoon when she spiked a temperature of 101.6. Based on that blood cultures were sent and urine cultures were sent and infectious disease consultation was requested. Note that I have covered this patient with a combination of Diflucan, Merrem and Vanco was also added based on his new onset fever. The plan is to proceed with an upper GI series tomorrow to assess the adequacy of the gastric staple/ suture line. No significant abdominal distention. No abdominal tenderness. Abdominal pain is under good control for now. No flatus. No bowel movements yet. The patient is seen today 01/06/2019 in follow-up in the intensive care unit. This is postoperative day #3. She is currently awake and alert in no acute distress. Resting fairly comfortably in bed. She is currently maintaining O2 saturations in the 90s on 3 L/m per nasal cannula. She is working well with the incentive spirometer. Currently pulling 750 ML's. She's been hemodynamically stable. Not on any pressors. She has been having issues with fevers. Currently 100.4. White count 21.4. Hemoglobin 8.3. Creatinine 0.51. AST 77, ALT 174. Lipase 534. She is still not passing any flatus. She is belching at times. Abdomen is soft. Provena dressing in place over the stapled mid line incision. CODY drain remains in place. She is receiving IV acetaminophen. Continued on vancomycin, meropenem and fluconazole she is being nourished with TPN and lipids. Lovenox for DVT prophylaxis. She is seen today 01/07/2018 in follow-up in the intensive care unit. This is postoperative day #4. She is currently awake and alert in no acute distress. She denies any worsening shortness of breath, cough or congestion. She is maintaining O2 saturations in the 90s on 2 L. She has had ongoing issues with fever and leukocytosis. She is having a bit more abdominal discomfort today as compared to yesterday. Abdomen is slightly more distended and tender. He is temperature 102 this morning. Tachycardic. Blood pressure stable. Blood cultures from 01/05/2019 reveal no growth. White count 24.2. Hemoglobin 8.8. Neutrophils 19. Creatinine 0.49. She remains on fluconazole, meropenem and vancomycin. He is being nourished with TPN and lipids. Urine output adequate. Computed tomography scan of the chest and abdomen are pending. On today's evaluation of 01/08/2018, the patient remains in intensive care unit. The patient is postop day #5. For the most part she is doing well. CAT scan of the abdomen results were favorable. There is no evidence of any ongoing leak. There is a small to moderate-sized left-sided pleural effusion along with compressive atelectasis of the left lung base. Nevertheless, the patient is not having any significant shortness of breath. She is having on a low-grade fever. White cell count is still somewhat elevated. She was started on some clear liquid diet. She remains on a combination of Merrem, vancomycin and Diflucan. Renal function is stable. No nausea. No vomiting. She is ambulating. She is weak. She is receiving TPN for nutritional support. I discussed the case with the general surgeon. We will gradually advance diet as tolerated. Abdominal wound is clean. CODY drain is serosanguineous. Objective - Vital Signs Vital signs: Vital Signs Temp 99 F 01/08/19 12:00 Pulse 103 H 01/08/19 13:00 Resp 26 H 01/08/19 13:00 BP 115/69 01/08/19 13:00 Pulse Ox 94 L 01/08/19 13:00 Intake & Output 01/07/19 01/08/19 01/08/19 18:59 06:59 18:59 Intake Total 2410 500 1390 Output Total 2150 1350 1400 Balance 260 -850 -10 Weight 114 kg 116.5 kg Intake: IV 2410 400 1390 0.9 Normal saline carrier 120 120 90 Fat Emulsion 20% 250 ml @ 60 180 20.833 mls/hr IV MoWeFr@ 1600 [facility] Rx#:[id number] Fluconazole in NaCl,Iso- 130 100 Osm 200 mg In Saline 1 100ml.bag @ 100 mls/hr IVPB DAILY [facility] Rx#: [id number] Magnesium Sulfate-D5w Pmx 200 1 gm In Dextrose/Water 1 100ml.bag @ 100 mls/hr IVPB Q1H [facility] Rx#: [id number] Meropenem 1 gm In Sodium 100 100 Chloride 0.9% 100 ml @ 200 mls/hr IVPB Q8HR [facility] Rx#:[id number] Mvi, Adult No.4 with Vit 300 100 K 10 ml Trace (Conc-1Ml/ Dose) 1 ml In Amino Acid 5%-D15w+Lytes*E* 1,000 ml @ 100 mls/hr IV .BY DURATION [facility] Rx#: [id number] Mvi, Adult No.4 with Vit 800 600 K 10 ml Trace (Conc-1Ml/ Dose) 1 ml Parenteral Electrolytes 20 ml In Amino Acid 5%-D15w 1,000 ml @ 100 mls/hr IV .BY DURATION [facility] Rx#: [id number] Potassium Chloride 10 meq 200 In Water For Injection 1 100ml.bag @ 100 mls/hr IVPB Q1H [facility] Rx#: [id number] Vancomycin 2,000 mg In 500 500 Sodium Chloride 0.9% 500 ml 500 ml @ 167 mls/hr IVPB Q12H [facility] Rx#: [id number] Intake, IV Titration 100 Amount Fat Emulsion 20% 250 ml @ 100 20.833 mls/hr IV MoWeFr@ 1600 [facility] Rx#:[id number] Output: Drainage 15 Left Abdomen 15 Urine 2150 1335 1400 Other: Voiding Method Indwelling Catheter Indwelling Catheter Indwelling Catheter - Exam Gen. appearance, comfortable no acute distress on 2 L nasal cannula Head exam was generally normal. There was no scleral icterus or corneal arcus. Mucous membranes were moist. Neck was supple and without jugular venous distension, thyromegaly, or carotid bruits. Carotids were easily palpable bilaterally. There was no adenopathy. Lungs were clear to auscultation and percussion, and with normal diaphragmatic excursion. No wheezes or rales were noted. Heart sounds are tachycardic, normal S1-S2 and the rhythm is sinus. No significant murmurs appreciated. Abdomen is soft. There is a Provena device over the mid line incision. There is also CODY drains left upper quadrant. Bowel sounds are hypoactive. There is slight tenderness and guarding. No organomegaly. Examination of the extremities revealed easily palpable radial, femoral and pedal pulses. There was no cyanosis, clubbing or edema. Examination of the skin revealed no evidence of significant rashes, suspicious appearing nevi or other concerning lesions. Neurologically awake and alert and there is no focal neurological deficits. - Labs CBC & Chem 7: 01/08/19 05:22 01/08/19 05:22 Labs: Abnormal Lab Results - Last 24 Hours (Table) 01/07/19 01/08/19 01/08/19 Range/Units 18:12 00:32 05:22 WBC (3.8-10.6) k/uL RBC (3.80-5.40) m/uL Hgb (11.4-16.0) gm/dL Hct (34.0-46.0) % Neutrophils # (Manual) (1.3-7.7) k/uL Monocytes # (Manual) (0-1.0) k/uL Myelocytes # (Manual) (0) k/uL Sodium 133 L (137-145) mmol/L Creatinine 0.50 L (0.52-1.04) mg/dL Glucose 119 H (74-99) mg/dL POC Glucose (mg/dL) 127 H 176 H (75-99) mg/dL Calcium 7.4 L (8.4-10.2) mg/dL 01/08/19 01/08/19 01/08/19 Range/Units 05:22 06:30 12:48 WBC 24.5 H (3.8-10.6) k/uL RBC 2.73 L (3.80-5.40) m/uL Hgb 8.3 L (11.4-16.0) gm/dL Hct 26.6 L (34.0-46.0) % Neutrophils # (Manual) 21.07 H (1.3-7.7) k/uL Monocytes # (Manual) 1.23 H (0-1.0) k/uL Myelocytes # (Manual) 0.25 H (0) k/uL Sodium (137-145) mmol/L Creatinine (0.52-1.04) mg/dL Glucose (74-99) mg/dL POC Glucose (mg/dL) 135 H 174 H (75-99) mg/dL Calcium (8.4-10.2) mg/dL Microbiology - Last 24 Hours (Table) 01/07/19 17:00 Gram Stain - Preliminary Sputum 01/05/19 18:32 Blood Culture - Preliminary Blood No Growth after 48 hours 01/05/19 17:00 Blood Culture - Preliminary Blood No Growth after 48 hours Assessment and Plan Plan: Assessment 1 status post exploratory laparotomy, gastrorrhaphy and splenectomy. Surgery was done for gastric sleeve staple line perforation. Patient is postop day #5. She remains on TPN for nutritional support. CAT scan of the abdomen was noted and there is no ongoing complication or abscess formation leak. We will gradually advance oral diet as tolerated. 2 low-grade fever without any obvious source of sepsis or infection. Cultures of been negative. The patient remains on broad-spectrum antibiotics for now. CAT scan of the abdomen and pelvis results were noted. 3 previous history of a sleeve gastrectomy that was done on 12/24/2018 4 migraine 5 varicose veins 6 nephrolithiasis 7 left-sided pleural effusion most likely worse on today's evaluation. 8 TPN for nutritional support. Plan Patient is doing well. Her pain is under good control. The CODY drain is not passing a lot of serous material. She is passing flatness. She is using incentive spirometer. White cell count is still stable yet elevated. Monitor fever pattern. Keep same antibiotic coverage. Ambulate the patient the hallway. There is no need for thoracentesis at this point. We'll continue to follow make further recommendations based on overall progress.
[2019-01-08] MEDS: IPRATROPIUM-ALBUTEROL 3 ML NEB INHALATION PRN ×2 (15:39→19:35)
[2019-01-08] MEDS ORDERED: ANIDULAFUNGIN 200 MG in SODIUM CHLORIDE 0.9% 200 ML IVPB ONE ×2 (16:14→17:30)
[2019-01-08 17:15] LABS: Glucose,Whole Blood 112 mg/dL (75-99)
--- NOTE | 2019-01-08 17:35 | PN ---
PROGRESS NOTE DATE OF SERVICE: 01/08/2019 REASON FOR FOLLOWUP: Pneumonia and postoperative fever. INTERVAL HISTORY: The patient's overall fever pattern has improved. The highest temperature today has been 99.7 oral. The patient is breathing comfortably. She did have a cough and was able to give us a sputum sample yesterday, which is currently pending. The patient denies having any chest pain or any abdominal pain. No nausea. No vomiting. PHYSICAL EXAMINATION: Blood pressure is 111/65 with a pulse of 110, temperature 99.7. She is 93% on 3 L nasal cannula. General description is a middle-aged female up in the bed in no distress. RESPIRATORY SYSTEM: Unlabored breathing with decreased breath sounds at the base. No wheeze. HEART: S1, S2. Regular rate and rhythm. ABDOMEN: Soft. No tenderness. LABS: Hemoglobin 8.3, white count up to 24.5, with a BUN of 15, creatinine 0.50. DIAGNOSTIC IMPRESSION AND PLAN: Patient with a postoperative fever, concern for possible pneumonia in this patient who did have a gastric sleeve leak, status post repair of the same and splenectomy. Patient is currently covered with meropenem and vancomycin. We will switch over the Diflucan to anidulafungin and see response and continue to monitor closely. Will follow up on the sputum culture and adjust antibiotic further if needed. MMODL / IJN: [id number] /
[2019-01-08] MEDS: VANCOMYCIN 2,250 MG in SODIUM CHLORIDE 0.9% 500 ML 500 ML IVPB SCH (17:46)
[2019-01-08] MEDS: HYDROmorphone 1 MG/ML 1 ML SYRINGE IVP PRN ×2 (20:35→23:39)
[2019-01-08 21:00] LABS: Glucose,Whole Blood 123 mg/dL (75-99)
[2019-01-09] MEDS: HYDROmorphone 1 MG/ML 1 ML SYRINGE IVP PRN ×6 (02:55→22:06)
[2019-01-09 05:30] LABS: Basophils # (A) 0.2 k/uL (0-0.2); Basophils % (A) 1 %; Eosinophils # (A) 0.4 k/uL (0-0.7); Eosinophils % (A) 2 %; HCT 25.1 % (34.0-46.0); HGB 7.8 gm/dL (11.4-16.0); Lymphocytes # (A) 1.9 k/uL (1.0-4.8); Lymphocytes % (A) 8 %; MCH 30.2 pg (25.0-35.0); MCHC 31.2 g/dL (31.0-37.0); MCV 96.9 fL (80.0-100.0); Mean Platelet Volume 7.7; Monocytes # (A) 0.4 k/uL (0-1.0); Monocytes % (A) 2 %; Neutrophils # (A) 19.5 k/uL (1.3-7.7); Neutrophils % (A) 86 %; Platelet Count 445 k/uL (150-450); RBC 2.59 m/uL (3.80-5.40); RDW 12.7 % (11.5-15.5); WBC 22.8 k/uL (3.8-10.6)
[2019-01-09 05:47] LABS: Anion Gap 7 mmol/L; Blood Urea Nitrogen 15 mg/dL (7-17); Calcium 7.4 mg/dL (8.4-10.2); Carbon Dioxide 24 mmol/L (22-30); Chloride 103 mmol/L (98-107); Glucose 116 mg/dL (74-99); Magnesium 2.2 mg/dL (1.6-2.3); Phosphorus 3.8 mg/dL (2.5-4.5); Potassium 4.1 mmol/L (3.5-5.1); Sodium 134 mmol/L (137-145)
[2019-01-09] MEDS: VANCOMYCIN 2,250 MG in SODIUM CHLORIDE 0.9% 500 ML 500 ML IVPB SCH ×2 (06:13→18:03)
[2019-01-09 06:57] LABS: Glucose,Whole Blood 137 mg/dL (75-99)
[2019-01-09] MEDS: INSULIN ASPART (NovoLOG) 100 UNIT/ML VIAL SQ SCH ×4 (07:09→21:45)
[2019-01-09] MEDS: PANTOPRAZOLE 40 MG/10 ML VIAL IV SCH (08:25)
[2019-01-09] MEDS: ANIDULAFUNGIN 100 MG in SODIUM CHLORIDE 0.9% 100 ML IVPB SCH (08:26)
[2019-01-09] MEDS: ENOXAPARIN 40 MG/0.4 ML SYRINGE SQ SCH (08:26)
[2019-01-09] MEDS: 1: MVI, ADULT NO.4 WITH VIT K 10 ML, TRACE (CONC-1ML/DOSE) 1 ML, PARENTERAL ELECTROLYTES IV SCH ×12 (08:46→13:57)
[2019-01-09] MEDS ORDERED: ANIDULAFUNGIN 100 MG in SODIUM CHLORIDE 0.9% 100 ML IVPB SCH (09:00)
--- NOTE | 2019-01-09 09:24 | XR ---
EXAMINATION TYPE: XR chest 1V portable DATE OF EXAM: 01/09/2019 COMPARISON: 01/08/2019 INDICATION: Pleural effusions TECHNIQUE: Single frontal view of the chest is obtained. FINDINGS: The heart size is mildly prominent. The pulmonary vasculature is normal. Left lower lobe infiltrate or effusion is present. IMPRESSION: 1. Opacification of the left base can be compatible with a small effusion or infiltrate. Continued fo llow-up is recommended.
[2019-01-09] MEDS: SIMETHICONE 40 MG/0.6 ML DROPS 2,000 MG/30 ML BOTTLE PO SCH ×4 (09:27→22:06)
[2019-01-09] MEDS: MEROPENEM 1 GM in SODIUM CHLORIDE 0.9% 100 ML IVPB SCH ×3 (09:28→23:30)
--- NOTE | 2019-01-09 09:39 | P.PN ---
Subjective Progress Note Date: 01/09/19 Principal diagnosis: Patient is a 53-year-old female past medical history of migraine headaches, nephrolithiasis, and postoperative nausea and vomiting who had a gastric sleeve on 12/24/18 complicated with postop edema for sleep and delayed gastric emptying. She was discharged from the hospital on TPN. She worsened at home and 3 presented on 12/31/18. She was found to have possible gastric leak. She returned to the OR on 01/03 for repair of the gastric leak, she was noted to have a splenic capsule Laceration and Ultimately Underwent Splenectomy at that time. She was started on diflucan and meropenem. The patient is postop day #5 resting comfortably in bed maintaining decent saturations on 3 L nasal cannula, patient has been afebrile overnight. Currently working with incentive spirometry @ 750 cc. reporting much improved breathing since started on breathing treatments fashion, patient currently on clear liquid diet urine output is good, does have moderate abdominal pain is having gas and had a moderate bowel movement earlier. Objective - Vital Signs Vital signs: Vital Signs Temp 98.5 F 01/09/19 04:00 Pulse 98 01/09/19 07:00 Resp 22 01/09/19 07:00 BP 128/76 01/09/19 07:00 Pulse Ox 94 L 01/09/19 07:00 Intake & Output 01/08/19 01/09/19 01/09/19 18:59 06:59 18:59 Intake Total 2340 480 10 Output Total 2175 1553 160 Balance 165 -1073 -150 Weight 114.6 kg Intake: IV 2340 480 10 0.9 Normal saline carrier 140 120 10 Anidulafungin 200 mg In 260 Sodium Chloride 0.9% 200 ml @ 84 mls/hr IVPB ONCE ONE Rx#:[id number] Fluconazole in NaCl,Iso- 100 Osm 200 mg In Saline 1 100ml.bag @ 100 mls/hr IVPB DAILY [facility] Rx#: [id number] Meropenem 1 gm In Sodium 100 Chloride 0.9% 100 ml @ 200 mls/hr IVPB Q8HR [facility] Rx#:[id number] Mvi, Adult No.4 with Vit 1000 100 K 10 ml Trace (Conc-1Ml/ Dose) 1 ml Parenteral Electrolytes 20 ml In Amino Acid 5%-D15w 1,000 ml @ 100 mls/hr IV .BY DURATION [facility] Rx#: [id number] Vancomycin 2,000 mg In 1000 Sodium Chloride 0.9% 500 ml 500 ml @ 167 mls/hr IVPB Q12H [facility] Rx#: [id number] Output: Drainage 3 Left Abdomen 3 Urine 2175 1550 160 Other: Voiding Method Indwelling Catheter Indwelling Catheter # Bowel Movements 1 - Exam General: No acute distress, no distress, appears at stated age Derm: warm, dry Head: atraumatic, normocephalic, symmetric Eyes: EOMI, no lid lag, anicteric sclera Mouth: no lip lesion, mucus membranes moist Cardiovascular: Tachycardic, no murmur, positive posterior tibial pulse bilateral, Lungs: rhonchi left base, no rhonchi, no rales , no accessory muscle use Abdominal: soft, tender to palpation diffusely, no guarding, no appreciable organomegaly, Prevena in place over midline incisions, hypoactive bowel sounds Ext: no gross muscle atrophy, no edema, no contractures Neuro: CN II-XI grossly intact, no focal neuro deficits Psych: Alert, oriented, appropriate affect - Labs CBC & Chem 7: 01/09/19 04:28 01/09/19 04:28 Labs: Abnormal Lab Results - Last 24 Hours (Table) 01/08/19 01/08/19 01/08/19 Range/Units 12:48 17:01 20:46 WBC (3.8-10.6) k/uL RBC (3.80-5.40) m/uL Hgb (11.4-16.0) gm/dL Hct (34.0-46.0) % Neutrophils # (1.3-7.7) k/uL Sodium (137-145) mmol/L Creatinine (0.52-1.04) mg/dL Glucose (74-99) mg/dL POC Glucose (mg/dL) 174 H 112 H 123 H (75-99) mg/dL Calcium (8.4-10.2) mg/dL 01/09/19 01/09/19 01/09/19 Range/Units 04:28 04:28 06:54 WBC 22.8 H (3.8-10.6) k/uL RBC 2.59 L (3.80-5.40) m/uL Hgb 7.8 L (11.4-16.0) gm/dL Hct 25.1 L (34.0-46.0) % Neutrophils # 19.5 H (1.3-7.7) k/uL Sodium 134 L (137-145) mmol/L Creatinine 0.45 L (0.52-1.04) mg/dL Glucose 116 H (74-99) mg/dL POC Glucose (mg/dL) 137 H (75-99) mg/dL Calcium 7.4 L (8.4-10.2) mg/dL Microbiology - Last 24 Hours (Table) 01/05/19 18:32 Blood Culture - Preliminary Blood No Growth after 72 hours 01/05/19 17:00 Blood Culture - Preliminary Blood No Growth after 72 hours 01/07/19 17:00 Gram Stain - Preliminary Sputum Assessment and Plan Assessment: Gastric sleeve with anastomotic leak status post gastrorraphy - on TPN, check lipase in AM, CMP, MG, Phos, continue with ISS - management per primary team currently on CLD , on diflucan Sepsis * pancultures pending -Possibly infectious patient febrile overnight wbcs increasing to 24 - continue with vancomycin merrem and diflucan - follow CXR indicating bilateral stable pleural effusions with atelectasis -Repeat CT chest and abdomen suggesting possible colitis, possible pneumonia, bilateral pleural effusions left greater than right Transaminitis and elevated lipase -likley due to TPN - repeat levels in AM if continue to raise may need to limit TPN Acute blood loss anemia, post op and anticipated * Hemoglobin at 8.3 today - no indication for transfusion at this time - follow CBC Thrombocytopenia -Resolved S/P Spleenectomy - out patient follow up for appropriate vaccines, Dr. Prince added to D/C instructions
--- NOTE | 2019-01-09 10:47 | P.PN ---
Subjective Progress Note Date: 01/09/19 Principal diagnosis: Gastric sleeve leak The patient is improving. She states her pain is a 3 and a 10. She has had flatus and a bowel movement. She is tolerating clear liquids. Her white count is improved slightly. Objective - Vital Signs Vital signs: Vital Signs Temp 98.5 F 01/09/19 04:00 Pulse 98 01/09/19 07:00 Resp 22 01/09/19 07:00 BP 128/76 01/09/19 07:00 Pulse Ox 94 L 01/09/19 07:00 Intake & Output 01/08/19 01/09/19 01/09/19 18:59 06:59 18:59 Intake Total 2340 480 10 Output Total 2175 1553 160 Balance 165 -1073 -150 Weight 114.6 kg Intake: IV 2340 480 10 0.9 Normal saline carrier 140 120 10 Anidulafungin 200 mg In 260 Sodium Chloride 0.9% 200 ml @ 84 mls/hr IVPB ONCE ONE Rx#:[id number] Fluconazole in NaCl,Iso- 100 Osm 200 mg In Saline 1 100ml.bag @ 100 mls/hr IVPB DAILY [facility] Rx#: [id number] Meropenem 1 gm In Sodium 100 Chloride 0.9% 100 ml @ 200 mls/hr IVPB Q8HR [facility] Rx#:[id number] Mvi, Adult No.4 with Vit 1000 100 K 10 ml Trace (Conc-1Ml/ Dose) 1 ml Parenteral Electrolytes 20 ml In Amino Acid 5%-D15w 1,000 ml @ 100 mls/hr IV .BY DURATION [facility] Rx#: [id number] Vancomycin 2,000 mg In 1000 Sodium Chloride 0.9% 500 ml 500 ml @ 167 mls/hr IVPB Q12H [facility] Rx#: [id number] Output: Drainage 3 Left Abdomen 3 Urine 2175 1550 160 Other: Voiding Method Indwelling Catheter Indwelling Catheter # Bowel Movements 1 - Constitutional General appearance: Present: cooperative, no acute distress - Gastrointestinal Gastrointestinal Comment(s): Abdomen soft. Incision site is clean dry and intact. COYD drain has some serous drainage. There is no evidence of bile. - Labs CBC & Chem 7: 01/09/19 04:28 01/09/19 04:28 Labs: Abnormal Lab Results - Last 24 Hours (Table) 0201/08/19 01/08/19 Range/Units 12:48 17:01 20:46 WBC (3.8-10.6) k/uL RBC (3.80-5.40) m/uL Hgb (11.4-16.0) gm/dL Hct (34.0-46.0) % Neutrophils # (1.3-7.7) k/uL Sodium (137-145) mmol/L Creatinine (0.52-1.04) mg/dL Glucose (74-99) mg/dL POC Glucose (mg/dL) 174 H 112 H 123 H (75-99) mg/dL Calcium (8.4-10.2) mg/dL 01/09/19 01/09/19 01/09/19 Range/Units 04:28 04:28 06:54 WBC 22.8 H (3.8-10.6) k/uL RBC 2.59 L (3.80-5.40) m/uL Hgb 7.8 L (11.4-16.0) gm/dL Hct 25.1 L (34.0-46.0) % Neutrophils # 19.5 H (1.3-7.7) k/uL Sodium 134 L (137-145) mmol/L Creatinine 0.45 L (0.52-1.04) mg/dL Glucose 116 H (74-99) mg/dL POC Glucose (mg/dL) 137 H (75-99) mg/dL Calcium 7.4 L (8.4-10.2) mg/dL Microbiology - Last 24 Hours (Table) 01/05/19 18:32 Blood Culture - Preliminary Blood No Growth after 72 hours 01/05/19 17:00 Blood Culture - Preliminary Blood No Growth after 72 hours Assessment and Plan Assessment: Status post exploratory laparotomy for gastric sleeve perforation. Patient is doing well. There is no evidence of any gastric leak. The patient will have protein drinks added to her clear liquid diet. She'll continue receive IV antibiotics support. We will wean her TPN once she has increased her by mouth intake.
[2019-01-09 11:13] LABS: Glucose,Whole Blood 129 mg/dL (75-99)
[2019-01-09] MEDS: IPRATROPIUM-ALBUTEROL 3 ML NEB INHALATION PRN ×2 (13:19→19:47)
--- NOTE | 2019-01-09 14:23 | P.PN ---
Subjective Progress Note Date: 01/09/19 This is a 53-year-old female patient who underwent a laparoscopic sleeve gastrectomy on 12/24/2018. Following her surgery, the patient continued having difficulties with epigastric discomfort and some shortness of breath and there was a concern that the patient was having some leak near the proximal sleeve based on the esophagram. At that point the patient had an EGD and the leak was not visualized. Subsequently, the patient was taken to the operating room and the patient was found to have a staple line Perforation. The patient underwent extensive laparotomy, gastrorrhaphy and splenectomy. Note that the splenectomy was done as the patient developed a splenic Tear While Undergoing Abdominal and Peritoneal Cavity Irrigation. Note That the Omentum Was Lifted off the Spleen. There Was Evidence of bilious drainage behind the spleen. During the irrigation, a splenic tear was established and the patient underwent a complete splenectomy. Currently the patient in the recovery room. The patient is doing well. The patient is extubated. The patient is on 2 L of oxygen nasal cannula. She has a wound VAC over the anterior abdominal wall. She has a CODY drain in the left upper quadrant. Output is minimal and serosanguineous. She is having sinus tachycardia. Intraoperatively she received total of 3 L and there patient received an additional 2 L and the recovery in the form of lactated Ringer. Urine output is minimal and the patient has produced 35 mL total since arrival from the operating room. The preop creatinine was within normal limits. She is normotensive with a blood pressure 143/97. Pain is under good control. The patient has received a dose of Diflucan and Levaquin. White cell count from earlier this morning was at 8.2. On today's evaluation of 01/04/2019, the patient is postop day #1. She is in intensive care unit. Overnight the patient was given aggressive fluid resuscitation. She was also covered with broad-spectrum antibiotics. This morning she is awake and alert. Her sinus tachycardia is improved. I was having difficulties with urine output. After being given a total of 3 L in the ICU, the patient received a dose of Lasix and subsequently urine output improved. Creatinine is stable. Afebrile. The patient has a superficial wound VAC over the anterior abdominal wall which is draining minimal amount of serous drainage. CODY is also in place. Bowel sounds are hypoactive. No flatus yet. No nausea. No vomiting. No abdominal pain and her pain is under good control. She is a bit anxious. When the length discussion with her explaining to her the details of the surgical procedure that she underwent yesterday. On the chest x-ray, the patient is developing and reactive bedside pleural effusion that needs to be monitored very closely. Her white cell count today is at 15.5. As of the blood work and electrodes are all within normal limits. On 01/05/2019 the patient's postoperative September 2. The patient is still nothing by mouth pain and the patient is receiving TPN for nutritional support which is being provided through a PICC line in the left upper extremity. The patient is able to ambulate. She did ambulate yesterday and would like to do the same today. Her abdominal wound is dry clean and intact. The patient has a wound VAC output of which is minimal. The patient also has a CODY drain in the left upper quadrant and output of which is serosanguineous and the amount is in order of 10 mL over the past 12 hours. Meanwhile, the patient is being resuscitated IV fluids at the rate of 100 mL an hour of normal saline which got cut down to KVO today. The patient is producing adequate amount of urine output. Renal function is stable. There is some degree of leukocytosis and white count is at 20. The patient is afebrile until this afternoon when she spiked a temperature of 101.6. Based on that blood cultures were sent and urine cultures were sent and infectious disease consultation was requested. Note that I have covered this patient with a combination of Diflucan, Merrem and Vanco was also added based on his new onset fever. The plan is to proceed with an upper GI series tomorrow to assess the adequacy of the gastric staple/ suture line. No significant abdominal distention. No abdominal tenderness. Abdominal pain is under good control for now. No flatus. No bowel movements yet. The patient is seen today 01/06/2019 in follow-up in the intensive care unit. This is postoperative day #3. She is currently awake and alert in no acute distress. Resting fairly comfortably in bed. She is currently maintaining O2 saturations in the 90s on 3 L/m per nasal cannula. She is working well with the incentive spirometer. Currently pulling 750 ML's. She's been hemodynamically stable. Not on any pressors. She has been having issues with fevers. Currently 100.4. White count 21.4. Hemoglobin 8.3. Creatinine 0.51. AST 77, ALT 174. Lipase 534. She is still not passing any flatus. She is belching at times. Abdomen is soft. Provena dressing in place over the stapled mid line incision. CODY drain remains in place. She is receiving IV acetaminophen. Continued on vancomycin, meropenem and fluconazole she is being nourished with TPN and lipids. Lovenox for DVT prophylaxis. She is seen today 01/07/2018 in follow-up in the intensive care unit. This is postoperative day #4. She is currently awake and alert in no acute distress. She denies any worsening shortness of breath, cough or congestion. She is maintaining O2 saturations in the 90s on 2 L. She has had ongoing issues with fever and leukocytosis. She is having a bit more abdominal discomfort today as compared to yesterday. Abdomen is slightly more distended and tender. He is temperature 102 this morning. Tachycardic. Blood pressure stable. Blood cultures from 01/05/2019 reveal no growth. White count 24.2. Hemoglobin 8.8. Neutrophils 19. Creatinine 0.49. She remains on fluconazole, meropenem and vancomycin. He is being nourished with TPN and lipids. Urine output adequate. Computed tomography scan of the chest and abdomen are pending. On today's evaluation of 01/08/2019, the patient remains in intensive care unit. The patient is postop day #5. For the most part she is doing well. CAT scan of the abdomen results were favorable. There is no evidence of any ongoing leak. There is a small to moderate-sized left-sided pleural effusion along with compressive atelectasis of the left lung base. Nevertheless, the patient is not having any significant shortness of breath. She is having on a low-grade fever. White cell count is still somewhat elevated. She was started on some clear liquid diet. She remains on a combination of Merrem, vancomycin and Diflucan. Renal function is stable. No nausea. No vomiting. She is ambulating. She is weak. She is receiving TPN for nutritional support. I discussed the case with the general surgeon. We will gradually advance diet as tolerated. Abdominal wound is clean. CODY drain is serosanguineous. On 01/09/2019, I'm seeing this patient for a follow-up. The patient is awake. The patient is postop day #6. Doing well. Ambulating. We will allow clear liquid diet. She still on TPN for nutritional support. Antibiotic coverage remains unchanged which includes a combination of Merrem vancomycin and Diflucan. CODY drain is serosanguineous. Abdominal wound is dry clean and intact. No significant nausea vomiting or abdominal pain. She is feeling weak. She is using incentive spirometer. Currently she is on 3 L about 2 by nasal cannula. White cell count is slightly improved compared to yesterday. Hemoglobin stable at 7.8. She is weak however overall somewhat improved compared to yesterday. More importantly, no signs of any hemodynamic instability. No signs of any infection at this point in time. Objective - Vital Signs Vital signs: Vital Signs Temp 98.3 F 01/09/19 12:00 Pulse 104 H 01/09/19 13:31 Resp 30 H 01/09/19 13:00 BP 132/81 01/09/19 13:00 Pulse Ox 95 01/09/19 13:00 Intake & Output 01/08/19 01/09/19 01/09/19 18:59 06:59 18:59 Intake Total 2340 1525 370 Output Total 2175 1553 1160 Balance 165 -28 -790 Weight 114.6 kg Intake: IV 2340 480 370 0.9 Normal saline carrier 140 120 70 Anidulafungin 200 mg In 260 200 Sodium Chloride 0.9% 200 ml @ 84 mls/hr IVPB ONCE ONE Rx#:[id number] Fluconazole in NaCl,Iso- 100 Osm 200 mg In Saline 1 100ml.bag @ 100 mls/hr IVPB DAILY [facility] Rx#: [id number] Meropenem 1 gm In Sodium 100 100 Chloride 0.9% 100 ml @ 200 mls/hr IVPB Q8HR [facility] Rx#:[id number] Mvi, Adult No.4 with Vit 1000 100 K 10 ml Trace (Conc-1Ml/ Dose) 1 ml Parenteral Electrolytes 20 ml In Amino Acid 5%-D15w 1,000 ml @ 100 mls/hr IV .BY DURATION [facility] Rx#: [id number] Vancomycin 2,000 mg In 1000 Sodium Chloride 0.9% 500 ml 500 ml @ 167 mls/hr IVPB Q12H [facility] Rx#: [id number] Intake, IV Titration 1045 Amount Mvi, Adult No.4 with Vit 1045 K 10 ml Trace (Conc-1Ml/ Dose) 1 ml Parenteral Electrolytes 20 ml Potassium Chloride 20 meq Magnesium Sulfate gm 2 gm In Amino Acid 5%-D15w 1,000 ml @ 100 mls/hr IV .BY DURATION [facility] Rx#: [id number] Output: Drainage 3 Left Abdomen 3 Urine 2175 1550 1160 Other: Voiding Method Indwelling Catheter Indwelling Catheter Indwelling Catheter # Bowel Movements 1 - Exam Gen. appearance, comfortable no acute distress on 3 L nasal cannula Head exam was generally normal. There was no scleral icterus or corneal arcus. Mucous membranes were moist. Neck was supple and without jugular venous distension, thyromegaly, or carotid bruits. Carotids were easily palpable bilaterally. There was no adenopathy. Lungs were clear to auscultation and percussion, and with normal diaphragmatic excursion. No wheezes or rales were noted. Heart sounds are tachycardic, normal S1-S2 and the rhythm is sinus. No significant murmurs appreciated. Abdomen is soft. There is a Provena device over the mid line incision. There is also CODY drains left upper quadrant. Bowel sounds are hypoactive. There is slight tenderness and guarding. No organomegaly. Examination of the extremities revealed easily palpable radial, femoral and pedal pulses. There was no cyanosis, clubbing or edema. Examination of the skin revealed no evidence of significant rashes, suspicious appearing nevi or other concerning lesions. Neurologically awake and alert and there is no focal neurological deficits. - Labs CBC & Chem 7: 01/09/19 04:28 01/09/19 04:28 Labs: Abnormal Lab Results - Last 24 Hours (Table) 01/08/19 01/08/19 01/09/19 Range/Units 17:01 20:46 04:28 WBC (3.8-10.6) k/uL RBC (3.80-5.40) m/uL Hgb (11.4-16.0) gm/dL Hct (34.0-46.0) % Neutrophils # (1.3-7.7) k/uL Sodium 134 L (137-145) mmol/L Creatinine 0.45 L (0.52-1.04) mg/dL Glucose 116 H (74-99) mg/dL POC Glucose (mg/dL) 112 H 123 H (75-99) mg/dL Calcium 7.4 L (8.4-10.2) mg/dL 01/09/19 01/09/19 01/09/19 Range/Units 04:28 06:54 11:09 WBC 22.8 H (3.8-10.6) k/uL RBC 2.59 L (3.80-5.40) m/uL Hgb 7.8 L (11.4-16.0) gm/dL Hct 25.1 L (34.0-46.0) % Neutrophils # 19.5 H (1.3-7.7) k/uL Sodium (137-145) mmol/L Creatinine (0.52-1.04) mg/dL Glucose (74-99) mg/dL POC Glucose (mg/dL) 137 H 129 H (75-99) mg/dL Calcium (8.4-10.2) mg/dL Microbiology - Last 24 Hours (Table) 01/07/19 17:00 Gram Stain - Final Sputum Sputum Culture - Final 01/05/19 18:32 Blood Culture - Preliminary Blood No Growth after 72 hours 01/05/19 17:00 Blood Culture - Preliminary Blood No Growth after 72 hours Assessment and Plan Plan: Assessment 1 status post exploratory laparotomy, gastrorrhaphy and splenectomy. Surgery was done for gastric sleeve staple line perforation. Patient is postop day #6. She remains on TPN for nutritional support. The CAT scan of the abdomen is not showing any significant abnormalities in his essential revealing postsurgical changes. Meanwhile, the patient is gradually recovering. The patient will be given some clear liquid diet. She remains on TPN for nutritional support. No signs of any ongoing leak and a CAT scan of the abdomen showed no significant abnormalities. 2 low-grade fever , afebrile for today 3 previous history of a sleeve gastrectomy that was done on 12/24/2018 4 migraine 5 varicose veins 6 nephrolithiasis 7 left-sided pleural effusion most likely worse on today's evaluation. 8 TPN for nutritional support. Plan Patient is doing well. Her pain is under good control. The CODY drain is not passing a lot of serous material. She is passing flatness. The patient also passed a liquidy bowel movements. She is using incentive spirometer. White cell count is still stable yet elevated. Continue the combination of Merrem, vancomycin and Diflucan. The patient will be kept on TPN for now. Would advance diet. We will ambulate this patient the hallway. No need for thoracentesis at this point and the left-sided pleural effusion is stable on today's chest x-ray. We'll continue to follow. She'll be kept in ICU for 24 hours.
[2019-01-09 17:14] LABS: Glucose,Whole Blood 124 mg/dL (75-99)
[2019-01-09 21:45] LABS: Glucose,Whole Blood 114 mg/dL (75-99)
--- NOTE | 2019-01-09 23:18 | PN ---
PROGRESS NOTE DATE OF SERVICE: 01/09/2019. REASON FOR FOLLOWUP: Postop fevers, likely pneumonia. INTERVAL HISTORY: The patient is currently afebrile. She seems to be breathing more comfortably. The patient's cough has decreased in intensity. It is mostly dry. No nausea or vomiting. She did have a bowel movement. PHYSICAL EXAMINATION: Blood pressure 140/76 with a pulse of 105, temperature 98.2, she is 94% on room air. GENERAL DESCRIPTION: A middle aged female, lying in bed in no distress. RESPIRATORY SYSTEM: Unlabored breathing with decreased breath sounds at the bases. No wheeze. HEART: S1, S2. Regular rate and rhythm. ABDOMEN: Distended. No guarding or rigidity. LABS: Hemoglobin 7.2, 22.2, BUN of 15, creatinine 0.45. DIAGNOSTIC IMPRESSION AND PLAN: Patient with postop fevers, concern for possible pneumonia less likely abdominal source. CT did not show any evidence of any gastric leak. The patient is currently covered with Merrem and vancomycin as well . The patient's white count is elevated, more likely state as the patient's fever has resolved and she has shown overall clinical improvement. We will continue to monitor the patient closely. Continue supportive care. MMODL / IJN: [id number] /
[2019-01-10] MEDS: 1: MVI, ADULT NO.4 WITH VIT K 10 ML, TRACE (CONC-1ML/DOSE) 1 ML, PARENTERAL ELECTROLYTES IV SCH ×18 (02:18→23:45)
[2019-01-10] MEDS: HYDROmorphone 1 MG/ML 1 ML SYRINGE IVP PRN ×5 (03:58→21:23)
[2019-01-10 04:51] LABS: Basophils # (A) 0.1 k/uL (0-0.2); Basophils % (A) 1 %; Eosinophils # (A) 0.3 k/uL (0-0.7); Eosinophils % (A) 2 %; HCT 22.6 % (34.0-46.0); HGB 7.1 gm/dL (11.4-16.0); Lymphocytes # (A) 1.3 k/uL (1.0-4.8); Lymphocytes % (A) 7 %; MCH 30.4 pg (25.0-35.0); MCHC 31.2 g/dL (31.0-37.0); MCV 97.4 fL (80.0-100.0); Mean Platelet Volume 7.9; Monocytes # (A) 0.4 k/uL (0-1.0); Monocytes % (A) 2 %; Neutrophils # (A) 17.2 k/uL (1.3-7.7); Neutrophils % (A) 87 %; Platelet Count 489 k/uL (150-450); RBC 2.32 m/uL (3.80-5.40); RDW 12.6 % (11.5-15.5); WBC 19.7 k/uL (3.8-10.6)
[2019-01-10 05:05] LABS: ALT 194 U/L (9-52); AST 123 U/L (14-36); Albumin 1.9 g/dL (3.5-5.0); Alkaline Phosphatase 166 U/L (38-126); Anion Gap 5 mmol/L; Blood Urea Nitrogen 13 mg/dL (7-17); Calcium 7.2 mg/dL (8.4-10.2); Carbon Dioxide 23 mmol/L (22-30); Chloride 105 mmol/L (98-107); Glucose 127 mg/dL (74-99); Phosphorus 3.2 mg/dL (2.5-4.5); Potassium 3.9 mmol/L (3.5-5.1); Sodium 133 mmol/L (137-145); Total Bilirubin 0.4 mg/dL (0.2-1.3); Total Protein 4.4 g/dL (6.3-8.2)
[2019-01-10] MEDS: VANCOMYCIN 2,250 MG in SODIUM CHLORIDE 0.9% 500 ML 500 ML IVPB SCH ×2 (05:51→18:58)
[2019-01-10] MEDS ORDERED: Potassium Replacement Protocol 1 EACH MISC MISCELLANE PRN (06:38)
[2019-01-10] MEDS: POTASSIUM CHLORIDE 10 MEQ in WATER FOR INJECTION 1 100ML.BAG IVPB SCH ×2 (06:50→10:27)
[2019-01-10] MEDS: IPRATROPIUM-ALBUTEROL 3 ML NEB INHALATION PRN ×3 (07:00→19:37)
[2019-01-10 07:19] LABS: Glucose,Whole Blood 131 mg/dL (75-99)
[2019-01-10] MEDS: INSULIN ASPART (NovoLOG) 100 UNIT/ML VIAL SQ SCH ×4 (07:19→21:20)
--- NOTE | 2019-01-10 08:17 | XR ---
EXAMINATION TYPE: XR chest 1V portable DATE OF EXAM: 01/10/2019 COMPARISON: 01/09/2019 HISTORY: Shortness of breath FINDINGS: Noted is pulmonary venous congestion with scattered infiltrates. There is also cardiomegaly and small effusions. IMPRESSION: Findings compatible with stable congestive failure. Infiltrates of other etiology are not excluded. Clinical correlation and progress studies are recommended.
--- NOTE | 2019-01-10 10:09 | US ---
EXAMINATION TYPE: US chest DATE OF EXAM: 01/10/2019 COMPARISON: NONE CLINICAL HISTORY: Markings for thoracentesis by pulmonary staff. TECHNIQUE: Targeted ultrasound of the posterior lower bilateral hemithoraces EXAM MEASUREMENTS: Right Pleural Effusion pocket size: 1.0 cm Left Pleural Effusion pocket size: 7.0 cm Left skin surface to fluid distance: 2.7 cm Left side marked for possible thoracentesis outside the dept. Pulmonologists are able to review the images in the patient?s EMR. IMPRESSIONS: Pleural effusions.
--- NOTE | 2019-01-10 10:25 | P.PN ---
Subjective Progress Note Date: 01/10/19 Principal diagnosis: Patient is a 53-year-old female past medical history of migraine headaches, nephrolithiasis, and postoperative nausea and vomiting who had a gastric sleeve on 12/24/18 complicated with postop edema for sleep and delayed gastric emptying. She was discharged from the hospital on TPN. She worsened at home and 3 presented on 12/31/18. She was found to have possible gastric leak. She returned to the OR on 01/03 for repair of the gastric leak, she was noted to have a splenic capsule Laceration and Ultimately Underwent Splenectomy at that time. She was started on diflucan and meropenem. The patient is postop day #5 sitting up resting comfortably in bed maintaining decent saturations on 3 L nasal cannula, patient has been afebrile now for almost 2 days Currently working with incentive spirometry @ 750 cc. reporting her breathing is comfortable but still short of breath, patient currently on clear liquid diet urine output is good, patient has had her second monitor bowel movement. She reports to recently having her chest ultrasound done. No acute events overnight Objective - Vital Signs Vital signs: Vital Signs Temp 98.8 F 01/10/19 04:00 Pulse 92 01/10/19 07:18 Resp 19 01/10/19 07:00 BP 123/80 01/10/19 07:00 Pulse Ox 92 L 01/10/19 07:00 Intake & Output 01/09/19 01/10/19 01/10/19 18:59 06:59 18:59 Intake Total 1020 1430 Output Total 1985 9828 Balance -965 -1335 Weight 110.3 kg Intake: IV 1020 1430 0.9 Normal saline carrier 120 130 Anidulafungin 200 mg In 200 Sodium Chloride 0.9% 200 ml @ 84 mls/hr IVPB ONCE ONE Rx#:[id number] Meropenem 1 gm In Sodium 200 100 Chloride 0.9% 100 ml @ 200 mls/hr IVPB Q8HR [facility] Rx#:[id number] Parenteral Electrolytes 700 20 ml In Amino Acid 5%- D15w 1,000 ml @ 100 mls/ hr IV .BY DURATION [facility] Rx #:[id number] Vancomycin 2,250 mg In 500 500 Sodium Chloride 0.9% 500 ml 500 ml @ 167 mls/hr IVPB Q12H [facility] Rx#: [id number] Output: Urine 1984 9925 Other: Voiding Method Indwelling Catheter Indwelling Catheter # Bowel Movements 1 - Exam General: No acute distress, no distress, appears at stated age Derm: warm, dry Head: atraumatic, normocephalic, symmetric Eyes: EOMI, no lid lag, anicteric sclera Mouth: no lip lesion, mucus membranes moist Cardiovascular: Tachycardic, no murmur, positive posterior tibial pulse bilateral, Lungs: rhonchi left base, no rhonchi, no rales , no accessory muscle use Abdominal: soft, tender to palpation diffusely, no guarding, no appreciable organomegaly, Prevena in place over midline incisions, hypoactive bowel sounds Ext: no gross muscle atrophy, no edema, no contractures Neuro: CN II-XI grossly intact, no focal neuro deficits Psych: Alert, oriented, appropriate affect - Labs CBC & Chem 7: 01/10/19 04:26 01/10/19 04:26 Labs: Abnormal Lab Results - Last 24 Hours (Table) 01/09/19 01/09/19 01/09/19 Range/Units 11:09 17:11 21:42 WBC (3.8-10.6) k/uL RBC (3.80-5.40) m/uL Hgb (11.4-16.0) gm/dL Hct (34.0-46.0) % Plt Count (150-450) k/uL Neutrophils # (1.3-7.7) k/uL Sodium (137-145) mmol/L Creatinine (0.52-1.04) mg/dL Glucose (74-99) mg/dL POC Glucose (mg/dL) 129 H 124 H 114 H (75-99) mg/dL Calcium (8.4-10.2) mg/dL AST (14-36) U/L ALT (9-52) U/L Alkaline Phosphatase (38-126) U/L Total Protein (6.3-8.2) g/dL Albumin (3.5-5.0) g/dL 01/10/19 01/10/19 01/10/19 Range/Units 04:26 04:26 07:15 WBC 19.7 H (3.8-10.6) k/uL RBC 2.32 L (3.80-5.40) m/uL Hgb 7.1 L (11.4-16.0) gm/dL Hct 22.6 L (34.0-46.0) % Plt Count 489 H (150-450) k/uL Neutrophils # 17.2 H (1.3-7.7) k/uL Sodium 133 L (137-145) mmol/L Creatinine 0.43 L (0.52-1.04) mg/dL Glucose 127 H (74-99) mg/dL POC Glucose (mg/dL) 131 H (75-99) mg/dL Calcium 7.2 L (8.4-10.2) mg/dL AST 123 H (14-36) U/L ALT 194 H (9-52) U/L Alkaline Phosphatase 166 H (38-126) U/L Total Protein 4.4 L (6.3-8.2) g/dL Albumin 1.9 L (3.5-5.0) g/dL Microbiology - Last 24 Hours (Table) 01/05/19 18:32 Blood Culture - Preliminary Blood No Growth after 96 hours 01/05/19 17:00 Blood Culture - Preliminary Blood No Growth after 96 hours 01/07/19 17:00 Gram Stain - Final Sputum Sputum Culture - Final Assessment and Plan Assessment: Gastric sleeve with anastomotic leak status post gastrorraphy - on TPN, check lipase in AM, CMP, MG, Phos, continue with ISS - management per primary team currently on CLD , on diflucan Sepsis * pancultures pending -Possibly infectious patient febrile overnight wbcs decreasing to 19 - continue with vancomycin merrem and diflucan - follow CXR indicating bilateral stable pleural effusions with atelectasis -Repeat CT chest and abdomen suggesting possible colitis, possible pneumonia, bilateral pleural effusions left greater than right * Chest ultrasound ordered evaluate need for possible thoracentesis Transaminitis and elevated lipase -likley due to TPN - repeat levels in AM if continue to raise may need to limit TPN Acute blood loss anemia, post op and anticipated * Hemoglobin at 7.1 today - no indication for transfusion at this time - follow CBC Thrombocytopenia -Resolved S/P Spleenectomy - out patient follow up for appropriate vaccines, Dr. Prince added to D/C instructions
[2019-01-10] MEDS: ENOXAPARIN 40 MG/0.4 ML SYRINGE SQ SCH (10:34)
[2019-01-10] MEDS: PANTOPRAZOLE 40 MG/10 ML VIAL IV SCH (10:34)
[2019-01-10] MEDS: MEROPENEM 1 GM in SODIUM CHLORIDE 0.9% 100 ML IVPB SCH ×2 (10:34→16:43)
[2019-01-10] MEDS: SIMETHICONE 40 MG/0.6 ML DROPS 2,000 MG/30 ML BOTTLE PO SCH ×4 (10:45→21:23)
--- NOTE | 2019-01-10 12:39 | P.PN ---
Subjective Progress Note Date: 01/10/19 Principal diagnosis: Status post exploratory laparotomy, gastrorrhphy' splenectomy, status post gastric sleeve staple line perforation, postoperative day #7. This is a 53-year-old female patient who underwent a laparoscopic sleeve gastrectomy on 12/24/2018. Following her surgery, the patient continued having difficulties with epigastric discomfort and some shortness of breath and there was a concern that the patient was having some leak near the proximal sleeve based on the esophagram. At that point the patient had an EGD and the leak was not visualized. Subsequently, the patient was taken to the operating room and the patient was found to have a staple line Perforation. The patient underwent extensive laparotomy, gastrorrhaphy and splenectomy. Note that the splenectomy was done as the patient developed a splenic Tear While Undergoing Abdominal and Peritoneal Cavity Irrigation. Note That the Omentum Was Lifted off the Spleen. There Was Evidence of bilious drainage behind the spleen. During the irrigation, a splenic tear was established and the patient underwent a complete splenectomy. Currently the patient in the recovery room. The patient is doing well. The patient is extubated. The patient is on 2 L of oxygen nasal cannula. She has a wound VAC over the anterior abdominal wall. She has a CODY drain in the left upper quadrant. Output is minimal and serosanguineous. She is having sinus tachycardia. Intraoperatively she received total of 3 L and there patient received an additional 2 L and the recovery in the form of lactated Ringer. Urine output is minimal and the patient has produced 35 mL total since arrival from the operating room. The preop creatinine was within normal limits. She is normotensive with a blood pressure 143/97. Pain is under good control. The patient has received a dose of Diflucan and Levaquin. White cell count from earlier this morning was at 8.2. On 01/10/2019, I evaluated the patient in the ICU, patient is now postoperative day #7, awake, doing well, in no distress, continues to have some vague chest discomfort on the left side. Chest x-ray showed a good sized left-sided pleural effusion, hence I ordered an ultrasound, and it showed a 7.0 cm pocket, and I would likely proceed with left sided thoracentesis today or tomorrow. Patient remains on TPN for nutritional support, remains on antibiotics for abdominal sepsis including Merrem and vancomycin and Diflucan. Continues to have some serosanguineous drainage from CODY drain. Overall the patient is doing relatively well. Improving but slowly. WBC count remains elevated at 19.7, hemoglobin is 7.1. Electrolytes were noted to be relatively normal. Liver enzymes were abnormal elevated. AST is 123 ALT 194 and alkaline phosphatase of 166. Normal bilirubin was noted Objective - Vital Signs Vital signs: Vital Signs Temp 98.3 F 01/10/19 10:00 Pulse 107 H 01/10/19 11:15 Resp 24 01/10/19 11:00 BP 127/80 01/10/19 11:00 Pulse Ox 97 01/10/19 11:00 Intake & Output 01/09/19 01/10/19 01/10/19 18:59 06:59 18:59 Intake Total 1020 1430 640 Output Total 1984 2765 1050 Balance -915 -4312 -197 Weight 110.3 kg 110.3 kg Intake: IV 1020 1430 640 0.9 Normal saline carrier 120 130 40 Anidulafungin 200 mg In 200 Sodium Chloride 0.9% 200 ml @ 84 mls/hr IVPB ONCE ONE Rx#:[id number] Meropenem 1 gm In Sodium 200 100 100 Chloride 0.9% 100 ml @ 200 mls/hr IVPB Q8HR [facility] Rx#:[id number] Parenteral Electrolytes 700 400 20 ml In Amino Acid 5%- D15w 1,000 ml @ 100 mls/ hr IV .BY DURATION [facility] Rx #:[id number] Potassium Chloride 10 meq 100 In Water For Injection 1 100ml.bag @ 100 mls/hr IVPB Q1H [facility] Rx#: [id number] Vancomycin 2,250 mg In 500 500 Sodium Chloride 0.9% 500 ml 500 ml @ 167 mls/hr IVPB Q12H [facility] Rx#: [id number] Output: Urine 1984 2765 1050 Other: Voiding Method Indwelling Catheter Indwelling Catheter Indwelling Catheter # Bowel Movements 1 - Exam Physical Exam: Revealed a 53-year-old female on 3 L nasal cannula. In no distress. Head: Atraumatic normocephalic. HEENT:[Neck is supple.] [No neck masses.] [No thyromegaly.] [No JVD.] PERRLA, EOMI, no icterus. Chest: [Diminished breath sounds and dullness at the left base, right side is relatively clear..] Cardiac Exam: [Normal S1 and S2, no S3 gallop, no murmur.] Abdomen: [ soft. Provena device over the mid line incision. There is also CODY drains left upper quadrant. Bowel sounds are hypoactive. There is slight tenderness and guarding. No organomegaly. Extremities: [No clubbing, no edema, no cyanosis.] Neurological Exam: [No focal neurologic deficit. Psychiatric: Normal mood affect and mental status examination. Skin: No rashes - Labs CBC & Chem 7: 01/10/19 04:26 01/10/19 04:26 Labs: Abnormal Lab Results - Last 24 Hours (Table) 01/09/19 01/09/19 01/10/19 Range/Units 17:11 21:42 04:26 WBC (3.8-10.6) k/uL RBC (3.80-5.40) m/uL Hgb (11.4-16.0) gm/dL Hct (34.0-46.0) % Plt Count (150-450) k/uL Neutrophils # (1.3-7.7) k/uL Sodium 133 L (137-145) mmol/L Creatinine 0.43 L (0.52-1.04) mg/dL Glucose 127 H (74-99) mg/dL POC Glucose (mg/dL) 124 H 114 H (75-99) mg/dL Calcium 7.2 L (8.4-10.2) mg/dL AST 123 H (14-36) U/L ALT 194 H (9-52) U/L Alkaline Phosphatase 166 H (38-126) U/L Total Protein 4.4 L (6.3-8.2) g/dL Albumin 1.9 L (3.5-5.0) g/dL 01/10/19 01/10/19 Range/Units 04:26 07:15 WBC 19.7 H (3.8-10.6) k/uL RBC 2.32 L (3.80-5.40) m/uL Hgb 7.1 L (11.4-16.0) gm/dL Hct 22.6 L (34.0-46.0) % Plt Count 489 H (150-450) k/uL Neutrophils # 17.2 H (1.3-7.7) k/uL Sodium (137-145) mmol/L Creatinine (0.52-1.04) mg/dL Glucose (74-99) mg/dL POC Glucose (mg/dL) 131 H (75-99) mg/dL Calcium (8.4-10.2) mg/dL AST (14-36) U/L ALT (9-52) U/L Alkaline Phosphatase (38-126) U/L Total Protein (6.3-8.2) g/dL Albumin (3.5-5.0) g/dL Microbiology - Last 24 Hours (Table) 01/05/19 18:32 Blood Culture - Preliminary Blood No Growth after 96 hours 01/05/19 17:00 Blood Culture - Preliminary Blood No Growth after 96 hours 01/07/19 17:00 Gram Stain - Final Sputum Sputum Culture - Final Assessment and Plan Assessment: Impression: 1 gastric sleeve staple line perforation related to sleeve gastrectomy done on . 2 status post exploratory laparotomy gastrorrhaphy and splenectomy postoperative day #7. 3 left pleural effusion, will require diagnostic and therapeutic thoracentesis. 4 multiple comorbidities including migraine cephalgia, varicose veins, history of nephrolithiasis, Recommendation: Discussed with the patient her medical issues, explained to her the possible need for left-sided thoracentesis, and depending on the ultrasound , we will likely proceed with a left-sided thoracentesis. In the meantime continue TPN, continue incentive spirometry, antibiotics including Merrem and vancomycin and Diflucan. Advance her diet as recommended to surgery on the case. Continue to ablate the patient in the hallway, and we'll likely proceed with thoracentesis either today or tomorrow. We'll continue to follow. May or may not consider transfer out of the ICU in the next 24-48 hours. Prognosis remains guarded and the patient remains relatively ill. Time with Patient: Less than 30
[2019-01-10 13:39] LABS: Glucose,Whole Blood 134 mg/dL (75-99)
[2019-01-10] MEDS: ANIDULAFUNGIN 100 MG in SODIUM CHLORIDE 0.9% 100 ML IVPB SCH (15:21)
[2019-01-10 16:42] LABS: Glucose,Whole Blood 87 mg/dL (75-99)
[2019-01-10] MEDS: FAT EMULSION 20% 250 ML IV SCH (16:42)
--- NOTE | 2019-01-10 17:56 | XR ---
EXAMINATION: XR chest 1V portable DATE AND TIME: 01/10/2019 5:28 PM CLINICAL INDICATION: PHH; post thoracentesis TECHNIQUE: Departmental protocol COMPARISON: 01/10/2019 at 5:43 AM FINDINGS: The patient is status post left thoracentesis. There is moderate interval improvement in the pulmonar y inflation since the prior study. There is no left pneumothorax. Left upper extremity PICC line tip superimposes the mid SVC. EKG leads. Moderately enlarged cardiac silhouette redemonstrated. Elevated right hemidiaphragm with partial airlessness within the right lung base redemonstrated. No r ight pneumothorax. IMPRESSION: INTERVAL IMPROVEMENT POST LEFT THORACENTESIS.
--- NOTE | 2019-01-10 17:58 | P.PN ---
Subjective Progress Note Date: 01/10/19 Principal diagnosis: Gastric sleeve leak The patient feels slightly better today. She's had multiple bowel movements. She's had flatus. She states her pain is a 3 out of 10. Objective - Vital Signs Vital signs: Vital Signs Temp 98.4 F 01/10/19 12:00 Pulse 100 01/10/19 16:00 Resp 23 01/10/19 16:00 BP 138/82 01/10/19 16:00 Pulse Ox 94 L 01/10/19 16:00 Intake & Output 01/09/19 01/10/19 01/10/19 18:59 06:59 18:59 Intake Total 1020 1430 860 Output Total 1984 2765 1400 Balance -335 -5695 -540 Weight 110.3 kg 110.3 kg Intake: IV 1020 1430 860 0.9 Normal saline carrier 120 130 60 Anidulafungin 200 mg In 200 Sodium Chloride 0.9% 200 ml @ 84 mls/hr IVPB ONCE ONE Rx#:[id number] Meropenem 1 gm In Sodium 200 100 100 Chloride 0.9% 100 ml @ 200 mls/hr IVPB Q8HR [facility] Rx#:[id number] Parenteral Electrolytes 700 600 20 ml In Amino Acid 5%- D15w 1,000 ml @ 100 mls/ hr IV .BY DURATION [facility] Rx #:[id number] Potassium Chloride 10 meq 100 In Water For Injection 1 100ml.bag @ 100 mls/hr IVPB Q1H [facility] Rx#: [id number] Vancomycin 2,250 mg In 500 500 Sodium Chloride 0.9% 500 ml 500 ml @ 167 mls/hr IVPB Q12H [facility] Rx#: [id number] Output: Urine 1984 2765 1400 Other: Voiding Method Indwelling Catheter Indwelling Catheter Indwelling Catheter # Bowel Movements 1 - Gastrointestinal Gastrointestinal Comment(s): Abdomen is soft. Incision site is clean dry intact. CODY drain has 5 mL of mainly serous fluid. There is no evidence of bile in the CODY drain. - Labs CBC & Chem 7: 01/10/19 04:26 01/10/19 04:26 Labs: Abnormal Lab Results - Last 24 Hours (Table) 01/09/19 01/10/19 01/10/19 Range/Units 21:42 04:26 04:26 WBC 19.7 H (3.8-10.6) k/uL RBC 2.32 L (3.80-5.40) m/uL Hgb 7.1 L (11.4-16.0) gm/dL Hct 22.6 L (34.0-46.0) % Plt Count 489 H (150-450) k/uL Neutrophils # 17.2 H (1.3-7.7) k/uL Sodium 133 L (137-145) mmol/L Creatinine 0.43 L (0.52-1.04) mg/dL Glucose 127 H (74-99) mg/dL POC Glucose (mg/dL) 114 H (75-99) mg/dL Calcium 7.2 L (8.4-10.2) mg/dL AST 123 H (14-36) U/L ALT 194 H (9-52) U/L Alkaline Phosphatase 166 H (38-126) U/L Total Protein 4.4 L (6.3-8.2) g/dL Albumin 1.9 L (3.5-5.0) g/dL 01/10/19 01/10/19 Range/Units 07:15 13:36 WBC (3.8-10.6) k/uL RBC (3.80-5.40) m/uL Hgb (11.4-16.0) gm/dL Hct (34.0-46.0) % Plt Count (150-450) k/uL Neutrophils # (1.3-7.7) k/uL Sodium (137-145) mmol/L Creatinine (0.52-1.04) mg/dL Glucose (74-99) mg/dL POC Glucose (mg/dL) 131 H 134 H (75-99) mg/dL Calcium (8.4-10.2) mg/dL AST (14-36) U/L ALT (9-52) U/L Alkaline Phosphatase (38-126) U/L Total Protein (6.3-8.2) g/dL Albumin (3.5-5.0) g/dL Microbiology - Last 24 Hours (Table) 01/05/19 18:32 Blood Culture - Preliminary Blood No Growth after 96 hours 01/05/19 17:00 Blood Culture - Preliminary Blood No Growth after 96 hours Assessment and Plan Assessment: Status post exploratory laparotomy with repair of gastric sleeve staple line leak. Patient's leukocytosis is improving. She'll continue clear liquid diet. Dr. tsai will address her pleural effusion. She'll continue receive TPN and IV antibiotics.
--- NOTE | 2019-01-10 18:31 | OP ---
OPERATIVE REPORT PROCEDURE: Left-sided thoracentesis. PREOPERATIVE DIAGNOSIS: Left pleural effusion. POSTOPERATIVE DIAGNOSIS: Left pleural effusion. ANESTHESIA USED: 2 mL of 1% lidocaine. PROCEDURE DESCRIPTION: Patient was placed in a sitting upright position. The area below the left scapula was prepared in a sterile fashion and drapes were applied. The pocket of the fluid was earlier localized by ultrasound. At the level where it was marked, it correlated to the eighth intercostal space and tip of the scapula. The area was locally anesthetized, and a 26-gauge needle was inserted all the way into the pleural space until the fluid was localized. Fluid was noted to be serosanguineous. Then a small tiny skin incision was made, and a standard thoracentesis catheter and needle were inserted at the same site, advanced into the pleural space until fluid was obtained. Then the catheter was advanced out of the needle and the needle was pulled out of the pleural space. Freely flowing fluid was drained; roughly 850 mL of serosanguineous fluid was drained from the left pleural space. The fluid was sent for cultures only. Chest x-ray postoperatively showed no evidence of any immediate complications. Procedure was well tolerated and no complications. MMODL / IJN: [id number] /
[2019-01-10 21:20] LABS: Glucose,Whole Blood 131 mg/dL (75-99)
--- NOTE | 2019-01-11 00:02 | PN ---
PROGRESS NOTE DATE OF SERVICE: 01/10/2019 REASON FOR FOLLOWUP: Pneumonia and postoperative fever. INTERVAL HISTORY: The patient is currently afebrile. No fever has been recorded in the last more than 48 hours. The patient seems to be breathing comfortably. He did have some cough, mostly dry in nature. No nausea. No vomiting. Abdominal discomfort has decreased since she had bowel movement. PHYSICAL EXAMINATION: Blood pressure 138/82 with a pulse of 100, temperature 98. She is 94% on 3 L nasal cannula. General description is a middle-aged female lying in bed in no distress. RESPIRATORY SYSTEM: Unlabored breathing with decreased breath sounds at the base. No wheeze. HEART: S1, S2. Regular rate and rhythm. ABDOMEN: Soft. No tenderness. LABS: Hemoglobin 7.1, white count 19.7, BUN of 13, creatinine 0.43. DIAGNOSTIC IMPRESSION AND PLAN: Patient with a postoperative fever in this patient who did have a gastric sleeve leak, status post open repair of the same and possible component of pneumonia. The patient's fever has resolved. Cultures have been negative so far. Patient now seems to have shown worsening of her liver enzymes, more likely related to meropenem or secondary to the TPN. We will switch over the meropenem to cefepime. Continue the vancomycin and micafungin while watching her clinical course closely. Continue with supportive care. MMODL / IJN: [id number] /
[2019-01-11 00:29] LABS: Glucose,Whole Blood 160 mg/dL (75-99)
[2019-01-11] MEDS ORDERED: VANCOMYCIN 1,750 MG in SODIUM CHLORIDE 0.9% 500 ML 500 ML IVPB SCH ×2 (02:00→16:00)
[2019-01-11] MEDS: HYDROmorphone 1 MG/ML 1 ML SYRINGE IVP PRN ×6 (02:02→19:31)
[2019-01-11] MEDS ORDERED: VANCOMYCIN TROUGH DUE 1 EACH MISC MISCELLANE ONE (05:00)
[2019-01-11 05:35] LABS: Basophils # (A) 0.1 k/uL (0-0.2); Basophils % (A) 1 %; Eosinophils # (A) 0.4 k/uL (0-0.7); Eosinophils % (A) 2 %; HCT 24.9 % (34.0-46.0); Ionized Calcium 4.6 mg/dL (4.5-5.3); Lymphocytes # (A) 1.7 k/uL (1.0-4.8); Lymphocytes % (A) 9 %; MCH 30.7 pg (25.0-35.0); MCHC 32.2 g/dL (31.0-37.0); MCV 95.5 fL (80.0-100.0); Monocytes # (A) 0.5 k/uL (0-1.0); Monocytes % (A) 3 %; Neutrophils # (A) 14.7 k/uL (1.3-7.7); Neutrophils % (A) 84 %; Platelet Count 585 k/uL (150-450); RBC 2.61 m/uL (3.80-5.40); RDW 12.8 % (11.5-15.5); WBC 17.6 k/uL (3.8-10.6)
[2019-01-11 05:47] LABS: Anion Gap 8 mmol/L; Blood Urea Nitrogen 13 mg/dL (7-17); Calcium 7.7 mg/dL (8.4-10.2); Carbon Dioxide 21 mmol/L (22-30); Chloride 105 mmol/L (98-107); Glucose 108 mg/dL (74-99); Magnesium 2.3 mg/dL (1.6-2.3); Phosphorus 4.1 mg/dL (2.5-4.5); Sodium 134 mmol/L (137-145)
[2019-01-11 06:06] LABS: Potassium 4.8 mmol/L (3.5-5.1)
[2019-01-11] MEDS: VANCOMYCIN 2,250 MG in SODIUM CHLORIDE 0.9% 500 ML 500 ML IVPB SCH (06:39)
[2019-01-11] MEDS: INSULIN ASPART (NovoLOG) 100 UNIT/ML VIAL SQ SCH ×4 (07:07→21:22)
[2019-01-11 07:14] LABS: Glucose,Whole Blood 153 mg/dL (75-99)
[2019-01-11] MEDS: IPRATROPIUM-ALBUTEROL 3 ML NEB INHALATION PRN ×3 (07:17→16:01)
[2019-01-11] MEDS: ANIDULAFUNGIN 100 MG in SODIUM CHLORIDE 0.9% 100 ML IVPB SCH (08:51)
[2019-01-11] MEDS: ENOXAPARIN 40 MG/0.4 ML SYRINGE SQ SCH (08:53)
[2019-01-11] MEDS: PANTOPRAZOLE 40 MG/10 ML VIAL IV SCH (09:17)
[2019-01-11] MEDS: SIMETHICONE 40 MG/0.6 ML DROPS 2,000 MG/30 ML BOTTLE PO SCH ×4 (09:18→22:09)
[2019-01-11] MEDS: CEFEPIME 2 GM in SODIUM CHLORIDE 0.9% 100 ML IVPB SCH ×2 (10:02→22:09)
--- NOTE | 2019-01-11 10:52 | P.PN ---
Subjective Progress Note Date: 01/11/19 CHIEF COMPLAINT: Dysphasia HISTORY OF PRESENT ILLNESS: 53-year-old female who originally underwent laparoscopic sleeve gastrectomy on 12/24/2018. Patient was readmitted to the hospital secondary to dysphagia. 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 Patient examined at the bedside. She states her pain is tolerable. Tolerating clear liquids. Passing flatus and having BMs. PHYSICAL EXAM: VITAL SIGNS: Currently stable. GENERAL: Well-developed in no acute distress. HEENT: No sclera icterus. Extraocular movements grossly intact. Moist buccal mucosa. Head is atraumatic, normocephalic. Hears conversational speech. No nasal drainage. NECK: Supple without lymphadenopathy. CHEST: Non-labored respirations and equal bilateral excursions. CARDIOVASCULAR: Regular rate with regular rhythm. Palpable 2+ radial pulses. ABDOMEN: Soft. Nondistended. CODY drain intact. MUSCULOSKELETAL: No clubbing, cyanosis or edema. NEUROLOGIC: No focal or lateralizing signs. Cranial nerves II through XII grossly intact. PSYCH: Appropriate affect. Alert and oriented to person, place and time. SKIN: Well perfused. Good skin turgor. ASSESSMENT: 1. Dysphagia 2. 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 Status post esophagram revealing leak near proximal sleeve 4. 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 Continue clear liquid diet 2. Continue TPN 3. Activity as tolerated 4. Discontinue [place] tomorrow morning 5. Patient may shower Nurse practitioner note has been reviewed by physician. Signing provider agrees with the documented findings, assessment, and plan of care. Objective - Vital Signs Vital signs: Vital Signs Temp 98.7 F 01/11/19 08:00 Pulse 105 H 01/11/19 08:00 Resp 27 H 01/11/19 08:00 BP 135/76 01/11/19 08:00 Pulse Ox 93 L 01/11/19 08:00 Intake & Output 01/10/19 01/11/19 01/11/19 18:59 06:59 18:59 Intake Total 2260 1330 859.76 Output Total 3125 1050 645 Balance -865 280 214.76 Weight 110.3 kg 112.6 kg Intake: IV 2260 1330 560 0.9 Normal saline carrier 110 130 60 Fat Emulsion 20% 250 ml @ 250 20.833 mls/hr IV MoWeFr@ 1600 [facility] Rx#:[id number] Meropenem 1 gm In Sodium 200 Chloride 0.9% 100 ml @ 200 mls/hr IVPB Q8HR [facility] Rx#:[id number] Parenteral Electrolytes 1100 1200 20 ml In Amino Acid 5%- D15w 1,000 ml @ 100 mls/ hr IV .BY DURATION [facility] Rx #:[id number] Potassium Chloride 10 meq 100 In Water For Injection 1 100ml.bag @ 100 mls/hr IVPB Q1H [facility] Rx#: [id number] Vancomycin 2,250 mg In 500 500 Sodium Chloride 0.9% 500 ml 500 ml @ 167 mls/hr IVPB Q12H [facility] Rx#: [id number] Intake, IV Titration 299.76 Amount Anidulafungin 100 mg In 100 Sodium Chloride 0.9% 100 ml @ 84 mls/hr IVPB DAILY [facility] Rx#:[id number] Parenteral Electrolytes 199.76 20 ml In Amino Acid 5%- D15w 1,000 ml @ 100 mls/ hr IV .BY DURATION [facility] Rx #:[id number] Output: Drainage 0 Left Abdomen 0 Urine 2275 1050 645 Other 850 Other: Voiding Method Indwelling Catheter Indwelling Catheter - Labs CBC & Chem 7: 01/11/19 04:21 01/11/19 04:21 Labs: Abnormal Lab Results - Last 24 Hours (Table) 01/10/19 01/10/19 01/11/19 Range/Units 13:36 21:17 00:26 WBC (3.8-10.6) k/uL RBC (3.80-5.40) m/uL Hgb (11.4-16.0) gm/dL Hct (34.0-46.0) % Plt Count (150-450) k/uL Neutrophils # (1.3-7.7) k/uL Sodium (137-145) mmol/L Carbon Dioxide (22-30) mmol/L Creatinine (0.52-1.04) mg/dL Glucose (74-99) mg/dL POC Glucose (mg/dL) 134 H 131 H 160 H (75-99) mg/dL Calcium (8.4-10.2) mg/dL 02/12/19 02/12/19 02/12/19 Range/Units 04:21 04:21 06:59 WBC 17.6 H (3.8-10.6) k/uL RBC 2.61 L (3.80-5.40) m/uL Hgb 8.0 L (11.4-16.0) gm/dL Hct 24.9 L (34.0-46.0) % Plt Count 585 H (150-450) k/uL Neutrophils # 14.7 H (1.3-7.7) k/uL Sodium 134 L (137-145) mmol/L Carbon Dioxide 21 L (22-30) mmol/L Creatinine 0.41 L (0.52-1.04) mg/dL Glucose 108 H (74-99) mg/dL POC Glucose (mg/dL) 153 H (75-99) mg/dL Calcium 7.7 L (8.4-10.2) mg/dL Microbiology - Last 24 Hours (Table) 01/10/19 17:20 Gram Stain - Preliminary Thoracic Fluid Body Fluid Culture - Preliminary 01/05/19 18:32 Blood Culture - Preliminary Blood No Growth after 120 hours 01/05/19 17:00 Blood Culture - Preliminary Blood No Growth after 120 hours
--- NOTE | 2019-01-11 11:41 | P.PN ---
Subjective Progress Note Date: 01/11/19 Principal diagnosis: follow up of anemia and postoperative medical management The patient is postop day #8 sitting up resting comfortably in her chair, afebrile , denies any nausea or vomiting, passing loose BM, continues on CLD and TPN no events overnight. patient had right pleural effusion drained yesterday, tolerated procedure well. Objective - Vital Signs Vital signs: Vital Signs Temp 98.7 F 01/11/19 08:00 Pulse 105 H 01/11/19 08:00 Resp 27 H 01/11/19 08:00 BP 135/76 01/11/19 08:00 Pulse Ox 93 L 01/11/19 08:00 Intake & Output 01/10/19 01/11/19 01/11/19 18:59 06:59 18:59 Intake Total 2260 1330 520 Output Total 3125 1050 120 Balance -865 280 400 Weight 110.3 kg 112.6 kg Intake: IV 2260 1330 520 0.9 Normal saline carrier 110 130 20 Fat Emulsion 20% 250 ml @ 250 20.833 mls/hr IV MoWeFr@ 1600 [facility] Rx#:[id number] Meropenem 1 gm In Sodium 200 Chloride 0.9% 100 ml @ 200 mls/hr IVPB Q8HR [facility] Rx#:[id number] Parenteral Electrolytes 1100 1200 20 ml In Amino Acid 5%- D15w 1,000 ml @ 100 mls/ hr IV .BY DURATION [facility] Rx #:[id number] Potassium Chloride 10 meq 100 In Water For Injection 1 100ml.bag @ 100 mls/hr IVPB Q1H [facility] Rx#: [id number] Vancomycin 2,250 mg In 500 500 Sodium Chloride 0.9% 500 ml 500 ml @ 167 mls/hr IVPB Q12H [facility] Rx#: [id number] Output: Drainage 0 Left Abdomen 0 Urine 2275 1050 120 Other 850 Other: Voiding Method Indwelling Catheter Indwelling Catheter - Exam Constitutional: vital signs stable, Not in acute distress, pleasant, conversant Lungs: Good breath sounds bilaterally, slightly decreased breath sounds over right lung base , normal respiratory effort no use of accessory muscles Cardiovascular: Regular rate and rhythm, no murmurs, no gallops, no rubs, no peripheral edema Gastrointestinal: Soft, discomfort to deep palpation of the abdomen diffusely, improving per the patient compared to before, surgical dressing in place dry and intact and clean, CODY drain in place with minimal brownish drainage, abdominal binder in place. bowel sounds sluggish Extremities: No digital cyanosis or clubbing, peripheral pulses palpable and equal over bilateral radial arteries and dorsalis pedis artery, no calf muscle tenderness Psych: Alert, oriented to place, person and time, appropriate affect, intact judgment - Labs CBC & Chem 7: 01/11/19 04:21 01/11/19 04:21 Labs: Abnormal Lab Results - Last 24 Hours (Table) 01/10/19 01/10/19 01/11/19 Range/Units 13:36 21:17 00:26 WBC (3.8-10.6) k/uL RBC (3.80-5.40) m/uL Hgb (11.4-16.0) gm/dL Hct (34.0-46.0) % Plt Count (150-450) k/uL Neutrophils # (1.3-7.7) k/uL Sodium (137-145) mmol/L Carbon Dioxide (22-30) mmol/L Creatinine (0.52-1.04) mg/dL Glucose (74-99) mg/dL POC Glucose (mg/dL) 134 H 131 H 160 H (75-99) mg/dL Calcium (8.4-10.2) mg/dL 01/11/19 01/11/19 01/11/19 Range/Units 04:21 04:21 06:59 WBC 17.6 H (3.8-10.6) k/uL RBC 2.61 L (3.80-5.40) m/uL Hgb 8.0 L (11.4-16.0) gm/dL Hct 24.9 L (34.0-46.0) % Plt Count 585 H (150-450) k/uL Neutrophils # 14.7 H (1.3-7.7) k/uL Sodium 134 L (137-145) mmol/L Carbon Dioxide 21 L (22-30) mmol/L Creatinine 0.41 L (0.52-1.04) mg/dL Glucose 108 H (74-99) mg/dL POC Glucose (mg/dL) 153 H (75-99) mg/dL Calcium 7.7 L (8.4-10.2) mg/dL Microbiology - Last 24 Hours (Table) 01/10/19 17:20 Gram Stain - Preliminary Thoracic Fluid Body Fluid Culture - Preliminary 01/05/19 18:32 Blood Culture - Preliminary Blood No Growth after 120 hours 01/05/19 17:00 Blood Culture - Preliminary Blood No Growth after 120 hours Assessment and Plan Assessment: Patient is a 53-year-old female past medical history of migraine headaches, nephrolithiasis, and postoperative nausea and vomiting who had a gastric sleeve on 12/24/18 complicated with postop edema of sleeve and delayed gastric emptying. She was discharged from the hospital on TPN. She worsened at home presented on 12/31/18. She was found to have possible gastric leak. She returned to the OR on 01/03 for repair of the gastric leak, she was noted to have a splenic capsule Laceration and Ultimately Underwent Splenectomy at that time. she continues to be on broad antimicrobial coverage Plan: Gastric sleeve with anastomotic leak status post gastrorraphy 01/03/2019 Sepsis - on TPN, and CLD trial - management per surgical team - continues on broad spectrum coverage per ID recs. on vanc, cefipime, and antifungal for possible pneumonia and colitis, now stable - Cultures negative to date , afebrile >48 hours, WBC improving - consider to DC vancomycin Transaminitis , slowly trending up -likely due to TPN continue to monitor closely Acute blood loss anemia, post op as anticipated, now stable * Hemoglobin at 8 today - no indication for transfusion at this time - follow CBC Thrombocythemia S/P Spleenectomy -Reative to above - out patient follow up for appropriate vaccines, Dr. Prince added to D/C instructions continue with supportive care, electrolyte replacement , Lovenox for DVT PPX, PPI for GI PPx, insulin sliding scale
[2019-01-11 12:05] LABS: Glucose,Whole Blood 133 mg/dL (75-99)
--- NOTE | 2019-01-11 12:10 | P.PN ---
Subjective Progress Note Date: 01/11/19 Principal diagnosis: Status post exploratory laparotomy, gastrorrhphy' splenectomy, status post gastric sleeve staple line perforation, postoperative day # 8 This is a 53-year-old female patient who underwent a laparoscopic sleeve gastrectomy on 12/24/2018. Following her surgery, the patient continued having difficulties with epigastric discomfort and some shortness of breath and there was a concern that the patient was having some leak near the proximal sleeve based on the esophagram. At that point the patient had an EGD and the leak was not visualized. Subsequently, the patient was taken to the operating room and the patient was found to have a staple line Perforation. The patient underwent extensive laparotomy, gastrorrhaphy and splenectomy. Note that the splenectomy was done as the patient developed a splenic Tear While Undergoing Abdominal and Peritoneal Cavity Irrigation. Note That the Omentum Was Lifted off the Spleen. There Was Evidence of bilious drainage behind the spleen. During the irrigation, a splenic tear was established and the patient underwent a complete splenectomy. Currently the patient in the recovery room. The patient is doing well. The patient is extubated. The patient is on 2 L of oxygen nasal cannula. She has a wound VAC over the anterior abdominal wall. She has a CODY drain in the left upper quadrant. Output is minimal and serosanguineous. She is having sinus tachycardia. Intraoperatively she received total of 3 L and there patient received an additional 2 L and the recovery in the form of lactated Ringer. Urine output is minimal and the patient has produced 35 mL total since arrival from the operating room. The preop creatinine was within normal limits. She is normotensive with a blood pressure 143/97. Pain is under good control. The patient has received a dose of Diflucan and Levaquin. White cell count from earlier this morning was at 8.2. On 01/10/2019, I evaluated the patient in the ICU, patient is now postoperative day #7, awake, doing well, in no distress, continues to have some vague chest discomfort on the left side. Chest x-ray showed a good sized left-sided pleural effusion, hence I ordered an ultrasound, and it showed a 7.0 cm pocket, and I would likely proceed with left sided thoracentesis today or tomorrow. Patient remains on TPN for nutritional support, remains on antibiotics for abdominal sepsis including Merrem and vancomycin and Diflucan. Continues to have some serosanguineous drainage from CODY drain. Overall the patient is doing relatively well. Improving but slowly. WBC count remains elevated at 19.7, hemoglobin is 7.1. Electrolytes were noted to be relatively normal. Liver enzymes were abnormal elevated. AST is 123 ALT 194 and alkaline phosphatase of 166. Normal bilirubin was noted Reevaluated today on 01/11/2019, patient is post operative day #8, remains in the ICU, she underwent left sided thoracentesis yesterday, and it was uneventful. Patient is feeling better, saturating better since her left sided thoracentesis. Remains on TPN, remains on antibiotics for her abdominal sepsis , she is on Merrem and vancomycin she is also on Diflucan. WBC count today is 17.6/elevated, hemoglobin is 8.0 to let lites are normal renal profile is normal. Overall the patient is improving but slowly. Pleural effusion cultures remain negative so far Gram stain is negative. Objective - Vital Signs Vital signs: Vital Signs Temp 98.7 F 01/11/19 08:00 Pulse 106 H 01/11/19 11:44 Resp 18 01/11/19 11:44 BP 139/77 01/11/19 11:00 Pulse Ox 95 01/11/19 10:00 Intake & Output 01/10/19 01/11/19 01/11/19 18:59 06:59 18:59 Intake Total 2260 1330 1199.52 Output Total 3125 1050 1165 Balance -865 280 34.52 Weight 110.3 kg 112.6 kg Intake: IV 2260 1330 600 0.9 Normal saline carrier 110 130 100 Fat Emulsion 20% 250 ml @ 250 20.833 mls/hr IV MoWeFr@ 1600 [facility] Rx#:[id number] Meropenem 1 gm In Sodium 200 Chloride 0.9% 100 ml @ 200 mls/hr IVPB Q8HR [facility] Rx#:[id number] Parenteral Electrolytes 1100 1200 20 ml In Amino Acid 5%- D15w 1,000 ml @ 100 mls/ hr IV .BY DURATION [facility] Rx #:[id number] Potassium Chloride 10 meq 100 In Water For Injection 1 100ml.bag @ 100 mls/hr IVPB Q1H [facility] Rx#: [id number] Vancomycin 2,250 mg In 500 500 Sodium Chloride 0.9% 500 ml 500 ml @ 167 mls/hr IVPB Q12H [facility] Rx#: [id number] Intake, IV Titration 599.52 Amount Anidulafungin 100 mg In 100 Sodium Chloride 0.9% 100 ml @ 84 mls/hr IVPB DAILY [facility] Rx#:[id number] Cefepime 2 gm In Sodium 100 Chloride 0.9% 100 ml @ 200 mls/hr IVPB Q12HR [facility] Rx#:[id number] Mvi, Adult No.4 with Vit 199.76 K 10 ml Trace (Conc-1Ml/ Dose) 1 ml Parenteral Electrolytes 20 ml Potassium Chloride 20 meq Magnesium Sulfate gm 2 gm In Amino Acid 5%-D15w 1,000 ml @ 100 mls/hr IV .BY DURATION [facility] Rx#: [id number] Parenteral Electrolytes 199.76 20 ml In Amino Acid 5%- D15w 1,000 ml @ 100 mls/ hr IV .BY DURATION [facility] Rx #:[id number] Output: Drainage 0 0 Left Abdomen 0 0 Urine 2275 1050 1165 Other 850 Other: Voiding Method Indwelling Catheter Indwelling Catheter Indwelling Catheter - Exam Physical Exam: Revealed a 53-year-old female on 3 L nasal cannula. In no distress. Head: Atraumatic normocephalic. HEENT:[Neck is supple.] [No neck masses.] [No thyromegaly.] [No JVD.] PERRLA, EOMI, no icterus. Chest: [Clear breath sound bilaterally no crackles or rhonchi or wheezes. Cardiac Exam: [Normal S1 and S2, no S3 gallop, no murmur.] Abdomen: [ soft. Provena device over the mid line incision. There is also CODY drains left upper quadrant. Bowel sounds are hypoactive. There is slight tenderness and guarding. No organomegaly. Extremities: [No clubbing, no edema, no cyanosis.] Neurological Exam: [No focal neurologic deficit. Psychiatric: Normal mood affect and mental status examination. Skin: No rashes - Labs CBC & Chem 7: 01/11/19 04:21 01/11/19 04:21 Labs: Abnormal Lab Results - Last 24 Hours (Table) 01/10/19 01/10/19 01/11/19 Range/Units 13:36 21:17 00:26 WBC (3.8-10.6) k/uL RBC (3.80-5.40) m/uL Hgb (11.4-16.0) gm/dL Hct (34.0-46.0) % Plt Count (150-450) k/uL Neutrophils # (1.3-7.7) k/uL Sodium (137-145) mmol/L Carbon Dioxide (22-30) mmol/L Creatinine (0.52-1.04) mg/dL Glucose (74-99) mg/dL POC Glucose (mg/dL) 134 H 131 H 160 H (75-99) mg/dL Calcium (8.4-10.2) mg/dL 01/11/19 01/11/19 01/11/19 Range/Units 04:21 04:21 06:59 WBC 17.6 H (3.8-10.6) k/uL RBC 2.61 L (3.80-5.40) m/uL Hgb 8.0 L (11.4-16.0) gm/dL Hct 24.9 L (34.0-46.0) % Plt Count 585 H (150-450) k/uL Neutrophils # 14.7 H (1.3-7.7) k/uL Sodium 134 L (137-145) mmol/L Carbon Dioxide 21 L (22-30) mmol/L Creatinine 0.41 L (0.52-1.04) mg/dL Glucose 108 H (74-99) mg/dL POC Glucose (mg/dL) 153 H (75-99) mg/dL Calcium 7.7 L (8.4-10.2) mg/dL Microbiology - Last 24 Hours (Table) 01/10/19 17:20 Gram Stain - Preliminary Thoracic Fluid Body Fluid Culture - Preliminary 01/05/19 18:32 Blood Culture - Preliminary Blood No Growth after 120 hours 01/05/19 17:00 Blood Culture - Preliminary Blood No Growth after 120 hours Assessment and Plan Assessment: Impression: 1 gastric sleeve staple line perforation related to sleeve gastrectomy done on . 2 status post exploratory laparotomy gastrorrhaphy and splenectomy postoperative day #8 3 left pleural effusion, status post thoracentesis on 01/10/2019. 850 mL of serosanguineous fluid removed from the left pleural space. 4 multiple comorbidities including migraine cephalgia, varicose veins, history of nephrolithiasis, Recommendation: Continue antibiotics, continue GI and DVT prophylaxis, updrafts , TPN/nutritional support, pain control, incentive spirometry, early ambulation , reviewed the initial Gram stain on the pleural effusion, patient could be transferred today out of the ICU to a medical/surgical bed, and we'll continue to follow. Time with Patient: Less than 30
[2019-01-11] MEDS: 1: MVI, ADULT NO.4 WITH VIT K 10 ML, TRACE (CONC-1ML/DOSE) 1 ML, PARENTERAL ELECTROLYTES IV SCH ×6 (14:53)
[2019-01-11 17:44] LABS: Glucose,Whole Blood 136 mg/dL (75-99)
[2019-01-11 19:24] LABS: Glucose,Whole Blood 130 mg/dL (75-99)
[2019-01-11] MEDS: MORPHINE SULFATE 2 MG/ML SYRINGE IV PRN (22:09)
[2019-01-11] MEDS: ACETAMINOPHEN IV (For NPO) 1,000 MG in EMPTY BAG 1 BAG IVPB PRN (23:56)
[2019-01-12] MEDS: 1: MVI, ADULT NO.4 WITH VIT K 10 ML, TRACE (CONC-1ML/DOSE) 1 ML, PARENTERAL ELECTROLYTES IV SCH ×12 (01:26→09:27)
[2019-01-12] MEDS: VANCOMYCIN 1,750 MG in SODIUM CHLORIDE 0.9% 500 ML 500 ML IVPB SCH ×3 (02:24→17:45)
[2019-01-12] MEDS: HYDROmorphone 1 MG/ML 1 ML SYRINGE IVP PRN (04:42)
--- NOTE | 2019-01-12 06:28 | PN ---
PROGRESS NOTE DATE OF SERVICE: 01/11/2019 REASON FOR FOLLOWUP: Pneumonia. INTERVAL HISTORY: The patient is currently afebrile. She is feeling better. Breathing comfortably. Denies significant chest pain. Occasional cough. No significant abdominal pain. No nausea, no vomiting, and no diarrhea. PHYSICAL EXAMINATION: On examination, blood pressure 146/78 with a pulse of 104, temperature of 98.7. She is 94% 2 L nasal cannula. General description is a middle-aged female up in the bed in no distress. RESPIRATORY SYSTEM: Unlabored breathing with decreased breath sounds at the bases. No wheeze. HEART: S1, S2. Regular rate and rhythm. ABDOMEN: Soft. No tenderness. LABS: Hemoglobin is 8 with a white count of 17.6 with a BUN of 13, creatinine 0.41. Sputum culture has been negative. DIAGNOSTIC IMPRESSION AND PLAN: 1. Patient with postoperative fever in this patient who did have a gastric sleeve leak status post open repair of the same with concern for possible pneumonia. The patient currently covered with cefepime for now. Will wait for the patient to stabilize. 2. Patient status post splenectomy. She will need a pneumococcal and on 01/17/2019 that will be 2 weeks post surgery. Continue supportive care. MMODL / IJN: [id number] /
[2019-01-12 07:03] LABS: Basophils # (A) 0.1 k/uL (0-0.2); Basophils % (A) 1 %; Eosinophils # (A) 0.4 k/uL (0-0.7); Eosinophils % (A) 3 %; HCT 24.6 % (34.0-46.0); HGB 7.6 gm/dL (11.4-16.0); Hypochromasia Slight; Lymphocytes # (A) 1.4 k/uL (1.0-4.8); Lymphocytes % (A) 10 %; MCH 30.6 pg (25.0-35.0); MCHC 30.9 g/dL (31.0-37.0); MCV 98.8 fL (80.0-100.0); Mean Platelet Volume 8.3; Monocytes # (A) 0.4 k/uL (0-1.0); Monocytes % (A) 3 %; Neutrophils % (A) 81 %; Platelet Count 694 k/uL (150-450); RBC 2.49 m/uL (3.80-5.40); RDW 12.9 % (11.5-15.5); WBC 13.7 k/uL (3.8-10.6)
[2019-01-12 07:04] LABS: ALT 172 U/L (9-52); AST 47 U/L (14-36); Albumin 2.2 g/dL (3.5-5.0); Alkaline Phosphatase 209 U/L (38-126); Anion Gap 8 mmol/L; Blood Urea Nitrogen 13 mg/dL (7-17); Calcium 7.9 mg/dL (8.4-10.2); Carbon Dioxide 24 mmol/L (22-30); Chloride 107 mmol/L (98-107); Glucose 125 mg/dL (74-99); Magnesium 2.2 mg/dL (1.6-2.3); Phosphorus 4.1 mg/dL (2.5-4.5); Potassium 4.3 mmol/L (3.5-5.1); Sodium 139 mmol/L (137-145); Total Bilirubin 0.4 mg/dL (0.2-1.3)
[2019-01-12 07:08] LABS: Glucose,Whole Blood 135 mg/dL (75-99)
[2019-01-12] MEDS: IPRATROPIUM-ALBUTEROL 3 ML NEB INHALATION PRN ×2 (08:19→12:01)
[2019-01-12] MEDS: CEFEPIME 2 GM in SODIUM CHLORIDE 0.9% 100 ML IVPB SCH ×2 (09:17→22:07)
--- NOTE | 2019-01-12 09:18 | P.PN ---
Subjective Progress Note Date: 01/12/19 CHIEF COMPLAINT: Dysphasia HISTORY OF PRESENT ILLNESS: 53-year-old female who originally underwent laparoscopic sleeve gastrectomy on 12/24/2018. Patient was readmitted to the hospital secondary to dysphagia. 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 Patient examined at the bedside. She states her pain is tolerable in her abdomen. She does report some referred shoulder pain. Tolerating clear liquids. Passing flatus and having BMs. PHYSICAL EXAM: VITAL SIGNS: Currently stable. GENERAL: Well-developed in no acute distress. HEENT: No sclera icterus. Extraocular movements grossly intact. Moist buccal mucosa. Head is atraumatic, normocephalic. Hears conversational speech. No nasal drainage. NECK: Supple without lymphadenopathy. CHEST: Non-labored respirations and equal bilateral excursions. CARDIOVASCULAR: Regular rate with regular rhythm. Palpable 2+ radial pulses. ABDOMEN: Soft. Nondistended. CODY drain intact. MUSCULOSKELETAL: No clubbing, cyanosis or edema. NEUROLOGIC: No focal or lateralizing signs. Cranial nerves II through XII grossly intact. PSYCH: Appropriate affect. Alert and oriented to person, place and time. SKIN: Well perfused. Good skin turgor. ASSESSMENT: 1. Dysphagia 2. 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 Status post esophagram revealing leak near proximal sleeve with secondary sepsis, present on admission 4. 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 Discontinue latham this morning 2. Advance diet to full liquids 3. Repeat CBC in AM 4. Wean off TPN today 5. Patient may shower today Nurse practitioner note has been reviewed by physician. Signing provider agrees with the documented findings, assessment, and plan of care. Objective - Vital Signs Vital signs: Vital Signs Temp 99.4 F 01/12/19 00:52 Pulse 92 01/12/19 08:29 Resp 16 01/12/19 03:04 BP 129/75 01/12/19 00:52 Pulse Ox 94 L 01/12/19 08:19 Intake & Output 01/11/19 01/12/19 01/12/19 18:59 06:59 18:59 Intake Total 2359.28 600 Output Total 1980 900 Balance 379.28 -300 Intake: IV 1220 0.9 Normal saline carrier 220 Vancomycin 2,250 mg In 1000 Sodium Chloride 0.9% 500 ml 500 ml @ 167 mls/hr IVPB Q12H [facility] Rx#: [id number] Intake, IV Titration 1139.28 Amount Anidulafungin 100 mg In 100 Sodium Chloride 0.9% 100 ml @ 84 mls/hr IVPB DAILY [facility] Rx#:[id number] Cefepime 2 gm In Sodium 100 Chloride 0.9% 100 ml @ 200 mls/hr IVPB Q12HR [facility] Rx#:[id number] Mvi, Adult No.4 with Vit 539.76 K 10 ml Trace (Conc-1Ml/ Dose) 1 ml Parenteral Electrolytes 20 ml Potassium Chloride 20 meq Magnesium Sulfate gm 2 gm In Amino Acid 5%-D15w 1,000 ml @ 100 mls/hr IV .BY DURATION [facility] Rx#: [id number] Parenteral Electrolytes 399.52 20 ml In Amino Acid 5%- D15w 1,000 ml @ 100 mls/ hr IV .BY DURATION [facility] Rx #:[id number] Oral 600 Output: Drainage 0 0 Left Abdomen 0 0 Urine 1980 900 Other: Voiding Method Indwelling Catheter Indwelling Catheter # Voids 1 # Bowel Movements 1 - Labs CBC & Chem 7: 01/12/19 06:10 01/12/19 06:10 Labs: Abnormal Lab Results - Last 24 Hours (Table) 01/11/19 01/11/19 01/11/19 Range/Units 12:02 17:19 19:10 WBC (3.8-10.6) k/uL RBC (3.80-5.40) m/uL Hgb (11.4-16.0) gm/dL Hct (34.0-46.0) % MCHC (31.0-37.0) g/dL Plt Count (150-450) k/uL Neutrophils # (1.3-7.7) k/uL Creatinine (0.52-1.04) mg/dL Glucose (74-99) mg/dL POC Glucose (mg/dL) 133 H 136 H 130 H (75-99) mg/dL Calcium (8.4-10.2) mg/dL AST (14-36) U/L ALT (9-52) U/L Alkaline Phosphatase (38-126) U/L Total Protein (6.3-8.2) g/dL Albumin (3.5-5.0) g/dL 01/12/19 01/12/19 01/12/19 Range/Units 06:10 06:10 06:55 WBC 13.7 H (3.8-10.6) k/uL RBC 2.49 L (3.80-5.40) m/uL Hgb 7.6 L (11.4-16.0) gm/dL Hct 24.6 L (34.0-46.0) % MCHC 30.9 L (31.0-37.0) g/dL Plt Count 694 H (150-450) k/uL Neutrophils # 11.0 H (1.3-7.7) k/uL Creatinine 0.45 L (0.52-1.04) mg/dL Glucose 125 H (74-99) mg/dL POC Glucose (mg/dL) 135 H (75-99) mg/dL Calcium 7.9 L (8.4-10.2) mg/dL AST 47 H (14-36) U/L ALT 172 H (9-52) U/L Alkaline Phosphatase 209 H (38-126) U/L Total Protein 5.0 L (6.3-8.2) g/dL Albumin 2.2 L (3.5-5.0) g/dL Microbiology - Last 24 Hours (Table) 01/05/19 18:32 Blood Culture - Final Blood No Growth after 144 hours 01/05/19 17:00 Blood Culture - Final Blood No Growth after 144 hours 01/10/19 17:20 Gram Stain - Preliminary Thoracic Fluid Body Fluid Culture - Preliminary
[2019-01-12] MEDS: SIMETHICONE 40 MG/0.6 ML DROPS 2,000 MG/30 ML BOTTLE PO SCH ×4 (09:35→22:13)
[2019-01-12] MEDS: ENOXAPARIN 40 MG/0.4 ML SYRINGE SQ SCH (09:36)
[2019-01-12] MEDS: PANTOPRAZOLE 40 MG/10 ML VIAL IV SCH (09:36)
[2019-01-12] MEDS: INSULIN ASPART (NovoLOG) 100 UNIT/ML VIAL SQ SCH ×4 (09:37→22:13)
[2019-01-12] MEDS: HYDROcodone/APAP 15 ML SOLUTION PO PRN ×2 (09:52→19:47)
--- NOTE | 2019-01-12 10:11 | XR ---
EXAMINATION TYPE: XR chest 1V portable DATE OF EXAM: 01/12/2019 Comparison: 01/10/2019 Clinical History: 53-year-old female shortness of breath Findings: Low lung volumes with crowded vascular markings. Diffuse interstitial and vascular prominence. Heart mildly enlarged. Small pleural effusions with bibasilar opacities, increased on the left. Left PICC t ip at the lower SVC level. Impression: Hypoventilatory changes with continued changes of suspected superimposed mild CHF. Small pleural effu sions with adjacent atelectasis and/or consolidation. Slightly worsened on the left.
[2019-01-12] MEDS: ANIDULAFUNGIN 100 MG in SODIUM CHLORIDE 0.9% 100 ML IVPB SCH (10:37)
--- NOTE | 2019-01-12 11:24 | P.PN ---
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 Following her surgery, the patient continued having difficulties with epigastric discomfort and some shortness of breath and there was a concern that the patient was having some leak near the proximal sleeve based on the esophagram. At that point the patient had an EGD and the leak was not visualized. Subsequently, the patient was taken to the operating room and the patient was found to have a staple line Perforation. The patient underwent extensive laparotomy, gastrorrhaphy and splenectomy. Note that the splenectomy was done as the patient developed a splenic Tear While Undergoing Abdominal and Peritoneal Cavity Irrigation. Note That the Omentum Was Lifted off the Spleen. There Was Evidence of bilious drainage behind the spleen. During the irrigation, a splenic tear was established and the patient underwent a complete splenectomy. Currently the patient in the recovery room. The patient is doing well. The patient is extubated. The patient is on 2 L of oxygen nasal cannula. She has a wound VAC over the anterior abdominal wall. She has a CODY drain in the left upper quadrant. Output is minimal and serosanguineous. She is having sinus tachycardia. Intraoperatively she received total of 3 L and there patient received an additional 2 L and the recovery in the form of lactated Ringer. Urine output is minimal and the patient has produced 35 mL total since arrival from the operating room. The preop creatinine was within normal limits. She is normotensive with a blood pressure 143/97. Pain is under good control. The patient has received a dose of Diflucan and Levaquin. White cell count from earlier this morning was at 8.2. On 01/10/2019, I evaluated the patient in the ICU, patient is now postoperative day #7, awake, doing well, in no distress, continues to have some vague chest discomfort on the left side. Chest x-ray showed a good sized left-sided pleural effusion, hence I ordered an ultrasound, and it showed a 7.0 cm pocket, and I would likely proceed with left sided thoracentesis today or tomorrow. Patient remains on TPN for nutritional support, remains on antibiotics for abdominal sepsis including Merrem and vancomycin and Diflucan. Continues to have some serosanguineous drainage from CODY drain. Overall the patient is doing relatively well. Improving but slowly. WBC count remains elevated at 19.7, hemoglobin is 7.1. Electrolytes were noted to be relatively normal. Liver enzymes were abnormal elevated. AST is 123 ALT 194 and alkaline phosphatase of 166. Normal bilirubin was noted Reevaluated today on 01/11/2019, patient is post operative day #8, remains in the ICU, she underwent left sided thoracentesis yesterday, and it was uneventful. Patient is feeling better, saturating better since her left sided thoracentesis. Remains on TPN, remains on antibiotics for her abdominal sepsis , she is on Merrem and vancomycin she is also on Diflucan. WBC count today is 17.6/elevated, hemoglobin is 8.0 to let lites are normal renal profile is normal. Overall the patient is improving but slowly. Pleural effusion cultures remain negative so far Gram stain is negative. On 01/12/2019 patient seen in follow-up on medical surgical floor. She is sitting up in the recliner, is still having some mild to moderate amount of discomfort in her left shoulder area, respirations are shallow, patient is only 0.500 on her incentive spirometer. Status post left-sided thoracentesis with removal of 850 mL of pleural fluid 2 days ago. Lung sounds are diminished, particularly at the bases, raising a concern for reaccumulating pleural effusions. Pulse ox is 94% on 3 L per nasal cannula, T-max in the last 24 hours is 99.4F. All culture data including blood cultures, sputum culture and pleural fluid cultures are negative thus far. Pleural fluid Gram stain showed no growth after 24 hours. Her antibiotic coverage includes cefepime, Eraxis, and vancomycin. Abdominal incisions are clean dry and intact, agatha are intact, left-sided CODY drain with minimal serosanguineous output. Abdominal binder is on. Nausea, no vomiting, patient is taking in clear liquids, and tolerating them well so far. Today's labs were noted, and leukocytosis is trending down, white blood cell count is 13.7 down from 17.6 from yesterday, hemoglobin is 7.6, electrolytes within normal limits, BUN is 13 creatinine 0.45 , AST is down to 47, ALT is 172, alkaline phosphatase is 209, albumin is improving, up to 2.2 from 1.9. Objective - Vital Signs Vital signs: Vital Signs Temp 99.4 F 01/12/19 00:52 Pulse 92 01/12/19 08:29 Resp 16 01/12/19 03:04 BP 129/75 01/12/19 00:52 Pulse Ox 94 L 01/12/19 08:19 Intake & Output 01/11/19 01/12/19 01/12/19 18:59 06:59 18:59 Intake Total 2359.28 600 Output Total 1979 900 Balance 379.28 -300 Intake: IV 1220 0.9 Normal saline carrier 220 Vancomycin 2,250 mg In 1000 Sodium Chloride 0.9% 500 ml 500 ml @ 167 mls/hr IVPB Q12H [facility] Rx#: [id number] Intake, IV Titration 1139.28 Amount Anidulafungin 100 mg In 100 Sodium Chloride 0.9% 100 ml @ 84 mls/hr IVPB DAILY [facility] Rx#:[id number] Cefepime 2 gm In Sodium 100 Chloride 0.9% 100 ml @ 200 mls/hr IVPB Q12HR [facility] Rx#:[id number] Mvi, Adult No.4 with Vit 539.76 K 10 ml Trace (Conc-1Ml/ Dose) 1 ml Parenteral Electrolytes 20 ml Potassium Chloride 20 meq Magnesium Sulfate gm 2 gm In Amino Acid 5%-D15w 1,000 ml @ 100 mls/hr IV .BY DURATION [facility] Rx#: [id number] Parenteral Electrolytes 399.52 20 ml In Amino Acid 5%- D15w 1,000 ml @ 100 mls/ hr IV .BY DURATION [facility] Rx #:[id number] Oral 600 Output: Drainage 0 0 Left Abdomen 0 0 Urine 1979 900 Other: Voiding Method Indwelling Catheter Indwelling Catheter # Voids 1 # Bowel Movements 1 - Exam GENERAL EXAM: Alert, pleasant, obese 53-year-old white female, currently on 3 L per nasal cannula comfortable in no apparent distress. HEAD: Normocephalic/atraumatic. EYES: Normal reaction of pupils, equal size. Conjunctiva pink, sclera white. NOSE: Clear with pink turbinates. THROAT: No erythema or exudates. NECK: No masses, no JVD, no thyroid enlargement, no adenopathy. CHEST: No chest wall deformity. Symmetrical expansion. LUNGS: Equal air entry with diminished breath sounds at the bases, and limited crackles CVS: Regular rate and rhythm, normal S1 and S2, no gallops, no murmurs, no rubs ABDOMEN: Soft, nontender. No hepatosplenomegaly, normal bowel sounds, no guarding or rigidity. Midabdominal incision is clean dry and intact, agatha are intact, CODY site on the left abdomen is clean dry and intact, to stab wound incisions on either side of the midline incision are clean dry and intact agatha intact EXTREMITIES: No clubbing, mild lower extremity edema, no cyanosis, 2+ pulses and upper and lower extremities. MUSCULOSKELETAL: Muscle strength and tone normal. SPINE: No scoliosis or deformity SKIN: No rashes CENTRAL NERVOUS SYSTEM: Alert and oriented -3. No focal deficits, tone is normal in all 4 extremities. PSYCHIATRIC: Alert and oriented -3. Appropriate affect. Intact judgment and insight. - Labs CBC & Chem 7: 01/12/19 06:10 01/12/19 06:10 Labs: Abnormal Lab Results - Last 24 Hours (Table) 01/11/19 01/11/19 01/11/19 Range/Units 12:02 17:19 19:10 WBC (3.8-10.6) k/uL RBC (3.80-5.40) m/uL Hgb (11.4-16.0) gm/dL Hct (34.0-46.0) % MCHC (31.0-37.0) g/dL Plt Count (150-450) k/uL Neutrophils # (1.3-7.7) k/uL Creatinine (0.52-1.04) mg/dL Glucose (74-99) mg/dL POC Glucose (mg/dL) 133 H 136 H 130 H (75-99) mg/dL Calcium (8.4-10.2) mg/dL AST (14-36) U/L ALT (9-52) U/L Alkaline Phosphatase (38-126) U/L Total Protein (6.3-8.2) g/dL Albumin (3.5-5.0) g/dL 01/12/19 01/12/19 01/12/19 Range/Units 06:10 06:10 06:55 WBC 13.7 H (3.8-10.6) k/uL RBC 2.49 L (3.80-5.40) m/uL Hgb 7.6 L (11.4-16.0) gm/dL Hct 24.6 L (34.0-46.0) % MCHC 30.9 L (31.0-37.0) g/dL Plt Count 694 H (150-450) k/uL Neutrophils # 11.0 H (1.3-7.7) k/uL Creatinine 0.45 L (0.52-1.04) mg/dL Glucose 125 H (74-99) mg/dL POC Glucose (mg/dL) 135 H (75-99) mg/dL Calcium 7.9 L (8.4-10.2) mg/dL AST 47 H (14-36) U/L ALT 172 H (9-52) U/L Alkaline Phosphatase 209 H (38-126) U/L Total Protein 5.0 L (6.3-8.2) g/dL Albumin 2.2 L (3.5-5.0) g/dL Microbiology - Last 24 Hours (Table) 01/05/19 18:32 Blood Culture - Final Blood No Growth after 144 hours 01/05/19 17:00 Blood Culture - Final Blood No Growth after 144 hours 01/10/19 17:20 Gram Stain - Preliminary Thoracic Fluid Body Fluid Culture - Preliminary Assessment and Plan Plan: Assessment: 1 gastric sleeve staple line perforation related to sleeve gastrectomy done on . 2 status post exploratory laparotomy gastrorrhaphy and splenectomy postoperative day #8 3 left pleural effusion, status post thoracentesis on 01/10/2019. 850 mL of serosanguineous fluid removed from the left pleural space. 4 multiple comorbidities including migraine cephalgia, varicose veins, history of nephrolithiasis Plan: Repeat chest x-ray has been obtained, and she was hypoventilatory lungs, was slightly worsened small left pleural effusion on the left. Encourage deep breathing and coughing, pain control, ambulation. Continue with antibiotic coverage per ID service recommendations. Fever or chills, no nausea or vomiting , patient is tolerating oral intake. Continue breathing treatments, all culture data is negative thus far including the pleural fluid culture. We'll continue to follow I performed a history & physical examination of the patient and discussed their management with my nurse practitioner, Ibis Bagley. I reviewed the nurse practitioner's note and agree with the documented findings and plan of care. Lung sounds are positive for diminished breath sounds at the bases, with some limited crackles. The findings and the impression was discussed with the patient. I attest to the documentation by the nurse practitioner. Time with Patient: Less than 30
[2019-01-12 12:11] LABS: Glucose,Whole Blood 120 mg/dL (75-99)
--- NOTE | 2019-01-12 13:53 | P.PN ---
Subjective Progress Note Date: 01/12/19 Principal diagnosis: follow up of anemia and postoperative medical management The patient is postop day #9 sitting up resting comfortably in her chair, afebrile , denies any nausea or vomiting, Tolerating clear liquid diet, today has tried broth , passing loose BM, patient is still not doing very well with her IS, despite drainage of left pleural effusion. Objective - Vital Signs Vital signs: Vital Signs Temp 99.4 F 01/12/19 00:52 Pulse 96 01/12/19 12:13 Resp 16 01/12/19 03:04 BP 129/75 01/12/19 00:52 Pulse Ox 94 L 01/12/19 08:19 Intake & Output 01/11/19 01/12/19 01/12/19 18:59 06:59 18:59 Intake Total 2359.28 600 Output Total 1980 900 Balance 379.28 -300 Intake: IV 1220 0.9 Normal saline carrier 220 Vancomycin 2,250 mg In 1000 Sodium Chloride 0.9% 500 ml 500 ml @ 167 mls/hr IVPB Q12H [facility] Rx#: [id number] Intake, IV Titration 1139.28 Amount Anidulafungin 100 mg In 100 Sodium Chloride 0.9% 100 ml @ 84 mls/hr IVPB DAILY [facility] Rx#:[id number] Cefepime 2 gm In Sodium 100 Chloride 0.9% 100 ml @ 200 mls/hr IVPB Q12HR [facility] Rx#:[id number] Mvi, Adult No.4 with Vit 539.76 K 10 ml Trace (Conc-1Ml/ Dose) 1 ml Parenteral Electrolytes 20 ml Potassium Chloride 20 meq Magnesium Sulfate gm 2 gm In Amino Acid 5%-D15w 1,000 ml @ 100 mls/hr IV .BY DURATION [facility] Rx#: [id number] Parenteral Electrolytes 399.52 20 ml In Amino Acid 5%- D15w 1,000 ml @ 100 mls/ hr IV .BY DURATION [facility] Rx #:[id number] Oral 600 Output: Drainage 0 0 Left Abdomen 0 0 Urine 1980 900 Other: Voiding Method Indwelling Catheter Indwelling Catheter # Voids 1 # Bowel Movements 1 - Exam Constitutional: vital signs stable, Not in acute distress, pleasant, conversant Lungs: Good breath sounds bilaterally, slightly decreased breath sounds over bilateral lung bases with some fine rales, normal respiratory effort no use of accessory muscles Cardiovascular: Regular rate and rhythm, no murmurs, no gallops, no rubs, no peripheral edema Gastrointestinal: Soft, discomfort to deep palpation of the abdomen diffusely, surgical dressing in place dry and intact and clean, CODY drain in place with minimal serousanguinous drainage, abdominal binder in place, surgical wounds intact. bowel sounds sluggish Extremities: No digital cyanosis or clubbing, peripheral pulses palpable and equal over bilateral radial arteries and dorsalis pedis artery, no calf muscle tenderness Psych: Alert, oriented to place, person and time, appropriate affect, intact judgment - Labs CBC & Chem 7: 01/12/19 06:10 01/12/19 06:10 Labs: Abnormal Lab Results - Last 24 Hours (Table) 01/11/19 01/11/19 01/12/19 Range/Units 17:19 19:10 06:10 WBC 13.7 H (3.8-10.6) k/uL RBC 2.49 L (3.80-5.40) m/uL Hgb 7.6 L (11.4-16.0) gm/dL Hct 24.6 L (34.0-46.0) % MCHC 30.9 L (31.0-37.0) g/dL Plt Count 694 H (150-450) k/uL Neutrophils # 11.0 H (1.3-7.7) k/uL Creatinine (0.52-1.04) mg/dL Glucose (74-99) mg/dL POC Glucose (mg/dL) 136 H 130 H (75-99) mg/dL Calcium (8.4-10.2) mg/dL AST (14-36) U/L ALT (9-52) U/L Alkaline Phosphatase (38-126) U/L Total Protein (6.3-8.2) g/dL Albumin (3.5-5.0) g/dL 01/12/19 01/12/19 01/12/19 Range/Units 06:10 06:55 11:58 WBC (3.8-10.6) k/uL RBC (3.80-5.40) m/uL Hgb (11.4-16.0) gm/dL Hct (34.0-46.0) % MCHC (31.0-37.0) g/dL Plt Count (150-450) k/uL Neutrophils # (1.3-7.7) k/uL Creatinine 0.45 L (0.52-1.04) mg/dL Glucose 125 H (74-99) mg/dL POC Glucose (mg/dL) 135 H 120 H (75-99) mg/dL Calcium 7.9 L (8.4-10.2) mg/dL AST 47 H (14-36) U/L ALT 172 H (9-52) U/L Alkaline Phosphatase 209 H (38-126) U/L Total Protein 5.0 L (6.3-8.2) g/dL Albumin 2.2 L (3.5-5.0) g/dL Microbiology - Last 24 Hours (Table) 01/05/19 18:32 Blood Culture - Final Blood No Growth after 144 hours 01/05/19 17:00 Blood Culture - Final Blood No Growth after 144 hours 01/10/19 17:20 Gram Stain - Preliminary Thoracic Fluid Body Fluid Culture - Preliminary Assessment and Plan Assessment: Patient is a 53-year-old female past medical history of migraine headaches, nephrolithiasis, and postoperative nausea and vomiting who had a gastric sleeve on 12/24/18 complicated with postop edema of sleeve and delayed gastric emptying. She was discharged from the hospital on TPN. She worsened at home presented on 12/31/18. She was found to have possible gastric leak. She returned to the OR on 01/03 for repair of the gastric leak, she was noted to have a splenic capsule Laceration and Ultimately Underwent Splenectomy at that time. she continues to be on broad antimicrobial coverage. patient had left thoracentesis , 850 cc drained on 01/10 which she tolerated well, pleural fluid cultures continues to be negative. patient was trasferred to medical floor on . advancing diet CLD to full liquid diet , which she is tolerating . plans to remove [place] cath 01/12. liver enzymes improving . TPN to be discontinued on . afebrile , WBC improving , hemoglobing stable. platelets continue to rise, no evidence of bleeding or worsening infection , most likely reactive. continues to be on broad ABx. CXR suggested possible reaacumulation of pleural effusion Plan: Gastric sleeve with anastomotic leak status post gastrorraphy 01/03/2019 Sepsis - on TPN , to be DC today, tolerating CLD, advance to FLD - management per surgical team - continues on broad spectrum coverage per ID recs. on vanc, cefipime, and antifungal for possible pneumonia and colitis, now stable - Cultures negative to date , afebrile >48 hours, WBC improving - consider to DC vancomycin Transaminitis , now improving -likely due to TPN continue to monitor closely no jaundice Acute blood loss anemia, post op as anticipated, now stable * Hemoglobin stable today - no indication for transfusion at this time - follow CBC Thrombocythemia , most likely reactive S/P Spleenectomy -Reative to above - out patient follow up for appropriate vaccines, Dr. Prince added to D/C instructions continue with supportive care, electrolyte replacement , Lovenox for DVT PPX, PPI for GI PPx, insulin sliding scale
[2019-01-12 15:06] VITALS: BMI 35.6
--- NOTE | 2019-01-12 17:12 | CT ---
EXAMINATION TYPE: CT angio chest DATE OF EXAM: 01/12/2019 COMPARISON: CT 01/07/2019 HISTORY: Shortness of breath, recent gastric sleeve CT DLP: 599.6 mGycm Automated exposure control for dose reduction was used. CONTRAST: CTA scan of the thorax is performed with IV Contrast, patient injected with 100, wasted 22 mL of Isov ue 300, pulmonary embolism protocol. MIP images are created and reviewed. 3D reconstructed images a re created on an independent workstation and reviewed. FINDINGS: LUNGS: The lungs are similar in appearance, bilateral pleural effusions likely improved somewhat on t he left and possibly right, probable associated atelectasis or possibly pneumonia at the posterior quintin ng bases. There is some groundglass opacity present in the right upper lobe similar to prior exam as well as in the left upper lobe and the perihilar region, subpleural location anteriorly which is an i nterval finding AORTA: No additional significant abnormality is seen. MEDIASTINUM: There is satisfactory enhancement of the central pulmonary artery and its branches, ther e is no CT evidence for pulmonary embolism. In the segmental branches however there is some limitatio n in evaluation possibly due to patient body habitus, difficult to exclude small subsegmental emboli. There are no greater than 1 cm hilar or mediastinal lymph nodes. No pericardial effusion is seen. Pulmonary artery is more prominent as compared to prior. OTHER: Bilateral breast prostheses are again noted. Left-sided PICC line is present courses into the superior vena cava. Surgical drain again noted in left upper quadrant with contrast material from previous exam showing s table appearance. Some perinephric fluid on the right is present, correlate to exclude urinary tract infection. Patient is post cholecystectomy and gastric sleeve. Splenectomy changes noted again. IMPRESSION: NO EVIDENT PULMONARY EMBOLI WITH LIMITATIONS DESCRIBED. PLEURAL EFFUSIONS BUT IMPROVED SLIGHTLY IN THE INTERVAL. CORRELATE FOR POSSIBLE PNEUMONIA, PNEUMONITIS. CORRELATE FOR POSSIBLE PULMONARY ARTERY HYPERTENSION. Additional findings above, correlate to exclude urinary tract infection or renal failu re.
[2019-01-12 17:36] LABS: Glucose,Whole Blood 100 mg/dL (75-99)
[2019-01-12 20:32] LABS: Glucose,Whole Blood 111 mg/dL (75-99)
--- NOTE | 2019-01-12 23:17 | XR ---
EXAM: XR Chest, 1 View CLINICAL HISTORY: ITS.REASON XR Reason: Interval change of pleural effusion TECHNIQUE: Frontal view of the chest. COMPARISON: 01/12/19 chest radiography performed at 9:23 AM FINDINGS: See Impression. IMPRESSION: Suspect slightly increased pleural effusions bilaterally. Adjacent compressive atelectasis. Stable left PICC. No radiographically visible pneumothorax. Catheter again projects over the left upper quadrant.
--- NOTE | 2019-01-12 23:22 | PN ---
PROGRESS NOTE DATE OF SERVICE: 01/12/2019. REASON FOR FOLLOWUP: Pneumonia. INTERVAL HISTORY: The patient is afebrile. She was noticed to have more shortness of breath. CT angiogram negative for PE, however, did show concern for possible pneumonia. The patient denies having any chest pain. No nausea or vomiting. No abdominal pain or any diarrhea. PHYSICAL EXAMINATION: Blood pressure 146/80 with a pulse of 105, temperature 97.9. She is 96% on 3 L nasal cannula. GENERAL DESCRIPTION: A middle-aged female up in the bed in no distress. RESPIRATORY SYSTEM: Unlabored breathing. Decreased breath sounds. No wheeze. HEART: S1, S2. Regular. ABDOMEN: Soft. LABS: Hemoglobin 7.1, white count 13.7, BUN of 13, creatinine 0.45. DIAGNOSTIC IMPRESSION AND PLAN: 1. Patient with postop fevers and the patient did have a gastric sleeve leak status post repair of the same. The patient's fever has resolved. White count has normalized. Keep the patient on vancomycin. Follow closely. Continue supportive care. 2. The patient is status post splenectomy. She will be getting vaccination on . Continue supportive care. MMODL / IJN: [id number] /
[2019-01-13] MEDS: VANCOMYCIN 1,750 MG in SODIUM CHLORIDE 0.9% 500 ML 500 ML IVPB SCH (02:55)
[2019-01-13] MEDS: HYDROmorphone 1 MG/ML 1 ML SYRINGE IVP PRN ×4 (03:54→21:57)
[2019-01-13 06:56] LABS: Glucose,Whole Blood 92 mg/dL (75-99)
[2019-01-13] MEDS ORDERED: VANCOMYCIN TROUGH DUE 1 EACH MISC MISCELLANE ONE (09:00)
[2019-01-13] MEDS: 1: MVI, ADULT NO.4 WITH VIT K 10 ML, TRACE (CONC-1ML/DOSE) 1 ML, PARENTERAL ELECTROLYTES IV SCH ×12 (09:53→09:54)
[2019-01-13] MEDS: INSULIN ASPART (NovoLOG) 100 UNIT/ML VIAL SQ SCH ×3 (09:55→18:01)
[2019-01-13 09:57] LABS: Basophils # (A) 0.1 k/uL (0-0.2); Basophils % (A) 1 %; Eosinophils # (A) 0.4 k/uL (0-0.7); Eosinophils % (A) 4 %; HCT 24.6 % (34.0-46.0); HGB 7.9 gm/dL (11.4-16.0); Hypochromasia Slight; Lymphocytes # (A) 1.7 k/uL (1.0-4.8); Lymphocytes % (A) 15 %; MCH 31.2 pg (25.0-35.0); MCV 97.7 fL (80.0-100.0); Mean Platelet Volume 7.2; Monocytes # (A) 0.4 k/uL (0-1.0); Monocytes % (A) 3 %; Neutrophils # (A) 8.1 k/uL (1.3-7.7); Neutrophils % (A) 74 %; Platelet Count 810 k/uL (150-450); RBC 2.52 m/uL (3.80-5.40); RDW 12.9 % (11.5-15.5)
[2019-01-13] MEDS: SIMETHICONE 40 MG/0.6 ML DROPS 2,000 MG/30 ML BOTTLE PO SCH ×3 (09:59→19:10)
[2019-01-13] MEDS: PANTOPRAZOLE 40 MG/10 ML VIAL IV SCH (09:59)
[2019-01-13] MEDS: ENOXAPARIN 40 MG/0.4 ML SYRINGE SQ SCH (09:59)
[2019-01-13] MEDS: CEFEPIME 2 GM in SODIUM CHLORIDE 0.9% 100 ML IVPB SCH ×2 (10:01→21:55)
[2019-01-13 10:08] LABS: Anion Gap 12 mmol/L; Blood Urea Nitrogen 10 mg/dL (7-17); Calcium 8.4 mg/dL (8.4-10.2); Carbon Dioxide 22 mmol/L (22-30); Chloride 106 mmol/L (98-107); Glucose 90 mg/dL (74-99); Magnesium 1.9 mg/dL (1.6-2.3); Phosphorus 4.9 mg/dL (2.5-4.5); Potassium 3.8 mmol/L (3.5-5.1); Sodium 140 mmol/L (137-145)
--- NOTE | 2019-01-13 11:00 | P.PN ---
<Buffy Fuentes Nany - Last Filed: 01/13/19 10:57> Subjective Progress Note Date: 01/13/19 CHIEF COMPLAINT: Dysphasia HISTORY OF PRESENT ILLNESS: 53-year-old female who originally underwent laparoscopic sleeve gastrectomy on 12/24/2018. Patient was readmitted to the hospital secondary to dysphagia. 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 Patient examined at the bedside. She states her pain is tolerable in her abdomen. Tolerating full liquids. Passing flatus and having BMs. Continues to complain of shortness of breath. Requiring oxygen to maintain sats greater than 92%. PHYSICAL EXAM: VITAL SIGNS: Currently stable. GENERAL: Well-developed in no acute distress. HEENT: No sclera icterus. Extraocular movements grossly intact. Moist buccal mucosa. Head is atraumatic, normocephalic. Hears conversational speech. No nasal drainage. NECK: Supple without lymphadenopathy. CHEST: Non-labored respirations and equal bilateral excursions. CARDIOVASCULAR: Regular rate with regular rhythm. Palpable 2+ radial pulses. ABDOMEN: Soft. Nondistended. CODY drain intact. MUSCULOSKELETAL: No clubbing, cyanosis or edema. NEUROLOGIC: No focal or lateralizing signs. Cranial nerves II through XII grossly intact. PSYCH: Appropriate affect. Alert and oriented to person, place and time. SKIN: Well perfused. Good skin turgor. ASSESSMENT: 1. Dysphagia 2. 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 Status post esophagram revealing leak near proximal sleeve with secondary sepsis, present on admission 4. 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 Continue full liquid diet. TPN has been weaned off. Patient will not require TPN at discharge as long as she continues to tolerate PO intake. 2. Monitor respiratory status. Encourage IS 3. Wean oxygen as tolerated Nurse practitioner note has been reviewed by physician. Signing provider agrees with the documented findings, assessment, and plan of care. Objective - Vital Signs Vital signs: Vital Signs Temp 98.8 F 01/13/19 00:00 Pulse 100 01/13/19 00:00 Resp 18 01/13/19 00:25 BP 144/89 01/13/19 00:00 Pulse Ox 91 L 01/13/19 00:00 Intake & Output 01/12/19 01/13/19 01/13/19 18:59 06:59 18:59 Intake Total 400 2160 Output Total 800 13 Balance -400 2147 Weight 112.6 kg Intake: Intake, IV Titration 860 Amount Cefepime 2 gm In Sodium 200 Chloride 0.9% 100 ml @ 200 mls/hr IVPB Q12HR [facility] Rx#:[id number] Lactated Ringers 1,000 ml 160 @ 0 mls/hr IV .STK-MED ONE Rx#:[id number] Vancomycin 1,750 mg In 500 Sodium Chloride 0.9% 500 ml 500 ml @ 167 mls/hr IVPB Q8H [facility] Rx#: [id number] Oral 400 1300 Output: Drainage 13 Left Abdomen 13 Urine 800 Uretheral (Nagy) 800 Other: Voiding Method Indwelling Catheter Bedside Commode # Voids 3 - Labs CBC & Chem 7: 01/13/19 09:40 01/13/19 09:40 Labs: Abnormal Lab Results - Last 24 Hours (Table) 01/12/19 01/12/19 01/12/19 Range/Units 11:58 17:24 20:30 WBC (3.8-10.6) k/uL RBC (3.80-5.40) m/uL Hgb (11.4-16.0) gm/dL Hct (34.0-46.0) % Plt Count (150-450) k/uL Neutrophils # (1.3-7.7) k/uL Creatinine (0.52-1.04) mg/dL POC Glucose (mg/dL) 120 H 100 H 111 H (75-99) mg/dL Phosphorus (2.5-4.5) mg/dL 01/13/19 01/13/19 Range/Units 09:40 09:40 WBC 11.0 H (3.8-10.6) k/uL RBC 2.52 L (3.80-5.40) m/uL Hgb 7.9 L (11.4-16.0) gm/dL Hct 24.6 L (34.0-46.0) % Plt Count 810 H (150-450) k/uL Neutrophils # 8.1 H (1.3-7.7) k/uL Creatinine 0.49 L (0.52-1.04) mg/dL POC Glucose (mg/dL) (75-99) mg/dL Phosphorus 4.9 H (2.5-4.5) mg/dL Microbiology - Last 24 Hours (Table) 01/10/19 17:20 Gram Stain - Preliminary Thoracic Fluid Body Fluid Culture - Preliminary <Law Dumont - Last Filed: 01/13/19 17:48> Subjective As above. Patient tolerating small volumes of full liquids at this time. Patient says her pain is improved since yesterday. She has ambulated today. White blood cell count improved. No fevers. Still with mild tachycardia. Continue IV antibiotics. Increase activity level. We'll reconsult physical therapy if they are not actively involved. Monitor oral intake. Objective - Vital Signs Vital signs: Vital Signs Temp 98.6 F 01/13/19 15:00 Pulse 100 01/13/19 15:43 Resp 16 01/13/19 15:00 BP 153/83 01/13/19 15:00 Pulse Ox 94 L 01/13/19 15:00 Intake & Output 01/12/19 01/13/19 01/13/19 18:59 06:59 18:59 Intake Total 400 2160 Output Total 800 13 Balance -400 2147 Weight 112.6 kg Intake: Intake, IV Titration 860 Amount Cefepime 2 gm In Sodium 200 Chloride 0.9% 100 ml @ 200 mls/hr IVPB Q12HR [facility] Rx#:[id number] Lactated Ringers 1,000 ml 160 @ 0 mls/hr IV .STK-MED ONE Rx#:[id number] Vancomycin 1,750 mg In 500 Sodium Chloride 0.9% 500 ml 500 ml @ 167 mls/hr IVPB Q8H [facility] Rx#: [id number] Oral 400 1300 Output: Drainage 13 Left Abdomen 13 Urine 800 Uretheral (Nagy) 800 Other: Voiding Method Indwelling Catheter Bedside Commode # Voids 3 - Labs CBC & Chem 7: 01/13/19 09:40 01/13/19 09:40 Labs: Abnormal Lab Results - Last 24 Hours (Table) 01/12/19 01/13/19 01/13/19 Range/Units 20:30 09:40 09:40 WBC 11.0 H (3.8-10.6) k/uL RBC 2.52 L (3.80-5.40) m/uL Hgb 7.9 L (11.4-16.0) gm/dL Hct 24.6 L (34.0-46.0) % Plt Count 810 H (150-450) k/uL Neutrophils # 8.1 H (1.3-7.7) k/uL Creatinine 0.49 L (0.52-1.04) mg/dL POC Glucose (mg/dL) 111 H (75-99) mg/dL Phosphorus 4.9 H (2.5-4.5) mg/dL Microbiology - Last 24 Hours (Table) 01/10/19 17:20 Gram Stain - Preliminary Thoracic Fluid Body Fluid Culture - Preliminary
[2019-01-13] MEDS: ANIDULAFUNGIN 100 MG in SODIUM CHLORIDE 0.9% 100 ML IVPB SCH (11:39)
--- NOTE | 2019-01-13 11:51 | P.PN ---
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 Following her surgery, the patient continued having difficulties with epigastric discomfort and some shortness of breath and there was a concern that the patient was having some leak near the proximal sleeve based on the esophagram. At that point the patient had an EGD and the leak was not visualized. Subsequently, the patient was taken to the operating room and the patient was found to have a staple line Perforation. The patient underwent extensive laparotomy, gastrorrhaphy and splenectomy. Note that the splenectomy was done as the patient developed a splenic Tear While Undergoing Abdominal and Peritoneal Cavity Irrigation. Note That the Omentum Was Lifted off the Spleen. There Was Evidence of bilious drainage behind the spleen. During the irrigation, a splenic tear was established and the patient underwent a complete splenectomy. Currently the patient in the recovery room. The patient is doing well. The patient is extubated. The patient is on 2 L of oxygen nasal cannula. She has a wound VAC over the anterior abdominal wall. She has a CODY drain in the left upper quadrant. Output is minimal and serosanguineous. She is having sinus tachycardia. Intraoperatively she received total of 3 L and there patient received an additional 2 L and the recovery in the form of lactated Ringer. Urine output is minimal and the patient has produced 35 mL total since arrival from the operating room. The preop creatinine was within normal limits. She is normotensive with a blood pressure 143/97. Pain is under good control. The patient has received a dose of Diflucan and Levaquin. White cell count from earlier this morning was at 8.2. On 01/10/2019, I evaluated the patient in the ICU, patient is now postoperative day #7, awake, doing well, in no distress, continues to have some vague chest discomfort on the left side. Chest x-ray showed a good sized left-sided pleural effusion, hence I ordered an ultrasound, and it showed a 7.0 cm pocket, and I would likely proceed with left sided thoracentesis today or tomorrow. Patient remains on TPN for nutritional support, remains on antibiotics for abdominal sepsis including Merrem and vancomycin and Diflucan. Continues to have some serosanguineous drainage from CODY drain. Overall the patient is doing relatively well. Improving but slowly. WBC count remains elevated at 19.7, hemoglobin is 7.1. Electrolytes were noted to be relatively normal. Liver enzymes were abnormal elevated. AST is 123 ALT 194 and alkaline phosphatase of 166. Normal bilirubin was noted Reevaluated today on 01/11/2019, patient is post operative day #8, remains in the ICU, she underwent left sided thoracentesis yesterday, and it was uneventful. Patient is feeling better, saturating better since her left sided thoracentesis. Remains on TPN, remains on antibiotics for her abdominal sepsis , she is on Merrem and vancomycin she is also on Diflucan. WBC count today is 17.6/elevated, hemoglobin is 8.0 to let lites are normal renal profile is normal. Overall the patient is improving but slowly. Pleural effusion cultures remain negative so far Gram stain is negative. On 01/12/2019 patient seen in follow-up on medical surgical floor. She is sitting up in the recliner, is still having some mild to moderate amount of discomfort in her left shoulder area, respirations are shallow, patient is only 0.500 on her incentive spirometer. Status post left-sided thoracentesis with removal of 850 mL of pleural fluid 2 days ago. Lung sounds are diminished, particularly at the bases, raising a concern for reaccumulating pleural effusions. Pulse ox is 94% on 3 L per nasal cannula, T-max in the last 24 hours is 99.4F. All culture data including blood cultures, sputum culture and pleural fluid cultures are negative thus far. Pleural fluid Gram stain showed no growth after 24 hours. Her antibiotic coverage includes cefepime, Eraxis, and vancomycin. Abdominal incisions are clean dry and intact, agatha are intact, left-sided CODY drain with minimal serosanguineous output. Abdominal binder is on. Nausea, no vomiting, patient is taking in clear liquids, and tolerating them well so far. Today's labs were noted, and leukocytosis is trending down, white blood cell count is 13.7 down from 17.6 from yesterday, hemoglobin is 7.6, electrolytes within normal limits, BUN is 13 creatinine 0.45 , AST is down to 47, ALT is 172, alkaline phosphatase is 209, albumin is improving, up to 2.2 from 1.9. On 01/13/2019 patient is seen in follow-up on medical surgical floor. She is sitting up in the recliner, she is still tachypneic, is complaining of dyspnea, patient's inspiratory effort has been suboptimal, only has been achieving 250- 500 mL on her incentive spirometer. Currently on 2 L per nasal cannula, her pulse ox is 91%, blood pressures 144/89, slightly tachycardic at times, with a heart rate of 100-105. No fever or chills. Yesterday we obtained a CT angiogram of the chest, which showed no evidence of pulmonary embolism, bilateral pleural effusions, slightly improved on the left and possibly the right, with associated atelectasis at the posterior lung bases. Same antibiotic coverage, Eraxis, Cefepime and Vancomycin. Infectious disease service is managing. TPN has been discontinued, patient is tolerating oral intake, no nausea or vomiting, she is passing bowel movements. She is currently on full liquid diet. Patient is +16.5 kg since admission, patient does have generalized edema. Today's labs have been reviewed, and white blood cell count continues to trend down, down to 11.0, hemoglobin is 7.9, electrolytes are within normal limits, BUN is 10 and creatinine 0.49. Objective - Vital Signs Vital signs: Vital Signs Temp 98.8 F 01/13/19 00:00 Pulse 100 01/13/19 00:00 Resp 18 01/13/19 00:25 BP 144/89 01/13/19 00:00 Pulse Ox 91 L 01/13/19 00:00 Intake & Output 01/12/19 01/13/19 01/13/19 18:59 06:59 18:59 Intake Total 400 2160 Output Total 800 13 Balance -400 2147 Weight 112.6 kg Intake: Intake, IV Titration 860 Amount Cefepime 2 gm In Sodium 200 Chloride 0.9% 100 ml @ 200 mls/hr IVPB Q12HR [facility] Rx#:[id number] Lactated Ringers 1,000 ml 160 @ 0 mls/hr IV .STK-MED ONE Rx#:[id number] Vancomycin 1,750 mg In 500 Sodium Chloride 0.9% 500 ml 500 ml @ 167 mls/hr IVPB Q8H [facility] Rx#: [id number] Oral 400 1300 Output: Drainage 13 Left Abdomen 13 Urine 800 Uretheral (Nagy) 800 Other: Voiding Method Indwelling Catheter Bedside Commode # Voids 3 - Exam GENERAL EXAM: Alert, pleasant, obese 53-year-old white female, currently on 3 L per nasal cannula comfortable in no apparent distress. HEAD: Normocephalic/atraumatic. EYES: Normal reaction of pupils, equal size. Conjunctiva pink, sclera white. NOSE: Clear with pink turbinates. THROAT: No erythema or exudates. NECK: No masses, no JVD, no thyroid enlargement, no adenopathy. CHEST: No chest wall deformity. Symmetrical expansion. LUNGS: Equal air entry with diminished breath sounds at the bases, and limited crackles CVS: Regular rate and rhythm, normal S1 and S2, no gallops, no murmurs, no rubs ABDOMEN: Soft, nontender. No hepatosplenomegaly, normal bowel sounds, no guarding or rigidity. Midabdominal incision is clean dry and intact, agatha are intact, CODY site on the left abdomen is clean dry and intact, to stab wound incisions on either side of the midline incision are clean dry and intact agatha intact EXTREMITIES: No clubbing, mild lower extremity edema, no cyanosis, 2+ pulses and upper and lower extremities. MUSCULOSKELETAL: Muscle strength and tone normal. SPINE: No scoliosis or deformity SKIN: No rashes CENTRAL NERVOUS SYSTEM: Alert and oriented -3. No focal deficits, tone is normal in all 4 extremities. PSYCHIATRIC: Alert and oriented -3. Appropriate affect. Intact judgment and insight. - Labs CBC & Chem 7: 01/13/19 09:40 01/13/19 09:40 Labs: Abnormal Lab Results - Last 24 Hours (Table) 01/12/19 01/12/19 01/12/19 Range/Units 11:58 17:24 20:30 WBC (3.8-10.6) k/uL RBC (3.80-5.40) m/uL Hgb (11.4-16.0) gm/dL Hct (34.0-46.0) % Plt Count (150-450) k/uL Neutrophils # (1.3-7.7) k/uL Creatinine (0.52-1.04) mg/dL POC Glucose (mg/dL) 120 H 100 H 111 H (75-99) mg/dL Phosphorus (2.5-4.5) mg/dL 01/13/19 01/13/19 Range/Units 09:40 09:40 WBC 11.0 H (3.8-10.6) k/uL RBC 2.52 L (3.80-5.40) m/uL Hgb 7.9 L (11.4-16.0) gm/dL Hct 24.6 L (34.0-46.0) % Plt Count 810 H (150-450) k/uL Neutrophils # 8.1 H (1.3-7.7) k/uL Creatinine 0.49 L (0.52-1.04) mg/dL POC Glucose (mg/dL) (75-99) mg/dL Phosphorus 4.9 H (2.5-4.5) mg/dL Microbiology - Last 24 Hours (Table) 01/10/19 17:20 Gram Stain - Preliminary Thoracic Fluid Body Fluid Culture - Preliminary Assessment and Plan Plan: Assessment: 1 gastric sleeve staple line perforation related to sleeve gastrectomy done on . 2 status post exploratory laparotomy gastrorrhaphy and splenectomy postoperative day #10 3 left pleural effusion, status post thoracentesis on 01/10/2019. 850 mL of serosanguineous fluid removed from the left pleural space. 4 multiple comorbidities including migraine cephalgia, varicose veins, history of nephrolithiasis Plan: Continue current antibiotic coverage per ID service recommendations, CT angios of the chest did not show evidence of pulmonary embolism, showed bilateral pleural effusions, greater on the left, with associated atelectasis. Patient has in many liters in positive fluid balance since admission, she is +16.5 kg. Renal profile is stable, hemodynamically patient is stable, we'll start patient on IV diuretics at 40 mg every 12 hours, daily weights, accurate I&O's, monitor electrolytes and renal profile. Continue to follow I performed a history & physical examination of the patient and discussed their management with my nurse practitioner, Ibis Bagley. I reviewed the nurse practitioner's note and agree with the documented findings and plan of care. Lung sounds are positive for diminished breath sounds at the bases, with some limited crackles. The findings and the impression was discussed with the patient. I attest to the documentation by the nurse practitioner. Time with Patient: Less than 30
[2019-01-13 11:53] LABS: Glucose,Whole Blood 98 mg/dL (75-99)
[2019-01-13] MEDS: FUROSEMIDE 10 MG/ML 4 ML VIAL IV SCH ×2 (13:24→21:56)
[2019-01-13] MEDS: FAT EMULSION 20% 250 ML IV SCH (13:37)
[2019-01-13] MEDS: IPRATROPIUM-ALBUTEROL 3 ML NEB INHALATION PRN ×2 (15:31→19:56)
[2019-01-13 16:43] LABS: Glucose,Whole Blood 97 mg/dL (75-99)
[2019-01-13] MEDS: HYDROcodone/APAP 15 ML SOLUTION PO PRN (19:10)
[2019-01-13] MEDS: ASPIRIN 325 MG TAB PO SCH (19:11)
--- NOTE | 2019-01-13 19:23 | P.PN ---
Subjective Progress Note Date: 01/13/19 (delayed charting patient seen at approx 1300) Principal diagnosis: intractable nausea and vomiting Patient is a 53-year-old female past medical history of migraine headaches, nephrolithiasis, and postoperative nausea and vomiting who had a gastric sleeve on 12/24/18 complicated with postop edema for sleep and delayed gastric emptying. She was discharged from the hospital on TPN. She worsened at home and 3 presented on 12/31/18. She was found to have possible gastric leak. She returned to the OR on 01/03 for repair of the gastric leak, she was noted to have a splenic capsule Laceration and ultimately underwent spleectomy at the same. She was started on diflucan and meropenem. She spiked fevers and vanco was added 01/05. ID was consulted. CT found possible PNA on 01/07- which she was already ebing treated for. She underwent thoracentesis on 01/10 with removal of 850 cc. Her TPN was discontinued and oral diet encouraged. Patient seen and examined at bedside. She states that she has been sleeping today. She is unsure of her pain. She doesn't feel good. She is unsure if her dyspnea is changed from yesterday. She is taking in small amounts of food. Her and her are frustrated with the slow improvement in her status. I answered all questions to the best of my ability and encouraged them to speak with Dr. Moore regard expectation for recovering from surgery. Objective - Vital Signs Vital signs: Vital Signs Temp 98.6 F 01/13/19 15:00 Pulse 100 01/13/19 15:43 Resp 16 01/13/19 15:00 BP 153/83 01/13/19 15:00 Pulse Ox 94 L 01/13/19 15:00 Intake & Output 01/13/19 01/13/19 01/14/19 06:59 18:59 06:59 Intake Total 2160 600 Output Total 13 Balance 2147 600 Intake: Intake, IV Titration 860 Amount Cefepime 2 gm In Sodium 200 Chloride 0.9% 100 ml @ 200 mls/hr IVPB Q12HR [facility] Rx#:[id number] Lactated Ringers 1,000 ml 160 @ 0 mls/hr IV .STK-MED ONE Rx#:[id number] Vancomycin 1,750 mg In 500 Sodium Chloride 0.9% 500 ml 500 ml @ 167 mls/hr IVPB Q8H [facility] Rx#: [id number] Oral 1300 600 Output: Drainage 13 Left Abdomen 13 Other: Voiding Method Bedside Commode # Voids 3 - Exam General: Ill appearing, mild distress, appears at stated age Derm: warm, dry Head: atraumatic, normocephalic, symmetric Eyes: EOMI, no lid lag, anicteric sclera Mouth: no lip lesion, mucus membranes moist Cardiovascular: S1S2 reg, no murmur, positive posterior tibial pulse bilateral, Lungs: decreased bs b/l, no rhonchi, no rales , no accessory muscle use Abdominal: soft, non tender to palpation diffusely, no guarding, no appreciable organomegaly Ext: no gross muscle atrophy, no edema, no contractures Neuro: CN II-XI grossly intact, no focal neuro deficits Psych: Alert, oriented, appropriate affect - Labs CBC & Chem 7: 01/13/19 09:40 01/13/19 09:40 Labs: Abnormal Lab Results - Last 24 Hours (Table) 01/12/19 01/13/19 01/13/19 Range/Units 20:30 09:40 09:40 WBC 11.0 H (3.8-10.6) k/uL RBC 2.52 L (3.80-5.40) m/uL Hgb 7.9 L (11.4-16.0) gm/dL Hct 24.6 L (34.0-46.0) % Plt Count 810 H (150-450) k/uL Neutrophils # 8.1 H (1.3-7.7) k/uL Creatinine 0.49 L (0.52-1.04) mg/dL POC Glucose (mg/dL) 111 H (75-99) mg/dL Phosphorus 4.9 H (2.5-4.5) mg/dL Microbiology - Last 24 Hours (Table) 01/10/19 17:20 Gram Stain - Preliminary Thoracic Fluid Body Fluid Culture - Preliminary Assessment and Plan Assessment: Patient with Gastric sleeve with anastomotic leak status post gastrorraphy - on full liquids - Management per surgery Thrombocytosis s/p spleenectomy - start ASA 325 mg - spoke with Dr. Moore who is okay with this - will consult Heme/onc if Plt rise again in AM. - will need vaccinations Pneumonia - ID following pt - Fevers and WBC improving - Vanco, Cefepime, Anidulafungin Bilateral pleural effusion -s/p thoracentesis 01/10 on the left - cultures negative to date - aggres with lasix today - repeat CXR in AM - encourage IS and movement Acute hypoxic respiratory failure related to pleural effusion - wean O2 as able as above Transaminitis and elevated lipase -likley due to TPN, now off TPN - repeat in AM Acute blood loss anemia, post op and anticipated - no indication for transfusion at this time - follow CBC DVT prophylaxis:Lovenox Discussed with: Patient, nursing Anticipated discharge: per surgery Anticipated discharge place: home A total of 25 minutes was spent on the care of this complex patient more than 50 % of the time was spent in counseling and care coordination.
[2019-01-13 21:37] LABS: Glucose,Whole Blood 104 mg/dL (75-99)
[2019-01-14] MEDS ORDERED: VANCOMYCIN 2,250 MG in SODIUM CHLORIDE 0.9% 500 ML 500 ML IVPB SCH ×2
[2019-01-14] MEDS: SIMETHICONE 40 MG/0.6 ML DROPS 2,000 MG/30 ML BOTTLE PO SCH ×5 (00:50→21:16)
[2019-01-14] MEDS: INSULIN ASPART (NovoLOG) 100 UNIT/ML VIAL SQ SCH ×3 (00:51→20:32)
[2019-01-14] MEDS: ACETAMINOPHEN IV (For NPO) 1,000 MG in EMPTY BAG 1 BAG IVPB PRN ×2 (04:56→22:34)
--- NOTE | 2019-01-14 06:02 | PN ---
PROGRESS NOTE DATE OF SERVICE: 01/13/2019. REASON FOR FOLLOWUP: Pneumonia. INTERVAL HISTORY: The patient is afebrile. She seemed to be breathing comfortably. Denies having any chest pain. Some abdominal discomfort, but no worsening. No nausea, vomiting, or any diarrhea. PHYSICAL EXAMINATION: On examination, blood pressure 153/79 with a pulse of 100, temperature of 99. She is 97% on 3 L nasal cannula. General description is a middle-aged female up in the bed in no distress. RESPIRATORY SYSTEM: Unlabored breathing with decreased breath sounds in the base. No wheeze. HEART: S1, S2. Regular rate and rhythm. ABDOMEN: Soft, no tenderness. LABS: Hemoglobin 7.9, white count of 11 with a BUN of 10, creatinine 0.49. Vancomycin trough has been on the high side. Sputum culture has been negative. The pleural fluid culture has been negative as well. DIAGNOSTIC IMPRESSION AND PLAN: 1. Patient with a postoperative fever, concern for possible pneumonia, possible gram- negative clinically doubt gram-positive infection with culture negative for any resistant gram positive. In view of the elevated Vanco trough and risk of nephrotoxicity, vancomycin will be discontinued. Will keep the patient on the cefepime and at this point while waiting for culture to finalize. 2. Patient will be given vaccination 2 weeks post surgery that will be 01/17/2019. Continue supportive care. MMODL / IJN: [id number] /
[2019-01-14 07:15] LABS: Basophils # (A) 0.1 k/uL (0-0.2); Basophils % (A) 1 %; Eosinophils # (A) 0.4 k/uL (0-0.7); Eosinophils % (A) 4 %; HGB 7.5 gm/dL (11.4-16.0); Hypochromasia Slight; Lymphocytes # (A) 1.6 k/uL (1.0-4.8); Lymphocytes % (A) 16 %; MCH 31.2 pg (25.0-35.0); MCHC 32.6 g/dL (31.0-37.0); MCV 95.8 fL (80.0-100.0); Mean Platelet Volume 7.2; Monocytes # (A) 0.4 k/uL (0-1.0); Monocytes % (A) 4 %; Neutrophils # (A) 7.1 k/uL (1.3-7.7); Neutrophils % (A) 72 %; Platelet Count 845 k/uL (150-450); WBC 9.9 k/uL (3.8-10.6)
[2019-01-14 07:25] LABS: ALT 106 U/L (9-52); AST 28 U/L (14-36); Albumin 2.5 g/dL (3.5-5.0); Alkaline Phosphatase 217 U/L (38-126); Anion Gap 9 mmol/L; Blood Urea Nitrogen 10 mg/dL (7-17); Calcium 8.3 mg/dL (8.4-10.2); Carbon Dioxide 26 mmol/L (22-30); Chloride 102 mmol/L (98-107); Glucose 108 mg/dL (74-99); Magnesium 1.7 mg/dL (1.6-2.3); Phosphorus 5.8 mg/dL (2.5-4.5); Potassium 3.7 mmol/L (3.5-5.1); Sodium 137 mmol/L (137-145); Total Bilirubin 0.5 mg/dL (0.2-1.3); Total Protein 5.6 g/dL (6.3-8.2)
--- NOTE | 2019-01-14 08:29 | XR ---
EXAMINATION TYPE: XR chest 1V portable DATE OF EXAM: 01/14/2019 COMPARISON: 01/12/2019 INDICATION: Pleural effusion, short of breath TECHNIQUE: Single frontal view of the chest is obtained. FINDINGS: The heart size is normal. The pulmonary vasculature is normal. Small left pleural effusion is present. Some mild infiltrate is adjacent. Infiltrate at the right bas e has resolved. Catheter is in the left upper quadrant of the abdomen. PICC line enters on the left with the tip in the superior vena cava region. IMPRESSION: 1. Small left pleural effusion with adjacent infiltrate. Continued follow-up is recommended.
--- NOTE | 2019-01-14 11:01 | P.PN ---
<Buffy Fuentes A - Last Filed: 01/14/19 10:56> Subjective Progress Note Date: 01/14/19 CHIEF COMPLAINT: Dysphasia HISTORY OF PRESENT ILLNESS: 53-year-old female who originally underwent laparoscopic sleeve gastrectomy on 12/24/2018. Patient was readmitted to the hospital secondary to dysphagia. 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 Patient examined at the bedside. She states her pain is tolerable in her abdomen. Tolerating full liquids. Passing flatus and having BMs. Continues to complain of shortness of breath. Requiring oxygen to maintain sats greater than 92%. Pulmonary is following. She has been started on IV lasix q12 hours. Patient frustrated with her overall condition. Spoke with patient at length this morning. Patient encouraged to increase activity today as tolerated. PHYSICAL EXAM: VITAL SIGNS: Currently stable. GENERAL: Well-developed in no acute distress. HEENT: No sclera icterus. Extraocular movements grossly intact. Moist buccal mucosa. Head is atraumatic, normocephalic. Hears conversational speech. No nasal drainage. NECK: Supple without lymphadenopathy. CHEST: Non-labored respirations and equal bilateral excursions. CARDIOVASCULAR: Regular rate with regular rhythm. Palpable 2+ radial pulses. ABDOMEN: Soft. Nondistended. CODY drain intact. MUSCULOSKELETAL: No clubbing, cyanosis or edema. NEUROLOGIC: No focal or lateralizing signs. Cranial nerves II through XII grossly intact. PSYCH: Appropriate affect. Alert and oriented to person, place and time. SKIN: Well perfused. Good skin turgor. ASSESSMENT: 1. Dysphagia 2. 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 Status post esophagram revealing leak near proximal sleeve with secondary sepsis, present on admission 4. 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 Continue full liquid diet. TPN has been weaned off. Patient will not require TPN at discharge as long as she continues to tolerate PO intake. 2. Monitor respiratory status. Encourage IS 3. Wean oxygen as tolerated 4. Increase activity as tolerated 5. PT on consult Nurse practitioner note has been reviewed by physician. Signing provider agrees with the documented findings, assessment, and plan of care. Objective - Vital Signs Vital signs: Vital Signs Temp 98.5 F 01/14/19 07:00 Pulse 88 01/14/19 07:00 Resp 17 01/14/19 07:00 BP 132/76 01/14/19 07:00 Pulse Ox 97 01/14/19 07:00 Intake & Output 01/13/19 01/14/19 01/14/19 18:59 06:59 18:59 Intake Total 600 1140 Output Total 1300 Balance 600 -160 Intake: Intake, IV Titration 200 Amount ACETAMINOPHEN IV (For NPO 100 ) 1,000 mg In Empty Bag 1 bag @ 400 mls/hr IVPB Q6HR PRN Rx#:[id number] Cefepime 2 gm In Sodium 100 Chloride 0.9% 100 ml @ 200 mls/hr IVPB Q12HR YVETTE Rx#:[id number] Oral 600 940 Output: Drainage 0 Left Abdomen 0 Urine 1300 Other: Voiding Method Bedside Commode # Voids 1 - Labs CBC & Chem 7: 01/14/19 06:48 01/14/19 06:48 Labs: Abnormal Lab Results - Last 24 Hours (Table) 01/13/19 01/14/19 01/14/19 Range/Units 21:36 06:48 06:48 RBC 2.40 L (3.80-5.40) m/uL Hgb 7.5 L (11.4-16.0) gm/dL Hct 23.0 L (34.0-46.0) % Plt Count 845 H (150-450) k/uL Glucose 108 H (74-99) mg/dL POC Glucose (mg/dL) 104 H (75-99) mg/dL Calcium 8.3 L (8.4-10.2) mg/dL Phosphorus 5.8 H (2.5-4.5) mg/dL ALT 106 H (9-52) U/L Alkaline Phosphatase 217 H (38-126) U/L Total Protein 5.6 L (6.3-8.2) g/dL Albumin 2.5 L (3.5-5.0) g/dL Microbiology - Last 24 Hours (Table) 01/10/19 17:20 Gram Stain - Preliminary Thoracic Fluid Body Fluid Culture - Preliminary <Law Dumont - Last Filed: 01/14/19 16:43> Subjective As above. Patient feels stronger today. Pain is down from a 6-4 today. She is ambulating. Discussed with dietary regarding changing diet to standard full liquids which will allow increased overall nutrition. Continue antibiotics. Continue CODY drain. Monitor hemoglobin 7.5 today. White blood cell count now normal. Objective - Vital Signs Vital signs: Vital Signs Temp 98.6 F 01/14/19 15:00 Pulse 107 H 01/14/19 15:00 Resp 16 01/14/19 15:00 BP 146/79 01/14/19 15:00 Pulse Ox 93 L 01/14/19 15:00 Intake & Output 01/13/19 01/14/19 01/14/19 18:59 06:59 18:59 Intake Total 600 1140 100 Output Total 1300 1200 Balance 600 -160 -1100 Intake: Intake, IV Titration 200 100 Amount ACETAMINOPHEN IV (For NPO 100 ) 1,000 mg In Empty Bag 1 bag @ 400 mls/hr IVPB Q6HR PRN Rx#:[id number] Cefepime 2 gm In Sodium 100 100 Chloride 0.9% 100 ml @ 200 mls/hr IVPB Q12HR YVETTE Rx#:[id number] Oral 600 940 Output: Drainage 0 0 Left Abdomen 0 0 Urine 1300 1200 Other: Voiding Method Bedside Commode # Voids 1 - Labs CBC & Chem 7: 01/14/19 06:48 01/14/19 06:48 Labs: Abnormal Lab Results - Last 24 Hours (Table) 01/13/19 01/14/19 01/14/19 Range/Units 21:36 06:48 06:48 RBC 2.40 L (3.80-5.40) m/uL Hgb 7.5 L (11.4-16.0) gm/dL Hct 23.0 L (34.0-46.0) % Plt Count 845 H (150-450) k/uL Glucose 108 H (74-99) mg/dL POC Glucose (mg/dL) 104 H (75-99) mg/dL Calcium 8.3 L (8.4-10.2) mg/dL Phosphorus 5.8 H (2.5-4.5) mg/dL ALT 106 H (9-52) U/L Alkaline Phosphatase 217 H (38-126) U/L Total Protein 5.6 L (6.3-8.2) g/dL Albumin 2.5 L (3.5-5.0) g/dL Microbiology - Last 24 Hours (Table) 01/10/19 17:20 Gram Stain - Preliminary Thoracic Fluid Body Fluid Culture - Preliminary
[2019-01-14] MEDS: ENOXAPARIN 40 MG/0.4 ML SYRINGE SQ SCH (11:22)
[2019-01-14] MEDS: FUROSEMIDE 10 MG/ML 4 ML VIAL IV SCH ×2 (11:22→21:16)
[2019-01-14] MEDS: PANTOPRAZOLE 40 MG/10 ML VIAL IV SCH (11:23)
[2019-01-14] MEDS: ASPIRIN 325 MG TAB PO SCH (11:23)
[2019-01-14] MEDS: CEFEPIME 2 GM in SODIUM CHLORIDE 0.9% 100 ML IVPB SCH ×2 (11:24→21:16)
--- NOTE | 2019-01-14 12:19 | P.PN ---
Subjective Progress Note Date: 01/14/19 Principal diagnosis: Status post exploratory laparotomy, gastrorrhaphy and splenectomy secondary to gastric sleeve staple line perforation This is a 53-year-old female patient who underwent a laparoscopic sleeve gastrectomy on 12/24/2018. Following her surgery, the patient continued having difficulties with epigastric discomfort and some shortness of breath and there was a concern that the patient was having some leak near the proximal sleeve based on the esophagram. At that point the patient had an EGD and the leak was not visualized. Subsequently, the patient was taken to the operating room and the patient was found to have a staple line Perforation. The patient underwent extensive laparotomy, gastrorrhaphy and splenectomy. Note that the splenectomy was done as the patient developed a splenic Tear While Undergoing Abdominal and Peritoneal Cavity Irrigation. Note That the Omentum Was Lifted off the Spleen. There Was Evidence of bilious drainage behind the spleen. During the irrigation, a splenic tear was established and the patient underwent a complete splenectomy. Currently the patient in the recovery room. The patient is doing well. The patient is extubated. The patient is on 2 L of oxygen nasal cannula. She has a wound VAC over the anterior abdominal wall. She has a CODY drain in the left upper quadrant. Output is minimal and serosanguineous. She is having sinus tachycardia. Intraoperatively she received total of 3 L and there patient received an additional 2 L and the recovery in the form of lactated Ringer. Urine output is minimal and the patient has produced 35 mL total since arrival from the operating room. The preop creatinine was within normal limits. She is normotensive with a blood pressure 143/97. Pain is under good control. The patient has received a dose of Diflucan and Levaquin. White cell count from earlier this morning was at 8.2. On 01/10/2019, I evaluated the patient in the ICU, patient is now postoperative day #7, awake, doing well, in no distress, continues to have some vague chest discomfort on the left side. Chest x-ray showed a good sized left-sided pleural effusion, hence I ordered an ultrasound, and it showed a 7.0 cm pocket, and I would likely proceed with left sided thoracentesis today or tomorrow. Patient remains on TPN for nutritional support, remains on antibiotics for abdominal sepsis including Merrem and vancomycin and Diflucan. Continues to have some serosanguineous drainage from CODY drain. Overall the patient is doing relatively well. Improving but slowly. WBC count remains elevated at 19.7, hemoglobin is 7.1. Electrolytes were noted to be relatively normal. Liver enzymes were abnormal elevated. AST is 123 ALT 194 and alkaline phosphatase of 166. Normal bilirubin was noted Reevaluated today on 01/11/2019, patient is post operative day #8, remains in the ICU, she underwent left sided thoracentesis yesterday, and it was uneventful. Patient is feeling better, saturating better since her left sided thoracentesis. Remains on TPN, remains on antibiotics for her abdominal sepsis , she is on Merrem and vancomycin she is also on Diflucan. WBC count today is 17.6/elevated, hemoglobin is 8.0 to let lites are normal renal profile is normal. Overall the patient is improving but slowly. Pleural effusion cultures remain negative so far Gram stain is negative. On 01/12/2019 patient seen in follow-up on medical surgical floor. She is sitting up in the recliner, is still having some mild to moderate amount of discomfort in her left shoulder area, respirations are shallow, patient is only 0.500 on her incentive spirometer. Status post left-sided thoracentesis with removal of 850 mL of pleural fluid 2 days ago. Lung sounds are diminished, particularly at the bases, raising a concern for reaccumulating pleural effusions. Pulse ox is 94% on 3 L per nasal cannula, T-max in the last 24 hours is 99.4F. All culture data including blood cultures, sputum culture and pleural fluid cultures are negative thus far. Pleural fluid Gram stain showed no growth after 24 hours. Her antibiotic coverage includes cefepime, Eraxis, and vancomycin. Abdominal incisions are clean dry and intact, agatha are intact, left-sided CODY drain with minimal serosanguineous output. Abdominal binder is on. Nausea, no vomiting, patient is taking in clear liquids, and tolerating them well so far. Today's labs were noted, and leukocytosis is trending down, white blood cell count is 13.7 down from 17.6 from yesterday, hemoglobin is 7.6, electrolytes within normal limits, BUN is 13 creatinine 0.45 , AST is down to 47, ALT is 172, alkaline phosphatase is 209, albumin is improving, up to 2.2 from 1.9. On 01/13/2019 patient is seen in follow-up on medical surgical floor. She is sitting up in the recliner, she is still tachypneic, is complaining of dyspnea, patient's inspiratory effort has been suboptimal, only has been achieving 250- 500 mL on her incentive spirometer. Currently on 2 L per nasal cannula, her pulse ox is 91%, blood pressures 144/89, slightly tachycardic at times, with a heart rate of 100-105. No fever or chills. Yesterday we obtained a CT angiogram of the chest, which showed no evidence of pulmonary embolism, bilateral pleural effusions, slightly improved on the left and possibly the right, with associated atelectasis at the posterior lung bases. Same antibiotic coverage, Eraxis, Cefepime and Vancomycin. Infectious disease service is managing. TPN has been discontinued, patient is tolerating oral intake, no nausea or vomiting, she is passing bowel movements. She is currently on full liquid diet. Patient is +16.5 kg since admission, patient does have generalized edema. Today's labs have been reviewed, and white blood cell count continues to trend down, down to 11.0, hemoglobin is 7.9, electrolytes are within normal limits, BUN is 10 and creatinine 0.49. On 01/14/2019 patient seen in follow-up on medical surgical floor. She is up ambulating with the physical therapy, tolerating activity fairly well. She states she still feels short of breath, but appears to be less tachypneic compared to yesterday's exam, her incentive spirometry effort is also improved, patient is able to achieve 500-750 on the eye asked today. Patient is wearing her oxygen intermittently, on 3 L per nasal cannula her pulse ox is 97%, no fever or chills, sounds still quite diminished, since inspiratory effort is still quite limited, she is on IV diuretics, intake and output is difficult to estimate the output was measured in occurrences instead of actual volume. At today's chest x-ray shows improvement in the appearance of the right pleural effusion. Today's labs have been reviewed, showed a white blood cell count of 9.9, hemoglobin of 7.5, electrolytes and renal profile were within normal limits. Remains on antibiotics per ID service recommendations, microbiology culture is negative thus far. Objective - Vital Signs Vital signs: Vital Signs Temp 98.5 F 01/14/19 07:00 Pulse 88 01/14/19 07:00 Resp 17 01/14/19 07:00 BP 132/76 01/14/19 07:00 Pulse Ox 97 01/14/19 07:00 Intake & Output 01/13/19 01/14/19 01/14/19 18:59 06:59 18:59 Intake Total 600 1140 Output Total 1300 Balance 600 -160 Intake: Intake, IV Titration 200 Amount ACETAMINOPHEN IV (For NPO 100 ) 1,000 mg In Empty Bag 1 bag @ 400 mls/hr IVPB Q6HR PRN Rx#:[id number] Cefepime 2 gm In Sodium 100 Chloride 0.9% 100 ml @ 200 mls/hr IVPB Q12HR YVETTE Rx#:[id number] Oral 600 940 Output: Drainage 0 Left Abdomen 0 Urine 1300 Other: Voiding Method Bedside Commode # Voids 1 - Exam GENERAL EXAM: Alert, pleasant, obese 53-year-old white female, currently on 3 L per nasal cannula comfortable in no apparent distress. HEAD: Normocephalic/atraumatic. EYES: Normal reaction of pupils, equal size. Conjunctiva pink, sclera white. NOSE: Clear with pink turbinates. THROAT: No erythema or exudates. NECK: No masses, no JVD, no thyroid enlargement, no adenopathy. CHEST: No chest wall deformity. Symmetrical expansion. LUNGS: Equal air entry with diminished breath sounds at the bases, and limited crackles CVS: Regular rate and rhythm, normal S1 and S2, no gallops, no murmurs, no rubs ABDOMEN: Soft, nontender. No hepatosplenomegaly, normal bowel sounds, no guarding or rigidity. Midabdominal incision is clean dry and intact, agatha are intact, CODY site on the left abdomen is clean dry and intact, to stab wound incisions on either side of the midline incision are clean dry and intact agatha intact EXTREMITIES: No clubbing, mild lower extremity edema, no cyanosis, 2+ pulses and upper and lower extremities. MUSCULOSKELETAL: Muscle strength and tone normal. SPINE: No scoliosis or deformity SKIN: No rashes CENTRAL NERVOUS SYSTEM: Alert and oriented -3. No focal deficits, tone is normal in all 4 extremities. PSYCHIATRIC: Alert and oriented -3. Appropriate affect. Intact judgment and insight. - Labs CBC & Chem 7: 01/14/19 06:48 01/14/19 06:48 Labs: Abnormal Lab Results - Last 24 Hours (Table) 01/13/19 01/14/19 01/14/19 Range/Units 21:36 06:48 06:48 RBC 2.40 L (3.80-5.40) m/uL Hgb 7.5 L (11.4-16.0) gm/dL Hct 23.0 L (34.0-46.0) % Plt Count 845 H (150-450) k/uL Glucose 108 H (74-99) mg/dL POC Glucose (mg/dL) 104 H (75-99) mg/dL Calcium 8.3 L (8.4-10.2) mg/dL Phosphorus 5.8 H (2.5-4.5) mg/dL ALT 106 H (9-52) U/L Alkaline Phosphatase 217 H (38-126) U/L Total Protein 5.6 L (6.3-8.2) g/dL Albumin 2.5 L (3.5-5.0) g/dL Microbiology - Last 24 Hours (Table) 01/10/19 17:20 Gram Stain - Preliminary Thoracic Fluid Body Fluid Culture - Preliminary Assessment and Plan Plan: Assessment: 1 gastric sleeve staple line perforation related to sleeve gastrectomy done on . 2 status post exploratory laparotomy gastrorrhaphy and splenectomy postoperative day #10 3 left pleural effusion, status post thoracentesis on 01/10/2019. 850 mL of serosanguineous fluid removed from the left pleural space. 4 multiple comorbidities including migraine cephalgia, varicose veins, history of nephrolithiasis Plan: Continue current medical treatment, continue IV diuresis, chest x-ray showed improvement in the aeration of the right lower base, continue encouraging deep breathing and coughing. Fever or chills, vital signs are stable, tolerating ambulation. We'll follow I performed a history & physical examination of the patient and discussed their management with my nurse practitioner, Ibis Bagley. I reviewed the nurse practitioner's note and agree with the documented findings and plan of care. Lung sounds are positive for diminished breath sounds at the bases, with some limited crackles. The findings and the impression was discussed with the patient. I attest to the documentation by the nurse practitioner. Time with Patient: Less than 30
--- NOTE | 2019-01-14 13:12 | P.PN ---
Subjective Progress Note Date: 01/14/19 Principal diagnosis: intractable nausea and vomiting Patient is a 53-year-old female past medical history of migraine headaches, nephrolithiasis, and postoperative nausea and vomiting who had a gastric sleeve on 12/24/18 complicated with postop edema for sleep and delayed gastric emptying. She was discharged from the hospital on TPN. She worsened at home and 3 presented on 12/31/18. She was found to have possible gastric leak. She returned to the OR on 01/03 for repair of the gastric leak, she was noted to have a splenic capsule Laceration and ultimately underwent spleectomy at the same. She was started on diflucan and meropenem. She spiked fevers and vanco was added 01/05. ID was consulted. CT found possible PNA on 01/07- which she was already ebing treated for. She underwent thoracentesis on 01/10 with removal of 850 cc. Her TPN was discontinued and oral diet encouraged. O2 requirements decreased and breathing was improved on 01/14/19. Patient seen and examined at bedside. Feeling much better today than yesterday. Improvement in breathing is significant. She is having increased urination. No chest pain. Abd pain is controlled with medications. Feeling slightly foggy and thinks it is due to norco and dilaudid being given to close together. Having BM Objective - Vital Signs Vital signs: Vital Signs Temp 98.5 F 01/14/19 07:00 Pulse 88 01/14/19 07:00 Resp 17 01/14/19 07:00 BP 132/76 01/14/19 07:00 Pulse Ox 97 01/14/19 07:00 Intake & Output 01/13/19 01/14/19 01/14/19 18:59 06:59 18:59 Intake Total 600 1140 Output Total 1300 1200 Balance 600 -160 -1200 Intake: Intake, IV Titration 200 Amount ACETAMINOPHEN IV (For NPO 100 ) 1,000 mg In Empty Bag 1 bag @ 400 mls/hr IVPB Q6HR PRN Rx#:[id number] Cefepime 2 gm In Sodium 100 Chloride 0.9% 100 ml @ 200 mls/hr IVPB Q12HR YVETTE Rx#:[id number] Oral 600 940 Output: Drainage 0 Left Abdomen 0 Urine 1300 1200 Other: Voiding Method Bedside Commode # Voids 1 - Exam General: non toxic, no distress, appears at stated age Derm: warm, dry Head: atraumatic, normocephalic, symmetric Eyes: EOMI, no lid lag, anicteric sclera Mouth: no lip lesion, mucus membranes moist Cardiovascular: S1S2 reg, no murmur, positive posterior tibial pulse bilateral, Lungs: decreased bs left base, no rhonchi, no rales , no accessory muscle use Abdominal: soft, non tender to palpation diffusely, no guarding, no appreciable organomegaly Ext: no gross muscle atrophy, trace edema, no contractures Neuro: CN II-XI grossly intact, no focal neuro deficits Psych: Alert, oriented, appropriate affect - Labs CBC & Chem 7: 01/14/19 06:48 01/14/19 06:48 Labs: Abnormal Lab Results - Last 24 Hours (Table) 01/13/19 01/14/19 01/14/19 Range/Units 21:36 06:48 06:48 RBC 2.40 L (3.80-5.40) m/uL Hgb 7.5 L (11.4-16.0) gm/dL Hct 23.0 L (34.0-46.0) % Plt Count 845 H (150-450) k/uL Glucose 108 H (74-99) mg/dL POC Glucose (mg/dL) 104 H (75-99) mg/dL Calcium 8.3 L (8.4-10.2) mg/dL Phosphorus 5.8 H (2.5-4.5) mg/dL ALT 106 H (9-52) U/L Alkaline Phosphatase 217 H (38-126) U/L Total Protein 5.6 L (6.3-8.2) g/dL Albumin 2.5 L (3.5-5.0) g/dL Microbiology - Last 24 Hours (Table) 01/10/19 17:20 Gram Stain - Preliminary Thoracic Fluid Body Fluid Culture - Preliminary Assessment and Plan Assessment: Patient with Gastric sleeve with anastomotic leak status post gastrorraphy - on full liquids - Management per surgery Thrombocytosis s/p spleenectomy - ASA 325 mg, spoke with Dr. Moore who is okay with this - consult Heme/onc - will need vaccinations on D/C info put in for Dr. Givens (pt lives in [place]) Pneumonia - ID following pt - Fevers and WBC improving - Vanco, Cefepime, Anidulafungin Bilateral pleural effusion- improving -s/p thoracentesis 01/10 on the left - cultures negative to date - agree with lasix today and repeat CXR in AM - encourage IS and movement Transaminitis and elevated lipase, improving -likley due to TPN, now off TPN - repeat in AM Acute blood loss anemia, post op and anticipated - no indication for transfusion at this time - follow CBC, check iron stores Acute hypoxic respiratory failure related to pleural effusion, resolved DVT prophylaxis:Lovenox Discussed with: Patient, nursing Anticipated discharge: per surgery Anticipated discharge place: home A total of 25 minutes was spent on the care of this complex patient more than 50 % of the time was spent in counseling and care coordination.
[2019-01-14] MEDS: ANIDULAFUNGIN 100 MG in SODIUM CHLORIDE 0.9% 100 ML IVPB SCH (14:40)
--- NOTE | 2019-01-14 16:43 | P.CONS ---
History of Present Illness - Reason for Consult Consult date: 01/14/19 Thrombocytosis status Post Splenectomy Requesting physician: Antionette Nolan - Chief Complaint Shortness of breath - History of Present Illness Ms. Kimbrough is a 53 year old patient who was discharged from hospital on underwent surgery with Gastric Stapling. She Was dicharged home although on presented with increased and persistent SOB. A CT chest/abdomen/pelvis failed to show abnormalities of recent surgery, although through weekend her symptoms persisted so Dr. Ch ordered a Esophogram (showed leak in proximal sleeve) and EGD was performed (leak could not be identified. He took her to surgery the next day for further evaluation diagnostic laparoscopy possible exploratory laparotomy. During operation there was evidence of a perforation. which was repaired, although there was also tear in the capsule of the spleen which was bleeding and a splenectomy was required to control. Splenectomy was 01/03/19. Since this time her platlet count has began to rise, today over 800K Therefore hematology has been consulted to further evaluate. Review of Systems A 14 point review of systems assessed and completed and all negative except HPI Past Medical History Additional Past Medical History / Comment(s): Pt recently admitted to [facility] on for lap sleeve gastrectomy with edema GE junction. Other hx: migraines, varicose veins, hx kidney stones, history of difficulty with postoperative nausea and vomiting History of Any Multi-Drug Resistant Organisms: None Reported Past Surgical History: Bariatric Surgery, Cholecystectomy, Hysterectomy, Tonsillectomy Additional Past Surgical History / Comment(s): 12/24/18 Lap sleeve gastrectomy, lap band surgery 2007 lap band removal 2008 due to prolapse, I&D of cyst on genital area(not sure what type of infection), picc line/later removed and recently had another picc line inserted for home TPN Past Anesthesia/Blood Transfusion Reactions: Family History of Problems w/ Anesthesia, Motion Sickness, Postoperative Nausea & Vomiting (PONV) Additional Past Anesthesia/Blood Transfusion Reaction / Comm: Pt has had severe PONV, mother-"hard time waking up" Smoking Status: Never smoker - Past Family History Mother Family Medical History: Cancer, Deep Vein Thrombosis (DVT) Additional Family Medical History / Comment(s): Mother had breast cancer. Father Family Medical History: Unable to Obtain Medications and Allergies Home Medications Medication Instructions Recorded Confirmed Type Butalb/Asprin/Caff 50-325-40Mg 1 cap PO DIRECTED PRN 10/11/18 12/31/18 History [Fiorinal 50-325-40 MG] Estrogens, Conjugated [Premarin] 0.625 mg PO DAILY 12/21/18 12/31/18 History HYDROcodone/APAP [Deputy Elixir 30 ml PO Q6HR PRN #360 ml 12/30/18 12/31/18 Rx 7.5-325Mg/15Ml] Simethicone 40 mg/0.6 ml Drops 40 mg PO Q6HR PRN #30 ml 12/30/18 12/31/18 Rx [Mylicon Drops] Allergies Allergy/AdvReac Type Severity Reaction Status Date / Time ciprofloxacin [From Cipro] Allergy Rash/Hives Verified 01/03/19 11:00 Penicillins Allergy Unknown Verified 01/03/19 11:00 Childhood Sulfa (Sulfonamide Allergy Rash/Hives Verified 01/03/19 11:00 Antibiotics) Physical Exam Vitals: Vital Signs Temp Pulse Pulse Resp BP Pulse Ox 01/14/19 07:00 98.5 F 88 17 132/76 97 01/14/19 00:30 98.8 F 98 16 133/77 91 L 01/14/19 00:20 16 01/13/19 22:35 99.0 F 107 H 20 153/79 97 01/13/19 20:45 98 16 01/13/19 20:09 100 01/13/19 19:56 102 H 01/13/19 16:00 16 Intake and Output 01/14/19 01/14/19 01/14/19 06:59 14:59 22:59 Intake Total 550 100 Output Total 1300 1200 Balance -750 -1100 Intake: Intake, IV Titration 200 100 Amount ACETAMINOPHEN IV (For NPO 100 ) 1,000 mg In Empty Bag 1 bag @ 400 mls/hr IVPB Q6HR PRN Rx#:[id number] Cefepime 2 gm In Sodium 100 100 Chloride 0.9% 100 ml @ 200 mls/hr IVPB Q12HR [facility] Rx#:[id number] Oral 350 Output: Drainage 0 0 Left Abdomen 0 0 Urine 1300 1200 Gen: No acute distress, alert Neck: Supple, Trachea midline Head: NC, NT No Lymphadenopathy cervical, axillary Lungs: CTA Bila, diminished bases. Heart: RRR, S1S2 Abd: Soft, evidence of recent surgery Ext minimal edema Results CBC & Chem 7: 01/14/19 06:48 01/14/19 06:48 Labs: Abnormal Lab Results - Last 24 Hours (Table) 01/13/19 01/14/19 01/14/19 Range/Units 21:36 06:48 06:48 RBC 2.40 L (3.80-5.40) m/uL Hgb 7.5 L (11.4-16.0) gm/dL Hct 23.0 L (34.0-46.0) % Plt Count 845 H (150-450) k/uL Glucose 108 H (74-99) mg/dL POC Glucose (mg/dL) 104 H (75-99) mg/dL Calcium 8.3 L (8.4-10.2) mg/dL Phosphorus 5.8 H (2.5-4.5) mg/dL ALT 106 H (9-52) U/L Alkaline Phosphatase 217 H (38-126) U/L Total Protein 5.6 L (6.3-8.2) g/dL Albumin 2.5 L (3.5-5.0) g/dL Microbiology - Last 24 Hours (Table) 01/10/19 17:20 Gram Stain - Preliminary Thoracic Fluid Body Fluid Culture - Preliminary Assessment and Plan Plan: Assessment and Recommendations: 1. Thrombocytosis Status Post Splenectomy; - This is reactive to recent splenectomy and iron deficiency is also a likely component. - If underlying infection can also contribute - Check Daily CBC, no intervention other than the standard post operative interventions for this reactive process as it is normal to increase and realitively benigh under 1000K - Replace Iron after iron studies return - Continue post operative DVT prophylaxis as already ordered and administering Physician Attest: I have completed the full history and physical and devloped the complete impression and plan. I agree with above dictation as dictated as a scribe Thank you for consultation.
--- NOTE | 2019-01-15 07:23 | XR ---
EXAMINATION TYPE: XR chest 1V portable DATE OF EXAM: 01/15/2019 COMPARISON: 01/14/19 HISTORY: SOB, Follow Up FINDINGS: Left-sided PICC line is in place. No change in bibasilar opacities. Stable appearance of the cardio-mediastinal structures at this time. Pleural effusion unchanged. IMPRESSION: 1. Stable portable chest. Clinical correlation and follow up until resolution is recommended.
--- NOTE | 2019-01-15 08:55 | PN ---
PROGRESS NOTE DATE OF SERVICE: 01/14/2019. REASON FOR FOLLOWUP: Pneumonia. INTERVAL HISTORY: The patient is afebrile. She is breathing more comfortably. Denies significant chest pain. Occasional cough. No nausea or vomiting. No abdominal pain or any diarrhea. PHYSICAL EXAMINATION: Blood pressure 150/72 with temperature 98.9. She is 94% on 2 L nasal cannula. General description is a middle-aged female lying in bed in no distress. Respiratory system: Unlabored breathing with decreased breath sounds in the base. No wheeze. Heart S1, S2. Regular rate and rhythm. ABDOMEN: Soft. Midline incision is clean. EXTREMITIES: No edema of the feet. LABS: Hemoglobin , white count 9.9 with a BUN of 10, creatinine 0.58. DIAGNOSTIC IMPRESSION AND PLAN: 1. Patient with postop fever confirmed likely for pneumonia possible gram negative. The patient is currently covered with that will continue for now, finish a course of oral antibiotics. 2. Patient who is status post splenectomy on 01/13/2019. The patient received pneumococcal, Haemophilus influenzae, and vaccination on 01/17 that will be 2 weeks post surgery. Plan of care discussed in detail with the medical team. MMODL / IJN: [id number] /
[2019-01-15 08:59] LABS: Basophils # (A) 0.1 k/uL (0-0.2); Basophils % (A) 1 %; Eosinophils # (A) 0.2 k/uL (0-0.7); Eosinophils % (A) 2 %; HCT 26.8 % (34.0-46.0); HGB 8.2 gm/dL (11.4-16.0); Hypochromasia Slight; Lymphocytes # (A) 1.5 k/uL (1.0-4.8); Lymphocytes % (A) 14 %; MCH 29.5 pg (25.0-35.0); MCHC 30.8 g/dL (31.0-37.0); Mean Platelet Volume 7.7; Monocytes # (A) 0.5 k/uL (0-1.0); Monocytes % (A) 5 %; Neutrophils # (A) 7.9 k/uL (1.3-7.7); Neutrophils % (A) 75 %; Platelet Count 989 k/uL (150-450); RBC 2.79 m/uL (3.80-5.40); RDW 13.1 % (11.5-15.5); WBC 10.6 k/uL (3.8-10.6)
[2019-01-15 09:13] LABS: ALT 108 U/L (9-52); AST 41 U/L (14-36); Alkaline Phosphatase 232 U/L (38-126); Anion Gap 10 mmol/L; Blood Urea Nitrogen 12 mg/dL (7-17); Calcium 8.8 mg/dL (8.4-10.2); Carbon Dioxide 31 mmol/L (22-30); Chloride 97 mmol/L (98-107); Glucose 100 mg/dL (74-99); Magnesium 1.7 mg/dL (1.6-2.3); Phosphorus 4.3 mg/dL (2.5-4.5); Potassium 4.2 mmol/L (3.5-5.1); Sodium 138 mmol/L (137-145); Total Bilirubin 0.6 mg/dL (0.2-1.3); Total Protein 6.6 g/dL (6.3-8.2)
[2019-01-15] MEDS: CEFEPIME 2 GM in SODIUM CHLORIDE 0.9% 100 ML IVPB SCH ×2 (09:19→20:33)
[2019-01-15] MEDS: SIMETHICONE 40 MG/0.6 ML DROPS 2,000 MG/30 ML BOTTLE PO SCH ×4 (09:23→20:33)
[2019-01-15] MEDS: PANTOPRAZOLE 40 MG/10 ML VIAL IV SCH (09:23)
[2019-01-15] MEDS: ENOXAPARIN 40 MG/0.4 ML SYRINGE SQ SCH (09:24)
[2019-01-15] MEDS: ANIDULAFUNGIN 100 MG in SODIUM CHLORIDE 0.9% 100 ML IVPB SCH (10:16)
[2019-01-15] MEDS: ASPIRIN 81 MG PO SCH (11:20)
--- NOTE | 2019-01-15 14:06 | P.PN ---
Subjective Progress Note Date: 01/15/19 Principal diagnosis: Status post laparoscopic sleeve gastrectomy This is a 53-year-old female patient who underwent a laparoscopic sleeve gastrectomy on 12/24/2018. Following her surgery, the patient continued having difficulties with epigastric discomfort and some shortness of breath and there was a concern that the patient was having some leak near the proximal sleeve based on the esophagram. At that point the patient had an EGD and the leak was not visualized. Subsequently, the patient was taken to the operating room and the patient was found to have a staple line Perforation. The patient underwent extensive laparotomy, gastrorrhaphy and splenectomy. Note that the splenectomy was done as the patient developed a splenic Tear While Undergoing Abdominal and Peritoneal Cavity Irrigation. Note That the Omentum Was Lifted off the Spleen. There Was Evidence of bilious drainage behind the spleen. During the irrigation, a splenic tear was established and the patient underwent a complete splenectomy. Currently the patient in the recovery room. The patient is doing well. The patient is extubated. The patient is on 2 L of oxygen nasal cannula. She has a wound VAC over the anterior abdominal wall. She has a CODY drain in the left upper quadrant. Output is minimal and serosanguineous. She is having sinus tachycardia. Intraoperatively she received total of 3 L and there patient received an additional 2 L and the recovery in the form of lactated Ringer. Urine output is minimal and the patient has produced 35 mL total since arrival from the operating room. The preop creatinine was within normal limits. She is normotensive with a blood pressure 143/97. Pain is under good control. The patient has received a dose of Diflucan and Levaquin. White cell count from earlier this morning was at 8.2. The patient is seen again today 01/15/2019 in follow-up on the regular medical floor. She is awake and alert in no acute distress. She is sitting up in a chair at the bedside. She denies any worsening shortness of breath, cough or congestion. She is working well with the incentive spirometer. Currently maintaining good O2 saturations in the 90s on room air. She's been afebrile. Hemodynamically stable. Blood and sputum cultures reveal no growth. Thoracic fluid reveals no growth. White count 10.6. Hemoglobin 8.2. Creatinine 0.69. AST 41, ALT 108. Objective - Vital Signs Vital signs: Vital Signs Temp 98.8 F 01/15/19 13:26 Pulse 94 01/15/19 13:26 Resp 20 01/15/19 13:26 BP 151/73 01/15/19 13:26 Pulse Ox 94 L 01/15/19 13:26 Intake & Output 01/14/19 01/15/19 01/15/19 18:59 06:59 18:59 Intake Total 100 100 240 Output Total 1200 1300 Balance -1100 -1200 240 Intake: Intake, IV Titration 100 100 Amount Cefepime 2 gm In Sodium 100 100 Chloride 0.9% 100 ml @ 200 mls/hr IVPB Q12HR [facility] Rx#:[id number] Oral 240 Output: Drainage 0 0 Left Abdomen 0 0 Urine 1200 1300 Other: Voiding Method Bedside Commode Bedside Commode # Voids 2 1 # Bowel Movements 1 - Exam Gen. appearance, comfortable no acute distress on room air Head exam was generally normal. There was no scleral icterus or corneal arcus. Mucous membranes were moist. Neck was supple and without jugular venous distension, thyromegaly, or carotid bruits. Carotids were easily palpable bilaterally. There was no adenopathy. Lungs were clear to auscultation and percussion, and with normal diaphragmatic excursion. No wheezes or rales were noted. Heart sounds are tachycardic, normal S1-S2 and the rhythm is sinus. No significant murmurs appreciated. Abdomen is soft. Incisions are clean dry and intact. [place] intact. CODY drains left upper quadrant. Bowel sounds are hypoactive. Examination of the extremities revealed easily palpable radial, femoral and pedal pulses. There was no cyanosis, clubbing or edema. Examination of the skin revealed no evidence of significant rashes, suspicious appearing nevi or other concerning lesions. Neurologically awake and alert and there is no focal neurological deficits. - Labs CBC & Chem 7: 01/15/19 08:08 01/15/19 08:08 Labs: Abnormal Lab Results - Last 24 Hours (Table) 01/14/19 01/15/19 01/15/19 Range/Units 06:48 08:08 08:08 RBC 2.79 L (3.80-5.40) m/uL Hgb 8.2 L (11.4-16.0) gm/dL Hct 26.8 L (34.0-46.0) % MCHC 30.8 L (31.0-37.0) g/dL Plt Count 989 H (150-450) k/uL Neutrophils # 7.9 H (1.3-7.7) k/uL Chloride 97 L (98-107) mmol/L Carbon Dioxide 31 H (22-30) mmol/L Glucose 100 H (74-99) mg/dL Iron 7 L (50-170) ug/dL AST 41 H (14-36) U/L ALT 108 H (9-52) U/L Alkaline Phosphatase 232 H (38-126) U/L Albumin 3.0 L (3.5-5.0) g/dL Microbiology - Last 24 Hours (Table) 01/10/19 17:20 Gram Stain - Preliminary Thoracic Fluid Body Fluid Culture - Final Assessment and Plan Assessment: Assessment 1 status post exploratory laparotomy, gastrorrhaphy and splenectomy on 2018 for gastric staple line perforation. Gastric sleeve procedure performed generator 2018. 2 left-sided pleural effusion status post thoracentesis on 01/10/2019. 850 mL of serosanguineous fluid removed. Cultures reveal no growth to date. Today's chest x-ray reveals no change in bibasilar opacities. Stable. 3 history of migraine 4 varicose veins 5 nephrolithiasis 6 TPN for nutritional support. Plan The patient was seen and evaluated by Dr. Irwin. Chest x-ray and labs reviewed. Maintaining O2 saturations in the 90s on room air. She is encouraged to continue the increased use the incentive spirometer and cough and deep breathing exercises. We'll continue to follow and make further recommendations based on her clinical status. I, the cosigning physician, performed a history & physical examination of the patient. Lungs sounds with crackles in the left posterior base. Few scattered rhonchi.. Maintaining good O2 saturations in the 90s on room air. I discussed the assessment and plan of care with my nurse practitioner, July Harrell. I attest to the above note as dictated by her.
[2019-01-15 16:40] LABS: Glucose,Whole Blood 81 mg/dL (75-99)
--- NOTE | 2019-01-15 16:44 | P.PN ---
Subjective Progress Note Date: 01/15/19 Principal diagnosis: intractable nausea and vomiting Patient is a 53-year-old female past medical history of migraine headaches, nephrolithiasis, and postoperative nausea and vomiting who had a gastric sleeve on 12/24/18 complicated with postop edema for sleep and delayed gastric emptying. She was discharged from the hospital on TPN. She worsened at home and 3 presented on 12/31/18. She was found to have possible gastric leak. She returned to the OR on 01/03 for repair of the gastric leak, she was noted to have a splenic capsule Laceration and ultimately underwent spleectomy at the same. She was started on diflucan and meropenem. She spiked fevers and vanco was added 01/05. ID was consulted. CT found possible PNA on 01/07- which she was already ebing treated for. She underwent thoracentesis on 01/10 with removal of 850 cc. Her TPN was discontinued and oral diet encouraged. O2 requirements decreased and breathing was improved on 01/14/19. Patient seen and examined at bedside. Feeling okay today, breathing well, no nausea, tolerating her diet, no chest pain. Concerned that she is having liquid stools with urgency to use the bathroom and little warning. Pain is controlled. Was feeling foggy yesterday after having dilaudid and norco close together now increased pain but tolerable. Had a long discussion with over care concerns. Objective - Vital Signs Vital signs: Vital Signs Temp 98.4 F 01/15/19 07:00 Pulse 95 01/15/19 07:00 Resp 16 01/15/19 09:39 BP 133/72 01/15/19 07:00 Pulse Ox 92 L 01/15/19 07:00 Intake & Output 01/14/19 01/15/19 01/15/19 18:59 06:59 18:59 Intake Total 100 100 240 Output Total 1200 1300 Balance -1100 -1200 240 Intake: Intake, IV Titration 100 100 Amount Cefepime 2 gm In Sodium 100 100 Chloride 0.9% 100 ml @ 200 mls/hr IVPB Q12HR [facility] Rx#:[id number] Oral 240 Output: Drainage 0 0 Left Abdomen 0 0 Urine 1200 1300 Other: Voiding Method Bedside Commode Bedside Commode # Voids 2 1 # Bowel Movements 1 - Exam General: non toxic, no distress, appears at stated age Derm: warm, dry Head: atraumatic, normocephalic, symmetric Eyes: EOMI, no lid lesion, anicteric sclera Mouth: no lip lesion, mucus membranes moist Cardiovascular: S1S2 reg, no murmur, positive posterior tibial pulse bilateral, Lungs: decreased bs left base, no rhonchi, no rales , no accessory muscle use Abdominal: soft, non tender to palpation diffusely, no guarding, no appreciable organomegaly Ext: no gross muscle atrophy, trace edema, no contractures Neuro: CN II-XI grossly intact, no focal neuro deficits Psych: Alert, oriented, flat affect - Labs CBC & Chem 7: 01/15/19 08:08 01/15/19 08:08 Labs: Abnormal Lab Results - Last 24 Hours (Table) 01/14/19 01/15/19 01/15/19 Range/Units 06:48 08:08 08:08 RBC 2.79 L (3.80-5.40) m/uL Hgb 8.2 L (11.4-16.0) gm/dL Hct 26.8 L (34.0-46.0) % MCHC 30.8 L (31.0-37.0) g/dL Plt Count 989 H (150-450) k/uL Neutrophils # 7.9 H (1.3-7.7) k/uL Chloride 97 L (98-107) mmol/L Carbon Dioxide 31 H (22-30) mmol/L Glucose 100 H (74-99) mg/dL Iron 7 L (50-170) ug/dL AST 41 H (14-36) U/L ALT 108 H (9-52) U/L Alkaline Phosphatase 232 H (38-126) U/L Albumin 3.0 L (3.5-5.0) g/dL Microbiology - Last 24 Hours (Table) 01/10/19 17:20 Gram Stain - Preliminary Thoracic Fluid Body Fluid Culture - Final Assessment and Plan Assessment: Patient with Gastric sleeve with anastomotic leak status post gastrorraphy - on full liquids - Management per surgery Thrombocytosis s/p spleenectomy - ASA 81 mg, spoke with Dr. Moore who is okay with this - Heme/onc recs appreciated. Plt count now near 1000 - D/W ID on 01/14 will need vaccinations on 01/17 for HIB, pneumonicall pneumonia , and meningitis Pneumonia - ID recs will complete a couse of oral antibiotics continue with eraxis and cefepime, completed vanco - Improving on CXR Bilateral pleural effusion- improving -s/p thoracentesis 01/10 on the left - cultures negative - off lasix - encourage IS and movement Transaminitis and elevated lipase, improving - likley due to TPN, now off TPN - repeat in AM Acute blood loss anemia, post op and anticipated - no indication for transfusion at this time - follow CBC, await ferritin level Acute hypoxic respiratory failure related to pleural effusion, resolved DVT prophylaxis:Lovenox Discussed with: Patient, nursing, . Anticipated discharge: per surgery Anticipated discharge place: home A total of 75 minutes was spent on the care of this complex patient more than 50 % of the time was spent in counseling and care coordination.
--- NOTE | 2019-01-15 17:04 | P.PN ---
Subjective Progress Note Date: 01/15/19 CHIEF COMPLAINT: S/p splenectomy with oversew of gastric leak HISTORY OF PRESENT ILLNESS: The patient is a 53-year-old female status post sleeve gastrectomy, 12/24/18. She was readmitted and had developed a leak. She went back to the operating room for oversew of her gastric leak including splenectomy. She is hospital day 15 from readmission. She is tolerating diet. She is on liquid diet. Pain is controlled. PHYSICAL EXAM: VITAL SIGNS: Reviewed GENERAL: Well-developed in no acute distress. HEENT: No sclera icterus. Extraocular movements grossly intact. Head is atraumatic, normocephalic. Hears conversational speech. NECK: Supple without lymphadenopathy. CHEST: Non-labored respirations. CARDIOVASCULAR: Palpable 2+ radial pulses. Regular rate and regular rhythm ABDOMEN: Soft. Nondistended. No peritonitis. MUSCULOSKELETAL: No clubbing, cyanosis. No edema. NEUROLOGIC: No focal or lateralizing signs. Cranial nerves II through XII grossly intact. PSYCH: Appropriate affect. Alert and oriented to person, place and time. SKIN: Well perfused. Good skin turgor. LABS: Reviewed ASSESSMENT: 1. Status post sleeve gastrectomy complication of leak 2. Status post splenectomy 3. Thrombocytosis PLAN: 1. Continue with liquid diet. 2. Continue with IV antibiotics. 3. Will need vaccines post-splenectomy Objective - Vital Signs Vital signs: Vital Signs Temp 98.8 F 01/15/19 13:26 Pulse 94 01/15/19 13:26 Resp 20 01/15/19 13:26 BP 151/73 01/15/19 13:26 Pulse Ox 94 L 01/15/19 13:26 Intake & Output 01/14/19 01/15/19 01/15/19 18:59 06:59 18:59 Intake Total 100 100 240 Output Total 1200 1300 Balance -1100 -1200 240 Intake: Intake, IV Titration 100 100 Amount Cefepime 2 gm In Sodium 100 100 Chloride 0.9% 100 ml @ 200 mls/hr IVPB Q12HR [facility] Rx#:[id number] Oral 240 Output: Drainage 0 0 Left Abdomen 0 0 Urine 1200 1300 Other: Voiding Method Bedside Commode Bedside Commode # Voids 2 2 # Bowel Movements 1 - Labs CBC & Chem 7: 01/15/19 08:08 01/15/19 08:08 Labs: Abnormal Lab Results - Last 24 Hours (Table) 01/14/19 01/15/19 01/15/19 Range/Units 06:48 08:08 08:08 RBC 2.79 L (3.80-5.40) m/uL Hgb 8.2 L (11.4-16.0) gm/dL Hct 26.8 L (34.0-46.0) % MCHC 30.8 L (31.0-37.0) g/dL Plt Count 989 H (150-450) k/uL Neutrophils # 7.9 H (1.3-7.7) k/uL Chloride 97 L (98-107) mmol/L Carbon Dioxide 31 H (22-30) mmol/L Glucose 100 H (74-99) mg/dL Iron 7 L (50-170) ug/dL AST 41 H (14-36) U/L ALT 108 H (9-52) U/L Alkaline Phosphatase 232 H (38-126) U/L Albumin 3.0 L (3.5-5.0) g/dL Microbiology - Last 24 Hours (Table) 01/10/19 17:20 Gram Stain - Preliminary Thoracic Fluid Body Fluid Culture - Final Assessment and Plan (1) S/P laparoscopic sleeve gastrectomy Current Visit: Yes Status: Acute Code(s): Z98.84 - BARIATRIC SURGERY STATUS SNOMED Code(s): 268112007 (2) Inadequate dietary intake of protein Current Visit: Yes Status: Acute Code(s): R63.8 - OTHER SYMPTOMS AND SIGNS CONCERNING FOOD AND FLUID INTAKE SNOMED Code(s): 828278473 (3) On total parenteral nutrition (TPN) Current Visit: Yes Status: Acute Code(s): Z78.9 - OTHER SPECIFIED HEALTH STATUS SNOMED Code(s): 39247905 (4) Pleural effusion, left Current Visit: Yes Status: Acute Code(s): J90 - PLEURAL EFFUSION, NOT ELSEWHERE CLASSIFIED SNOMED Code(s): 93502741 (5) Dyspnea Current Visit: Yes Status: Acute Code(s): R06.00 - DYSPNEA, UNSPECIFIED SNOMED Code(s): 172402414 (6) Dehydration Current Visit: Yes Status: Acute Code(s): E86.0 - DEHYDRATION SNOMED Code( s): 30006965 (7) Morbid obesity due to excess calories Current Visit: No Status: Acute Code(s): E66.01 - MORBID (SEVERE) OBESITY DUE TO EXCESS CALORIES SNOMED Code(s): 467360037
[2019-01-15 20:01] LABS: Glucose,Whole Blood 95 mg/dL (75-99)
[2019-01-16 07:37] LABS: Glucose,Whole Blood 91 mg/dL (75-99)
[2019-01-16] MEDS: CEFEPIME 2 GM in SODIUM CHLORIDE 0.9% 100 ML IVPB SCH ×3 (08:35→20:35)
[2019-01-16] MEDS: ANIDULAFUNGIN 100 MG in SODIUM CHLORIDE 0.9% 100 ML IVPB SCH (08:43)
[2019-01-16] MEDS: PANTOPRAZOLE 40 MG/10 ML VIAL IV SCH (08:44)
[2019-01-16] MEDS: ASPIRIN 81 MG PO SCH (08:44)
[2019-01-16] MEDS: ENOXAPARIN 40 MG/0.4 ML SYRINGE SQ SCH (08:45)
[2019-01-16] MEDS: SIMETHICONE 40 MG/0.6 ML DROPS 2,000 MG/30 ML BOTTLE PO SCH ×4 (08:51→20:35)
--- NOTE | 2019-01-16 10:56 | PN ---
PROGRESS NOTE DATE OF SERVICE: 01/15/2019. REASON FOR FOLLOWUP: Gram-negative pneumonia, post splenectomy state. INTERVAL HISTORY: The patient is afebrile. She has been breathing comfortably. Denies having any chest pain. No cough. No abdominal pain or diarrhea. PHYSICAL EXAMINATION: Blood pressure 144/75 with a pulse of 103, temperature 98.7, saturating 92% on room air. GENERAL DESCRIPTION: An elderly female up in the bed in no distress. RESPIRATORY SYSTEM: Unlabored breathing with decreased breath sounds at the bases. HEART: S1, S2. Regular rhythm and rhythm. ABDOMEN: Soft. LABS: Hemoglobin 8.1, white count 10.7, BUN of 12, creatinine 0.69. DIAGNOSTIC IMPRESSION AND PLAN: 1. Patient with gram-negative pneumonia. The patient is currently on cefepime. Consider short course of on discharge. 2. The patient is post splenectomy, to get meningococcal and pneumococcal antigen vaccine on January 17. Continue supportive care. MMODL / IJN: [id number] /
[2019-01-16 11:30] LABS: HCT 24.5 % (34.0-46.0); HGB 7.9 gm/dL (11.4-16.0); Hypochromasia Slight; MCH 30.8 pg (25.0-35.0); MCHC 32.4 g/dL (31.0-37.0); MCV 95.1 fL (80.0-100.0); Platelet Count 965 k/uL (150-450); RBC 2.58 m/uL (3.80-5.40); RDW 13.5 % (11.5-15.5); WBC 8.6 k/uL (3.8-10.6)
[2019-01-16 11:33] LABS: ALT 81 U/L (9-52); AST 36 U/L (14-36); Albumin 2.8 g/dL (3.5-5.0); Alkaline Phosphatase 197 U/L (38-126); Anion Gap 9 mmol/L; Blood Urea Nitrogen 13 mg/dL (7-17); Calcium 8.5 mg/dL (8.4-10.2); Carbon Dioxide 29 mmol/L (22-30); Chloride 101 mmol/L (98-107); Glucose 102 mg/dL (74-99); Potassium 3.7 mmol/L (3.5-5.1); Sodium 139 mmol/L (137-145); Total Bilirubin 0.4 mg/dL (0.2-1.3); Total Protein 6.2 g/dL (6.3-8.2)
[2019-01-16 11:44] LABS: Glucose,Whole Blood 98 mg/dL (75-99)
[2019-01-16] MEDS ORDERED: ACETAMINOPHEN ORAL SUSP 160 MG/5 ML CUP PO PRN (14:18)
--- NOTE | 2019-01-16 14:56 | P.PN ---
Subjective Progress Note Date: 01/16/19 Principal diagnosis: intractable nausea and vomiting Patient is a 53-year-old female past medical history of migraine headaches, nephrolithiasis, and postoperative nausea and vomiting who had a gastric sleeve on 12/24/18 complicated with postop edema for sleep and delayed gastric emptying. She was discharged from the hospital on TPN. She worsened at home and 3 presented on 12/31/18. She was found to have possible gastric leak. She returned to the OR on 01/03 for repair of the gastric leak, she was noted to have a splenic capsule Laceration and ultimately underwent spleectomy at the same. She was started on diflucan and meropenem. She spiked fevers and vanco was added 01/05. ID was consulted. CT found possible PNA on 01/07- which she was already being treated for. She underwent thoracentesis on 01/10 with removal of 850 cc. Her TPN was discontinued and oral diet encouraged. O2 requirements decreased and breathing was improved on 01/14/19. Patient seen and examined at bedside. Doing slightly better today, no nausea, no vomiting, still with loose stools. Getting her self to the bathroom. Feels a slight pulling in her abdomen- reinforced that this is normal due to the agatha in her abdomen. Objective - Vital Signs Vital signs: Vital Signs Temp 99.3 F 01/16/19 06:49 Pulse 90 01/16/19 06:53 Resp 18 01/16/19 06:53 BP 133/75 01/16/19 06:49 Pulse Ox 94 L 01/16/19 06:49 Intake & Output 01/15/19 01/16/19 01/16/19 18:59 06:59 18:59 Intake Total 960 320 Balance 960 320 Intake: Intake, IV Titration 200 Amount Anidulafungin 100 mg In 100 Sodium Chloride 0.9% 100 ml @ 84 mls/hr IVPB DAILY [facility] Rx#:[id number] Cefepime 2 gm In Sodium 100 Chloride 0.9% 100 ml @ 200 mls/hr IVPB Q12HR [facility] Rx#:[id number] Oral 960 120 Other: Voiding Method Bedside Commode Toilet # Voids 2 # Bowel Movements 1 - Exam General: non toxic, no distress, appears at stated age Derm: warm, dry Head: atraumatic, normocephalic, symmetric Eyes: EOMI, no lid lesion, anicteric sclera Mouth: no lip lesion, mucus membranes moist Cardiovascular: S1S2 reg, no murmur, positive posterior tibial pulse bilateral, Lungs: CTA b/l no rhonchi, no rales , no accessory muscle use Abdominal: soft, non tender to palpation diffusely, no guarding, no appreciable organomegaly, midline incision clean/dry/intact with agatha in place Ext: no gross muscle atrophy, trace edema, no contractures Neuro: CN II-XI grossly intact, no focal neuro deficits Psych: Alert, oriented, flat affect - Labs CBC & Chem 7: 01/16/19 11:10 01/16/19 11:10 Labs: Abnormal Lab Results - Last 24 Hours (Table) 01/15/19 01/16/19 01/16/19 Range/Units 08:08 11:10 11:10 RBC 2.58 L (3.80-5.40) m/uL Hgb 7.9 L (11.4-16.0) gm/dL Hct 24.5 L (34.0-46.0) % Plt Count 965 H (150-450) k/uL Glucose 102 H (74-99) mg/dL Ferritin 395.5 H (10.0-291.0) ng/mL ALT 81 H (9-52) U/L Alkaline Phosphatase 197 H (38-126) U/L Total Protein 6.2 L (6.3-8.2) g/dL Albumin 2.8 L (3.5-5.0) g/dL Assessment and Plan Assessment: Patient with Gastric sleeve with anastomotic leak status post gastrorraphy - on full liquids - Management per surgery Thrombocytosis s/p spleenectomy - ASA 81 mg, spoke with Dr. Moore who is okay with this - Heme/onc recs appreciated. Plt count now near 1000 - D/W ID on 01/14 will need vaccinations on 01/17 for HIB, pneumonicall pneumonia , and meningitis Pneumonia - ID recs will complete a couse of oral antibiotics continue with eraxis and cefepime, completed vanco - Improving on CXR Bilateral pleural effusion- improving -s/p thoracentesis 01/10 on the left - cultures negative - off lasix - encourage IS and movement Transaminitis and elevated lipase, improving - repeat as out patient in 1-2 weeks Acute blood loss anemia, post op and anticipated - no indication for transfusion at this time - follow CBC, await ferritin level Acute hypoxic respiratory failure related to pleural effusion, resolved DVT prophylaxis:Lovenox Discussed with: Patient, nursing, . Anticipated discharge: per surgery Anticipated discharge place: home A total of 75 minutes was spent on the care of this complex patient more than 50 % of the time was spent in counseling and care coordination.
[2019-01-16 17:16] LABS: Glucose,Whole Blood 100 mg/dL (75-99)
[2019-01-16 19:49] LABS: Glucose,Whole Blood 113 mg/dL (75-99)
--- NOTE | 2019-01-17 06:05 | PN ---
PROGRESS NOTE DATE OF SERVICE: 01/16/2019 REASON FOR FOLLOWUP: 1. Pneumonia. 2. Post splenectomy. INTERVAL HISTORY: The patient is afebrile. She is breathing comfortably. Denies having any chest pain. Occasional cough. Minimal shortness of breath on exertion. No abdominal pain or any diarrhea. PHYSICAL EXAMINATION: On examination, blood pressure 154/79 with a pulse of 73, temperature 98.6. General description is a middle-aged female lying in bed in no distress. RESPIRATORY SYSTEM: Unlabored breathing. Decreased breath sounds at the bases. No wheeze. HEART: S1, S2. Regular rate and rhythm. ABDOMEN: Soft. LABS: Hemoglobin 7.9, white count 8.6. BUN of 13, creatinine 0.59. DIAGNOSTIC IMPRESSION AND PLAN: 1. Patient with postoperative fever, likely pneumonia. This patient's sputum has been negative so far. Currently on cefepime and that can be transitioned to a short course of Avelox on discharge. 2. Patient who is post splenectomy, tomorrow will be day 14, ordered . Continue with supportive care. MMODL / IJN: [id number] /
[2019-01-17 07:45] LABS: HCT 26.5 % (34.0-46.0); HGB 8.4 gm/dL (11.4-16.0); Hypochromasia Moderate; MCH 30.5 pg (25.0-35.0); MCHC 31.7 g/dL (31.0-37.0); Platelet Count 984 k/uL (150-450); RBC 2.76 m/uL (3.80-5.40); RDW 13.1 % (11.5-15.5); WBC 9.1 k/uL (3.8-10.6)
[2019-01-17 08:00] LABS: Glucose,Whole Blood 93 mg/dL (75-99)
--- NOTE | 2019-01-17 08:03 | P.PN ---
Subjective Progress Note Date: 01/16/19 Principal diagnosis: Clinical stable. She reports no need for pain medications. Likely discharge tomorrow as she is clinically stable. Will need post-splenectomy vaccinations. Objective - Vital Signs Vital signs: Vital Signs Temp 99.3 F 01/16/19 19:00 Pulse 95 01/16/19 19:00 Resp 18 01/16/19 20:00 BP 131/79 01/16/19 19:00 Pulse Ox 95 01/16/19 19:00 Intake & Output 01/16/19 01/16/19 01/17/19 06:59 18:59 06:59 Intake Total 320 50 Output Total 10 Balance 310 50 Intake: Intake, IV Titration 200 Amount Anidulafungin 100 mg In 100 Sodium Chloride 0.9% 100 ml @ 84 mls/hr IVPB DAILY [facility] Rx#:[id number] Cefepime 2 gm In Sodium 100 Chloride 0.9% 100 ml @ 200 mls/hr IVPB Q12HR [facility] Rx#:[id number] Oral 120 50 Output: Drainage 10 Left Abdomen 10 Other: Voiding Method Toilet Toilet # Voids 1 - Labs CBC & Chem 7: 01/16/19 11:10 01/16/19 11:10 Labs: Abnormal Lab Results - Last 24 Hours (Table) 01/16/19 01/16/19 01/16/19 Range/Units 11:10 11:10 17:02 RBC 2.58 L (3.80-5.40) m/uL Hgb 7.9 L (11.4-16.0) gm/dL Hct 24.5 L (34.0-46.0) % Plt Count 965 H (150-450) k/uL Glucose 102 H (74-99) mg/dL POC Glucose (mg/dL) 100 H (75-99) mg/dL ALT 81 H (9-52) U/L Alkaline Phosphatase 197 H (38-126) U/L Total Protein 6.2 L (6.3-8.2) g/dL Albumin 2.8 L (3.5-5.0) g/dL 01/16/19 Range/Units 19:38 RBC (3.80-5.40) m/uL Hgb (11.4-16.0) gm/dL Hct (34.0-46.0) % Plt Count (150-450) k/uL Glucose (74-99) mg/dL POC Glucose (mg/dL) 113 H (75-99) mg/dL ALT (9-52) U/L Alkaline Phosphatase (38-126) U/L Total Protein (6.3-8.2) g/dL Albumin (3.5-5.0) g/dL Assessment and Plan (1) S/P laparoscopic sleeve gastrectomy Current Visit: Yes Status: Acute Code(s): Z98.84 - BARIATRIC SURGERY STATUS SNOMED Code(s): 056385497 (2) Inadequate dietary intake of protein Current Visit: Yes Status: Acute Code(s): R63.8 - OTHER SYMPTOMS AND SIGNS CONCERNING FOOD AND FLUID INTAKE SNOMED Code(s): 632732202 (3) On total parenteral nutrition (TPN) Current Visit: Yes Status: Acute Code(s): Z78.9 - OTHER SPECIFIED HEALTH STATUS SNOMED Code(s): 11836951 (4) Pleural effusion, left Current Visit: Yes Status: Acute Code(s): J90 - PLEURAL EFFUSION, NOT ELSEWHERE CLASSIFIED SNOMED Code(s): 80851605 (5) Dyspnea Current Visit: Yes Status: Acute Code(s): R06.00 - DYSPNEA, UNSPECIFIED SNOMED Code(s): 686602507 (6) Dehydration Current Visit: Yes Status: Acute Code(s): E86.0 - DEHYDRATION SNOMED Code( s): 47811320 (7) Morbid obesity due to excess calories Current Visit: No Status: Acute Code(s): E66.01 - MORBID (SEVERE) OBESITY DUE TO EXCESS CALORIES SNOMED Code(s): 862107721
[2019-01-17] MEDS: CEFEPIME 2 GM in SODIUM CHLORIDE 0.9% 100 ML IVPB SCH (08:11)
[2019-01-17] MEDS: ASPIRIN 81 MG PO SCH (08:18)
[2019-01-17] MEDS: PANTOPRAZOLE 40 MG TABLET PO SCH (08:18)
[2019-01-17] MEDS: ENOXAPARIN 40 MG/0.4 ML SYRINGE SQ SCH (08:18)
--- NOTE | 2019-01-17 10:26 | P.PN ---
Subjective Progress Note Date: 01/17/19 CHIEF COMPLAINT: Dysphasia HISTORY OF PRESENT ILLNESS: 53-year-old female who originally underwent laparoscopic sleeve gastrectomy on 12/24/2018. Patient was readmitted to the hospital secondary to dysphagia. 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 Patient examined at the bedside. She states her pain is tolerable in her abdomen. Tolerating full liquids. Passing flatus and having BMs. Patient is on room air. Oxygen saturations greater than 92%. She has been ambulating in her room. WBC 9.1. Hemoglobin 8.4. Temp overnight 102.0. She is afebrile this morning. She is wanting to be discharged home today. PHYSICAL EXAM: VITAL SIGNS: Currently stable. GENERAL: Well-developed in no acute distress. HEENT: No sclera icterus. Extraocular movements grossly intact. Moist buccal mucosa. Head is atraumatic, normocephalic. Hears conversational speech. No nasal drainage. NECK: Supple without lymphadenopathy. CHEST: Non-labored respirations and equal bilateral excursions. CARDIOVASCULAR: Regular rate with regular rhythm. Palpable 2+ radial pulses. ABDOMEN: Soft. Nondistended. CODY drain intact. MUSCULOSKELETAL: No clubbing, cyanosis or edema. NEUROLOGIC: No focal or lateralizing signs. Cranial nerves II through XII grossly intact. PSYCH: Appropriate affect. Alert and oriented to person, place and time. SKIN: Well perfused. Good skin turgor. ASSESSMENT: 1. Dysphagia 2. 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 Status post esophagram revealing leak near proximal sleeve with secondary sepsis, present on admission 4. 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 Continue current diet 2. Increase activity 3. Remove agatha today. Steri strip incision 4. Continue CODY per Dr. Moore 5. Anticipate discharge home tomorrow. Will DC PICC line tomorrow before discharge. Nurse practitioner note has been reviewed by physician. Signing provider agrees with the documented findings, assessment, and plan of care. Objective - Vital Signs Vital signs: Vital Signs Temp 98.4 F 01/17/19 07:00 Pulse 64 01/17/19 07:00 Resp 14 01/17/19 08:00 BP 136/84 01/17/19 07:00 Pulse Ox 97 01/17/19 07:00 Intake & Output 01/16/19 01/17/19 01/17/19 18:59 06:59 18:59 Intake Total 320 50 Output Total 10 Balance 310 50 Intake: Intake, IV Titration 200 Amount Anidulafungin 100 mg In 100 Sodium Chloride 0.9% 100 ml @ 84 mls/hr IVPB DAILY [facility] Rx#:[id number] Cefepime 2 gm In Sodium 100 Chloride 0.9% 100 ml @ 200 mls/hr IVPB Q12HR [facility] Rx#:[id number] Oral 120 50 Output: Drainage 10 Left Abdomen 10 Other: Voiding Method Toilet # Voids 1 - Labs CBC & Chem 7: 01/17/19 07:22 01/16/19 11:10 Labs: Abnormal Lab Results - Last 24 Hours (Table) 01/16/19 01/16/19 01/16/19 Range/Units 11:10 11:10 17:02 RBC 2.58 L (3.80-5.40) m/uL Hgb 7.9 L (11.4-16.0) gm/dL Hct 24.5 L (34.0-46.0) % Plt Count 965 H (150-450) k/uL Glucose 102 H (74-99) mg/dL POC Glucose (mg/dL) 100 H (75-99) mg/dL ALT 81 H (9-52) U/L Alkaline Phosphatase 197 H (38-126) U/L Total Protein 6.2 L (6.3-8.2) g/dL Albumin 2.8 L (3.5-5.0) g/dL 01/16/19 01/17/19 Range/Units 19:38 07:22 RBC 2.76 L (3.80-5.40) m/uL Hgb 8.4 L (11.4-16.0) gm/dL Hct 26.5 L (34.0-46.0) % Plt Count 984 H (150-450) k/uL Glucose (74-99) mg/dL POC Glucose (mg/dL) 113 H (75-99) mg/dL ALT (9-52) U/L Alkaline Phosphatase (38-126) U/L Total Protein (6.3-8.2) g/dL Albumin (3.5-5.0) g/dL
[2019-01-17] MEDS: SIMETHICONE 40 MG/0.6 ML DROPS 2,000 MG/30 ML BOTTLE PO SCH ×4 (10:36→22:50)
--- NOTE | 2019-01-17 10:49 | P.PN ---
Subjective Progress Note Date: 01/17/19 Principal diagnosis: intractable nausea and vomiting Patient is a 53-year-old female past medical history of migraine headaches, nephrolithiasis, and postoperative nausea and vomiting who had a gastric sleeve on 12/24/18 complicated with postop edema for sleep and delayed gastric emptying. She was discharged from the hospital on TPN. She worsened at home and 3 presented on 12/31/18. She was found to have possible gastric leak. She returned to the OR on 01/03 for repair of the gastric leak, she was noted to have a splenic capsule Laceration and ultimately underwent spleectomy at the same. She was started on diflucan and meropenem. She spiked fevers and vanco was added 01/05. ID was consulted. CT found possible PNA on 01/07- which she was already being treated for. She underwent thoracentesis on 01/10 with removal of 850 cc. Her TPN was discontinued and oral diet encouraged. O2 requirements decreased and breathing was improved on 01/14/19. Patient seen and examined at bedside. Today she was complaining about not being able to swallow many different consistencies. No shortness of breath. No chest pain. + nausea. Objective - Vital Signs Vital signs: Vital Signs Temp 98.4 F 01/17/19 07:00 Pulse 64 01/17/19 07:00 Resp 14 01/17/19 08:00 BP 136/84 01/17/19 07:00 Pulse Ox 97 01/17/19 07:00 Intake & Output 01/16/19 01/17/19 01/17/19 18:59 06:59 18:59 Intake Total 320 50 Output Total 10 Balance 310 50 Intake: Intake, IV Titration 200 Amount Anidulafungin 100 mg In 100 Sodium Chloride 0.9% 100 ml @ 84 mls/hr IVPB DAILY [facility] Rx#:[id number] Cefepime 2 gm In Sodium 100 Chloride 0.9% 100 ml @ 200 mls/hr IVPB Q12HR [facility] Rx#:[id number] Oral 120 50 Output: Drainage 10 Left Abdomen 10 Other: Voiding Method Toilet # Voids 1 - Exam General: non toxic, no distress, appears at stated age Derm: warm, dry Head: atraumatic, normocephalic, symmetric Eyes: EOMI, no lid lesion, anicteric sclera Mouth: no lip lesion, mucus membranes moist Cardiovascular: S1S2 reg, no murmur, positive posterior tibial pulse bilateral, Lungs: CTA b/l no rhonchi, no rales , no accessory muscle use Abdominal: soft, non tender to palpation diffusely, no guarding, no appreciable organomegaly Ext: no gross muscle atrophy, trace edema, no contractures Neuro: CN II-XI grossly intact, no focal neuro deficits Psych: Alert, oriented, flat affect - Labs CBC & Chem 7: 01/17/19 07:22 01/16/19 11:10 Labs: Abnormal Lab Results - Last 24 Hours (Table) 01/16/19 01/16/19 01/16/19 Range/Units 11:10 11:10 17:02 RBC 2.58 L (3.80-5.40) m/uL Hgb 7.9 L (11.4-16.0) gm/dL Hct 24.5 L (34.0-46.0) % Plt Count 965 H (150-450) k/uL Glucose 102 H (74-99) mg/dL POC Glucose (mg/dL) 100 H (75-99) mg/dL ALT 81 H (9-52) U/L Alkaline Phosphatase 197 H (38-126) U/L Total Protein 6.2 L (6.3-8.2) g/dL Albumin 2.8 L (3.5-5.0) g/dL 01/16/19 01/17/19 Range/Units 19:38 07:22 RBC 2.76 L (3.80-5.40) m/uL Hgb 8.4 L (11.4-16.0) gm/dL Hct 26.5 L (34.0-46.0) % Plt Count 984 H (150-450) k/uL Glucose (74-99) mg/dL POC Glucose (mg/dL) 113 H (75-99) mg/dL ALT (9-52) U/L Alkaline Phosphatase (38-126) U/L Total Protein (6.3-8.2) g/dL Albumin (3.5-5.0) g/dL Assessment and Plan Assessment: Patient with Gastric sleeve with anastomotic leak status post gastrorraphy - c/o difficulty swallowing. - on full liquids - Management per surgery Fevers - continue to monitor - WBC normalized - follow CBC and fever profiles Thrombocytosis s/p spleenectomy - ASA 81 mg, spoke with Dr. Moore who is okay with this - Heme/onc recs appreciated. Plt count now near 1000. - ID HIB, pneumonicall pneumonia, and meningitis vaccinations ordered for 01/17 Pneumonia - ID recs will complete a couse of oral antibiotics continue with eraxis and cefepime, completed vanco - Improving on CXR Bilateral pleural effusion- improving -s/p thoracentesis 01/10 on the left - cultures negative - off lasix - encourage IS and movement Transaminitis and elevated lipase, improving - repeat as out patient in 1-2 weeks Acute blood loss anemia, post op and anticipated - no indication for transfusion at this time - follow CBC, await ferritin level Acute hypoxic respiratory failure related to pleural effusion, resolved DVT prophylaxis:Lovenox Discussed with: Patient, nursing, . Anticipated discharge: per surgery Anticipated discharge place: home A total of 25 minutes was spent on the care of this complex patient more than 50 % of the time was spent in counseling and care coordination.
[2019-01-17 11:29] LABS: Glucose,Whole Blood 84 mg/dL (75-99)
[2019-01-17] MEDS ORDERED: HAEMOPH B POLY CONJ-TET TOX/PF 10 MCG/0.5 ML VIAL IM ONE (12:00)
[2019-01-17] MEDS ORDERED: MENING VAC A,C,Y,W-135 DIP/PF 4 MCG/0.5 ML VIAL IM ONE (12:00)
[2019-01-17] MEDS ORDERED: PNEUMOCOCCAL VACC-PNEUMOVAX 23 25 MCG/0.5 ML VIAL SQ ONE (12:00)
--- NOTE | 2019-01-17 12:23 | FL ---
SINGLE CONTRAST UPPER GI WITH ESOPHAGRAM: CLINICAL HISTORY: 53-year-old female with dysphagia, difficulty swallowing status post sleeve gastrec ashlee 12/24/2018 complicated by staple line dehiscence needing repair and splenectomy. TECHNIQUE: Single contrast exam performed with thin barium. Total fluoroscopy time: 1 minute 1 second. Total images: 15. FINDINGS: The patient took 2-3 swallows of thin barium without difficulty. Esophageal peristalsis and motility are within normal limits. There is normal course, caliber, and overall motility of the thoracic esop hagus on this upright view. Prompt passage of contrast from the esophagus into the stomach. Postsurgical changes of gastrectomy a re demonstrated. No abnormal twisting of the right stomach. There is progressive passage of contrast into the distal stomach and then into the duodenum. No extravasation of contrast to suggest leak. No post surgical free air seen. A surgical drain remains in the left upper quadrant. Skin agatha along the midline. Cholecystectomy clips. IMPRESSION: 1. The patient took 2-3 swallows of thin barium and there is satisfactory passage from the esophagus into the stomach and then into the duodenum. No obstruction. 2. No evidence of leak.
[2019-01-17] MEDS: ANIDULAFUNGIN 100 MG in SODIUM CHLORIDE 0.9% 100 ML IVPB SCH (15:04)
[2019-01-17 17:31] LABS: Glucose,Whole Blood 82 mg/dL (75-99)
[2019-01-17] MEDS: CEFDINIR 300 MG CAP PO SCH (20:00)
--- NOTE | 2019-01-17 20:42 | PN ---
PROGRESS NOTE DATE OF SERVICE: 01/17/2019. REASON FOR FOLLOWUP: Postop fever, likely pneumonia. INTERVAL HISTORY: The patient did spike another fever last night of 101.2 degrees Fahrenheit. The patient is afebrile this morning. The patient is breathing comfortably on room air. The white count has been normal. Patient overall is feeling better and wants to go home. No abdominal pain or diarrhea. PHYSICAL EXAMINATION: Blood pressure is 136/83 with a pulse of 97, temperature 98.6. She is 97% on room air. General description is a middle aged female. She is up in the chair in no distress. RESPIRATORY SYSTEM: Unlabored breathing. Clear to auscultation anteriorly. HEART: S1, S2. Regular rate and rhythm. ABDOMEN: Soft, no tenderness. LABS: Hemoglobin 8.4, white count 9.1. DIAGNOSTIC IMPRESSION AND PLAN: Patient with a postoperative fever, likely pneumonia. Sputum has been negative for any resistant pathogen. Also has thoracocentesis and those cultures were negative as well. Will discontinue cefepime. Will give short course of oral Ceftin and Flagyl on discharge and monitor clinical course closely. Continue supportive care. MMODL / IJN: [id number] /
[2019-01-18 07:55] VITALS: BP 142/83; PULSE 96; RESP 12; TEMP 98.8
[2019-01-18 08:31] LABS: HCT 28.3 % (34.0-46.0); HGB 8.7 gm/dL (11.4-16.0); Hypochromasia Moderate; MCH 30.1 pg (25.0-35.0); MCHC 30.9 g/dL (31.0-37.0); MCV 97.6 fL (80.0-100.0); Platelet Count 994 k/uL (150-450); RDW 13.3 % (11.5-15.5); WBC 11.1 k/uL (3.8-10.6)
[2019-01-18] MEDS: SIMETHICONE 40 MG/0.6 ML DROPS 2,000 MG/30 ML BOTTLE PO SCH ×2 (08:31→12:31)
[2019-01-18] MEDS: PANTOPRAZOLE 40 MG TABLET PO SCH (08:31)
[2019-01-18] MEDS: ANIDULAFUNGIN 100 MG in SODIUM CHLORIDE 0.9% 100 ML IVPB SCH (08:31)
[2019-01-18] MEDS: ENOXAPARIN 40 MG/0.4 ML SYRINGE SQ SCH (08:31)
[2019-01-18] MEDS: ASPIRIN 81 MG PO SCH (08:31)
[2019-01-18] MEDS: CEFDINIR 300 MG CAP PO SCH (08:31)
[2019-01-18 08:45] LABS: Anion Gap 11 mmol/L; Blood Urea Nitrogen 10 mg/dL (7-17); Calcium 8.6 mg/dL (8.4-10.2); Carbon Dioxide 25 mmol/L (22-30); Chloride 103 mmol/L (98-107); Glucose 93 mg/dL (74-99); Sodium 139 mmol/L (137-145)
--- NOTE | 2019-01-18 11:34 | P.DS ---
Providers Date of admission: 01/03/19 14:59 Expected date of discharge: 01/18/19 Attending physician: Colby Moore Consults: 12/31/18 14:26 Consult Physician Routine Consulting Provider: Antionette Nolan Consult Reason/Comments: Medical management Do you want consulting provider notified?: Yes 01/03/19 17:51 Consult Physician Routine Consulting Provider: Darrell France Consult Reason/Comments: icu manage Do you want consulting provider notified?: Yes 01/05/19 17:27 Consult Physician Routine Consulting Provider: Liam Eddy Consult Reason/Comments: sepsis Do you want consulting provider notified?: Yes 01/14/19 08:10 Consult Physician Routine Consulting Provider: Jayson Angulo Consult Reason/Comments: thrombocytosis s/p splenectomy Do you want consulting provider notified?: Yes Primary care physician: Tim Aragon Hospital Course: 53-year-old female who originally underwent laparoscopic sleeve gastrectomy on 12/24/2018. Patient was readmitted to the hospital secondary to dysphagia. 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 Patient had a slow recovery including difficulties with shortness of breath. Patient did require thoracentesis of 850 mL during hospitalization. Patient is tolerating full liquid diet. She is afebrile. She was seen by infectious disease during hospitalization. She is discharged home today in stable condition on Ceftin and Flagyl. Please see EMR for further hospital course details. DISCHARGE DIAGNOSIS: 1. Dysphagia 2. 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 Status post esophagram revealing leak near proximal sleeve with secondary sepsis, present on admission 4. S/P exploratory laparotomy, gastrorrhaphy, and splenectomy secondary to gastric sleeve staple line perforation Nurse practitioner note has been reviewed by physician. Signing provider agrees with the documented findings, assessment, and plan of care. Plan - Discharge Summary Discharge Rx Participant: No New Discharge Prescriptions: New Cefuroxime Axetil [Ceftin] 500 mg PO BID #14 tab metroNIDAZOLE [Flagyl] 500 mg PO TID #21 tab Aspirin 81 mg PO DAILY chew No Action Butalb/Asprin/Caff 50-325-40Mg [Fiorinal 50-325-40 MG] 1 cap PO DIRECTED PRN PRN Reason: migraines Estrogens, Conjugated [Premarin] 0.625 mg PO DAILY HYDROcodone/APAP [[place] Elixir 7.5-325Mg/15Ml] 30 ml PO Q6HR PRN #360 ml PRN Reason: Severe Pain Simethicone 40 mg/0.6 ml Drops [Mylicon Drops] 40 mg PO Q6HR PRN #30 ml PRN Reason: Bloating Discharge Medication List Butalb/Asprin/Caff 50-325-40Mg [Fiorinal 50-325-40 MG] 1 cap PO DIRECTED PRN 10/11/18 [History] Estrogens, Conjugated [Premarin] 0.625 mg PO DAILY 12/21/18 [History] HYDROcodone/APAP [[place] Elixir 7.5-325Mg/15Ml] 30 ml PO Q6HR PRN #360 ml [Rx] Simethicone 40 mg/0.6 ml Drops [Mylicon Drops] 40 mg PO Q6HR PRN #30 ml [Rx] Cefuroxime Axetil [Ceftin] 500 mg PO BID #14 tab 01/17/19 [Rx] metroNIDAZOLE [Flagyl] 500 mg PO TID #21 tab 01/17/19 [Rx] Aspirin 81 mg PO DAILY chew 01/18/19 [Rx] Follow up Appointment(s)/Referral(s): [facility], [NON-STAFF] - [facility],. [NON-STAFF] - 01/24/19 1:00 pm (With Dr Teresa Brooks with lab animal technologist) Tim Aragon DO [Primary Care Provider] - 1-2 days Ambulatory/Diagnostic Orders: Complete Blood Count w/diff [LAB.AMB] Time Frame: 1 Week, Location: None Selected Comprehensive Metabolic Panel [LAB.AMB] Time Frame: 1 Week, Location: None Selected Activity/Diet/Wound Care/Special Instructions: Continue clear liquid diet You may shower. No soaking or tub baths Activity as tolerated Alternative tylenol or motrin for pain May discontinue aspirin once platelets are 850 or less
--- NOTE | 2019-01-18 14:57 | PN ---
PROGRESS NOTE DATE OF SERVICE: 01/18/2019 REASON FOR FOLLOWUP VISIT: Pneumonia. INTERVAL HISTORY: The patient has been afebrile for the last 24 hours. The patient is feeling better. Breathing comfortably. The patient denies having any chest pain. No cough. No abdominal pain. Did have some small bowel movement. PHYSICAL EXAMINATION: Blood pressure 142/83 with a pulse of 96, temperature 98.8. She is 92% on room air. General description is a middle-aged female, up in the bed in no distress. RESPIRATORY SYSTEM: Unlabored breathing with decreased breath sounds at the base. HEART: S1, S2. Regular rate and rhythm. ABDOMEN: Soft, no tenderness. LABS: Hemoglobin 8,7, white count of 11.1, BUN of 10, creatinine 0.54. DIAGNOSTIC IMPRESSION AND PLAN: Patient with postop fever, likely pneumonia, possible gram negative. Sputum has been negative. The negative as well. Plan at this time is to finish a short course of oral Ceftin and Flagyl as we cannot use the Avelox because of her Cipro allergy and close outpatient followup. Patient if develops any new fever or any abdominal pain or shortness of breath to let us know right away. MMODL / IJN: [id number] /
--- NOTE | 2019-01-18 18:43 | P.PN ---
Subjective Progress Note Date: 01/18/19 Principal diagnosis: intractable nausea and vomiting Patient is a 53-year-old female past medical history of migraine headaches, nephrolithiasis, and postoperative nausea and vomiting who had a gastric sleeve on 12/24/18 complicated with postop edema for sleep and delayed gastric emptying. She was discharged from the hospital on TPN. She worsened at home and 3 presented on 12/31/18. She was found to have possible gastric leak. She returned to the OR on 01/03 for repair of the gastric leak, she was noted to have a splenic capsule Laceration and ultimately underwent spleectomy at the same. She was started on diflucan and meropenem. She spiked fevers and vanco was added 01/05. ID was consulted. CT found possible PNA on 01/07- which she was already being treated for. She underwent thoracentesis on 01/10 with removal of 850 cc. Her TPN was discontinued and oral diet encouraged. O2 requirements decreased and breathing was improved on 01/14/19. Had fever X 1 but likely due to blankets. Patient seen and examined at bedside. No chest pain, SOB, nausea or vomiting. Objective - Vital Signs Vital signs: Vital Signs Temp 98.8 F 01/18/19 07:00 Pulse 96 01/18/19 07:00 Resp 12 01/18/19 07:00 BP 142/83 01/18/19 07:00 Pulse Ox 92 L 01/18/19 07:00 Intake & Output 01/17/19 01/18/19 01/18/19 18:59 06:59 18:59 Intake Total 580 590 Output Total 5 Balance 575 590 Weight 112.6 kg 112.6 kg Intake: Intake, IV Titration 100 Amount Cefepime 2 gm In Sodium 100 Chloride 0.9% 100 ml @ 200 mls/hr IVPB Q12HR [facility] Rx#:[id number] Oral 480 590 Output: Drainage 5 Left Abdomen 5 Other: Voiding Method Toilet # Voids 2 2 - Exam General: non toxic, no distress, appears at stated age Derm: warm, dry Head: atraumatic, normocephalic, symmetric Eyes: EOMI, no lid lesion, anicteric sclera Mouth: no lip lesion, mucus membranes moist Cardiovascular: S1S2 reg, no murmur, positive posterior tibial pulse bilateral, Lungs: CTA b/l no rhonchi, no rales , no accessory muscle use Abdominal: soft, non tender to palpation diffusely, no guarding, no appreciable organomegaly Ext: no gross muscle atrophy, trace edema, no contractures Neuro: CN II-XI grossly intact, no focal neuro deficits Psych: Alert, oriented, flat affect - Labs CBC & Chem 7: 01/18/19 07:35 01/18/19 07:35 Labs: Abnormal Lab Results - Last 24 Hours (Table) 01/18/19 Range/Units 07:35 WBC 11.1 H (3.8-10.6) k/uL RBC 2.90 L (3.80-5.40) m/uL Hgb 8.7 L (11.4-16.0) gm/dL Hct 28.3 L (34.0-46.0) % MCHC 30.9 L (31.0-37.0) g/dL Plt Count 994 H (150-450) k/uL Assessment and Plan Assessment: Patient with Gastric sleeve with anastomotic leak status post gastrorraphy -repeat esophagram negative - on full liquids - Management per surgery Thrombocytosis s/p spleenectomy - ASA 81 mg maintain until plt less than 850, repeat CBC ordered for 5-7 days with home health Pneumonia - ID recs will complete a couse of oral antibiotics continue with eraxis and cefepime, completed vanco. Will complete with oral abx. - Improving on CXR Bilateral pleural effusion- improving -s/p thoracentesis 01/10 on the left - cultures negative - off lasix - encourage IS and movement Fevers, resolved Transaminitis and elevated lipase, improving - repeat as out patient in 1 week, given Rx for home health to draw. Acute blood loss anemia, post op and anticipated - no indication for transfusion at this time - follow CBC, await ferritin level Acute hypoxic respiratory failure related to pleural effusion, resolved DVT prophylaxis:Lovenox Discussed with: Patient, nursing, Anticipated discharge: per surgery Anticipated discharge place: home A total of 25 minutes was spent on the care of this complex patient more than 50 % of the time was spent in counseling and care coordination.
== END 2019-01-18 14:35 | disposition home or self-care (01) | DRG 856 ==
LOC: EC 08:55 → 4SSUR 10:55 → OBSVTOIN 01-03 14:59 → 2SICU 01-03 18:25 → 4SSUR 01-11 18:21
PROVIDERS: ADMIT Surgery; ATTEND Surgery
PROC: 0DJ08ZZ Inspection of Upper Intestinal Tract, Via Natural or Artificial Opening Endoscopic (ICD-10-PCS; principal; 2019-01-03 09:30)
PROC: 07TP0ZZ Resection of Spleen, Open Approach (ICD-10-PCS; principal; 2019-01-03 09:30)
PROC: 0DQ60ZZ Repair Stomach, Open Approach (ICD-10-PCS; principal; 2019-01-03 09:30)
PROC: 0W9B3ZZ Drainage of Left Pleural Cavity, Percutaneous Approach (ICD-10-PCS; 2019-01-10)
DX: T81.40XA Infection following a procedure, unspecified, initial encounter (principal); J15.6 Pneumonia due to other Gram-negative bacteria; J96.01 Acute respiratory failure with hypoxia; D62 Acute posthemorrhagic anemia; E87.2 Acidosis; J90 Pleural effusion, not elsewhere classified; J98.11 Atelectasis; K95.89 Other complications of other bariatric procedure; S36.030A Superficial (capsular) laceration of spleen, initial encounter; T81.44XA Sepsis following a procedure, initial encounter; D69.6 Thrombocytopenia, unspecified; E66.01 Morbid (severe) obesity due to excess calories; E86.0 Dehydration; F41.9 Anxiety disorder, unspecified; G43.909 Migraine, unspecified, not intractable, without status migrainosus; I83.90 Asymptomatic varicose veins of unspecified lower extremity; K44.9 Diaphragmatic hernia without obstruction or gangrene; K59.00 Constipation, unspecified; N20.0 Calculus of kidney; R13.10 Dysphagia, unspecified; R47.02 Dysphasia; Y83.2 Surgical operation with anastomosis, bypass or graft as the cause of abnormal reaction of the patient, or of later complication, without mention of misadventure at the time of the procedure; Z80.3 Family history of malignant neoplasm of breast; Z86.61 Personal history of infections of the central nervous system; Z87.442 Personal history of urinary calculi; Z88.1 Allergy status to other antibiotic agents; Z90.710 Acquired absence of both cervix and uterus; Z98.84 Bariatric surgery status; Z68.35 Body mass index [BMI] 35.0-35.9, adult; Z90.49 Acquired absence of other specified parts of digestive tract; Z88.2 Allergy status to sulfonamides
CPT/HCPCS: 36415; 43235; 71045; 71260; 71275; 74022; 74160; 74177; 74240; 76604; 80048; 80053; 80202; 81001; 82040; 82330; 82550; 82553; 82728; 83036; 83540; 83690; 83735; 84100; 84132; 84478; 84484; 85025; 85027; 85610; 85730; 87040; 87070; 87205; 88305; 90648; 90732; 90734; 93005; 94640; 94760; 96361; 96374; 96375; 96376; 99285

== ENCOUNTER → 2019-01-31 | Outpatient (CLI) | payer BC ==
[2019-01-31 14:21] VITALS: BP 125/85; PULSE 94; RESP 16; TEMP 99
--- NOTE | 2019-01-31 14:44 | P.HPBAR ---
Bariatric H&P - History & Physicial H&P Date: 01/31/19 History & Physicial: Visit/CC: sleeve follow-up Patient initial contact: Initial weight: 97.522 kg Initial weight in pounds: 215.00 Height: Initial BMI: Last weight: Current weight: 88.904 kg Current weight in pounds: 196.00 Current BMI: [place] body weight (based on NIH guidelines): Excess body weight loss: The patient is a 53 year-old F who presents for Bariatric Assessment. Patient presents today for sleeve gastrectomy follow-up. She states that she is ambulatory more. She still feels tired. She has had some shortness of breath. She is increasing her diet or. Past Medical History Additional Past Medical History / Comment(s): Pt recently admitted to [facility] on for lap sleeve gastrectomy with edema GE junction. Other hx: migraines, varicose veins, hx kidney stones, history of difficulty with postoperative nausea and vomiting History of Any Multi-Drug Resistant Organisms: None Reported Past Surgical History: Bariatric Surgery, Cholecystectomy, Hysterectomy, Tonsillectomy Additional Past Surgical History / Comment(s): 12/24/18 Lap sleeve gastrectomy, lap band surgery 2007 lap band removal 2008 due to prolapse, I&D of cyst on genital area(not sure what type of infection), picc line/later removed and recently had another picc line inserted for home TPN Past Anesthesia/Blood Transfusion Reactions: Family History of Problems w/ Anesthesia, Motion Sickness, Postoperative Nausea & Vomiting (PONV) Additional Past Anesthesia/Blood Transfusion Reaction / Comm: Pt has had severe PONV, mother-"hard time waking up" Past Psychological History: No Psychological Hx Reported Additional Psychological History / Comment(s): Pt resides with her spouse. She works at [employer]. She had [facility] home care come out yesterday for TPN instructions thru her picc line. Smoking Status: Never smoker Past Alcohol Use History: Occasional Past Drug Use History: None Reported - Past Family History Mother Family Medical History: Cancer, Deep Vein Thrombosis (DVT) Additional Family Medical History / Comment(s): Mother had breast cancer. Father Family Medical History: Unable to Obtain Surgical - Exam Vital Signs Temp Pulse Resp BP 99.0 F 94 16 125/85 01/31/19 14:00 01/31/19 14:00 01/31/19 14:00 01/31/19 14:00 - General well developed, well nourished, no distress - Eyes PERRL - ENT normal pinna - Neck no masses - Respiratory normal expansion - Cardiovascular Rhythm: regular - Abdomen Abdomen: soft, non tender Bariatric Assessment & Plan Plan: Patient will have her labs checked today. She will finish the second portion of her arm transfusion. We will plan to follow up with her in 2 weeks. Patient met with a dietitian. She will increase her diet to soft foods. Bariatric Checklist Checklist: Plan: Checklist: EGD: 1. Hiatal hernia: 2. H. Pylori: HgbA1c: Vitamin D: Smoking: Never smoker Primary care physician referral: lorraine fong Psychiatry clearance: Cardiology clearance: Sleep study: Diet journal: VTE risk score: VTE risk level: Rehab needs at discharge:
== END ==
LOC: BARWHC3 13:44
PROVIDERS: ATTEND Surgery
DX: Z48.815 Encounter for surgical aftercare following surgery on the digestive system (principal); Z98.84 Bariatric surgery status
CPT/HCPCS: 99211

== ENCOUNTER → 2019-03-28 | Outpatient (CLI) | payer BC ==
[2019-03-28 14:43] VITALS: BP 140/93; PULSE 78; RESP 16; TEMP 98.3; BMI 26.2
--- NOTE | 2019-03-29 10:01 | P.HPBAR ---
Bariatric H&P - History & Physicial H&P Date: 03/28/19 History & Physicial: Visit/CC: post surgical Patient initial contact: Initial weight: 97.522 kg Initial weight in pounds: 215.00 Height: 5 ft 10 in Initial BMI: 30.8 Last weight: Current weight: 83.007 kg Current weight in pounds: 183.00 Current BMI: 26.2 [place] body weight (based on NIH guidelines): 68.039 kg Excess body weight loss: 49.2% The patient is a 53 year-old F who presents for Bariatric Assessment. Patient presents today for postsurgical follow-up. She states that she was seen by her primary care doctor for some right leg swelling. She was diagnosed with a DVT and has been started on [place]. Patient has no complaints of GERD and dysphagia. She states that she has some minimal pleuritic pain which has improved. She states she is able inhale 5252-8004 mL on her spirometer. She was seen by her company physician at [employer]. She is requesting to return to work on April 11 or . Past Medical History Additional Past Medical History / Comment(s): Pt recently admitted to [facility] on 12/24/18 for lap sleeve gastrectomy with edema GE junction. Other hx: migraines, varicose veins, hx kidney stones, history of difficulty with postoperative nausea and vomiting History of Any Multi-Drug Resistant Organisms: None Reported Past Surgical History: Bariatric Surgery, Cholecystectomy, Hysterectomy, Tonsillectomy Additional Past Surgical History / Comment(s): 12/24/18 Lap sleeve gastrectomy, lap band surgery 2007 lap band removal 2008 due to prolapse, I&D of cyst on genital area(not sure what type of infection), picc line/later removed and recently had another picc line inserted for home TPN Past Anesthesia/Blood Transfusion Reactions: Family History of Problems w/ Anesthesia, Motion Sickness, Postoperative Nausea & Vomiting (PONV) Additional Past Anesthesia/Blood Transfusion Reaction / Comm: Pt has had severe PONV, mother-"hard time waking up" Past Psychological History: No Psychological Hx Reported Additional Psychological History / Comment(s): Pt resides with her spouse. She works at [employer]. She had [facility] home care come out yesterday for TPN instructions thru her picc line. Smoking Status: Never smoker Past Alcohol Use History: Occasional Past Drug Use History: None Reported - Past Family History Mother Family Medical History: Cancer, Deep Vein Thrombosis (DVT) Additional Family Medical History / Comment(s): Mother had breast cancer. Father Family Medical History: Unable to Obtain Surgical - Exam Vital Signs Temp Pulse Resp BP 98.3 F 78 16 140/93 03/28/19 14:39 03/28/19 14:39 03/28/19 14:39 03/28/19 14:39 - General well developed, well nourished, no distress - Eyes PERRL - ENT normal pinna - Respiratory normal expansion, normal respiratory effort - Abdomen Incision is well-healed. Abdomen: soft, non tender Bariatric Assessment & Plan Plan: Patient is doing fairly well. She is an excellent weight loss. Her PCP will manage her DVT. She will follow-up in 4 weeks. Her omeprazole was refilled. Bariatric Checklist Checklist: Plan: Checklist: EGD: 1. Hiatal hernia: 2. H. Pylori: HgbA1c: Vitamin D: Smoking: Never smoker Primary care physician referral: lorraine fong Psychiatry clearance: Cardiology clearance: Sleep study: Diet journal: VTE risk score: VTE risk level: Rehab needs at discharge:
== END | disposition home or self-care (01) ==
LOC: BARWHC3 13:46
PROVIDERS: ATTEND Surgery
DX: Z09 Encounter for follow-up examination after completed treatment for conditions other than malignant neoplasm (principal); I82.401 Acute embolism and thrombosis of unspecified deep veins of right lower extremity; Z98.84 Bariatric surgery status
CPT/HCPCS: 99211